=== PATIENT | female | born 1955 | race Asian ===

== ENCOUNTER → 2023-04-30 16:55 | Outpatient (REF) | payer MEDICARE, SELFPAY ==
[2023-04-30 17:38] LABS: Blood Urea Nitrogen 50 mg/dl (7-17); Calcium 8.9 mg/dl (8.4-10.2); Carbon Dioxide 22 mmol/L (22-30); Chloride 107 mmol/L (98-107); Glucose 106 mg/dl (70-99); Potassium 4.6 mmol/L (3.5-5.1); Sodium 137 mmol/L (135-145); eGFR 30.69
== END ==
LOC: REG 16:55
PROVIDERS: ATTENDING PHYSICIAN Family Medicine
DX: N18.31 Chronic kidney disease, stage 3a (principal)
CPT/HCPCS: 36415; 80048

== ENCOUNTER → 2023-06-27 15:11 | Outpatient (REF) | payer MEDICARE, SELFPAY ==
[2023-06-27 16:17] LABS: % Basophils 0.6 % (0-2); % Eosinophils 2.9 % (0-6); % Immature Granulocytes 0.3 % (0-0.5); % Lymphocytes 22.9 % (20.5-51.1); % Monocytes 9.3 % (1.7-9.3); Absolute Eosinophils 0.2 10^3/uL (0-0.7); Absolute Lymphocytes 1.6 10^3/uL (1.2-3.4); Absolute Monocytes 0.7 10^3/uL (0.1-0.6); Absolute Neutrophils 4.6 10^3/uL (1.4-6.5); Hematocrit 36.4 % (37.0-47.0); Hemoglobin 12.1 g/dL (12.0-16.0); Mean Corp Hgb Conc. 33.2 g/dL (33.0-37.0); Mean Corpuscular Volume 90.1 fL (81.0-99.0); Mean Platelet Volume 11.2 fL (7.4-10.4); Nucleated Red Blood Cells % 0 %; Platelet Count 196 10^3/uL (130-400); Red Blood Cell Count 4.04 10^6/uL (4.20-5.40); Red Cell Dist. Width 14.1 % (11.5-14.5); White Blood Cell Count 7.2 10^3/uL (4.8-10.8)
[2023-06-27 16:35] LABS: ALT (SGPT) 15 U/L (0-35); AST (SGOT) 24 U/L (14-36); Albumin 3.6 g/dl (3.5-5.0); Alkaline Phosphatase 112 U/L (38-126); Blood Urea Nitrogen 55 mg/dl (7-17); Calcium 9.5 mg/dl (8.4-10.2); Carbon Dioxide 22 mmol/L (22-30); Chloride 112 mmol/L (98-107); Glucose 79 mg/dl (70-99); Potassium 5.4 mmol/L (3.5-5.1); Sodium 137 mmol/L (135-145); Total Bilirubin 0.2 mg/dl (0.2-1.3); Total Protein 7.5 g/dl (6.3-8.2); eGFR 30.69
[2023-06-29 15:09] LABS: Tacrolimus (Prograft - FK506) 4.9 ng/mL
== END ==
LOC: REG 15:11
PROVIDERS: ATTENDING PHYSICIAN Internal Medicine Nephrology; FAMILY PHYSICIAN Family Medicine
DX: Z94.0 Kidney transplant status (principal)
CPT/HCPCS: 36415; 80053; 80197; 85025

== ENCOUNTER → 2023-07-05 18:04 | Outpatient (REF) | payer MEDICARE, SELFPAY | LOC: RAD 18:04 | PROVIDERS: ATTENDING PHYSICIAN Physician Assistant Medical | DX: J40 Bronchitis, not specified as acute or chronic (principal); Z79.899 Other long term (current) drug therapy; Z94.0 Kidney transplant status | CPT/HCPCS: 71046 ==

== ENCOUNTER → 2023-07-09 07:35 | Outpatient (REF) | payer MEDICARE, SELFPAY | LOC: RAD 07:35 | PROVIDERS: ATTENDING PHYSICIAN Physician Assistant Medical | DX: R91.1 Solitary pulmonary nodule (principal) | CPT/HCPCS: 71250 ==

== ENCOUNTER 2023-07-30 16:39 | Emergency (ER) | payer OTHER, SELFPAY ==
[2023-07-30 16:59] VITALS: BP 139/65
--- NOTE | 2023-07-30 18:21 | ED.MUSCINJ ---
HPI-Injury
General
Chief Complaint: Musculo-Skeletal Complaint
Source: patient
Exam Limitations: none
Time Seen by Provider: 07/30/23 18:06
Travel History
Have you had any contact with someone who has COVID-19?: No
Do you have any symptoms of coronavirus? Fever > 100 degrees, chills, cough, shortness of breath, sore throat, loss of taste or smell, muscle aches, or headache?: No
History of Present Illness-Injury
Initial Injury comments:
67-year-old female presents with sudden onset atraumatic pain to the right midfoot starting 2 days ago. She notes a subtle amount of erythema. The pain is made worse with motion and to the touch. No fevers. She is a kidney transplant patient.
She also has a history of coronary artery disease with multiple stents. She is on Plavix. No other complaints at this time
Past History
Past History
ED Past Medical History: CAD, HTN and Other (kidney transplant)
ED Past Surgical History: Other (renal transplant)
Patient has exhibited threatening behavior?: No
PSI?: No
Social History
Tobacco: Non-smoker
Personal:
Living: with family
Phy Exam
Physical Exam
Physical Exam:
General: Well-appearing female no acute respiratory distress
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 There is subtle amount of soft tissue swelling with overlying erythema no lymphangitic streaking
Vascular: 2+ dorsalis pedis pulse left foot
Neurologic: Good sensation left foot
Injury Course
Orders/Labs/Results
Orders:
Orders
07/30/23 17:03
Foot, Left 3 View [CR Foot - Left Min 3 Views] Urgent
Comment:
Reason For Exam: left foot pain and swelling denies injury
MDM/Problems Addressed
Differential Diagnosis Includes:
Left foot pain. Fracture versus dislocation versus sprain versus arthritis such as gout I personally visualized x-rays which are negative for acute finding. Offered patient postoperative shoe for support however she declined. Suspect underlying
gouty arthritis. Do not infectious process. Patient is on prednisone 5 mg daily. Will increase to 20 mg daily for 4 days and have her follow-up with family doctor. Return precautions were given
*Critical Care Note
Total Time (30-74mins, 75-104mins- exclusive of procedures): Not Applicable
ED Attending Note
-
Portions of this chart may have been created with voice recognition software.� Occasional wrong word or��sound alike� substitutions may have occurred due to the inherent limitations of voice recognition software.
Discharge Plan
Departure
Patient Disposition: Home (Routine Discharge)
Date of Disposition: 07/30/23
Time of Disposition: 18:23
Patient with high blood pressure during this ER visit?: No
Discharge Problem:
Foot pain
Instructions: Muscle and Bone Pain (DC)
Prescriptions:
No Action
prednisone 5 MG tablet
5 mg PO HS
nifedipine 30 MG tablet extended release
30 mg PO BID
tacrolimus [Prograf] 1 mg Capsule
1 mg PO Q12H
albuterol sulfate 2.5 mg /3 mL (0.083 %) solution for nebulization
2.5 mg inhalation R Q6 PRN (Reason: sob/wheezing)
albuterol sulfate 90 mcg/actuation HFA aerosol inhaler
2 puff INHALATION R Q4 PRN (Reason: sob/wheezing)
atenolol 50 mg tablet
50 mg PO DAILY
clopidogrel 75 MG tablet
75 mg PO DAILY
hydralazine 10 mg Tablet
5 mg PO TID Qty: 90 0RF
sodium bicarbonate 650 mg tablet
650 mg PO DAILY Qty: 30 0RF
torsemide 5 mg tablet
10 mg PO DAILY Qty: 60 0RF
Activity Restrictions/Additional Instructions:
Increase her prednisone to 20 mg daily for the next 4 days. Follow-up with your family doctor. Return if needed otherwise
Interventions
Interventions:
*ED COVID-19 Vaccine History Last Done: 07/30/23 16:59
Discharge Date and Time
Print Language: UKRAINIAN
== END 2023-07-30 18:46 | disposition home or self-care (01) ==
LOC: EMR 16:39
PROVIDERS: EMERGENCY PHYSICIAN Emergency Medicine; FAMILY PHYSICIAN Family Medicine
DX: M79.672 Pain in left foot (principal); Z79.02 Long term (current) use of antithrombotics/antiplatelets; Z95.5 Presence of coronary angioplasty implant and graft
CPT/HCPCS: 99283; 73630

== ENCOUNTER → 2023-09-12 08:14 | Outpatient (REF) | payer OTHER, SELFPAY ==
[2023-09-12 09:00] LABS: % Basophils 0.2 % (0-2); % Eosinophils 0.1 % (0-6); % Immature Granulocytes 0.3 % (0-0.5); % Lymphocytes 16.2 % (20.5-51.1); % Monocytes 7.9 % (1.7-9.3); % Neutrophils 75.3 % (42.2-75.2); Absolute Lymphocytes 1.8 10^3/uL (1.2-3.4); Absolute Monocytes 0.9 10^3/uL (0.1-0.6); Absolute Neutrophils 8.4 10^3/uL (1.4-6.5); Hematocrit 34.5 % (37.0-47.0); Hemoglobin 11.1 g/dL (12.0-16.0); Mean Corp Hgb Conc. 32.2 g/dL (33.0-37.0); Mean Corpuscular Hgb 29.1 pg (27.0-31.0); Mean Corpuscular Volume 90.6 fL (81.0-99.0); Nucleated Red Blood Cells % 0 %; Platelet Count 194 10^3/uL (130-400); Red Blood Cell Count 3.81 10^6/uL (4.20-5.40); Red Cell Dist. Width 12.5 % (11.5-14.5); White Blood Cell Count 11.2 10^3/uL (4.8-10.8)
[2023-09-12 09:43] LABS: ALT (SGPT) 12 U/L (0-35); AST (SGOT) 21 U/L (14-36); Albumin 3.9 g/dl (3.5-5.0); Alkaline Phosphatase 104 U/L (38-126); Blood Urea Nitrogen 59 mg/dl (7-17); Carbon Dioxide 18 mmol/L (22-30); Chloride 114 mmol/L (98-107); Glucose 102 mg/dl (70-99); Potassium 5.6 mmol/L (3.5-5.1); Sodium 142 mmol/L (135-145); Total Bilirubin 0.3 mg/dl (0.2-1.3); eGFR 24.12
[2023-09-12 11:14] LABS: Uric Acid 9.1 mg/dl (2.5-6.2)
[2023-09-12 11:36] LABS: Urine Protein 430 mg/dl
[2023-09-13 22:28] LABS: Tacrolimus (Prograft - FK506) 16.6 ng/mL
== END ==
LOC: REG 08:14
PROVIDERS: ATTENDING PHYSICIAN Internal Medicine Nephrology; FAMILY PHYSICIAN Family Medicine; REFERRING PHYSICIAN Internal Medicine Cardiovascular Disease
DX: Z94.0 Kidney transplant status (principal)
CPT/HCPCS: 36415; 80053; 80197; 82570; 84156; 84550; 85025

== ENCOUNTER → 2023-09-15 10:04 | Outpatient (REF) | payer OTHER, SELFPAY ==
[2023-09-15 11:21] LABS: Erythrocyte Sed Rate 71 mm/hour (0-20)
== END ==
LOC: REG 10:04
PROVIDERS: ATTENDING PHYSICIAN Family Medicine
DX: R51.9 Headache, unspecified (principal)
CPT/HCPCS: 36415; 85652; 86140

== ENCOUNTER → 2023-12-14 10:47 | Outpatient (REF) | payer OTHER, SELFPAY | LOC: DHSLP 10:47 | PROVIDERS: ATTENDING PHYSICIAN Internal Medicine; FAMILY PHYSICIAN Family Medicine | DX: G47.33 Obstructive sleep apnea (adult) (pediatric) (principal) | CPT/HCPCS: 95800 ==

== ENCOUNTER → 2023-12-14 17:25 | Outpatient (REF) | payer OTHER, SELFPAY ==
[2023-12-14 18:27] LABS: ALT (SGPT) 13 U/L (0-35); AST (SGOT) 20 U/L (14-36); Albumin 3.7 g/dl (3.5-5.0); Alkaline Phosphatase 109 U/L (38-126); Blood Urea Nitrogen 59 mg/dl (7-17); Calcium 9.4 mg/dl (8.4-10.2); Carbon Dioxide 17 mmol/L (22-30); Chloride 112 mmol/L (98-107); Glucose 191 mg/dl (70-99); Potassium 4.9 mmol/L (3.5-5.1); Sodium 142 mmol/L (135-145); Total Bilirubin < 0.1 mg/dl (0.2-1.3); Total Protein 7.4 g/dl (6.3-8.2); Uric Acid 9.5 mg/dl (2.5-6.2); eGFR 26.88
[2023-12-14 18:30] LABS: % Basophils 0.8 % (0-2); % Eosinophils 4.7 % (0-6); % Immature Granulocytes 0.5 % (0-0.5); % Lymphocytes 19.4 % (20.5-51.1); % Monocytes 6.8 % (1.7-9.3); % Neutrophils 67.8 % (42.2-75.2); Absolute Basophils 0.1 10^3/uL (0-0.2); Absolute Eosinophils 0.4 10^3/uL (0-0.7); Absolute Lymphocytes 1.5 10^3/uL (1.2-3.4); Absolute Monocytes 0.5 10^3/uL (0.1-0.6); Absolute Neutrophils 5.3 10^3/uL (1.4-6.5); Hematocrit 33.2 % (37.0-47.0); Mean Corp Hgb Conc. 33.1 g/dL (33.0-37.0); Mean Corpuscular Hgb 28.8 pg (27.0-31.0); Mean Corpuscular Volume 86.9 fL (81.0-99.0); Mean Platelet Volume 9.9 fL (7.4-10.4); Nucleated Red Blood Cells % 0 %; Platelet Count 279 10^3/uL (130-400); Red Blood Cell Count 3.82 10^6/uL (4.20-5.40); Red Cell Dist. Width 13.5 % (11.5-14.5); White Blood Cell Count 7.8 10^3/uL (4.8-10.8)
[2023-12-14 18:48] LABS: Protein/creatinine Ratio 6.3; Urine Protein 259 mg/dl
== END ==
LOC: REG 17:25
PROVIDERS: ATTENDING PHYSICIAN Internal Medicine Nephrology; FAMILY PHYSICIAN Family Medicine
DX: Z94.0 Kidney transplant status (principal); M10.9 Gout, unspecified
CPT/HCPCS: 36415; 80053; 80197; 82570; 84156; 84550; 85025

== ENCOUNTER → 2024-01-22 08:09 | Outpatient (REF) | payer OTHER, SELFPAY ==
[2024-01-22 09:46] LABS: % Basophils 0.7 % (0-2); % Immature Granulocytes 0.3 % (0-0.5); % Lymphocytes 21.2 % (20.5-51.1); % Monocytes 3.4 % (1.7-9.3); % Neutrophils 73.4 % (42.2-75.2); Absolute Basophils 0.1 10^3/uL (0-0.2); Absolute Eosinophils 0.1 10^3/uL (0-0.7); Absolute Lymphocytes 1.4 10^3/uL (1.2-3.4); Absolute Monocytes 0.2 10^3/uL (0.1-0.6); Hematocrit 32.4 % (37.0-47.0); Hemoglobin 10.5 g/dL (12.0-16.0); Mean Corp Hgb Conc. 32.4 g/dL (33.0-37.0); Mean Corpuscular Hgb 28.5 pg (27.0-31.0); Mean Platelet Volume 10.3 fL (7.4-10.4); Nucleated Red Blood Cells % 0 %; Platelet Count 212 10^3/uL (130-400); Red Blood Cell Count 3.68 10^6/uL (4.20-5.40); Red Cell Dist. Width 13.6 % (11.5-14.5); White Blood Cell Count 6.8 10^3/uL (4.8-10.8)
[2024-01-22 10:49] LABS: Vitamin D, 25-OH*** 18.9 ng/mL (30-80)
[2024-01-22 10:59] LABS: ALT (SGPT) 16 U/L (0-35); AST (SGOT) 22 U/L (14-36); Albumin 3.9 g/dl (3.5-5.0); Alkaline Phosphatase 107 U/L (38-126); Blood Urea Nitrogen 63 mg/dl (7-17); Calcium 9.6 mg/dl (8.4-10.2); Carbon Dioxide 15 mmol/L (22-30); Chloride 115 mmol/L (98-107); Glucose 117 mg/dl (70-99); Magnesium 2.1 mg/dl (1.6-2.3); Phosphorus 4.7 mg/dl (2.5-4.5); Potassium 6.2 mmol/L (3.5-5.1); Sodium 146 mmol/L (135-145); Total Bilirubin 0.2 mg/dl (0.2-1.3); Total Protein 7.5 g/dl (6.3-8.2); eGFR 25.35
[2024-01-22 11:02] LABS: TSH Reflex To Free T4 0.45 uIU/ml (0.47-4.68)
[2024-01-22 11:22] LABS: Vitamin B12 741 pg/ml (239-931)
== END ==
LOC: REG 08:09
PROVIDERS: ATTENDING PHYSICIAN Family Medicine
DX: N18.4 Chronic kidney disease, stage 4 (severe) (principal); R79.9 Abnormal finding of blood chemistry, unspecified; Z01.89 Encounter for other specified special examinations; Z79.899 Other long term (current) drug therapy; N25.81 Secondary hyperparathyroidism of renal origin; M54.2 Cervicalgia; M25.519 Pain in unspecified shoulder
CPT/HCPCS: 36415; 72050; 80053; 82306; 82607; 83735; 84100; 84439; 84443; 85025

== ENCOUNTER → 2024-01-28 08:30 | Outpatient (REF) | payer OTHER, SELFPAY ==
[2024-01-28 10:39] LABS: Blood Urea Nitrogen 64 mg/dl (7-17); Calcium 9.4 mg/dl (8.4-10.2); Carbon Dioxide 15 mmol/L (22-30); Chloride 116 mmol/L (98-107); Glucose 124 mg/dl (70-99); Potassium 4.9 mmol/L (3.5-5.1); Sodium 146 mmol/L (135-145); eGFR 25.35
== END ==
LOC: REG 08:30
PROVIDERS: ATTENDING PHYSICIAN Internal Medicine Cardiovascular Disease; FAMILY PHYSICIAN Family Medicine
DX: E87.5 Hyperkalemia (principal)
CPT/HCPCS: 36415; 80048

== ENCOUNTER 2024-02-07 06:32 | Outpatient (RCR) | payer OTHER, SELFPAY | END 2024-02-07 23:59 | disposition home or self-care (01) | LOC: RPT 06:32 | PROVIDERS: ATTENDING PHYSICIAN Family Medicine | DX: M54.2 Cervicalgia (principal); M25.512 Pain in left shoulder; Z73.6 Limitation of activities due to disability; M62.81 Muscle weakness (generalized) | CPT/HCPCS: 97012; 97110; 97140; 97162; 97535 ==

== ENCOUNTER → 2024-02-12 13:16 | Outpatient (REF) | payer OTHER, SELFPAY ==
[2024-02-12 14:18] LABS: Blood Urea Nitrogen 57 mg/dl (7-17); Calcium 9.4 mg/dl (8.4-10.2); Carbon Dioxide 25 mmol/L (22-30); Chloride 107 mmol/L (98-107); Glucose 119 mg/dl (70-99); Potassium 5.5 mmol/L (3.5-5.1); Sodium 142 mmol/L (135-145); eGFR 23.97
== END ==
LOC: REG 13:16
PROVIDERS: ATTENDING PHYSICIAN Internal Medicine Cardiovascular Disease
DX: I10 Essential (primary) hypertension (principal)
CPT/HCPCS: 36415; 80048

== ENCOUNTER 2024-02-13 10:21 | Outpatient (RCR) | payer OTHER, SELFPAY | END 2024-02-13 23:59 | disposition home or self-care (01) | LOC: PURB 10:21 | PROVIDERS: ATTENDING PHYSICIAN Internal Medicine; FAMILY PHYSICIAN Family Medicine | DX: J44.9 Chronic obstructive pulmonary disease, unspecified (principal) | CPT/HCPCS: G0237 ==

== ENCOUNTER 2024-03-04 14:45 | Outpatient (RCR) | payer OTHER, SELFPAY | END 2024-03-04 23:59 | disposition home or self-care (01) | LOC: PURB 14:45 | PROVIDERS: ATTENDING PHYSICIAN Internal Medicine; FAMILY PHYSICIAN Family Medicine | DX: J44.9 Chronic obstructive pulmonary disease, unspecified (principal) | CPT/HCPCS: 94625 ==

== ENCOUNTER → 2024-03-14 09:20 | Outpatient (REF) | payer OTHER, SELFPAY ==
[2024-03-14 10:10] LABS: % Basophils 0.7 % (0-2); % Immature Granulocytes 0.3 % (0-0.5); % Lymphocytes 18.2 % (20.5-51.1); % Monocytes 4.3 % (1.7-9.3); % Neutrophils 75.5 % (42.2-75.2); Absolute Eosinophils 0.1 10^3/uL (0-0.7); Absolute Lymphocytes 1.1 10^3/uL (1.2-3.4); Absolute Monocytes 0.3 10^3/uL (0.1-0.6); Absolute Neutrophils 4.6 10^3/uL (1.4-6.5); Hematocrit 34.1 % (37.0-47.0); Mean Corp Hgb Conc. 32.3 g/dL (33.0-37.0); Mean Corpuscular Hgb 28.9 pg (27.0-31.0); Mean Corpuscular Volume 89.7 fL (81.0-99.0); Mean Platelet Volume 10.3 fL (7.4-10.4); Nucleated Red Blood Cells % 0 %; Platelet Count 218 10^3/uL (130-400); Red Cell Dist. Width 13.9 % (11.5-14.5); White Blood Cell Count 6.1 10^3/uL (4.8-10.8)
[2024-03-14 10:34] LABS: ALT (SGPT) 15 U/L (0-35); AST (SGOT) 24 U/L (14-36); Albumin 3.6 g/dl (3.5-5.0); Alkaline Phosphatase 100 U/L (38-126); Blood Urea Nitrogen 50 mg/dl (7-17); Calcium 9.6 mg/dl (8.4-10.2); Carbon Dioxide 22 mmol/L (22-30); Chloride 114 mmol/L (98-107); Glucose 128 mg/dl (70-99); Potassium 5.4 mmol/L (3.5-5.1); Sodium 143 mmol/L (135-145); Total Bilirubin 0.2 mg/dl (0.2-1.3); Total Protein 7.1 g/dl (6.3-8.2); eGFR 22.73
[2024-03-15 11:35] LABS: Tacrolimus (Prograft - FK506) 4.1 ng/mL
== END ==
LOC: REG 09:20
PROVIDERS: ATTENDING PHYSICIAN Internal Medicine Nephrology; FAMILY PHYSICIAN Family Medicine
DX: Z94.0 Kidney transplant status (principal)
CPT/HCPCS: 36415; 80053; 80197; 85025

== ENCOUNTER → 2024-04-17 14:57 | Outpatient (REF) | payer OTHER, SELFPAY | LOC: RCS 14:57 | PROVIDERS: ATTENDING PHYSICIAN Physician Assistant; FAMILY PHYSICIAN Family Medicine | DX: I25.10 Atherosclerotic heart disease of native coronary artery without angina pectoris (principal); Z94.0 Kidney transplant status; R01.1 Cardiac murmur, unspecified; I50.32 Chronic diastolic (congestive) heart failure | CPT/HCPCS: 93306 ==

== ENCOUNTER → 2024-06-18 09:12 | Outpatient (REF) | payer OTHER, SELFPAY ==
[2024-06-18 11:44] LABS: ALT (SGPT) 17 U/L (0-35); AST (SGOT) 26 U/L (14-36); Albumin 3.4 g/dl (3.5-5.0); Alkaline Phosphatase 118 U/L (38-126); Blood Urea Nitrogen 48 mg/dl (7-17); Calcium 9.4 mg/dl (8.4-10.2); Carbon Dioxide 22 mmol/L (22-30); Chloride 117 mmol/L (98-107); Glucose 107 mg/dl (70-99); Potassium 5.2 mmol/L (3.5-5.1); Sodium 146 mmol/L (135-145); Total Bilirubin 0.3 mg/dl (0.2-1.3); Total Protein 6.9 g/dl (6.3-8.2); eGFR 20.56
[2024-06-20 03:23] LABS: Tacrolimus (Prograft - FK506) 2.8 ng/mL
== END ==
LOC: REG 09:12
PROVIDERS: ATTENDING PHYSICIAN Internal Medicine Nephrology; FAMILY PHYSICIAN Family Medicine
DX: Z94.0 Kidney transplant status (principal)
CPT/HCPCS: 36415; 80053; 80197

== ENCOUNTER → 2024-06-19 08:40 | Outpatient (REF) | payer OTHER, SELFPAY ==
[2024-06-19 09:56] LABS: % Basophils 0.3 % (0-2); % Eosinophils 0.8 % (0-6); % Immature Granulocytes 0.3 % (0-0.5); % Lymphocytes 13.8 % (20.5-51.1); % Monocytes 4.4 % (1.7-9.3); % Neutrophils 80.4 % (42.2-75.2); Absolute Eosinophils 0.1 10^3/uL (0-0.7); Absolute Lymphocytes 1.2 10^3/uL (1.2-3.4); Absolute Monocytes 0.4 10^3/uL (0.1-0.6); Hematocrit 34.3 % (37.0-47.0); Hemoglobin 11.3 g/dL (12.0-16.0); Mean Corp Hgb Conc. 32.9 g/dL (33.0-37.0); Mean Corpuscular Hgb 29.4 pg (27.0-31.0); Mean Corpuscular Volume 89.1 fL (81.0-99.0); Mean Platelet Volume 10.4 fL (7.4-10.4); Nucleated Red Blood Cells % 0 %; Platelet Count 208 10^3/uL (130-400); Red Blood Cell Count 3.85 10^6/uL (4.20-5.40); Red Cell Dist. Width 13.6 % (11.5-14.5); White Blood Cell Count 8.7 10^3/uL (4.8-10.8)
[2024-06-19 10:39] LABS: ALT (SGPT) 18 U/L (0-35); AST (SGOT) 24 U/L (14-36); Alkaline Phosphatase 110 U/L (38-126); Blood Urea Nitrogen 51 mg/dl (7-17); Calcium 9.3 mg/dl (8.4-10.2); Carbon Dioxide 22 mmol/L (22-30); Chloride 116 mmol/L (98-107); Glucose 128 mg/dl (70-99); Potassium 5.3 mmol/L (3.5-5.1); Sodium 144 mmol/L (135-145); Total Bilirubin 0.3 mg/dl (0.2-1.3); Total Protein 6.4 g/dl (6.3-8.2); eGFR 19.62
[2024-06-19 12:34] LABS: Protein/creatinine Ratio 19.6; Urine Protein 1274 mg/dl
[2024-06-21 17:12] LABS: Tacrolimus (Prograft - FK506) 2.9 ng/mL
== END ==
LOC: REG 08:40
PROVIDERS: ATTENDING PHYSICIAN Internal Medicine Nephrology; FAMILY PHYSICIAN Family Medicine
DX: M10.9 Gout, unspecified (principal); Z94.0 Kidney transplant status
CPT/HCPCS: 36415; 80053; 80197; 82570; 84156; 84550; 85025

== ENCOUNTER → 2024-07-23 10:18 | Outpatient (REF) | payer OTHER, SELFPAY ==
[2024-07-23 12:25] LABS: % Basophils 0.4 % (0-2); % Eosinophils 0.6 % (0-6); % Immature Granulocytes 0.4 % (0-0.5); % Lymphocytes 15.9 % (20.5-51.1); % Monocytes 4.1 % (1.7-9.3); % Neutrophils 78.6 % (42.2-75.2); Absolute Eosinophils 0.1 10^3/uL (0-0.7); Absolute Lymphocytes 1.3 10^3/uL (1.2-3.4); Absolute Monocytes 0.3 10^3/uL (0.1-0.6); Absolute Neutrophils 6.3 10^3/uL (1.4-6.5); Hematocrit 32.1 % (37.0-47.0); Hemoglobin 10.7 g/dL (12.0-16.0); Mean Corp Hgb Conc. 33.3 g/dL (33.0-37.0); Mean Corpuscular Hgb 29.4 pg (27.0-31.0); Mean Corpuscular Volume 88.2 fL (81.0-99.0); Mean Platelet Volume 10.6 fL (7.4-10.4); Nucleated Red Blood Cells % 0 %; Platelet Count 216 10^3/uL (130-400); Red Blood Cell Count 3.64 10^6/uL (4.20-5.40)
[2024-07-23 12:53] LABS: ALT (SGPT) 14 U/L (0-35); AST (SGOT) 19 U/L (14-36); Albumin 3.1 g/dl (3.5-5.0); Alkaline Phosphatase 99 U/L (38-126); Blood Urea Nitrogen 55 mg/dl (7-17); Calcium 9.2 mg/dl (8.4-10.2); Carbon Dioxide 24 mmol/L (22-30); Chloride 112 mmol/L (98-107); Glucose 112 mg/dl (70-99); Potassium 5.6 mmol/L (3.5-5.1); Sodium 142 mmol/L (135-145); Total Bilirubin 0.3 mg/dl (0.2-1.3); Total Protein 6.4 g/dl (6.3-8.2); eGFR 19.62
== END ==
LOC: REG 10:18
PROVIDERS: ATTENDING PHYSICIAN Internal Medicine Nephrology; FAMILY PHYSICIAN Family Medicine
DX: Z94.0 Kidney transplant status (principal)
CPT/HCPCS: 36415; 80053; 80197; 85025

== ENCOUNTER → 2024-08-06 12:24 | Outpatient (REF) | payer OTHER, SELFPAY ==
[2024-08-06 13:15] LABS: % Basophils 0.4 % (0-2); % Eosinophils 1.3 % (0-6); % Immature Granulocytes 0.7 % (0-0.5); % Lymphocytes 15.8 % (20.5-51.1); % Monocytes 6.4 % (1.7-9.3); % Neutrophils 75.4 % (42.2-75.2); Absolute Eosinophils 0.1 10^3/uL (0-0.7); Absolute Immature Granulocytes 0.1 10^3/uL (0-0.05); Absolute Lymphocytes 1.1 10^3/uL (1.2-3.4); Absolute Monocytes 0.5 10^3/uL (0.1-0.6); Absolute Neutrophils 5.4 10^3/uL (1.4-6.5); Hematocrit 32.4 % (37.0-47.0); Hemoglobin 11.1 g/dL (12.0-16.0); Mean Corp Hgb Conc. 34.3 g/dL (33.0-37.0); Mean Corpuscular Hgb 29.8 pg (27.0-31.0); Mean Corpuscular Volume 86.9 fL (81.0-99.0); Mean Platelet Volume 10.5 fL (7.4-10.4); Nucleated Red Blood Cells % 0 %; Platelet Count 202 10^3/uL (130-400); Red Blood Cell Count 3.73 10^6/uL (4.20-5.40); Red Cell Dist. Width 13.4 % (11.5-14.5); White Blood Cell Count 7.2 10^3/uL (4.8-10.8)
[2024-08-06 13:52] LABS: ALT (SGPT) 16 U/L (0-35); AST (SGOT) 21 U/L (14-36); Albumin 3.6 g/dl (3.5-5.0); Alkaline Phosphatase 104 U/L (38-126); Blood Urea Nitrogen 67 mg/dl (7-17); Calcium 9.4 mg/dl (8.4-10.2); Carbon Dioxide 24 mmol/L (22-30); Chloride 110 mmol/L (98-107); Glucose 213 mg/dl (70-99); Potassium 4.5 mmol/L (3.5-5.1); Sodium 140 mmol/L (135-145); Total Bilirubin 0.2 mg/dl (0.2-1.3); Total Protein 7.2 g/dl (6.3-8.2)
[2024-08-06 15:00] LABS: Urine Protein 835 mg/dl
[2024-08-09 03:44] LABS: Tacrolimus (Prograft - FK506) 8.7 ng/mL
== END ==
LOC: REG 12:24
PROVIDERS: ATTENDING PHYSICIAN Internal Medicine Nephrology; FAMILY PHYSICIAN Family Medicine
DX: Z94.0 Kidney transplant status (principal)
CPT/HCPCS: 36415; 80053; 80197; 82570; 84156; 85025

== ENCOUNTER → 2024-09-22 11:00 | Outpatient (REF) | payer OTHER, SELFPAY ==
[2024-09-22 12:18] LABS: Hematocrit 28.9 % (37.0-47.0); Hemoglobin 9.8 g/dL (12.0-16.0); Mean Corp Hgb Conc. 33.9 g/dL (33.0-37.0); Mean Corpuscular Volume 86.3 fL (81.0-99.0); Nucleated Red Blood Cells % 0 %; Platelet Count 201 10^3/uL (130-400); Red Cell Dist. Width 13.3 % (11.5-14.5)
[2024-09-22 13:52] LABS: ALT (SGPT) 16 U/L (0-35); AST (SGOT) 20 U/L (14-36); Albumin 3.3 g/dl (3.5-5.0); Alkaline Phosphatase 89 U/L (38-126); Blood Urea Nitrogen 78 mg/dl (7-17); Calcium 9.0 mg/dl (8.4-10.2); Carbon Dioxide 22 mmol/L (22-30); Chloride 111 mmol/L (98-107); Glucose 246 mg/dl (70-99); Potassium 4.4 mmol/L (3.5-5.1); Sodium 137 mmol/L (135-145); Total Protein 6.8 g/dl (6.3-8.2); eGFR 17.21
[2024-09-25 19:41] LABS: Tacrolimus (Prograft - FK506) 5.7 ng/mL
== END ==
LOC: REG 11:00
PROVIDERS: ATTENDING PHYSICIAN Internal Medicine Nephrology; FAMILY PHYSICIAN Specialist; REFERRING PHYSICIAN Family Medicine
DX: Z94.0 Kidney transplant status (principal); R80.9 Proteinuria, unspecified
CPT/HCPCS: 36415; 80053; 80197; 83970; 84100; 85025

== ENCOUNTER → 2024-10-02 13:25 | Outpatient (REF) | payer OTHER, SELFPAY ==
[2024-10-02 14:18] LABS: Albumin 3.4 g/dl (3.5-5.0); Blood Urea Nitrogen 61 mg/dl (7-17); Calcium 8.8 mg/dl (8.4-10.2); Carbon Dioxide 22 mmol/L (22-30); Chloride 113 mmol/L (98-107); Glucose 143 mg/dl (70-99); Potassium 5.0 mmol/L (3.5-5.1); Sodium 138 mmol/L (135-145); eGFR 15.88
== END ==
LOC: REG 13:25
PROVIDERS: ATTENDING PHYSICIAN Specialist
DX: Z94.0 Kidney transplant status (principal); I10 Essential (primary) hypertension; N02.8 Recurrent and persistent hematuria with other morphologic changes
CPT/HCPCS: 36415; 80069

== ENCOUNTER → 2024-10-22 14:06 | Outpatient (REF) | payer OTHER, SELFPAY | LOC: RAD 14:06 | PROVIDERS: ATTENDING PHYSICIAN Specialist; FAMILY PHYSICIAN Family Medicine | DX: Z94.0 Kidney transplant status (principal); N18.4 Chronic kidney disease, stage 4 (severe); R80.9 Proteinuria, unspecified | CPT/HCPCS: 76776 ==

== ENCOUNTER → 2024-10-24 12:31 | Outpatient (REF) | payer OTHER, SELFPAY ==
[2024-10-24 13:17] LABS: Hematocrit 27.0 % (37.0-47.0); Hemoglobin 9.2 g/dL (12.0-16.0); Mean Corp Hgb Conc. 34.1 g/dL (33.0-37.0); Mean Corpuscular Volume 87.1 fL (81.0-99.0); Nucleated Red Blood Cells % 0 %; Platelet Count 176 10^3/uL (130-400); Red Cell Dist. Width 14.2 % (11.5-14.5)
[2024-10-24 13:37] LABS: Urine Character Clear (Clear)
[2024-10-24 13:48] LABS: Urine Red Blood Cell 0-2 /HPF (0-2); Urine Squamous Cell 0-2 /LPF (Few)
[2024-10-24 14:25] LABS: ALT (SGPT) 13 U/L (0-35); AST (SGOT) 19 U/L (14-36); Albumin 3.0 g/dl (3.5-5.0); Alkaline Phosphatase 100 U/L (38-126); Blood Urea Nitrogen 58 mg/dl (7-17); Calcium 8.6 mg/dl (8.4-10.2); Carbon Dioxide 21 mmol/L (22-30); Chloride 116 mmol/L (98-107); Glucose 200 mg/dl (70-99); Magnesium 2.3 mg/dl (1.6-2.3); Potassium 5.1 mmol/L (3.5-5.1); Sodium 141 mmol/L (135-145); Total Protein 6.1 g/dl (6.3-8.2); eGFR 17.84
== END ==
LOC: REG 12:31
PROVIDERS: ATTENDING PHYSICIAN Specialist; FAMILY PHYSICIAN Family Medicine
DX: Z94.0 Kidney transplant status (principal); N18.4 Chronic kidney disease, stage 4 (severe); E78.2 Mixed hyperlipidemia; I10 Essential (primary) hypertension; I13.0 Hypertensive heart and chronic kidney disease with heart failure and stage 1 through stage 4 chronic kidney disease, or unspecified chronic kidney disease
CPT/HCPCS: 36415; 80053; 80197; 81003; 81015; 82570; 83735; 84100; 84156; 85025

== ENCOUNTER → 2024-11-14 09:50 | Outpatient (REF) | payer OTHER, SELFPAY ==
[2024-11-14 11:31] LABS: ALT (SGPT) 13 U/L (0-35); AST (SGOT) 20 U/L (14-36); Albumin 3.0 g/dl (3.5-5.0); Alkaline Phosphatase 76 U/L (38-126); Blood Urea Nitrogen 54 mg/dl (7-17); Calcium 8.4 mg/dl (8.4-10.2); Carbon Dioxide 21 mmol/L (22-30); Chloride 115 mmol/L (98-107); Glucose 167 mg/dl (70-99); Potassium 5.8 mmol/L (3.5-5.1); Sodium 140 mmol/L (135-145); Total Protein 6.6 g/dl (6.3-8.2); eGFR 17.84
[2024-11-14 14:07] LABS: Hematocrit 28.1 % (37.0-47.0); Hemoglobin 9.0 g/dL (12.0-16.0); Mean Corp Hgb Conc. 32.0 g/dL (33.0-37.0); Mean Corpuscular Volume 86.2 fL (81.0-99.0); Nucleated Red Blood Cells % 0 %; Platelet Count 262 10^3/uL (130-400); Red Cell Dist. Width 13.7 % (11.5-14.5)
[2024-11-16 19:44] LABS: Tacrolimus (Prograft - FK506) 5.2 ng/mL
== END ==
LOC: REG 09:50
PROVIDERS: ATTENDING PHYSICIAN Internal Medicine Nephrology; FAMILY PHYSICIAN Family Medicine; OTHER PHYSICIAN Specialist
DX: Z94.0 Kidney transplant status (principal)
CPT/HCPCS: 36415; 80053; 80197; 85025

== ENCOUNTER 2024-11-25 16:42 | Inpatient (IN) | payer OTHER, SELFPAY ==
[2024-11-25] VITALS (7 sets, daily range): BP systolic 148–197; BP diastolic 71–92
[2024-11-25 12:32] LABS: Hematocrit 25.5 % (37.0-47.0); Hemoglobin 8.1 g/dL (12.0-16.0); Mean Corp Hgb Conc. 31.8 g/dL (33.0-37.0); Mean Corpuscular Volume 85.0 fL (81.0-99.0); Nucleated Red Blood Cells % 0 %; Platelet Count 239 10^3/uL (130-400); Red Cell Dist. Width 14.6 % (11.5-14.5)
[2024-11-25 13:00] LABS: ALT (SGPT) 18 U/L (0-35); AST (SGOT) 22 U/L (14-36); Albumin 3.2 g/dl (3.5-5.0); Alkaline Phosphatase 77 U/L (38-126); Blood Urea Nitrogen 75 mg/dl (7-17); Calcium 9.1 mg/dl (8.4-10.2); Carbon Dioxide 13 mmol/L (22-30); Chloride 119 mmol/L (98-107); Glucose 222 mg/dl (70-99); Lipase 289 U/L (23-300); Potassium 4.4 mmol/L (3.5-5.1); Sodium 140 mmol/L (135-145); Total Protein 6.9 g/dl (6.3-8.2); eGFR 15.20
[2024-11-25 13:01] LABS: Troponin I 0.025 ng/ml
--- NOTE | 2024-11-25 14:18 | ED.GENMED ---
History of Present Illness
General
Chief Complaint: Breathing Problem
Source: patient
Exam Limitations: none
Time Seen by Provider: 11/25/24 14:03
History of Present Illness
History of Present Illness:
69-year-old female presents with progressive swelling to the lower extremities with associated shortness of breath and cough. She notes that shortness of breath is made worse when she lays flat. She is a renal transplant patient. She follows with
nephrology and cardiology here. She is on torsemide daily. She notes actually weight loss over the past couple weeks. No other complaints at this time. She denies a fever.
Past History
Past History
ED Past Medical History: CAD, HTN and Other (kidney transplant)
ED Past Surgical History: Other (renal transplant)
Patient has exhibited threatening behavior?: No
PSI?: No
Social History
Tobacco: Non-smoker
Personal:
Living: with family
Phy Exam
Physical Exam
Physical Exam:
General: Well-appearing female no acute distress
HEENT: Normocephalic atraumatic
Heart: Regular rate and rhythm
Lungs: Rales at the bases.
Abdomen is soft nontender
Extremities: Pitting edema bilateral lower extremities
Skin is warm no rash
Scores
Heart Failure Risk
Heart Failure Risk Score: Yes
History of Stroke or TIA: No
History of intubation for respiratory distress: No
Heart rate on ED arrival >/= 110: No
SaO2 <90% on arrival on room air: No
HR >/=110 during 3min walk test (or too ill to perform test): No
ECG has acute ischemic changes: No
Urea >/=12mmol/L (BUN 33.6mg/dL): Yes
Serum CO2>/=35mmol/L: No
Troponin I or T elevated to AK Level (0.4mg/dL): No
NT-proBNP >/=5,000ng/L (5,000pg/ml): Yes
HF Risk Score: 2
Admission Status: MEDIUM RISK 9.2% Consider observation or discharge to home with homecare & f/u visit to PCP/[facility] [employer], or SNF for treatment
Course
Orders/Labs/Results
Orders:
Orders
11/25/24 12:09
EKG [Electrocardiogram (*1)] Urgent
Reason for Study: Shortness of Breath
EKG- Treatment ONCE
11/25/24 12:16
Complete Blood Count/With Diff Urgent
Comprehensive Metabolic Panel Urgent
Lipase Urgent
NT-proBNP Urgent
Troponin I Urgent
11/25/24 14:18
CR Chest - 2 Views Urgent
Comment:
Reason For Exam: sob
11/25/24 15:35
Furosemide [Lasix] 40 mg IV NOW STA
Abnormal Lab Results
11/25/24
12:16
RBC 3.00 L 10^6/uL
(4.20-5.40)
Hgb 8.1 L g/dL
(12.0-16.0)
Hct 25.5 L %
(37.0-47.0)
MCHC 31.8 L g/dL
(33.0-37.0)
RDW 14.6 H %
(11.5-14.5)
Absolute Neuts (auto) 6.7 H 10^3/uL
(1.4-6.5)
Absolute Lymphs (auto) 1.1 L 10^3/uL
(1.2-3.4)
Neutrophils % 76.9 H %
(42.2-75.2)
Lymphocytes % 12.1 L %
(20.5-51.1)
Chloride 119 H mmol/L
(98-107)
Carbon Dioxide 13 L* mmol/L
(22-30)
BUN 75 H mg/dl
(7-17)
Creatinine 3.2 H mg/dL
(0.6-1.0)
Glucose 222 H mg/dl
(70-99)
Albumin 3.2 L g/dl
(3.5-5.0)
11/25/24 12:16
11/25/24 12:16
Vital Signs
Initial and Last Documented VS:
Initial Vital Signs
Temp Pulse Resp BP Pulse Ox
97.8 F 71 20 148/72 96
11/25/24 12:10 11/25/24 12:10 11/25/24 12:10 11/25/24 12:10 11/25/24 12:10
Last Documented Vital Signs
Temp Pulse Resp BP Pulse Ox
97.8 F 71 20 171/83 97
11/25/24 12:10 11/25/24 12:10 11/25/24 12:10 11/25/24 14:00 11/25/24 14:23
MDM/Problems Addressed
Differential Diagnosis Includes:
Patient notes leg swelling cough and shortness of breath. Suspect possible volume overload. Will order chest x-ray. BNP is elevated a 9440. Creatinine is 3.2 No fever to suggest infectious source.
*Pulse Oximetry
SaO2: 97
Oxygen Mode of Delivery: Room air
Patient hypoxic: no
*Critical Care Note
Total Time (30-74mins, 75-104mins- exclusive of procedures): Not Applicable
Update Note
Update Note:
X-ray consistent with pulmonary edema and small bilateral pleural effusions consistent with CHF. This fits clinical picture. Lasix ordered will admit to hospitalist for CHF
ED Attending Note
-
Portions of this chart may have been created with voice recognition software.� Occasional wrong word or��sound alike� substitutions may have occurred due to the inherent limitations of voice recognition software.
Discharge Plan
Departure
Patient Disposition: Admit
Date of Disposition: 11/25/24
Time of Disposition: 15:36
Presentation/result/management discussed w/ accepting MD/DO: Hospitalist
Discharge Problem:
CHF (congestive heart failure)
Prescriptions:
No Action
prednisone 5 MG tablet
5 mg PO HS
nifedipine 30 MG tablet extended release
30 mg PO TID
tacrolimus [Prograf] 1 mg Capsule
1 mg PO Q12H
atenolol 50 mg tablet
25 mg PO BID
clopidogrel 75 MG tablet
75 mg PO DAILY
hydralazine 25 mg Tablet
25 mg PO BID
clonidine 0.3 mg/24 hr Patch Weekly
1 patch TRANSDERMAL WE
Trelegy Ellipta 100-62.5-25 mcg Blister With Device
1 inh INHALATION R DAILY
Interventions
Interventions:
*Risk Screen - Suicide Last Done: 11/25/24 12:10
*General Assessment Last Done: 11/25/24 12:10
Discharge Date and Time
Print Language: MACEDONIAN
[2024-11-25] MEDS: LASIX 40 MG IV (15:49)
--- NOTE | 2024-11-25 15:49 | HPS.HSE ---
Addendum entered and electronically signed by Андрей Perry MD 11/25/24 17:59:
This is an addendum to H&P written by Maria Teresa Menjivar on 11/25/2024. �Patient seen and examined dependently with SOAKER.
69-year-old female past medical history of hypertension, anemia of chronic disease, IgA nephropathy status post renal transplant, CKD 3B, CAD status post stent, CHF, presents reports that shortness of breath for the past month, lower extreme edema,,
orthopnea. �Itchiness of her chest and abdominal area.
Vital signs show blood pressure up to 197/74.
Lab work shows bicarb of 13. �Creatinine of 3.2 above baseline around 2.6. �Hemoglobin stable at 8.1. �Cardiac BNP of 9400. �Patient had kidney ultrasound 1 month ago showing increased echogenicity of the renal transplant.
Chest x-ray showed interstitial pulmonary edema pattern with bilateral pleural effusions.
Patient with acute CHF exacerbation. �Also with DANIELLA on CKD, non-anion gap metabolic acidosis likely cardiorenal. �40 IV Lasix daily.� Bicarb push. Check echocardiogram. �Cardiology and nephrology consulted. �Itchiness likely secondary to uremia.
PRN labetalol for elevated blood pressure.�
Original Note:
Family Physician
-
Family Physician: Jeoy French
Chief Complaint
-
sob and LE edema
History of Present Illness
69-year-old female with past medical history for coronary artery disease, hypertension, renal transplant presents with progressive swelling to the lower extremities with associated shortness of breath and cough for past few weeks. sob worse with
exertion.She notes that shortness of breath is made worse when she lays flat.her cardiology and nephrology working on her diuretics. she is not on torsemide for few months. she was taking lasix 40 then it changed on to 20 due to her elevated
creatine. She is a renal transplant patient. Patient denied any headache, dizziness or syncope. Patient denied any fever, chills, chest pain. Patient denied any abdominal pain, nausea, vomiting or diarrhea. Patient denied dysuria materia.
Patient stated itching and burning skin.
Upon arrival she was noted in CHF exacerbation. Patient received a dose of Lasix in the ER. Admitting for further management
Medical History
Past Medical History
Past Medical History: Reports Other
Additional Past Medical History:
IgA nephropathy, end-stage renal disease, CAD, hypercholesteremia, hypertension, type 2 diabetes, right arm DVT, NSTEMI, thoracic aorta, kidney stones
Past Surgical History: Reports Other
Additional Past Surgical History:
Cardiac stents kidney transplant remote left forearm AV graft
Social History
Tobacco: Non-smoker
Alcohol: None
Drug: None
Personal:
Living: With Family
Family History
Family History: Not pertinent
Allergies / Home Medications
Allergies reflects when Allergies were last updated in [facility].
Home Medications with original date entered in [facility]
Allergy/Medication List:
Allergies
Allergy/AdvReac Type Severity Reaction Status Date / Time
adhesive Allergy Itchy, Verified 11/25/24 12:11
redness
Home Medications
nifedipine 30 mg tablet,extended release 30 mg PO TID Blood pressure 07/20/21
prednisone 5 mg tablet 5 mg PO HS Transplant 07/20/21
tacrolimus 1 mg capsule, immediate-release (Prograf) 1 mg PO Q12H Transplant 09/02/22
atenolol 50 mg tablet 25 mg PO BID Blood Pressure 04/09/23
clopidogrel 75 mg tablet 75 mg PO DAILY Blood Clot Prevention/Tx 04/09/23
clonidine 0.3 mg/24 hr weekly transdermal patch 1 patch transdermal WE 11/25/24
fluticasone fur. 100 mcg-umeclid 62.5 mcg-vilant 25 mcg inhalat.powder (Trelegy Ellipta) 1 inh inhalation R DAILY 11/25/24
furosemide 20 mg tablet (Lasix) 20 mg PO MOWEFR 11/25/24
hydralazine 25 mg tablet 25 mg PO BID 11/25/24
Review of Systems
-
Constitutional: Reports No Symptoms
EENT: Reports No Symptoms
Respiratory: Reports Cough and Trouble Breathing
Cardiac: Reports No Symptoms
Abdomen/GI: Reports No Symptoms
: Reports No Symptoms
Musculoskeletal: Reports No Symptoms
Skin: Reports Itching
Neurological: Reports No Symptoms
Endocrine: Reports No Symptoms
Hematologic/Lymphatic: Reports No Symptoms
Psych: Reports No Symptoms
Physical Exam
Vital Signs
Vital Signs
Temp Pulse Resp BP Pulse Ox
97.8 F 71 20 171/83 97
11/25/24 12:10 11/25/24 12:10 11/25/24 12:10 11/25/24 14:00 11/25/24 14:23
Physical Exam
General: Well Developed, Well Nourished and No Apparent Distress
HEENT: NormoCephalic, Moist mucous membranes and Atraumatic
Respiratory: Crackles
Cardiac: S1/S2 and Regular Rhythm; No Murmur or Rub
GI: Soft, Non Tender, Non Distended and Normal Bowel Sounds; No Organomegaly
Rectal: Deferred by Provider
Musculoskeletal: No Clubbing, No Cyanosis and Other (Bilateral lower extremities edema)
Skin: No Rash
Neuro: AO x 3 and Nonfocal/grossly intact
Psych: Calm
Laboratory Results
-
11/25/24 12:16
11/25/24 12:16
Laboratory Results
Total Bilirubin 0.4 mg/dl (0.2-1.3) 11/25/24 12:16
AST 22 U/L (14-36) 11/25/24 12:16
ALT 18 U/L (0-35) 11/25/24 12:16
Alkaline Phosphatase 77 U/L (38-126) 11/25/24 12:16
Troponin I 0.025 ng/ml 11/25/24 12:16
Lipase 289 U/L (23-300) 11/25/24 12:16
Data Reviewed
-
Diagnostic Radiology: Report Reviewed by me
Lab Data: Labs Reviewed by me
Impression/Plan
-
# CHF exacerbation with preserved EF
- BNP 9440
- IV Lasix continued, strict SOHEILA, daily weight, fluid restriction
- Cardiology consult
- Chest x-ray with impression highly suggestive of interstitial pulmonary edema pattern with small bilateral pleural effusions.
- Echo 04/17/2024 with EF of 72%.
-obtain ECHO
# Anemia of chronic disease
- Hemoglobin stable at 8.1, no active bleeding
- Continue to monitor
# Essential hypertension
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
-Clonidine, hydralazine, need pain continued
# History of IgA nephropathy s/p renal transplant in 1987
# Non-anion gap metabolic acidosis/chronic kidney disease
- CO2 13, creatinine 3 point
# CKD stage 3b
-Cont [employer]INE CLEANER Prograf and steroids
# history of coronary artery disease s/p multivessel PCI/SARA
-continue Plavix
DVT ppx: Heparin subcu
CODE status: full code
--- NOTE | 2024-11-25 16:51 | CON.CAR ---
Consultation
Consultation Request
Date/Time Consultation Requested: 11/25/2024 16: 30
Date/Time Consultation Performed: 11/25/2024 16: 40
Requesting Provider: Fortunato
Performing Provider: Lay
Reason for Consultation: CHF
Medical History
-
History of Present Illness:
Patient came to [facility] with a cough and progressive SOB x2 weeks which worsened over the past 3 days. She has a h/o IgA nephropathy and eventually had a donor renal transplant at [facility] 05/19/97. Patient follows with Dr. Marr at [facility]. Of
note Lasix have been held by nephrology in October 2024 but restarted and dose was increased after she called our office this week. She presents with worsening edema, weight gain, and shortness of breath and has acute diastolic CHF.
PMH:
Chronic HFpEF
CKD 3b
h/o IgA nephropathy
s/p donor kidney transplant at [facility] in 1997
CAD, multivessel CAD by cath 07/20/21 and patient declined surgery and opted for PCI instead
s/p 3.0 mm Xience to tandem distal RCA lesions 07/25/21
s/p 3.5 mm Xience to 90% prox Circ lesion 07/25/21
s/p 2.75 mm Xience to tandem LAD lesions 07/25/21
s/p 3.0 mm Xience to 90% prox LAD 07/25/21
s/p rescue PTCA of occluded Diagonal through the LAD stent struts 07/25/21
HTN
Past Medical History
Past Medical History: Other (in HPI)
Past Surgical History: Other ( donor transplant at [facility] 1997)
Social History
Tobacco: Non-Smoker
Alcohol: None
Drug: None
Personal:
Living: With Family
Family History
Family History: Other (one of her sisters has CKD as well)
Allergies / Home Medications
Allergy/AdvReac Type Severity Reaction Status Date / Time
adhesive Allergy Itchy, Verified 11/25/24 12:11
redness
�Medication �Instructions �Recorded �Confirmed �Type
nifedipine 30 mg tablet,extended 30 mg PO TID Blood pressure 07/20/21 11/25/24 History
release
prednisone 5 mg tablet 5 mg PO HS Transplant 07/20/21 11/25/24 History
tacrolimus 1 mg capsule, 1 mg PO Q12H Transplant 09/02/22 11/25/24 History
immediate-release (Prograf)
atenolol 50 mg tablet 25 mg PO BID Blood Pressure 04/09/23 11/25/24 History
clopidogrel 75 mg tablet 75 mg PO DAILY Blood Clot 04/09/23 11/25/24 History
Prevention/Tx
clonidine 0.3 mg/24 hr weekly 1 patch transdermal WE 11/25/24 11/25/24 History
transdermal patch
fluticasone fur. 100 mcg-umeclid 1 inh inhalation R DAILY 11/25/24 11/25/24 History
62.5 mcg-vilant 25 mcg
inhalat.powder (Trelegy Ellipta)
furosemide 20 mg tablet (Lasix) 20 mg PO MOWEFR 11/25/24 11/25/24 History
hydralazine 25 mg tablet 25 mg PO BID 11/25/24 11/25/24 History
Review of Systems
-
History Source: Patient
All other systems: Negative unless noted
Constitutional: Weight Gain
EENT: No Symptoms
Respiratory: Trouble Breathing
Cardiac: No Symptoms
Abdomen/GI: No Symptoms
: No Symptoms
Musculoskeletal: Edema
Skin: Itching
Neurological: No Symptoms
Endocrine: No Symptoms
Hematologic/Lymphatic: No Symptoms
Physical Exam
Vital Signs
Temp Pulse Resp BP Pulse Ox
97.8 F 72 17 197/74 97
11/25/24 12:10 11/25/24 16:15 11/25/24 16:15 11/25/24 16:00 11/25/24 16:15
General: Well developed, well nourished in NAD.
Neck: Supple, no JVD, HJR, carotids +2 B/L, no bruits bilaterally.
Heart: Non displaced PMI, RRR, 2/6 basal systolic murmur, No S3, S4, no rubs.
Lungs: Clear to auscultation bilaterally, no wheeze, rhonchi, rubs bilaterally,
normal expiratory phase.
Abdomen: Normal bowel sounds, soft, non-tender, non-distended.
Extremities: Mild to moderate lower extremity edema bilaterally.
Neuro: Grossly nonfocal, awake, alert and oriented x3.
Lab Results
11/25/24 12:16
11/25/24 12:16
Troponin I 0.025 ng/ml 11/25/24 12:16
Msw-B-Fibendqbmun Pept 9440 pg/ml 11/25/24 12:16
Impression / Plan
-
PCP: Dr. Chang
Cardiology: Dr. LAWRENCE Gonzales
Nephrology: Dr. De Paz
Renal transplant specialist: Dr. Marr at [facility]
Impression:
Acute HFpEF
DANIELLA on CKD 3b
Admission for acute diastolic CHF March 2023
h/o IgA nephropathy
s/p donor kidney transplant at [facility] in 1997
CAD, multivessel CAD by cath 07/20/21 and patient declined surgery and opted for PCI instead
s/p 3.0 mm Xience to tandem distal RCA lesions 07/25/21
s/p 3.5 mm Xience to 90% prox Circ lesion 07/25/21
s/p 2.75 mm Xience to tandem LAD lesions 07/25/21
s/p 3.0 mm Xience to 90% prox LAD 07/25/21
s/p rescue PTCA of occluded Diagonal through the LAD stent struts 07/25/21HTN
Echo 07/26/22: EF 70-75%, stage I diastolic dysfunction, mitral sclerosis without stenosis, moderate central aortic regurgitation
Echocardiogram 04/17/2024: Ejection fraction 72%, mild mitral stenosis with a mean gradient of 5 mL mercury, mild MR, mild to moderate AI, mild aortic stenosis with mean gradient of 9 mmHg, PA systolic 42 mmHg
Patient came to [facility] with a cough and progressive SOB x3 weeks. Patient saw her PCP a few weeks ago and was prescribed amoxicillin for cough, but didn't improve so she saw her PCP again and was prescribed azithromycin, but again did not improve.
Patient then saw [facility] 04/04/23 and was given an albuterol breathing treatment, but no better. She has a h/o IgA nephropathy and eventually had a donor renal transplant at [facility] 05/19/97. Patient follows with Dr. Marr at [facility] and there has
been a discussion about a renal biopsy to evaluate her transplant as it is almost 24 years old, but patient has been hesitant. Patient saw Dr. Gonzales 01/04/23 and she had been skipping torsemide and her weight and edema were up. Patient says that
most recently she has been taking torsemide 5 mg MWF due to DANIELLA. Patient has noticed a nonproductive cough and her legs feels heavy, but no bloating or orthopnea.
Plan:
She presents with weight gain, dyspnea, lower extremity edema and acute diastolic CHF in the setting of worsening renal insufficiency
Will attempt to diurese with IV Lasix and need to follow renal function closely given renal transplant which has been failing
Recheck echocardiogram
Discussed with primary service and at bedside
Data Reviewed
-
EKG: Tracing Personally Visualized and interpreted
Radiology: Report Reviewed by me
Medical Tests (Nuc Med, Echo etc): Report Reviewed by me
Labs: Labs Reviewed by me
Old Records: Reviewed
--- NOTE | 2024-11-25 17:06 | W.CON.NEPH ---
Consultation
-
Date/Time Consultation Requested: 11/25/241699
Date/Time Consultation Performed: 11/25/241699
Requesting Provider: Dr. Perry
Performing Provider: Dr Kathleen
Reason for Consultation: DANIELLA
Medical History
-
Chief Complaint: SOB
History of Present Illness:
This is a69 year old female known to Dr. De Paz with DDRTx 1998 right lower quadrant. Her baseline Cr was about 2.0 by her report, though 4 months ago it was reported to be 2.8. She is a on a multidrug immunosuppressive regimen for her
transplant with goal tacrolimus level a few weeks ago. When her Cr has jumped she was told to hold diuretics. Over the next month she because more SOB and more edematous, but reported good appetite yet weight loss. She was restarted on lasix 20mg
every other day and took an extra dose recently, but does not believe it had any effect. Because of the worsening Sob and edema she came to the ER. She was noted to have DANIELLA with Cr 3.2 with metabolic acidosis and worsening anemia.
Past Medical History
1. IgA nephropathy, biopsy proven.
2. ESRD on hemodialysis for 7 years.
3. donor transplant in 1997 at [place].
4. CAD with prior stenting.
5. Diastolic CHF.
6. Moderate aortic regurgitation.
7. Thoracic aortic ectasia.
8. Type 2 diabetes.
9. Hypertension, on multidrug.
10. Hyperlipidemia, statin intolerance.
11. Nephrotic syndrome.
12. Hypoalbuminemia.
Social History
Tobacco: Non-Smoker
Alcohol: None
Family History
Family History: Not Pertinent
Allergies / Home Medications
Allergy/AdvReac Type Severity Reaction Status Date / Time
adhesive Allergy Itchy, Verified 11/25/24 12:11
redness
�Medication �Instructions �Recorded �Confirmed �Type
nifedipine 30 mg tablet,extended 30 mg PO TID Blood pressure 07/20/21 11/25/24 History
release
prednisone 5 mg tablet 5 mg PO HS Transplant 07/20/21 11/25/24 History
tacrolimus 1 mg capsule, 1 mg PO Q12H Transplant 09/02/22 11/25/24 History
immediate-release (Prograf)
atenolol 50 mg tablet 25 mg PO BID Blood Pressure 04/09/23 11/25/24 History
clopidogrel 75 mg tablet 75 mg PO DAILY Blood Clot 04/09/23 11/25/24 History
Prevention/Tx
clonidine 0.3 mg/24 hr weekly 1 patch transdermal WE 11/25/24 11/25/24 History
transdermal patch
fluticasone fur. 100 mcg-umeclid 1 inh inhalation R DAILY 11/25/24 11/25/24 History
62.5 mcg-vilant 25 mcg
inhalat.powder (Trelegy Ellipta)
furosemide 20 mg tablet (Lasix) 20 mg PO MOWEFR 11/25/24 11/25/24 History
hydralazine 25 mg tablet 25 mg PO BID 11/25/24 11/25/24 History
Review of Systems
-
SOB, edema, weight LOSS, pruritis
All other systems: Negative unless noted
Physical Exam
Vital Signs
Vital Signs
Temp Pulse Resp BP Pulse Ox
97.8 F 73 18 197/74 95
11/25/24 12:10 11/25/24 16:45 11/25/24 16:45 11/25/24 16:00 11/25/24 16:45
Lab Results
WBC 8.7 10^3/uL (4.8-10.8) 11/25/24 12:16
RBC 3.00 10^6/uL (4.20-5.40) L 11/25/24 12:16
Hgb 8.1 g/dL (12.0-16.0) L 11/25/24 12:16
Hct 25.5 % (37.0-47.0) L 11/25/24 12:16
Plt Count 239 10^3/uL (130-400) 11/25/24 12:16
Sodium 140 mmol/L (135-145) 11/25/24 12:16
Potassium 4.4 mmol/L (3.5-5.1) 11/25/24 12:16
Chloride 119 mmol/L (98-107) H 11/25/24 12:16
Carbon Dioxide 13 mmol/L (22-30) L* 11/25/24 12:16
BUN 75 mg/dl (7-17) H 11/25/24 12:16
Creatinine 3.2 mg/dL (0.6-1.0) H 11/25/24 12:16
eGFR 15.20 11/25/24 12:16
Glucose 222 mg/dl (70-99) H 11/25/24 12:16
Calcium 9.1 mg/dl (8.4-10.2) 11/25/24 12:16
Atq-L-Fyyvsrnhtpo Pept 9440 pg/ml 11/25/24 12:16
Albumin 3.2 g/dl (3.5-5.0) L 11/25/24 12:16
Physical Exam
Patient is awake alert oriented and in no distress. Mood and affect were pleasant, insight and judgment were good. Pupils are equal round and reactive to light, extraocular movements are intact, sclera were anicteric. Hearing was normal, ears and
nose are intact. Oropharynx was clear. Neck was supple with trachea midline and no thyromegaly. Heart was regular rate and rhythm without rubs. Lower extremities with 2+ edema. Lungs were coarse to auscultation bilaterally and with normal
excursion. Abdomen was soft, nontender, with normal active bowel sounds, and no hepatosplenomegaly. Skin was without rash and with normal turgor.
Data Reviewed
-
Radiology: Image Personally Visualized and interpreted (CXR 11/25/24 by my reading pulmonary edema, small effusions)
Medical Tests (Nuc Med, Echo etc): Image Personally Visualized and interpreted (EKG 11/25/24 by my reading NSR, nonspecific ST/T abnormality) and Report Reviewed by me (echo 04/17/24 EF 72%, mod AR mild )
Labs: Labs Reviewed by me
Old Records: Reviewed
Assessment/Plan
-
Assessment
DANIELLA
DDRTx 1997
CKD4 (2.5)
metabolic acidosis
pruritus
HFpEF decompensated
weight loss
anemia
Plan
IV lasix
check iron stores
follow Hgb, transfuse if needed if Hgb<8
hold hydralazine with itching
continue tac/pred
IV labetalol prn
may need to increase clonidine
[2024-11-25] MEDS: TRANDATE 10 MG IV (18:02)
[2024-11-25] MEDS: SODIUM BICARBONATE 50 MEQ IV (19:38)
[2024-11-25] MEDS: TENORMIN 25 MG PO (20:15)
[2024-11-25] MEDS: PROGRAF 1 MG PO (20:15)
[2024-11-25] MEDS: DELTASONE 5 MG PO (22:11)
[2024-11-25] MEDS: PROCARDIA XL (EXTENDED RELEASE) 30 MG PO (22:11)
[2024-11-25 22:33] LABS: Urine Character Clear (Clear)
[2024-11-25 23:45] LABS: Urine Red Blood Cell None Seen /HPF (0-2)
[2024-11-26] VITALS (11 sets, daily range): BP systolic 127–166; BP diastolic 55–105; BMI 19.5
--- NOTE | 2024-11-26 04:51 | PTCARENOTE ---
Addendum entered by Carlos Gambino RN 11/26/24 05:05:
patient also complaining of feeling 'itchy'- chest to the lower abdomen and b/l arms. 'burning and hot.' patient states feeling this for the past month.
Original Note:
received patient from the ED. AAOx3. SR on tele 70s. dyspnea on exertion noted. 97% on RA. non productive cough. patient states orthopnea. + 2 LE edema noted/pitting. RUE edema noted as well- +2. new per patient. IV site patent, no issues. unable to
find thrill/bruit with patient Left arm fistula. reviewed plan of care with patient and verbalized understanding. at the bedside. call almonte within reach.
[2024-11-26 05:19] LABS: Hematocrit 25.2 % (37.0-47.0); Hemoglobin 8.5 g/dL (12.0-16.0); Mean Corp Hgb Conc. 33.7 g/dL (33.0-37.0); Mean Corpuscular Volume 84.0 fL (81.0-99.0); Nucleated Red Blood Cells % 0 %; Platelet Count 242 10^3/uL (130-400); Red Cell Dist. Width 14.6 % (11.5-14.5)
[2024-11-26 05:47] LABS: Blood Urea Nitrogen 71 mg/dl (7-17); Calcium 9.1 mg/dl (8.4-10.2); Carbon Dioxide 16 mmol/L (22-30); Chloride 118 mmol/L (98-107); Estimated Creatinine Clearance 14 ml/min; Glucose 186 mg/dl (70-99); HDL Cholesterol 42 mg/dl; Iron 33 ug/dl (37-170); LDL Cholesterol, Calculated 226 mg/dl; Magnesium 2.0 mg/dl (1.6-2.3); Potassium 4.4 mmol/L (3.5-5.1); Sodium 142 mmol/L (135-145); Very Low Density Lipoprotein 48 mg/dl (0-30); eGFR 16.42
[2024-11-26 05:56] LABS: Total Iron Binding Capacity 222 ug/dl (265-497)
[2024-11-26 06:21] LABS: Ferritin 195.0 ng/ml (11.1-264.0)
[2024-11-26] MEDS: SPIRIVA RESPIMAT 2.5 MCG 2 PUFF INH (07:21)
[2024-11-26] MEDS: SYMBICORT 80/4.5 MCG INHALER 2 PUFF INH ×2 (07:21→20:07)
--- NOTE | 2024-11-26 08:10 | W.PN.HOSP.TC ---
Addendum entered and electronically signed by Ramon Bucio MD 11/26/24 17:39:
Acute on chronic HFpEF exacerbation, NYHA class III-IV
Continue IV diuretics
Trending creatinine
Hold MRA/SGLT2 inhibitors
Follow renal function
Monitor urinary output
2D echo pending
DANIELLA on CKD suspect cardiorenal in nature
Crea slightly better with some Lasix
Continue diuretics
Avoid hypotension nephrotoxins
No emergent needs of hemodialysis
Original Note:
Today's Communication/Plan
-
Check Urine Urea to differentiate causes of DANIELLA
Renal/bladder US
Echo
Continue IV lasix
Monitor BP
Follow Hb
Follow Creatinine
Assessment / Plan
Assessment / Plan
69-year-old female with past medical history for coronary artery disease, hypertension, renal transplant presents with progressive swelling on ankles with associated shortness of breath and cough for last 2 weeks. Shortness of breath is made worse
when she lays flat, better with standing up. She was skipping 5mg Torsemide and her weight and edema were up. She was taking lasix 40 PO then it changed on to 20 due to her elevated creatinine it was stopped eventually. Patient stated itching after
discontinuing Pantoprozole on her abdomen and arms.
Renal transplant specialist: She sees Dr. Marr at [facility] and there has been discussion about Renal biopsy about her 25y/o transplant.
PCP: Dr. Chang
Cardiology: Dr. LAWRENCE Gonzales
Nephrology: Dr. De Paz
# CHF exacerbation with preserved EF
BNP 9440
Continue 40mg IV Lasix QD
Strict SOHEILA, daily weight, fluid restriction
Cardiology consult, input appreciated
-Echo 04/17/2024 with EF of 72%.
Chest x-ray: highly suggestive of interstitial pulmonary edema pattern with small bilateral pleural effusions.
Obtain ECHO- no significant change comparing to prior study 04/17/2024
-Stage II diastolic dysfunction suggestive of abnormal relaxation and increased filling pressures
-Aortic sclerosis without stenosis. Mild to moderate aortic regurgitation
- Mild mitral stenosis
# History of IgA nephropathy s/p renal transplant in 1987
# DANIELLA on CKD or Progression of CKD stage 4
-Creatinine 3
Consult Nephrology, input appreciated
-Cont US MARKETING DIRECTOR Tacrolimus and Prednisone
-Renal/bladder US
-Check Urine Urea level to differentiate DANIELLA (prerenal vs renal)
-Continue IV lasix
-Monitor Urine output
-Proteinuria seen on urine analysis
#Pruritis
-hold Hydralazine
-Start Hydroxyzine prn
# Anemia of chronic disease
- Hemoglobin stable at 8.5, no active bleeding
- Iron studies
- Continue to monitor Hb level if Hb<8 consider transfusion
# Essential hypertension
-Continue Atenolol, Nifedipine, Clonidine- improving
-Hold hydralazine with itching
# History of coronary artery disease s/p multivessel PCI/SARA
-continue Plavix
DVT ppx: Denies SQ Heparin wants to continue Plavix, SCDs
CODE status: full code
Anticipated Discharge: 24 - 48 hours
Subjective/Interval History
-
Date of Service: November 26, 2024
She is lying in her bed. Reports feeling better comparing to yesterday. She is complaining about very itchy crawling feeling on her abdomen and arms. When she lays her fluid in her body goes up and when stands up it is on her legs. She is urinating
frequently, last bm 2 days ago. She is on room air breathing normal. No SOB, chest pain, palpitations. Denies new rashes.
Objective Data
-
Labs:
Laboratory Results
11/26/24
05:01
WBC 9.2
Hgb 8.5 L
Hct 25.2 L
Plt Count 242
Sodium 142
Potassium 4.4
Chloride 118 H
Carbon Dioxide 16 L
BUN 71 H
Creatinine 3.0 H
Glucose 186 H
Calcium 9.1
Vital Signs:
Vital Signs
Temp Pulse Resp BP Pulse Ox
98.5 F 65 14 147/65 94
11/26/24 07:10 11/26/24 07:25 11/26/24 07:25 11/26/24 05:07 11/26/24 07:25
I&O
11/25/24 11/26/24 11/27/24
06:59 06:59 06:59
Output Total 300 / 300
Balance -300 / -300
Review of Systems
-
History Source: Patient
Constitutional: Reports No Symptoms
EENT: Reports No Symptoms Reported
Respiratory: Reports No Symptoms
Cardiac: Reports No Symptoms
Abdomen/GI: Reports No Symptoms
Breast: Reports No Symptoms
Genitourinary: Reports No Symptoms
Musculoskeletal: Reports Edema
Skin: Reports Itching
Neuro: Reports No Symptoms
Endocrine: Reports No Symptoms
Hematologic / Lymphatic: Reports No Symptoms
Physical Exam
-
General: Well Developed, Well Nourished, No Apparent Distress and Comfortable
HEENT: Normocephalic and Atraumatic
Respiratory: Crackles
Cardiac: Regular Rhythm and S1/S2
Breast: Deferred by me
GI: Soft, Nontender, Nondistended and Normal Bowel Sounds
Genito-urinary: Deferred by me
Musculoskeletal: No Clubbing, No Cyanosis, Edema, Right Lower Extrem (foot) and Edema, Left Lower Extrem (foot)
Skin: Warm
Neuro: AO x 3
Psych: Calm
[2024-11-26] MEDS: TENORMIN 25 MG PO ×2 (08:24→19:48)
[2024-11-26] MEDS: PROCARDIA XL (EXTENDED RELEASE) 30 MG PO ×3 (08:24→22:50)
[2024-11-26] MEDS: PROGRAF 1 MG PO ×2 (08:26→19:48)
[2024-11-26] MEDS: PLAVIX 75 MG PO (08:26)
[2024-11-26] MEDS: LASIX 40 MG IV (08:27)
[2024-11-26] MEDS: CATAPRES-TTS-3 0.3 MG TRANSDERM (09:23)
--- NOTE | 2024-11-26 11:14 | W.PN.CARDCBS ---
Addendum entered and electronically signed by Steve Aguirre MD 11/26/24 11:32:
I saw and examined the patient.
The Poison Information Specialist's note was reviewed and I agree with the note.
Comment: Briefly, 69-year-old woman past medical history of renal transplant (1997) and heart failure with preserved ejection fraction presenting in acute decompensated heart failure.
Patient tells me that her peripheral edema is improved with IV Lasix here
Creatinine slightly better today at 3.0 which is around her recent baseline. Would defer diuretic dosing to nephrology given history of renal transplant and CKD.
Plan to repeat echo here to assess for cardiomyopathy or worsening valvular pathology
Discussed with patient's at bedside
Original Note:
Today's Communication / Plan
-
Continue IV Lasix
Follow creatinine
Awaiting echo
Impression / Plan
-
PCP: Dr. Chang
Cardiology: Dr. LAWRENCE Gonzales
Nephrology: Dr. De Paz
Renal transplant specialist: Dr. Marr at [facility]
Impression:
Acute HFpEF
DANIELLA on CKD 3b
Admission for acute diastolic CHF March 2023
h/o IgA nephropathy
s/p donor kidney transplant at [facility] in 1997
CAD, multivessel CAD by cath 07/20/21 and patient declined surgery and opted for PCI instead
s/p 3.0 mm Xience to tandem distal RCA lesions 07/25/21
s/p 3.5 mm Xience to 90% prox Circ lesion 07/25/21
s/p 2.75 mm Xience to tandem LAD lesions 07/25/21
s/p 3.0 mm Xience to 90% prox LAD 07/25/21
s/p rescue PTCA of occluded Diagonal through the LAD stent struts 07/25/21HTN
Echo 07/26/22: EF 70-75%, stage I diastolic dysfunction, mitral sclerosis without stenosis, moderate central aortic regurgitation
Echocardiogram 04/17/2024: Ejection fraction 72%, mild mitral stenosis with a mean gradient of 5 mL mercury, mild MR, mild to moderate AI, mild aortic stenosis with mean gradient of 9 mmHg, PA systolic 42 mmHg
Patient came to [facility] with a cough and progressive SOB x3 weeks. Patient saw her PCP a few weeks ago and was prescribed amoxicillin for cough, but didn't improve so she saw her PCP again and was prescribed azithromycin, but again did not improve.
Patient then saw [facility] 04/04/23 and was given an albuterol breathing treatment, but no better. She has a h/o IgA nephropathy and eventually had a donor renal transplant at [facility] 05/19/97. Patient follows with Dr. Marr at [facility] and there has
been a discussion about a renal biopsy to evaluate her transplant as it is almost 24 years old, but patient has been hesitant. Patient saw Dr. Gonzales 01/04/23 and she had been skipping torsemide and her weight and edema were up. Patient says that
most recently she has been taking torsemide 5 mg MWF due to DANIELLA. Patient has noticed a nonproductive cough and her legs feels heavy, but no bloating or orthopnea.
Plan:
- She presented with weight gain, dyspnea, lower extremity edema in setting of her outpatient Lasix being stopped due to worsening kidney function
- proBNP 9440
- She reports improvement in breathing overnight with IV Lasix. Continue 40 mg daily. Creatinine improved slightly to 3.0. Nephrology following.
- Echo pending, last from 03/2024 with results as above. Noted to have significant murmur on examination with prior history of mild MS and mild to moderate AI/
- in SR on review of tele overnight. continue OP atenolol, nifedipine, clonidine
- on chronic plavix for history of multiple PCI as above
- Discussed with nursing and at bedside
Progress Note - Tax Appraiser
Subjective
Date of Service: November 26, 2024
Reports improvement in breathing since yesterday. No chest pain
Objective
Labs:
11/26/24 05:01
11/26/24 05:01
Labs
Hgb 8.5 g/dL (12.0-16.0) L 11/26/24 05:01
Hct 25.2 % (37.0-47.0) L 11/26/24 05:01
Plt Count 242 10^3/uL (130-400) 11/26/24 05:01
Sodium 142 mmol/L (135-145) 11/26/24 05:01
Potassium 4.4 mmol/L (3.5-5.1) 11/26/24 05:01
BUN 71 mg/dl (7-17) H 11/26/24 05:01
Creatinine 3.0 mg/dL (0.6-1.0) H 11/26/24 05:01
Glucose 186 mg/dl (70-99) H 11/26/24 05:01
Troponins
11/25/24
12:16
Troponin I 0.025
Vital Signs and I&O:
Vital Signs
Temp Pulse Resp BP Pulse Ox
98.5 F 65 14 139/61 94
11/26/24 07:10 11/26/24 07:25 11/26/24 07:25 11/26/24 07:09 11/26/24 07:25
Vital Signs
Temp Pulse Resp BP Pulse Ox
98.5 F 65 14 139/61 94
11/26/24 07:10 11/26/24 07:25 11/26/24 07:25 11/26/24 07:09 11/26/24 07:25
Intake & Output
11/24/24 11/25/24 11/26/24 11/27/24
07:59 07:59 07:59 07:59
Output Total 300 / 300 300 / 300
Balance -300 / -300 -300 / -300
Physical Exam
Physical Exam
GEN: No distress, awake, alert, oriented x3
HEENT: supple, anicteric, mmm, EOMI
LUNGS: Crackles B/L bases, no wheezes
CV: Reg, S1/S2, 2/6 syst LSB
ABD: soft, BS+, NT/ND
EXT: No cyanosis, clubbing.1+ edema of bilateral lower extremity
NEURO: Gross non-focal
SKIN: Warm, pink, dry. No rash
--- NOTE | 2024-11-26 11:59 | W.PN.NEPH.PH ---
Today's Communication / Plan
-
see plan
cotn lasix
Assessment/Plan
-
Assessment
DANIELLA
DDRTx 1997
CKD4 (2.5)
metabolic acidosis
pruritus
HFpEF decompensated
weight loss
anemia
Plan
DANIELLA-likely cardiorenal
cr slightly better with lasix, cont same
she seem to have sig proteinuria 12.4gm/gm of cr with alb 3.2-can not r/o nephrotic synd
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
follow Hgb, transfuse if needed if Hgb<8, fe sat 14%-will give her iV fe course
BP improving on procardia, BB and clonidine patch, hold hydralazine with itching
continue tac/pred
non gap met acidosis-monitor for now with bicarb avoiding salt load during CHF flare
echo pending
no emergent need of HD
her cr noted slow increase over last months suspect this could be new baseline if no improvement seen
we reviewed that she likely has risk of dialysis in future
-
-
Date of Service: November 26, 2024
CC / HPI / ROS
-
Chief Complaint:
DANIELLA with CKD, h/o KTP
History of Present Illness:
cr slightly down to 3, bicarb better at 16
Bp improving, hb stable 8 range
Review of Systems:
edema improving , sob better on RA
no pain. toelrating po
Labs
-
Labs:
WBC 9.2 10^3/uL (4.8-10.8) 11/26/24 05:01
RBC 3.00 10^6/uL (4.20-5.40) L 11/26/24 05:01
Hgb 8.5 g/dL (12.0-16.0) L 11/26/24 05:01
Hct 25.2 % (37.0-47.0) L 11/26/24 05:01
Plt Count 242 10^3/uL (130-400) 11/26/24 05:01
Sodium 142 mmol/L (135-145) 11/26/24 05:01
Potassium 4.4 mmol/L (3.5-5.1) 11/26/24 05:01
Chloride 118 mmol/L (98-107) H 11/26/24 05:01
Carbon Dioxide 16 mmol/L (22-30) L 11/26/24 05:01
BUN 71 mg/dl (7-17) H 11/26/24 05:01
Creatinine 3.0 mg/dL (0.6-1.0) H 11/26/24 05:01
eGFR 16.42 11/26/24 05:01
Glucose 186 mg/dl (70-99) H 11/26/24 05:01
Calcium 9.1 mg/dl (8.4-10.2) 11/26/24 05:01
Dgz-K-Ezivzjlkwte Pept 9440 pg/ml 11/25/24 12:16
Albumin 3.2 g/dl (3.5-5.0) L 11/25/24 12:16
Physical Exam
-
Vital Signs:
Vital Signs
Temp Pulse Resp BP Pulse Ox
98.3 F 65 18 127/62 95
11/26/24 11:14 11/26/24 11:30 11/26/24 11:14 11/26/24 11:14 11/26/24 11:15
Cardiovascular:: Regular rate and rhythm
Respiratory:: Bilateral: Rales
Lung Excursion:: Normal
Abdomen:: Nontender and Soft
Extremity Edema:: +1: Bilateral:
Ortega Catheter: No
Other Findings::
r
--- NOTE | 2024-11-26 12:28 | CM ---
Reviewed chart. Met with Mrs. Rivera to review discharge plans. She states prior to admission she resides with her spouse in a one story home without any steps to enter. She states prior to admission she was independent with adls and ambulation.
She states she has balance issues and she sometimes needs someone to walk with her or she holds on the the wall. She states she does not have any DME in the home. She states she has never had [facility].. Will need to see her current functional
level to see if she will have any skilled care needs. She states she has a prescription plan and uses [facility]. Medical work-up in progress. The discharge plan is to return home with her spouse when medically stable.
[2024-11-26] MEDS: FERRLECIT 110 MG IV (14:31)
--- NOTE | 2024-11-26 17:53 | PTCARENOTE ---
Pt received this am with no c/o of any pain. C/o of mild sob at times with exertion. Room air sat 96%. Lungs clear. SR, rate in the 60's to 80's. OOB ad vimal. at the bedside. Straight cathed for bladder scan of 762ml. 80 ml drained with
straight cath. Pt had voided 150ml prior to being cathed.
[2024-11-26] MEDS: DELTASONE 5 MG PO (22:50)
[2024-11-27] VITALS (8 sets, daily range): BP systolic 136–164; BP diastolic 57–75; BMI 19.5
--- NOTE | 2024-11-27 00:28 | PTCARENOTE ---
Assumed care of patient at change of shift w/ family at bedside. Tele monitor shows NSR, HR in the 60-70's. Pt w/ generalized weakness when ambulating in room. Pt OLIVERA, and sating 95-96% RA. Lungs decreased in the right base. B/l ankles w/ +2 pitting
edema, and +1 pedal edema. B/L DP pules palpable. At approx 23:15, pt reports no urine output for a couple hours. Abd distended, denies any back pain. This RN bladder scanned pt w/ a result of 935. Pt unable to void. Straight cath performed per
protocol, pt drained for 200cc of yellow urine. Pt tolerated treatment. Post straight cath, this RN repeated bladder scan w/ a result of 932. Janine Baker NP made aware. No further orders obtained at this time. pt currently lying in bed w/ call
almonte in reach.
[2024-11-27] MEDS: ATARAX 10 MG PO ×3 (02:43→23:02)
[2024-11-27 03:52] LABS: Blood Urea Nitrogen 77 mg/dl (7-17); Calcium 8.8 mg/dl (8.4-10.2); Carbon Dioxide 16 mmol/L (22-30); Chloride 116 mmol/L (98-107); Estimated Creatinine Clearance 13 ml/min; Glucose 185 mg/dl (70-99); Potassium 4.0 mmol/L (3.5-5.1); Sodium 141 mmol/L (135-145); eGFR 15.20
--- NOTE | 2024-11-27 07:11 | W.PN.HOSP.TC ---
Addendum entered and electronically signed by Ramon Bucio MD 11/27/24 13:46:
Presented with acute on chronic HFpEF
IV diuretics
Monitor I's and O's
Cardiology following
Check abdominal ultrasound to rule out ascites
If noted will obtain a paracentesis
History of IgA nephropathy s/p renal transplant
DANIELLA on CKD with progression of CKD stage IV
Continue tacrolimus prednisone
Renal bladder ultrasound completed
Continue IV Lasix
Monitor urinary output
Metabolic acidosis likely due to worsening renal function
Start Bicitra
Original Note:
Today's Communication/Plan
-
Start Bicitra 15ml Q8h
Continue Hydroxyzine
Continue IV lasix
Follow nephro, cardio recs
Assessment / Plan
Assessment / Plan
69-year-old female with past medical history for coronary artery disease, hypertension, renal transplant presents with progressive swelling on ankles with associated shortness of breath and cough for last 2 weeks. Shortness of breath is made worse
when she lays flat, better with standing up. She was skipping 5mg Torsemide and her weight and edema were up. She was taking lasix 40 PO then it changed on to 20 due to her elevated creatinine it was stopped eventually. Patient stated itching after
discontinuing Pantoprozole on her abdomen and arms.
Renal transplant specialist: She sees Dr. Marr at [facility] and there has been discussion about Renal biopsy about her 25y/o transplant.
PCP: Dr. Chang
Cardiology: Dr. LAWRENCE Gonzales
Nephrology: Dr. De Paz
# CHF exacerbation with preserved EF
BNP 9440
Continue 40mg IV Lasix QD
Strict SOHEILA, daily weight, fluid restriction
Cardiology consult, input appreciated
-Echo 04/17/2024 with EF of 72%.
Chest x-ray: highly suggestive of interstitial pulmonary edema pattern with small bilateral pleural effusions.
Obtain ECHO- no significant change comparing to prior study 04/17/2024
-Stage II diastolic dysfunction suggestive of abnormal relaxation and increased filling pressures
-Aortic sclerosis without stenosis. Mild to moderate aortic regurgitation
- Mild mitral stenosis
-follow cardiology recs
# History of IgA nephropathy s/p renal transplant in 1987
# DANIELLA on CKD or Progression of CKD stage 4
-Creatinine 3
Consult Nephrology, input appreciated
-Cont LEATHER PATCHER Tacrolimus and Prednisone
-Renal/bladder US
-Check Urine Urea level to differentiate DANIELLA (prerenal vs renal)- pending
-Continue IV lasix
-Monitor Urine output
-Proteinuria seen on urine analysis
-Start Bicitra 15mg Q8h-- goal HCO3 >22
- follow nephrology recs
#Pruritis
-hold Hydralazine
-Continue Hydroxyzine prn
# Anemia of chronic disease
- Hemoglobin stable at 8.5, no active bleeding
- Iron studies
- Continue to monitor Hb level if Hb<8 consider transfusion
# Essential hypertension
-Continue Atenolol, Nifedipine, Clonidine- improving
-Hold hydralazine with itching
# History of coronary artery disease s/p multivessel PCI/SARA
-continue Plavix
DVT ppx: Denies SQ Heparin wants to continue Plavix, SCDs
CODE status: full code
Anticipated Discharge: > 48 hours
Subjective/Interval History
-
Date of Service: November 27, 2024
Overnight she was not able to sleep because of itching. It gets worse at night time. She is still coughing, having SOB excacerbated by walking from bathroom to her bed.Overall, she reports improvement comparing to when she was admitted.
Objective Data
-
Labs:
Laboratory Results
11/27/24 11/27/24
02:50 06:15
WBC Pending
Hgb Pending
Hct Pending
Plt Count Pending
Sodium 141
Potassium 4.0
Chloride 116 H
Carbon Dioxide 16 L
BUN 77 H
Creatinine 3.2 H
Glucose 185 H
Calcium 8.8
Vital Signs:
Vital Signs
Temp Pulse Resp BP Pulse Ox
98.4 F 68 20 147/62 94
11/27/24 02:44 11/27/24 05:00 11/27/24 02:44 11/27/24 02:44 11/27/24 02:44
I&O
11/26/24 11/27/24 11/28/24
06:59 06:59 06:59
Intake Total 600 / 600
Output Total 300 / 300 1110 / 1110
Balance -300 / -300 -510 / -510
Review of Systems
-
History Source: Patient
Constitutional: Reports No Symptoms
EENT: Reports No Symptoms Reported
Respiratory: Reports Cough and Trouble Breathing (with exercise)
Cardiac: Reports No Symptoms
Abdomen/GI: Reports No Symptoms
Breast: Reports No Symptoms
Genitourinary: Reports No Symptoms
Musculoskeletal: Reports Edema (bilateral feet )
Skin: Reports Itching
Neuro: Reports No Symptoms
Endocrine: Reports No Symptoms
Hematologic / Lymphatic: Reports No Symptoms
Physical Exam
-
General: Well Developed, Well Nourished, No Apparent Distress and Comfortable
HEENT: Normocephalic and Atraumatic
Respiratory: Crackles
Cardiac: Regular Rhythm and S1/S2
Breast: Deferred by me
GI: Soft, Nontender, Nondistended and Normal Bowel Sounds
Genito-urinary: Deferred by me
Musculoskeletal: No Clubbing, No Cyanosis, Edema, Right Lower Extrem (foot) and Edema, Left Lower Extrem (foot)
Skin: Warm
Neuro: AO x 3
Psych: Calm
--- NOTE | 2024-11-27 07:46 | W.PN.CARDCBS ---
Addendum entered and electronically signed by Marco A Sebastian DO 11/27/24 15:16:
I saw and examined the patient.
The Machinist/Machine Builder's note was reviewed and I agree with the note.
Comment:
Plan:
Continue diuretics as per nephrology
Follow cr
EF is preserved. Valvular heart disease reviewed.
Outpt follow up with Dr Gonzales
Please recall if needed
Addendum entered and electronically signed by Sonya Jonhson PA-C 11/27/24 08:42:
Discussed with nursing. there were also concerns for urinary retention overnight with bladder scan showing sizeable amount of urine however when straight cathed with minimal output. concern for ascites skewing scans.
Original Note:
Today's Communication / Plan
-
diuretics per nephrology, consider increasing dose
follow Cr
treatment of itching per primary service, ? recent PPI use
Impression / Plan
-
PCP: Dr. Chang
Cardiology: Dr. LAWRENCE Gonzales
Nephrology: Dr. De Paz
Renal transplant specialist: Dr. Marr at [place]
Impression:
Acute HFpEF
DANEILLA on CKD 3b
Admission for acute diastolic CHF March 2023
h/o IgA nephropathy
s/p donor kidney transplant at [place] in 1997
CAD, multivessel CAD by cath 07/20/21 and patient declined surgery and opted for PCI instead
s/p 3.0 mm Xience to tandem distal RCA lesions 07/25/21
s/p 3.5 mm Xience to 90% prox Circ lesion 07/25/21
s/p 2.75 mm Xience to tandem LAD lesions 07/25/21
s/p 3.0 mm Xience to 90% prox LAD 07/25/21
s/p rescue PTCA of occluded Diagonal through the LAD stent struts 07/25/21HTN
Echo 07/26/22: EF 70-75%, stage I diastolic dysfunction, mitral sclerosis without stenosis, moderate central aortic regurgitation
Echocardiogram 04/17/2024: Ejection fraction 72%, mild mitral stenosis with a mean gradient of 5 mL mercury, mild MR, mild to moderate AI, mild aortic stenosis with mean gradient of 9 mmHg, PA systolic 42 mmHg
Plan:
- She presented with weight gain, dyspnea, lower extremity edema in setting of her outpatient Lasix being stopped due to worsening kidney function. proBNP 9440
- She remains with dry cough. on IV Lasix 40mg daily. Creatinine 3.2 on 11/27. Nephrology following.
- Echo stable with preserved EF and mild to mod AI/mild MS, reviewed with patient 11/27. may need to establish new dry weight
- major complaint this morning is itching. she reports that her PCP had started her on pantoprazole for abd pain about 2 weeks ago, which improved, however then with stopping the medication she developed itching. no rash. defer to primary service.
- in SR on review of tele overnight. continue OP atenolol, nifedipine, clonidine. OP hydralazine was stopped due to concern for etiology of itching
- on chronic plavix for history of multiple PCI as above
- Discussed with resident
PREADMIT DATA:
Patient came to [facility] with a cough and progressive SOB x3 weeks. Patient saw her PCP a few weeks ago and was prescribed amoxicillin for cough, but didn't improve so she saw her PCP again and was prescribed azithromycin, but again did not improve.
Patient then saw [facility] 04/04/23 and was given an albuterol breathing treatment, but no better. She has a h/o IgA nephropathy and eventually had a donor renal transplant at [place] 05/19/97. Patient follows with Dr. Marr at [place] and there has
been a discussion about a renal biopsy to evaluate her transplant as it is almost 24 years old, but patient has been hesitant. Patient saw Dr. Gonzales 01/04/23 and she had been skipping torsemide and her weight and edema were up. Patient says that
most recently she has been taking torsemide 5 mg MWF due to DANIELLA. Patient has noticed a nonproductive cough and her legs feels heavy, but no bloating or orthopnea.
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
Subjective
Date of Service: November 27, 2024
reports itching worse at night and continued dry cough
Objective
Labs:
11/27/24 02:50
Labs
Hgb 8.5 g/dL (12.0-16.0) L 11/26/24 05:01
Hct 25.2 % (37.0-47.0) L 11/26/24 05:01
Plt Count 242 10^3/uL (130-400) 11/26/24 05:01
Sodium 141 mmol/L (135-145) 11/27/24 02:50
Potassium 4.0 mmol/L (3.5-5.1) 11/27/24 02:50
BUN 77 mg/dl (7-17) H 11/27/24 02:50
Creatinine 3.2 mg/dL (0.6-1.0) H 11/27/24 02:50
Glucose 185 mg/dl (70-99) H 11/27/24 02:50
Troponins
11/25/24
12:16
Troponin I 0.025
Vital Signs and I&O:
Vital Signs
Temp Pulse Resp BP Pulse Ox
98.4 F 68 20 147/62 94
11/27/24 02:44 11/27/24 05:00 11/27/24 02:44 11/27/24 02:44 11/27/24 02:44
Vital Signs
Temp Pulse Resp BP Pulse Ox
98.4 F 68 20 147/62 94
11/27/24 02:44 11/27/24 05:00 11/27/24 02:44 11/27/24 02:44 11/27/24 02:44
Intake & Output
11/24/24 11/25/24 11/26/24 11/27/24
07:59 07:59 07:59 07:59
Intake Total 600 / 600
Output Total 300 / 300 1110 / 1110
Balance -300 / -300 -510 / -510
Physical Exam
Physical Exam
GEN: No distress, awake, alert, oriented x3
HEENT: supple, anicteric, mmm, eomi
LUNGS: Crackles B/L bases, no wheezes
CV: Reg, S1/S2, 2/6 syst LSB
ABD: soft, BS+, NT/ND
EXT: No cyanosis, clubbing. 1+ edema of B/L LE
NEURO: Gross non-focal
SKIN: Warm, pink, dry. No rash
[2024-11-27] MEDS: SPIRIVA RESPIMAT 2.5 MCG 2 PUFF INH (08:23)
[2024-11-27] MEDS: SYMBICORT 80/4.5 MCG INHALER 2 PUFF INH ×2 (08:23→20:42)
[2024-11-27] MEDS: PLAVIX 75 MG PO (08:41)
[2024-11-27] MEDS: PROCARDIA XL (EXTENDED RELEASE) 30 MG PO ×3 (08:41→23:00)
[2024-11-27] MEDS: TENORMIN 25 MG PO ×2 (08:41→20:25)
[2024-11-27] MEDS: PROGRAF 1 MG PO ×2 (08:46→20:26)
[2024-11-27] MEDS: LASIX 40 MG IV (09:38)
[2024-11-27] MEDS: SODIUM BICARBONATE 650 MG PO ×2 (10:16→20:26)
--- NOTE | 2024-11-27 11:18 | CM ---
Reviewed chart. Met with and Mrs. Rivera to review discharge plans. She states she feels about the same. She states she is wondering if she needs outpatient dialysis can she have home peritoneal dialysis. She states she can not go to
outpatient dialysis due to transportation and how fatigue it makes her. We reviewed [facility] Transportation as an option. She was concerned about the cost. Will await medical team recommendation. We also revieweed VNA Services.. She would like to think
about VNA Services and let me know closer to discharge date. Prior to admission she resides with her spouse in a one story home without any steps to enter. Prior to admission she was independent with adls and ambulation. She has balance issues and
she sometimes needs someone to walk with her or she holds on the the wall. She does not have any DME in the home. She has never had VNA Services.. Will need to see her current functional level to see if she will have any skilled care needs. She
has a prescription plan and uses [facility]. Medical work-up in progress. The discharge plan is to return home with her spouse when medically stable.
Initialized on 11/26/24 12:28 - END OF NOTE
[2024-11-27] MEDS: FERRLECIT 110 MG IV (13:46)
--- NOTE | 2024-11-27 14:00 | W.PN.NEPH.PH ---
Today's Communication / Plan
-
see plan
Assessment/Plan
-
Assessment
DANIELLA
DDRTx 1997
CKD4 (2.5)
metabolic acidosis
pruritus
HFpEF decompensated
weight loss
anemia
Plan
DANIELLA-likely cardiorenal
cr fluctuating trend, may remain high assuming new baseline, PVR 75cc
she seem to have sig proteinuria 12.4gm/gm of cr with alb 3.2-can not r/o nephrotic synd
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
still OLIVERA and slow to improve edema-cont lasix
echo normal EF, mild to mod AR
check UE doppler as persistent edema
will add sodium bicarb for met acidosis
follow Hgb, transfuse if needed if Hgb<8, fe sat 14%-cont iV fe course
BP stable on procardia, BB and clonidine patch, hold hydralazine with itching
continue tac/pred
no emergent need of HD
we reviewed that she likely has risk of dialysis in future
long d/w pt, and daughter on phone
answered many questions, d/w nursing
Addendum:
US bladder with concerning of cystic lesion but trasnplant kidney US with out acute findings
she previously noted a cystic lesion in pelvis on CT in September -was supposed to be doing MRI
could possibly try to do in the hospital if possible
-
-
Date of Service: November 27, 2024
CC / HPI / ROS
-
Chief Complaint:
DANIELLA with CKD, h/o KTP
History of Present Illness:
cr slightly up at 3.2, bicarb stable at 16
Bp stable, hb stable 8 range
Review of Systems:
edema improving , sob better on RA , OLIVERA still
no pain. toelrating po
Labs
-
Labs:
Sodium 141 mmol/L (135-145) 11/27/24 02:50
Potassium 4.0 mmol/L (3.5-5.1) 11/27/24 02:50
Chloride 116 mmol/L (98-107) H 11/27/24 02:50
Carbon Dioxide 16 mmol/L (22-30) L 11/27/24 02:50
BUN 77 mg/dl (7-17) H 11/27/24 02:50
Creatinine 3.2 mg/dL (0.6-1.0) H 11/27/24 02:50
eGFR 15.20 11/27/24 02:50
Glucose 185 mg/dl (70-99) H 11/27/24 02:50
Calcium 8.8 mg/dl (8.4-10.2) 11/27/24 02:50
Kap-W-Fzmhhrjadyk Pept 9440 pg/ml 11/25/24 12:16
Albumin 3.2 g/dl (3.5-5.0) L 11/25/24 12:16
Physical Exam
-
Vital Signs:
Vital Signs
Temp Pulse Resp BP Pulse Ox
97.7 F 65 20 136/57 100
11/27/24 11:23 11/27/24 11:23 11/27/24 11:23 11/27/24 11:23 11/27/24 11:23
Cardiovascular:: Regular rate and rhythm
Respiratory:: Bilateral: Rales (improving)
Lung Excursion:: Normal
Abdomen:: Nontender and Soft
Extremity Edema:: +1: Bilateral:
Ortega Catheter: No
Other Findings::
r
[2024-11-27 16:49] LABS: Magnesium 2.0 mg/dl (1.6-2.3)
--- NOTE | 2024-11-27 17:00 | PTCARENOTE ---
Pt received this am oob ad vimal, gait steady. Denies sob at rest but states she has some OLIVERA. Room air sat 99%. Continues wit right arm edema. Dr. Recio notified and an US of the arm is ordered.
[2024-11-27] MEDS: BICITRA 15 ML PO ×2 (17:40→23:01)
[2024-11-27 18:18] LABS: Hematocrit 23.2 % (37.0-47.0); Hemoglobin 7.8 g/dL (12.0-16.0); Mean Corp Hgb Conc. 33.6 g/dL (33.0-37.0); Mean Corpuscular Volume 82.9 fL (81.0-99.0); Platelet Count 203 10^3/uL (130-400); Red Cell Dist. Width 14.5 % (11.5-14.5)
[2024-11-27] MEDS: DELTASONE 5 MG PO (23:00)
--- NOTE | 2024-11-27 23:53 | PTCARENOTE ---
Addendum entered by Jordyn Martin RN 11/28/24 03:28:
Relief from Atarax did not last long. Pt called RN in that itching was still going on and she was unable to sleep. EDUCATIONAL PROGRAM DIRECTOR Janine Olivia put an order in for 12.5mg of IV Benadryl-- see MAR.
Original Note:
Received pt @ change of shift. AAOx3, BP 152/63, other VSS-- NSR with occasional PACs on monitor. Pt went to US for abdominal US and RUE US at 2014 and returned to the floor without issue. No thrill or bruit felt in LUE fistula. Pt c/o itchiness of
abdomen. States 'it gets much worse at night.' Pt says the Atarax helps, but wears off in a few hours and the itchiness begins again. Shared with RN how this itchiness is affecting her quality of life. Discussed plan of care with pt. Verbalizes
understanding, but insists on going home tomorrow. Call almonte within reach.
[2024-11-28] MEDS: BENADRYL 12.5 MG IV (02:08)
[2024-11-28 02:30] VITALS: BP 148/66
[2024-11-28 03:40] LABS: Hematocrit 23.3 % (37.0-47.0); Hemoglobin 8.0 g/dL (12.0-16.0); Mean Corp Hgb Conc. 34.3 g/dL (33.0-37.0); Mean Corpuscular Volume 83.5 fL (81.0-99.0); Platelet Count 220 10^3/uL (130-400); Red Cell Dist. Width 14.4 % (11.5-14.5)
[2024-11-28 03:57] LABS: Blood Urea Nitrogen 76 mg/dl (7-17); Calcium 8.4 mg/dl (8.4-10.2); Carbon Dioxide 18 mmol/L (22-30); Chloride 113 mmol/L (98-107); Estimated Creatinine Clearance 12 ml/min; Glucose 179 mg/dl (70-99); Magnesium 2.0 mg/dl (1.6-2.3); Potassium 3.9 mmol/L (3.5-5.1); Sodium 140 mmol/L (135-145); eGFR 14.65
--- NOTE | 2024-11-28 06:28 | PTCARENOTE ---
Pt had a 10 bt run of svt @ 05:10. Pt was asymptomatic.
--- NOTE | 2024-11-28 07:21 | W.PN.HOSP.TC ---
Addendum entered and electronically signed by Ramon Bucio MD 11/28/24 15:53:
dc home
per neph okay for 80mg po lasix
More than 30 minutes spent in discharge including
Final examination of the patient
Summarizing hospital stay
Instructions for continuing care to all relevant caregivers
Preparation of discharge records, prescriptions, and referral forms
Total time spent (in minutes): 33mins
Original Note:
Today's Communication/Plan
-
Follow Nephro, cards recs
Possible discharge
Discontinue Bicitra
Assessment / Plan
Assessment / Plan
69-year-old female with past medical history for coronary artery disease, hypertension, renal transplant presents with progressive swelling on ankles with associated shortness of breath and cough for last 2 weeks. Shortness of breath is made worse
when she lays flat, better with standing up. She was skipping 5mg Torsemide and her weight and edema were up. She was taking lasix 40 PO then it changed on to 20 due to her elevated creatinine it was stopped eventually. Patient stated itching after
discontinuing Pantoprozole on her abdomen and arms.
Renal transplant specialist: She sees Dr. Marr at [facility] and there has been discussion about Renal biopsy about her 25y/o transplant.
PCP: Dr. Chang
Cardiology: Dr. LAWRENCE Gonzales
Nephrology: Dr. De Paz
# CHF exacerbation with preserved EF
BNP 9440
Continue 40mg IV Lasix QD
Strict SOHEILA, daily weight, fluid restriction
Cardiology consult, input appreciated
-Echo 04/17/2024 with EF of 72%.
Chest x-ray: highly suggestive of interstitial pulmonary edema pattern with small bilateral pleural effusions.
Obtain ECHO- no significant change comparing to prior study 04/17/2024
-Stage II diastolic dysfunction suggestive of abnormal relaxation and increased filling pressures
-Aortic sclerosis without stenosis. Mild to moderate aortic regurgitation
- Mild mitral stenosis
-follow cardiology recs
# History of IgA nephropathy s/p renal transplant in 1987
# DANIELLA on CKD or Progression of CKD stage 4
-Creatinine 3
Consult Nephrology, input appreciated
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
-Renal/bladder US
-Check Urine Urea level to differentiate DANIELLA (prerenal vs renal)- pending
-Continue IV lasix
-Monitor Urine output
-Proteinuria seen on urine analysis
-Continue Sodium bicarb- goal HCO3 >22
Bladder US
-No focal intrinsic wall abnormality of the urinary bladder is seen. Bilateral ureteral jets not seen.
Renal US
-Renal allograft within the right iliac fossa measures 10.2 x 5.6 x 5.7 cm.
-Large simple cyst again arises from the lower pole of the kidney measuring 11.2 x 10.4 x 11.3 cm.
Abdominal US
-no findings to confirm ascites
Pelvis MRI
-Large exophytic simple cyst arising from the lower pole of the right renal transplant measuring up to 12.9 cm in size.
-Few other small cysts in the renal transplant measuring up to 1.1 cm
-Colonic diverticulosis
-4.2 x 3.6 x 8.2 cm lipoma of the anterior right hip along the anterior margin of the distal right iliopsoas muscle
-No MRI evidence for internal septations or solid nodular components.
#Left wrist swelling
Peripheral Vascuar Ultrasound
-IV line moved to wrist- swelling decreasing
-Nonocclusive right cephalic vein thrombus (superficial venous system)
#Pruritis
-hold Hydralazine
-Continue Hydroxyzine prn
# Anemia of chronic disease
- Hemoglobin stable at 8.5, no active bleeding
- Iron studies
- Continue to monitor Hb level if Hb<8 consider transfusion
#Contipation
- Start Polyethylene glycol
# Essential hypertension
-Continue Atenolol, Nifedipine, Clonidine- improving
-Hold hydralazine with itching
# History of coronary artery disease s/p multivessel PCI/SARA
-continue Plavix
DVT ppx: Denies SQ Heparin wants to continue Plavix, SCDs
CODE status: full code
Anticipated Discharge: Today
Subjective/Interval History
-
Date of Service: November 28, 2024
Overnight she had really bad itching she could not fall a sleep until 3 am when nurse gave her Benadryl her itchiness improved and she fell a sleep. She has swollen left hand that started after having IV line on her left arm at ED. Yesterday nurse
moved IV line place to her wrist and swelling is improving since then. She is on room air sitting comfortable but she reports feeling very tired when she went to get her US within a minute she was SOB. She wants to go home.
Objective Data
-
Labs:
Laboratory Results
11/28/24
02:35
WBC 12.1 H
Hgb 8.0 L
Hct 23.3 L
Plt Count 220
Sodium 140
Potassium 3.9
Chloride 113 H
Carbon Dioxide 18 L
BUN 76 H
Creatinine 3.3 H
Glucose 179 H
Calcium 8.4
Vital Signs:
Vital Signs
Temp Pulse Resp BP Pulse Ox
98.5 F 68 16 148/66 96
11/28/24 02:39 11/28/24 05:00 11/28/24 02:39 11/28/24 02:30 11/28/24 02:39
I&O
11/27/24 11/28/24 11/29/24
06:59 06:59 06:59
Intake Total 600 / 600
Output Total 1110 / 1110 1050 / 1050
Balance -510 / -510 -1050 / -1050
Review of Systems
-
History Source: Patient
Constitutional: Reports No Symptoms
EENT: Reports No Symptoms Reported
Respiratory: Reports No Symptoms and Trouble Breathing (with exercise)
Cardiac: Reports Orthopnea
Abdomen/GI: Reports No Symptoms
Breast: Reports No Symptoms
Genitourinary: Reports No Symptoms
Musculoskeletal: Reports Edema (bilateral feet , left wrist)
Skin: Reports Itching
Neuro: Reports No Symptoms
Endocrine: Reports No Symptoms
Hematologic / Lymphatic: Reports No Symptoms
Physical Exam
-
General: Well Developed, Well Nourished, No Apparent Distress and Comfortable
HEENT: Normocephalic and Atraumatic
Respiratory: Crackles
Cardiac: Regular Rhythm, S1/S2, Murmur (Systolic Ejection Murmur radiating to carotid, Diastolic murmur ) and Carotid Bruits
Breast: Deferred by me
GI: Soft, Nontender, Nondistended and Normal Bowel Sounds
Genito-urinary: Deferred by me
Musculoskeletal: No Clubbing, No Cyanosis, Edema, Right Lower Extrem (foot) and Edema, Left Lower Extrem (foot)
Skin: Warm
Neuro: AO x 3
Psych: Calm
[2024-11-28 07:27] VITALS: BP 150/77
--- NOTE | 2024-11-28 07:55 | PTCARENOTE ---
Assumed care of pt from prev nsg shift; Pt AAOX3 w/no c/o CP. Pt mildly SOB this AM w/activity & pt continues to be orthopneic. Pt reports 'feeling better today'. Pt w/VSS w/HR in the 60's & BP 150/77 this AM. Pt is SB on telemetry monitoring.
Discussed plan for the day w/pt & pt's spouse. Pt mildly anxious re: pelvic MRI, this RN explained procedure & pt verbalized her understanding. Pt was concerned the test would involve contrast dye & effect her kidney. This RN reassured pt &
emotional support provided. Plan of care ongoing.
[2024-11-28] MEDS: SPIRIVA RESPIMAT 2.5 MCG 2 PUFF INH (08:09)
[2024-11-28] MEDS: SYMBICORT 80/4.5 MCG INHALER 2 PUFF INH (08:09)
[2024-11-28 08:31] VITALS: BMI 19.6
[2024-11-28] MEDS: TENORMIN 25 MG PO (10:12)
[2024-11-28] MEDS: PROGRAF 1 MG PO (10:12)
[2024-11-28] MEDS: SODIUM BICARBONATE 650 MG PO (10:12)
[2024-11-28] MEDS: PROCARDIA XL (EXTENDED RELEASE) 30 MG PO ×2 (10:12→16:04)
[2024-11-28] MEDS: PLAVIX 75 MG PO (10:12)
[2024-11-28] MEDS: BICITRA 15 ML PO (10:13)
[2024-11-28] MEDS: FLUSH (NSS) 2 FLUSH IV ×2 (10:14→15:11)
[2024-11-28] MEDS: LASIX 40 MG IV (10:14)
[2024-11-28 12:01] VITALS: BP 129/56
--- NOTE | 2024-11-28 12:38 | W.PN.NEPH.PH ---
Today's Communication / Plan
-
lasix 80mg daily
Assessment/Plan
-
Assessment
DANIELLA
DDRTx 1997
CKD4 (2.5)
metabolic acidosis
pruritus
HFpEF decompensated
weight loss
anemia
nephrotic range proteinuria
Plan
lasix 80mg po daily
follow BMP
continue low dose bicarbonate
she has f/u appt with Dr. De Paz in 10days
dc planning
-
-
Date of Service: November 28, 2024
CC / HPI / ROS
-
Chief Complaint:
DANIELLA with CKD, h/o KTP
History of Present Illness:
Cr stable 3.3
BP stable
acidosis slightly better 18
BP high
breathing improved
Review of Systems:
edema improving
SOB better
Labs
-
Labs:
WBC 12.1 10^3/uL (4.8-10.8) H 11/28/24 02:35
RBC 2.79 10^6/uL (4.20-5.40) L 11/28/24 02:35
Hgb 8.0 g/dL (12.0-16.0) L 11/28/24 02:35
Hct 23.3 % (37.0-47.0) L 11/28/24 02:35
Plt Count 220 10^3/uL (130-400) 11/28/24 02:35
Sodium 140 mmol/L (135-145) 11/28/24 02:35
Potassium 3.9 mmol/L (3.5-5.1) 11/28/24 02:35
Chloride 113 mmol/L (98-107) H 11/28/24 02:35
Carbon Dioxide 18 mmol/L (22-30) L 11/28/24 02:35
BUN 76 mg/dl (7-17) H 11/28/24 02:35
Creatinine 3.3 mg/dL (0.6-1.0) H 11/28/24 02:35
eGFR 14.65 11/28/24 02:35
Glucose 179 mg/dl (70-99) H 11/28/24 02:35
Calcium 8.4 mg/dl (8.4-10.2) 11/28/24 02:35
Dsv-N-Ewnndpovcuv Pept 9440 pg/ml 11/25/24 12:16
Albumin 3.2 g/dl (3.5-5.0) L 11/25/24 12:16
Physical Exam
-
Vital Signs:
Vital Signs
Temp Pulse Resp BP Pulse Ox
98.1 F 71 20 150/77 97
11/28/24 12:01 11/28/24 08:13 11/28/24 12:01 11/28/24 07:27 11/28/24 12:01
Cardiovascular:: Regular rate and rhythm
Respiratory:: Bilateral: Coarse
Lung Excursion:: Normal
Abdomen:: Nontender and Soft
Bowel Sounds:: Normal
Extremity Edema:: +1: Bilateral:
[2024-11-28 15:08] VITALS: BP 157/68
[2024-11-28] MEDS: FERRLECIT 110 MG IV (15:11)
--- NOTE | 2024-11-28 16:27 | CM ---
Reviewed chart. Met with and Mrs. Rivera to review discharge plans. [facility] with her. At this time she is declining VNA Services. Prior to admission she resides with her spouse in a one
story home without any steps to enter. Prior to admission she was independent with adls and ambulation. She has balance issues and she sometimes needs someone to walk with her or she holds on the the wall. She does not have any DME in the home.
She has never had VNA Services.. Will need to see her current functional level to see if she will have any skilled care needs. She has a prescription plan and uses [facility]. Medical work-up in progress. The discharge plan is to return home
with her spouse when medically stable.
--- NOTE | 2024-11-28 16:30 | PTCARENOTE ---
Pt's IV line & telemetry pack D/C'd; Discussed D/C instructions w/pt & spouse. Pt left via WC w/spouse driving her home.
--- NOTE | 2024-11-28 16:58 | W.DCSUMMARY ---
Discharge Summary
Discharge Data
Date of Admission: 11/25/24
Date of Discharge: 11/28/24
-
Pending Results: No
Hospital Course
Discharging Physician : Dr. Peter Callaway, Dr. Ramon Bucio
Disposition : Home
Primary care physician : Joey French
Principal Discharge diagnosis : Acute Diastolic CHF
Chronic Discharge diagnosis :
Chronic HFpEF
CKD 3b
h/o IgA nephropathy
s/p donor kidney transplant at [facility] in 1997
CAD, multivessel CAD by cath 07/20/21 and patient declined surgery and opted for PCI instead
Hypertension
Hospital Course : Patient came to [facility] with a cough and progressive SOB x2 weeks which worsened over the past 3 days. She had worsening edema, weight gain and acute diastolic CHF. Her BNP was elevated 9440. She had DANIELLA likely from cardiorenal. IV
Lasix was started. She was on fluid restriction, daily weight watch and strict SOHEILA. Over the hospital stay her SOB improved to room air without oxygen support. She lost some weight, swelling improved.
She received hydroxyzine for itching- did not seem to help her. Some improvement with Benadryl.
Continue Lasix 80mg po daily
Follow up with PCP within a week and get BMP
Continue low dose bicarbonate until seen by PCP goal HCO3>22
she has f/u appt with Dr. De Paz (cashier and waiter/waitress) in 10days
She has f/u appt with Dr. Gonzales (interactive developer) in 1-2 weeks.
Important imaging findings :
ECHO
-no significant change comparing to prior study 04/17/2024
-Stage II diastolic dysfunction suggestive of abnormal relaxation and increased filling pressures
-Aortic sclerosis without stenosis. Mild to moderate aortic regurgitation
- Mild mitral stenosis
Chest x-ray: highly suggestive of interstitial pulmonary edema pattern with small bilateral pleural effusions.
Bladder US
-No focal intrinsic wall abnormality of the urinary bladder is seen. Bilateral ureteral jets not seen.
Renal US
-Renal allograft within the right iliac fossa measures 10.2 x 5.6 x 5.7 cm.
-Large simple cyst again arises from the lower pole of the kidney measuring 11.2 x 10.4 x 11.3 cm.
Abdominal US
-no findings to confirm ascites
Pelvis MRI
-Large exophytic simple cyst arising from the lower pole of the right renal transplant measuring up to 12.9 cm in size.
-Few other small cysts in the renal transplant measuring up to 1.1 cm
-Colonic diverticulosis
-4.2 x 3.6 x 8.2 cm lipoma of the anterior right hip along the anterior margin of the distal right iliopsoas muscle
-No MRI evidence for internal septations or solid nodular components.
Peripheral Vascuar Ultrasound
-IV line moved to wrist- swelling decreasing
-Nonocclusive right cephalic vein thrombus (superficial venous system)
Procedure findings : None
Discharge Plan
-
Patient Disposition: Home (Routine Discharge)
Discharge Diagnosis/Procedures: CHF exacerbation with preserved EF
Condition: Fair
Diet: Low Cholesterol, 2 Gram Sodium and Restrict fluids to 48 oz
Activity: As tolerated
Driving Restrictions: As prior to admission
Bathing Restrictions: None
Blood Work: BMP in 4-5 days follow up with PCP
Specialty Instructions: Weigh Daily- Call MD for wt gain/loss 3 lbs overnight/5 lbs in 1 week
Referrals:
Joey French MD [Family Provider, Family Practice] - in less than 1 week
Referral Note: Follow up with PCP in a week
Matthew Gonzales MD [Active, Cardiology] - in one to two weeks
Referral Note: Follow up with cardiology within 1- 2 weeks
Wisam De Paz MD [Active, Nephrology] - in one to two weeks
Referral Note: Follow up with cashier and waiter/waitress in 10 days as scheduled
Additional Discharge Medication Instructions: Follow up with interactive developer Dr. Gonzales within 1-2 weeks
Follow up with cashier and waiter/waitress Dr. De Paz within 10days
Follow up with your PCP within a week
Take 80mg Lasix every day by mouth
Take low dose Bicarbonate every day until seeing your PCP
Prescriptions:
New
furosemide 80 mg Tablet
80 mg PO DAILY Qty: 30 0RF
sodium bicarbonate 650 mg Tablet
650 mg PO BID Qty: 14 0RF
Continued
prednisone 5 MG tablet
5 mg PO HS
nifedipine 30 MG tablet extended release
30 mg PO TID
tacrolimus [Prograf] 1 mg Capsule
1 mg PO Q12H
atenolol 50 mg tablet
25 mg PO BID
clopidogrel 75 MG tablet
75 mg PO DAILY
clonidine 0.3 mg/24 hr Patch Weekly
1 patch TRANSDERMAL WE
Trelegy Ellipta 100-62.5-25 mcg Blister With Device
1 inh INHALATION R DAILY
Discontinued
hydralazine 25 mg Tablet
25 mg PO BID
furosemide [Lasix] 20 mg Tablet
20 mg PO MOWEFR
Discharge Orders:
Discharge Patient (As Directed); Ordered 11/28/24
Ordered By: Peter Callaway
Care Plan Goals
Care Plan Goals:
Problem: Readiness for enhanced knowledge related to diagnosis and treatment plan
Goal: Understand your diagnosis and treatment plan needs, including medications if applicable.
Instructions: Know your diagnosis, underlying causes and treatment plan options, including medications if applicable. Consult with your health care team to learn about your diagnosis and treatment plan, including medications if applicable.
Discharge Date and Time
Print Language: URDU
== END 2024-11-28 17:11 | disposition home or self-care (01) | DRG 291 ==
LOC: IVU 16:42
PROVIDERS: Emergency Medicine; Registered Nurse; ADMITTING PHYSICIAN Hospitalist; ATTENDING PHYSICIAN Hospitalist; CONSULT PHYSICIAN Internal Medicine Cardiovascular Disease; CONSULT PHYSICIAN Specialist; EMERGENCY PHYSICIAN Emergency Medicine; FAMILY PHYSICIAN Family Medicine
DX: I13.0 Hypertensive heart and chronic kidney disease with heart failure and stage 1 through stage 4 chronic kidney disease, or unspecified chronic kidney disease (principal); I50.33 Acute on chronic diastolic (congestive) heart failure; N17.9 Acute kidney failure, unspecified; T86.19 Other complication of kidney transplant; E87.20 Acidosis, unspecified; I82.611 Acute embolism and thrombosis of superficial veins of right upper extremity; I25.10 Atherosclerotic heart disease of native coronary artery without angina pectoris; Z95.5 Presence of coronary angioplasty implant and graft; Y83.0 Surgical operation with transplant of whole organ as the cause of abnormal reaction of the patient, or of later complication, without mention of misadventure at the time of the procedure; I70.0 Atherosclerosis of aorta; D63.1 Anemia in chronic kidney disease; Z79.02 Long term (current) use of antithrombotics/antiplatelets; L29.9 Pruritus, unspecified; E11.22 Type 2 diabetes mellitus with diabetic chronic kidney disease; E78.00 Pure hypercholesterolemia, unspecified; E88.09 Other disorders of plasma-protein metabolism, not elsewhere classified; I05.8 Other rheumatic mitral valve diseases; Z79.899 Other long term (current) drug therapy
CPT/HCPCS: 71046; 72195; 76705; 76776; 76857; 80048; 80053; 80061; 81003; 81015; 82570; 82728; 83540; 83550; 83690; 83735; 83880; 84156; 84439; 84443; 84484; 85025; 85027; 93005; 93306; 93971; 94640; 96374; 99285; J2916

== ENCOUNTER → 2024-12-04 09:45 | Outpatient (REF) | payer OTHER, SELFPAY ==
[2024-12-04 10:48] LABS: Hematocrit 25.6 % (37.0-47.0); Hemoglobin 8.1 g/dL (12.0-16.0); Mean Corp Hgb Conc. 31.6 g/dL (33.0-37.0); Mean Corpuscular Volume 85.9 fL (81.0-99.0); Nucleated Red Blood Cells % 0 %; Platelet Count 245 10^3/uL (130-400); Red Cell Dist. Width 14.6 % (11.5-14.5)
[2024-12-04 11:27] LABS: Blood Urea Nitrogen 83 mg/dl (7-17); Calcium 8.9 mg/dl (8.4-10.2); Carbon Dioxide 21 mmol/L (22-30); Chloride 113 mmol/L (98-107); Glucose 141 mg/dl (70-99); Iron 43 ug/dl (37-170); Potassium 5.4 mmol/L (3.5-5.1); Sodium 144 mmol/L (135-145); eGFR 13.65
[2024-12-04 11:36] LABS: Total Iron Binding Capacity 178 ug/dl (265-497)
[2024-12-04 11:50] LABS: Ferritin 661.0 ng/ml (11.1-264.0)
== END ==
LOC: REG 09:45
PROVIDERS: ATTENDING PHYSICIAN Family Medicine
DX: R80.9 Proteinuria, unspecified (principal); I50.32 Chronic diastolic (congestive) heart failure; N18.4 Chronic kidney disease, stage 4 (severe)
CPT/HCPCS: 36415; 80048; 82728; 83540; 83550; 85025

== ENCOUNTER → 2024-12-10 09:44 | Outpatient (REF) | payer OTHER, SELFPAY ==
[2024-12-10 10:38] LABS: Hematocrit 28.8 % (37.0-47.0); Hemoglobin 9.2 g/dL (12.0-16.0); Mean Corp Hgb Conc. 31.9 g/dL (33.0-37.0); Mean Corpuscular Volume 86.7 fL (81.0-99.0); Nucleated Red Blood Cells % 0 %; Platelet Count 295 10^3/uL (130-400); Red Cell Dist. Width 14.1 % (11.5-14.5)
[2024-12-10 10:57] LABS: ALT (SGPT) 17 U/L (0-35); AST (SGOT) 21 U/L (14-36); Albumin 3.5 g/dl (3.5-5.0); Alkaline Phosphatase 89 U/L (38-126); Blood Urea Nitrogen 44 mg/dl (7-17); Calcium 8.9 mg/dl (8.4-10.2); Carbon Dioxide 20 mmol/L (22-30); Chloride 112 mmol/L (98-107); Glucose 103 mg/dl (70-99); HDL Cholesterol 35 mg/dl; LDL Cholesterol, Calculated 153 mg/dl; Potassium 5.0 mmol/L (3.5-5.1); Sodium 140 mmol/L (135-145); Total Protein 7.7 g/dl (6.3-8.2); Very Low Density Lipoprotein 72 mg/dl (0-30); eGFR 14.65
== END ==
LOC: REG 09:44
PROVIDERS: ATTENDING PHYSICIAN Family Medicine
DX: R80.9 Proteinuria, unspecified (principal); I50.32 Chronic diastolic (congestive) heart failure; N18.4 Chronic kidney disease, stage 4 (severe)
CPT/HCPCS: 36415; 80053; 80061; 85025

== ENCOUNTER → 2024-12-22 10:12 | Outpatient (REF) | payer OTHER, SELFPAY ==
[2024-12-22 11:48] LABS: Hematocrit 28.8 % (37.0-47.0); Hemoglobin 9.3 g/dL (12.0-16.0); Mean Corp Hgb Conc. 32.3 g/dL (33.0-37.0); Mean Corpuscular Volume 83.7 fL (81.0-99.0); Nucleated Red Blood Cells % 0 %; Platelet Count 259 10^3/uL (130-400); Red Cell Dist. Width 15.2 % (11.5-14.5); Reticulocyte Count 2.4 % (0.4-2.8)
[2024-12-22 12:36] LABS: ALT (SGPT) 23 U/L (0-35); AST (SGOT) 22 U/L (14-36); Albumin 3.6 g/dl (3.5-5.0); Alkaline Phosphatase 94 U/L (38-126); Blood Urea Nitrogen 73 mg/dl (7-17); Calcium 9.1 mg/dl (8.4-10.2); Carbon Dioxide 22 mmol/L (22-30); Chloride 113 mmol/L (98-107); Glucose 116 mg/dl (70-99); Magnesium 2.2 mg/dl (1.6-2.3); Potassium 4.8 mmol/L (3.5-5.1); Sodium 142 mmol/L (135-145); Total Protein 7.5 g/dl (6.3-8.2); eGFR 18.63
[2024-12-24 04:44] LABS: Tacrolimus (Prograft - FK506) <2.0 ng/mL
== END ==
LOC: REG 10:12
PROVIDERS: ATTENDING PHYSICIAN Specialist; FAMILY PHYSICIAN Family Medicine
DX: N18.4 Chronic kidney disease, stage 4 (severe) (principal); D63.1 Anemia in chronic kidney disease
CPT/HCPCS: 36415; 80053; 80197; 82570; 82668; 83735; 83970; 84100; 84156; 85025; 85045

== ENCOUNTER → 2025-01-01 10:22 | Outpatient (REF) | payer OTHER, SELFPAY ==
[2025-01-01 11:38] LABS: Blood Urea Nitrogen 62 mg/dl (7-17); Calcium 9.5 mg/dl (8.4-10.2); Carbon Dioxide 21 mmol/L (22-30); Chloride 115 mmol/L (98-107); Glucose 136 mg/dl (70-99); Potassium 6.0 mmol/L (3.5-5.1); Sodium 142 mmol/L (135-145); eGFR 15.79
[2025-01-02 19:41] LABS: Tacrolimus (Prograft - FK506) 3.9 ng/mL
== END ==
LOC: REG 10:22
PROVIDERS: ATTENDING PHYSICIAN Specialist; FAMILY PHYSICIAN Family Medicine; OTHER PHYSICIAN Internal Medicine Cardiovascular Disease
DX: Z94.0 Kidney transplant status (principal); I27.20 Pulmonary hypertension, unspecified; I10 Essential (primary) hypertension; I13.0 Hypertensive heart and chronic kidney disease with heart failure and stage 1 through stage 4 chronic kidney disease, or unspecified chronic kidney disease; N18.4 Chronic kidney disease, stage 4 (severe)
CPT/HCPCS: 36415; 80048; 80197

== ENCOUNTER → 2025-01-22 14:57 | Outpatient (REF) | payer OTHER, SELFPAY ==
[2025-01-22 17:40] LABS: Blood Urea Nitrogen 76 mg/dl (7-17); Calcium 8.3 mg/dl (8.4-10.2); Carbon Dioxide 20 mmol/L (22-30); Chloride 110 mmol/L (98-107); Glucose 110 mg/dl (70-99); Potassium 5.2 mmol/L (3.5-5.1); Sodium 135 mmol/L (135-145); eGFR 15.20
== END ==
LOC: RAD 14:57
PROVIDERS: ATTENDING PHYSICIAN Surgery Vascular Surgery; FAMILY PHYSICIAN Family Medicine; OTHER PHYSICIAN Specialist
DX: I77.0 Arteriovenous fistula, acquired (principal); Z01.818 Encounter for other preprocedural examination; Z94.0 Kidney transplant status; I10 Essential (primary) hypertension; N02.8 Recurrent and persistent hematuria with other morphologic changes; E11.29 Type 2 diabetes mellitus with other diabetic kidney complication
CPT/HCPCS: 36415; 80048; 93985

== ENCOUNTER → 2025-01-31 09:42 | Outpatient (REF) | payer OTHER, SELFPAY ==
[2025-01-31 10:22] LABS: Hematocrit 26.3 % (37.0-47.0); Hemoglobin 8.4 g/dL (12.0-16.0)
[2025-01-31 10:43] LABS: Albumin 3.3 g/dl (3.5-5.0); Blood Urea Nitrogen 66 mg/dl (7-17); Calcium 8.9 mg/dl (8.4-10.2); Carbon Dioxide 24 mmol/L (22-30); Chloride 112 mmol/L (98-107); Glucose 127 mg/dl (70-99); Potassium 5.3 mmol/L (3.5-5.1); Sodium 139 mmol/L (135-145); eGFR 17.10
== END ==
LOC: REG 09:42
PROVIDERS: ATTENDING PHYSICIAN Specialist; FAMILY PHYSICIAN Family Medicine
DX: Z94.0 Kidney transplant status (principal); Z86.39 Personal history of other endocrine, nutritional and metabolic disease; N18.4 Chronic kidney disease, stage 4 (severe)
CPT/HCPCS: 36415; 80069; 83970; 85014; 85018

== ENCOUNTER 2025-02-09 09:43 | Day surgery (SDC) | payer OTHER, SELFPAY ==
[2025-02-09 07:29] VITALS: BMI 19.5
[2025-02-09 10:00] VITALS: BP 160/67
[2025-02-09] MEDS: BACTROBAN NASAL 1 GRAM NASAL (10:22)
[2025-02-09] MEDS: PERIDEX 0.12% ORAL RINSE 15 ML PO (10:22)
[2025-02-09 10:32] VITALS: BP 160/67
--- NOTE | 2025-02-09 11:01 | W.SUR.PREOP ---
Pre-Operative Surgical Note
-
I have examined this patient prior to the performance of the scheduled procedure.
The patient's condition is unchanged from the time of the current History and
Physical and the patient is able to undergo the scheduled procedure.
[2025-02-09 11:04] LABS: Hematocrit 29.8 % (37.0-47.0); Hemoglobin 9.6 g/dL (12.0-16.0); Mean Corp Hgb Conc. 32.2 g/dL (33.0-37.0); Mean Corpuscular Volume 84.7 fL (81.0-99.0); Platelet Count 187 10^3/uL (130-400); Red Cell Dist. Width 15.7 % (11.5-14.5)
[2025-02-09 11:16] LABS: INR 1.01; PT 13.6 Sec (11.4-14.6)
[2025-02-09 11:17] LABS: APTT 29.7 Sec (23.4-35.0)
[2025-02-09 11:20] LABS: Blood Urea Nitrogen 66 mg/dl (7-17); Calcium 8.9 mg/dl (8.4-10.2); Carbon Dioxide 21 mmol/L (22-30); Chloride 111 mmol/L (98-107); Estimated Creatinine Clearance 12 ml/min; Glucose 147 mg/dl (70-99); Potassium 5.3 mmol/L (3.5-5.1); Sodium 140 mmol/L (135-145); eGFR 14.65
--- NOTE | 2025-02-09 13:30 | PTCARENOTE ---
dr wesley orta has been in or w emergency pt . Sandee Clarke from vascular came to talk to pt on his behalf and asked pt to reschedule her procedure. rn discussed width pt the plan for dr orta's office to call pt at home tomorrow and give her a new date
for procedure. pt agrees to rescheduling .
== END 2025-02-09 13:45 | disposition other institution (70) ==
LOC: CATH 09:43
PROVIDERS: ATTENDING PHYSICIAN Surgery Vascular Surgery; PRIMARYCARE PHYSICIAN Family Medicine
DX: I12.0 Hypertensive chronic kidney disease with stage 5 chronic kidney disease or end stage renal disease (principal); Z53.8 Procedure and treatment not carried out for other reasons; E11.22 Type 2 diabetes mellitus with diabetic chronic kidney disease; N18.6 End stage renal disease; Z99.2 Dependence on renal dialysis; I25.10 Atherosclerotic heart disease of native coronary artery without angina pectoris; I25.2 Old myocardial infarction
CPT/HCPCS: 80048; 85027; 85610; 85730; 86850; 86900; 86901

== ENCOUNTER 2025-02-23 06:07 | Day surgery (SDC) | payer OTHER, SELFPAY ==
--- NOTE | 2025-02-18 15:04 | PTCARENOTE ---
Abnormal ECG done 12/26/[address] De Luna, no further interventions requested.
[2025-02-23] VITALS (10 sets, daily range): BP systolic 150–178; BP diastolic 62–80; BMI 19.9
[2025-02-23 06:54] LABS: Hematocrit 30.3 % (37.0-47.0); Hemoglobin 9.9 g/dL (12.0-16.0); Mean Corp Hgb Conc. 32.7 g/dL (33.0-37.0); Mean Corpuscular Volume 83.9 fL (81.0-99.0); Platelet Count 213 10^3/uL (130-400); Red Cell Dist. Width 16.4 % (11.5-14.5)
[2025-02-23] MEDS: NSS 500 IV (07:03)
[2025-02-23] MEDS: PERIDEX 0.12% ORAL RINSE 15 ML PO (07:03)
[2025-02-23] MEDS: BACTROBAN NASAL 1 GRAM NASAL (07:03)
--- NOTE | 2025-02-23 07:04 | W.SUR.PREOP ---
Pre-Operative Surgical Note
-
I have examined this patient prior to the performance of the scheduled procedure.
The patient's condition is unchanged from the time of the current History and
Physical and the patient is able to undergo the scheduled procedure.
Discussed procedure again. She again reiterated she would like to if at all possible avoid right upper extremity access. Therefore we will likely plan left upper extremity fistula or graft. She actually would prefer a graft that she noted
difficulty with vein fistula/failed in the past. Discussed that we will assess her vein when she is asleep in the OR and then proceed with either basilic vein transposition fistula versus AV graft.
[2025-02-23 07:09] LABS: Blood Urea Nitrogen 63 mg/dl (7-17); Calcium 9.0 mg/dl (8.4-10.2); Carbon Dioxide 19 mmol/L (22-30); Chloride 109 mmol/L (98-107); Glucose 160 mg/dl (70-99); Potassium 5.4 mmol/L (3.5-5.1); Sodium 136 mmol/L (135-145); eGFR 16.42
[2025-02-23 07:15] LABS: INR 1.05; PT 13.8 Sec (11.4-14.6)
[2025-02-23 07:16] LABS: APTT 29.1 Sec (23.4-35.0)
--- NOTE | 2025-02-23 09:14 | W.SUR.POST ---
Surgical Immediate Post Op
Note
Pre Op Diagnosis: ESRD
Post Op Diagnosis: ESRD
Procedure Performed: Creation of left upper extremity brachiocephalic AV fistula
Primary Surgeon: Serge Hernández M.D.
acquisitions assistant: ANGEL Gudino
Anesthesia: GETA
Estimated Blood Loss: 5 mL
Fluids: See anesthesia flowsheet
Drains/Shunts: N/A
Specimens/Cultures: N/A
Doppler/Duplex/Angio (Y/N): Y, Doppler
Complications: None
Operative Findings: Successful creation of brachiocephalic AV fistula with palpable thrill postoperatively
[2025-02-23] MEDS: SUBLIMAZE 25 MCG IV (09:24)
--- NOTE | 2025-02-23 09:30 | OR.RPT ---
Operative Report
Operative Report
PROCEDURE DATE: 02/23/2025
Preoperative diagnosis: End-stage renal disease
Postoperative diagnosis: Same
Procedure: Left upper extremity brachiocephalic arteriovenous fistula creation, with partial localized transposition of the cephalic vein.
Surgeon: Edgar
Energy Sales Consultant: ILAN García, required for all aspects of procedure including assistance with traction/countertraction, following suture line, assistance with closure.
Complications: None
Anesthesia: General
Indications for procedure:
End-stage renal disease. History of hemodialysis via multiple left upper extremity forearm AV graft that subsequently failed. She has had a working kidney transplant and therefore has not needed dialysis recently. However more recently her kidney
transplant was felt to be potentially failing. She was referred there for for new AV access creation. Risk/benefits/alternatives all fully discussed. Patient understood and wished to proceed.
Description of procedure:
Patient was identified brought to the operating room placed on the table in supine position. After the adequate administration of anesthesia and perioperative antibiotics she was prepped and draped in the standard surgical fashion. A standard
preoperative timeout was undertaken and everybody was in agreement the plan. Patient had significant scar tissue in the antecubital fossa area from the prior AV graft. However on just gross examination, I could see what appeared to be the cephalic
vein. Therefore I used a ultrasound after the patient was under anesthesia but before prepping and identified that the cephalic vein in the upper arm throughout its course looked very healthy and robust and reasonable to use. In addition the
basilic vein also looked good. Both of the sites were marked. However, given scar tissue in the antecubital fossa, if the cephalic vein was used I felt that I would need to locally transpose it onto the brachial artery. I elected to proceed with
that route.
A longitudinal incision was made in the very distal upper arm extending to the antecubital fossa overlying where I had marked the positioning of the cephalic vein to be. This incision was carried through skin subcutaneous tissue with the
electrocautery. The cephalic vein was identified. Is noted to be a very healthy vein. I carefully dissected a suitable length and mobilized it fully out of its bed in this site. Any branches were ligated between silk ties and clips and then
divided to allow this full mobilization.
Now a separate longitudinal incision was made just medial to this other incision overlying the pulsation of the brachial artery distally in the upper arm. This was carried through skin and the subcutaneous s tissue. I dissected through the fascial
layer and identified the brachial artery. It was carefully circumferentially dissected proximally and distally. Vesseloops were passed around it.
Now, I ligated the cephalic vein distally in my field with a silk tie and a clip. I then transected it. I distended under heparinized saline. It distended very well. I marked the anterior surface under distention to avoid any kinking or
twisting. The vein was clearly of suitable size but just to be sure I ran a 3 mm dilator through which passed without any difficulty whatsoever all the way up to the upper arm. Next I created a small subcutaneous tunnel (short tunnel) between the
vein exposure site and the exposed artery side. I now tunneled the vein through this short subcutaneous tunnel. I confirmed no kinking or twisting of the vein through the tunnel. I placed a bulldog clamp on the vein. The patient was given 3000
units of intravenous heparin.
Next I tightened my doubly Vesseloops on the artery proximally and distally. I then made an arteriotomy with 11 blade extended using a Teran scissor. I spatulated the cephalic vein and sewed an end to side anastomosis using a running 6-0 Prolene
suture. Prior to completing and tying down my suture line I backbled and forebled the [place] artery. Next I released my bulldog clamp on the vein and then released my Vesseloops on the artery. There was an excellent thrill in the fistula
throughout the outflow vein in the upper arm. There was a suture line bleeding site that was repaired with a single 6-0 Prolene [id number] type suture. Now hemostasis was fully achieved. There was an excellent radial artery Doppler signal at
the wrist. At this point I was very satisfied. I irrigated. I achieved and confirmed full hemostasis. We then closed both small incisions in layers using 3-0 Vicryl deep dermal layer followed by 4-0 Monocryl subcuticular stitch. Dermabond was
applied. The patient tolerated the procedure well.
[2025-02-23] MEDS: TYLENOL 650 MG PO (11:19)
== END 2025-02-23 11:40 | disposition home or self-care (01) ==
LOC: CATH 06:07
PROVIDERS: ATTENDING PHYSICIAN Surgery Vascular Surgery
DX: N18.6 End stage renal disease (principal); I13.0 Hypertensive heart and chronic kidney disease with heart failure and stage 1 through stage 4 chronic kidney disease, or unspecified chronic kidney disease; E11.22 Type 2 diabetes mellitus with diabetic chronic kidney disease; N18.9 Chronic kidney disease, unspecified; I50.32 Chronic diastolic (congestive) heart failure; Z94.0 Kidney transplant status; I25.2 Old myocardial infarction; Z95.5 Presence of coronary angioplasty implant and graft; I25.10 Atherosclerotic heart disease of native coronary artery without angina pectoris; Z79.01 Long term (current) use of anticoagulants; Z79.52 Long term (current) use of systemic steroids
CPT/HCPCS: 36818; 80048; 85027; 85610; 85730; 86850; 86900; 86901

== ENCOUNTER → 2025-02-25 14:07 | Outpatient (REF) | payer OTHER, SELFPAY | LOC: RAD 14:07 | PROVIDERS: ATTENDING PHYSICIAN Physician Assistant; FAMILY PHYSICIAN Family Medicine | DX: I77.0 Arteriovenous fistula, acquired (principal); T82.898A Other specified complication of vascular prosthetic devices, implants and grafts, initial encounter | CPT/HCPCS: 93990 ==

== ENCOUNTER 2025-03-02 14:28 | Outpatient (RCR) | payer OTHER, SELFPAY ==
[2025-02-16 14:29] LABS: Hematocrit 29.9 % (37.0-47.0); Hemoglobin 9.9 g/dL (12.0-16.0)
[2025-02-16 15:11] VITALS: BP 146/63
[2025-02-16] MEDS: RETACRIT 10000 UNITS SC (16:06)
[2025-03-02 14:52] LABS: Hematocrit 26.2 % (37.0-47.0); Hemoglobin 8.7 g/dL (12.0-16.0)
[2025-03-02 14:59] VITALS: BP 133/56
[2025-03-02] MEDS: RETACRIT 20000 UNITS SC (15:33)
== END 2025-03-18 23:59 | disposition home or self-care (01) ==
LOC: OID 14:28
PROVIDERS: ATTENDING PHYSICIAN Specialist; FAMILY PHYSICIAN Family Medicine
DX: N18.6 End stage renal disease (principal); D63.1 Anemia in chronic kidney disease; N02.8 Recurrent and persistent hematuria with other morphologic changes; Z94.0 Kidney transplant status
CPT/HCPCS: 36415; 85014; 85018; 96372; Q5106

== ENCOUNTER 2025-03-03 18:39 | Inpatient (IN) | payer OTHER, SELFPAY ==
[2025-03-03] VITALS (23 sets, daily range): BP systolic 152–206; BP diastolic 55–90
--- NOTE | 2025-03-03 16:06 | ED.GENMED ---
History of Present Illness
<Carol Reina [employer]D PA[employer] MIXER - Last Filed: 03/03/25 22:39>
General
Chief Complaint: Breathing Problem
Source: patient
Exam Limitations: none
Time Seen by Provider: 03/03/25 16:05
Nursing documentation reviewed up to this point in time: agreed with
History of Present Illness
History of Present Illness:
69-year-old female with history of CHF, CAD, HTN, HLD, MO, cardiac cath with stent x 5 in 2021, stent x 2 in 2014, right kidney transplant 1997, presents for shortness of breath that she says started yesterday and got gradually worse, had trouble
sleeping during the night and now presents with significant respiratory insufficiency. She cannot finish her sentence, she has labored breathing and expiratory wheezing. Denies CP, abdominal pain, n/v/d/c.
Past History
<Carol Reina, [employer]ER - Last Filed: 03/03/25 22:39>
Past History
ED Past Medical History: CAD, HTN and Other (kidney transplant)
ED Past Surgical History: Other (renal transplant)
Patient has exhibited threatening behavior?: No
PSI?: No
Social History
Tobacco: Non-smoker
Personal:
Living: with family
Review of Systems
<Carol Reina, [employer]ER - Last Filed: 03/03/25 22:39>
Review of Systems
Allergies reviewed?: Yes
All Other Systems: ROS reviewed and negative except as documented in HPI and ROS
Constitutional: Denies fever
Respiratory: Reports trouble breathing
Cardiac: Denies chest pain
ABD/GI: Denies abdominal pain, nausea, vomiting or diarrhea
: Denies dysuria
Musculoskeletal: Denies edema
Phy Exam
<Carol Reina, [employer]IXER - Last Filed: 03/03/25 22:39>
Physical Exam
Physical Exam:
GENERAL: Acute respiratory distress. A&Ox3.
CONSTITUTIONAL: Afebrile.
EYES: clear, conjunctivae normal
ENMT: dry mucus membranes, Pharynx nl
RESPIRATORY: Labored Respirations, tachypnea, lungs with diminished sounds, expiratory wheezes throughout, crackles right base
CARDIOVASCULAR: Regular rate and rhythm, no murmurs, no rubs.
GI: Soft, rotund, nontender, normal BS
MUSCULOSKELETAL: Moves with ease. Well perfused. No edema
SKIN: Warm, dry, grayish tint
PSYCH: Anxious mood and affect. Well kept, interactive and appropriate
NEUROLOGIC: Awake, alert and oriented. No focal neurological deficits
Scores
<Carol Reina, [employer] PA[employer]IXER - Last Filed: 03/03/25 22:39>
Heart Failure Risk
Heart Failure Risk Score: Yes
History of Stroke or TIA: No
History of intubation for respiratory distress: No
Heart rate on ED arrival >/= 110: No
SaO2 <90% on arrival on room air: Yes
HR >/=110 during 3min walk test (or too ill to perform test): Yes
ECG has acute ischemic changes: No
Urea >/=12mmol/L (BUN 33.6mg/dL): Yes
Serum CO2>/=35mmol/L: No
Troponin I or T elevated to MO Level (0.4mg/dL): Yes
NT-proBNP >/=5,000ng/L (5,000pg/ml): No
HF Risk Score: 6
Admission Status: VERY HIGH RISK 55.3% Consider admission to hospital
Course
<Carol Reina, [employer] PA[employer] MIXER - Last Filed: 03/03/25 22:39>
Orders/Labs/Results
Orders:
Orders
03/03/25 Lunch
Cholesterol Lowering
Fluid Restriction: 1200 mL/day (40 oz)
Cholesterol Lowering: Sodium, 2 Gram
03/03/25 15:44
EKG [Electrocardiogram (*1)] Urgent
Reason for Study: Shortness of Breath
03/03/25 15:45
EKG- Treatment ONCE
03/03/25 16:10
Ipratropium/Albuterol Sulfate [Duoneb] 3 ml INH R NOW STA
03/03/25 16:11
CR Chest Portable - 1 View Urgent
Comment:
Reason For Exam: SOB, wheezing
Reason Study Needs to be Portable: Patient Unstable
03/03/25 16:30
Complete Blood Count/With Diff Urgent
Comprehensive Metabolic Panel Urgent
NT-proBNP Urgent
Troponin I Urgent
03/03/25 17:01
Furosemide [Lasix] 40 mg IV NOW STA
03/03/25 17:14
Bipap [RESP] Urgent
Patient to use own unit?: No
Inspiratory Pressure (cm H2O): 10
Expiratory Pressure (cm H2O): 5
03/03/25 17:32
Furosemide [Lasix] 80 mg IV NOW STA
03/03/25 17:41
Admit/Transfer Patient As Directed
Co-Sign Provider:
Level of Care: Inpatient admission
Assign to:: ICU
Physician / Group: Poli Brown - Hospitalists
Diagnosis: HTN emergency, acute CHF, DANIELLA on CKD stage 3b
Reason for Hospitalization: HTN emergency, acute CHF, DANIELLA on CKD stage 3b - IV Lasix, IV BP control,
cards/renal evaluations
Expected length of stay greater than two midnights?: Yes
ELOS- Estimated Length of Stay in days: 5
I certify the patient meets the requirements for IP care: Yes
PRN Pain Medication Management As Directed
May give lesser potent ordered pain med per pt: Yes
preference::
Protocol:: Medication orders for pain may be administered in a
manner that supports deferring to patient preference
when the pt is:
- Requesting an ordered lesser potent pain medication.
Least to most potent pain medications are defined
as: acetaminophen < NSAID < tramadol < opioids
(morphine, oxycodone, hydromorphone).
- Requesting a lesser dose of the same medication IF
ORDERED.
- Requesting a less intrusive route of administration
if both routes are prescribed by the provider (PO <
IV).
03/03/25 17:43
Code Status As Directed
Resuscitation Status: Full Code
03/03/25 17:48
COVID-19 Antigen Urgent
Source: Nasal Swab
Labetalol HCl [Trandate] 10 mg IV NOW STA
03/03/25 18:01
Echo Follow-up Study Stat
Reason for Study: Heart failure, shortness of breath
03/03/25 18:07
Ortega Catheter [Catheter- Indwelling] As Directed
Reason for insertion: I&O's Critical Care
Comment: Nephrology determination with IV Lasix drip
Assess insertion reason daily.Remove if no longer applicable: Yes
03/03/25 18:11
Morphine Sulfate 1 mg IV NOW STA
03/03/25 18:24
HydrALAZINE [Apresoline] 10 mg IV NOW STA
03/03/25 18:29
PRN Pain Medication Management As Directed
May give lesser potent ordered pain med per pt: Yes
preference::
Protocol:: Medication orders for pain may be administered in a
manner that supports deferring to patient preference
when the pt is:
- Requesting an ordered lesser potent pain medication.
Least to most potent pain medications are defined
as: acetaminophen < NSAID < tramadol < opioids
(morphine, oxycodone, hydromorphone).
- Requesting a lesser dose of the same medication IF
ORDERED.
- Requesting a less intrusive route of administration
if both routes are prescribed by the provider (PO <
IV).
03/03/25 20:31
Acetaminophen [Tylenol] 650 mg PO Q4HPRN PRN
Atenolol [Tenormin] 25 mg PO BID
Bisacodyl [Dulcolax] 10 mg RECTAL [id number] PRN
Clonidine [Catapres] 0.2 mg PO BID
Docusate W/Senna [Senokot-S] 1 tablet PO BIDPRN PRN
Furosemide 500 mg/50 ml [Lasix] 500 mg in 50 ml IV ORDERED RATE
Heparin 36089 Units/250 ml 25,000 units in 250 ml IV PER PROTOCOL
Weight to be used for heparin protocol in kilograms (kg):: 47.3
Protocol:: Cardiac Tx/Acute Coronary
PTT Goal Range to be used:: PTT 73 to 111 seconds
Order type:: Initial
INITIAL Infusion Dose (UNITS/KG/hr) & then follow protocol:: 12 units/kg/hr
Infusion Dose in UNITS/hr & then follow protocol (UNITS/hr):: 550
INFUSION RATE in mL/hr & then follow protocol (mL/hr):: 5.5
PTT less than or equal to 64 seconds:: Increase rate by 200 units/hr (+ 2 mL/hr)
PTT 64.1 to 72.9 seconds:: Increase rate by 100 units/hr (+ 1 mL/hr)
PTT 73 to 111 seconds:: Target Range. No change in rate.
PTT 111.1 to 130.9 seconds:: Decrease rate by 100 units/hr (- 1 mL/hr)
PTT 131 to 199.9 seconds:: HOLD for 1 hr. Then decrease rate by 200 units/hr (- 2 mL/hr)
PTT greater than or equal to 200 seconds:: HOLD for 2 hrs & Notify Provider. Then decrease by 200 units/hr (-
2 mL/hr)
Lab follow-up:: Each change, PTT q6h until 2 consecutive are therapeutic. Then PTT
daily.
Ipratropium/Albuterol Sulfate [Duoneb] 3 ml INH R Q4HPRN PRN
Lorazepam [Ativan] 0.5 mg IV Q4HPRN PRN
NIFEdipine EXTENDED RELEASE [Procardia Xl (Extended Release)] 30 mg PO BID
Ondansetron Injectable [Zofran] 4 mg IV Q6HPRN PRN
Polyethylene Glycol Powder [Miralax] 17 grams PO DAILYPRN PRN
Sodium Bicarbonate 650 mg PO BID
Tacrolimus [Prograf] 1 mg PO Q12
03/03/25 20:31
CARDIOLOGY CONSULT Routine
Consulting Provider: Marco A Sebastian
Was physician already notified: Yes
Director Of Learning Consult Routine
Consulting Provider: Long Wagoner
Was physician already notified: Yes
NEPHROLOGY CONSULT Routine
Consulting Provider: Rolando Kathleen
Was physician already notified: Yes
Heparin Protocol- PTT Orders As Directed
PTT per Heparin protocol: -Obtain CBC and baseline PTT - if not already collected.
-Obtain PTT 6 hours from start of infusion. Then, every 6 hours until 2 consecutive
PTT's are therapeutic. Then, PTT Daily.
-With each rate change, obtain PTT every 6 hours until 2 consecutive PTT's are
therapeutic. Then, PTT Daily.
Activity As Directed
Activity Level: As Tolerated
Intake/ Output As Directed
Frequency: q12h
Notify MD As Directed
Notify physician if: PTT is greater than or equal to 200.
Vital Signs As Directed
Frequency: Per unit guidelines
Weight As Directed
Frequency: Daily
Rx Incentive Spirometry [RESP] Routine
Frequency: q1h while awake
Ot Eval And Treat Routine
Pt Eval And Treat Routine
Activity Level: As Tolerated
03/03/25 20:43
PTT Urgent
Comment: Obtain baseline before beginning heparin infusion if not already collected
Troponin I Q6H
03/03/25 22:00
Prednisone [Deltasone] 5 mg PO HS
03/04/25 03:00
Troponin I Q6H
03/04/25 06:00
Basic Metabolic Panel IN AM
Complete Blood Count/With Diff IN AM
Magnesium IN AM
Tacrolimus (Prograft - FK506) [S] IN AM
03/04/25 08:00
Clopidogrel Bisulfate [Plavix] 75 mg PO DAILY
ISOSORBIDE MONOnitrate ER [Imdur (Extended Release)] 30 mg PO DAILY
Rosuvastatin Calcium [Crestor] 5 mg PO DAILY
03/04/25 09:00
Troponin I Q6H
03/05/25 06:00
Basic Metabolic Panel IN AM
Complete Blood Count/With Diff IN AM
03/06/25 06:00
Basic Metabolic Panel IN AM
Complete Blood Count/With Diff IN AM
Abnormal Lab Results
03/03/25
16:30
WBC 12.9 H 10^3/uL
(4.8-10.8)
RBC 3.46 L 10^6/uL
(4.20-5.40)
Hgb 9.6 L g/dL
(12.0-16.0)
Hct 28.9 L %
(37.0-47.0)
RDW 15.6 H %
(11.5-14.5)
MPV 10.6 H fL
(7.4-10.4)
Abs Immat Gran (auto) 0.1 H 10^3/uL
(0-0.05)
Absolute Neuts (auto) 10.4 H 10^3/uL
(1.4-6.5)
Absolute Monos (auto) 1.0 H 10^3/uL
(0.1-0.6)
Neutrophils % 80.4 H %
(42.2-75.2)
Lymphocytes % 10.2 L %
(20.5-51.1)
Sodium 134 L mmol/L
(135-145)
Carbon Dioxide 15 L mmol/L
(22-30)
BUN 112 H* mg/dl
(7-17)
Creatinine 3.9 H mg/dL
(0.6-1.0)
Glucose 147 H mg/dl
(70-99)
Troponin I 0.039 H* ng/ml
03/03/25 16:30
03/03/25 16:30
Vital Signs
Initial and Last Documented VS:
Initial Vital Signs
Temp Pulse Resp BP Pulse Ox
97.9 F 74 28 185/85 87
03/03/25 15:52 03/03/25 15:52 03/03/25 15:52 03/03/25 15:52 03/03/25 15:52
Last Documented Vital Signs
Temp Pulse Resp BP Pulse Ox
98.0 F 75 20 168/59 96
03/03/25 21:52 03/03/25 21:45 03/03/25 21:45 03/03/25 21:30 03/03/25 21:52
Painter Spray consulted with Physician
Painter Spray consulted with physician?: Yes
Name of Physician Consulted: Amy
<Jamar Reyes, DO - Last Filed: 03/03/25 17:17>
Orders/Labs/Results
Orders:
Orders
03/03/25 Lunch
Cholesterol Lowering
Fluid Restriction: 1200 mL/day (40 oz)
Cholesterol Lowering: Sodium, 2 Gram
03/03/25 15:44
EKG [Electrocardiogram (*1)] Urgent
Reason for Study: Shortness of Breath
03/03/25 15:45
EKG- Treatment ONCE
03/03/25 16:10
Ipratropium/Albuterol Sulfate [Duoneb] 3 ml INH R NOW STA
03/03/25 16:11
CR Chest Portable - 1 View Urgent
Comment:
Reason For Exam: SOB, wheezing
Reason Study Needs to be Portable: Patient Unstable
03/03/25 16:30
Complete Blood Count/With Diff Urgent
Comprehensive Metabolic Panel Urgent
NT-proBNP Urgent
Troponin I Urgent
03/03/25 17:01
Furosemide [Lasix] 40 mg IV NOW STA
03/03/25 17:14
Bipap [RESP] Urgent
Patient to use own unit?: No
Inspiratory Pressure (cm H2O): 10
Expiratory Pressure (cm H2O): 5
03/03/25 17:32
Furosemide [Lasix] 80 mg IV NOW STA
03/03/25 17:41
Admit/Transfer Patient As Directed
Co-Sign Provider:
Level of Care: Inpatient admission
Assign to:: ICU
Physician / Group: Poli Brown - [facility]
Diagnosis: HTN emergency, acute CHF, DANIELLA on CKD stage 3b
Reason for Hospitalization: HTN emergency, acute CHF, DANIELLA on CKD stage 3b - IV Lasix, IV BP control,
cards/renal evaluations
Expected length of stay greater than two midnights?: Yes
ELOS- Estimated Length of Stay in days: 5
I certify the patient meets the requirements for IP care: Yes
PRN Pain Medication Management As Directed
May give lesser potent ordered pain med per pt: Yes
preference::
Protocol:: Medication orders for pain may be administered in a
manner that supports deferring to patient preference
when the pt is:
- Requesting an ordered lesser potent pain medication.
Least to most potent pain medications are defined
as: acetaminophen < NSAID < tramadol < opioids
(morphine, oxycodone, hydromorphone).
- Requesting a lesser dose of the same medication IF
ORDERED.
- Requesting a less intrusive route of administration
if both routes are prescribed by the provider (PO <
IV).
03/03/25 17:43
Code Status As Directed
Resuscitation Status: Full Code
03/03/25 17:48
COVID-19 Antigen Urgent
Source: Nasal Swab
Labetalol HCl [Trandate] 10 mg IV NOW STA
03/03/25 18:01
Echo Follow-up Study Stat
Reason for Study: Heart failure, shortness of breath
03/03/25 18:07
Ortega Catheter [Catheter- Indwelling] As Directed
Reason for insertion: I&O's Critical Care
Comment: Nephrology determination with IV Lasix drip
Assess insertion reason daily.Remove if no longer applicable: Yes
03/03/25 18:11
Morphine Sulfate 1 mg IV NOW STA
03/03/25 18:24
HydrALAZINE [Apresoline] 10 mg IV NOW STA
03/03/25 18:29
PRN Pain Medication Management As Directed
May give lesser potent ordered pain med per pt: Yes
preference::
Protocol:: Medication orders for pain may be administered in a
manner that supports deferring to patient preference
when the pt is:
- Requesting an ordered lesser potent pain medication.
Least to most potent pain medications are defined
as: acetaminophen < NSAID < tramadol < opioids
(morphine, oxycodone, hydromorphone).
- Requesting a lesser dose of the same medication IF
ORDERED.
- Requesting a less intrusive route of administration
if both routes are prescribed by the provider (PO <
IV).
03/03/25 20:31
Acetaminophen [Tylenol] 650 mg PO Q4HPRN PRN
Atenolol [Tenormin] 25 mg PO BID
Bisacodyl [Dulcolax] 10 mg RECTAL [id number] PRN
Clonidine [Catapres] 0.2 mg PO BID
Docusate W/Senna [Senokot-S] 1 tablet PO BIDPRN PRN
Furosemide 500 mg/50 ml [Lasix] 500 mg in 50 ml IV ORDERED RATE
Heparin 11501 Units/250 ml 25,000 units in 250 ml IV PER PROTOCOL
Weight to be used for heparin protocol in kilograms (kg):: 47.3
Protocol:: Cardiac Tx/Acute Coronary
PTT Goal Range to be used:: PTT 73 to 111 seconds
Order type:: Initial
INITIAL Infusion Dose (UNITS/KG/hr) & then follow protocol:: 12 units/kg/hr
Infusion Dose in UNITS/hr & then follow protocol (UNITS/hr):: 550
INFUSION RATE in mL/hr & then follow protocol (mL/hr):: 5.5
PTT less than or equal to 64 seconds:: Increase rate by 200 units/hr (+ 2 mL/hr)
PTT 64.1 to 72.9 seconds:: Increase rate by 100 units/hr (+ 1 mL/hr)
PTT 73 to 111 seconds:: Target Range. No change in rate.
PTT 111.1 to 130.9 seconds:: Decrease rate by 100 units/hr (- 1 mL/hr)
PTT 131 to 199.9 seconds:: HOLD for 1 hr. Then decrease rate by 200 units/hr (- 2 mL/hr)
PTT greater than or equal to 200 seconds:: HOLD for 2 hrs & Notify Provider. Then decrease by 200 units/hr (-
2 mL/hr)
Lab follow-up:: Each change, PTT q6h until 2 consecutive are therapeutic. Then PTT
daily.
Ipratropium/Albuterol Sulfate [Duoneb] 3 ml INH R Q4HPRN PRN
Lorazepam [Ativan] 0.5 mg IV Q4HPRN PRN
NIFEdipine EXTENDED RELEASE [Procardia Xl (Extended Release)] 30 mg PO BID
Ondansetron Injectable [Zofran] 4 mg IV Q6HPRN PRN
Polyethylene Glycol Powder [Miralax] 17 grams PO DAILYPRN PRN
Sodium Bicarbonate 650 mg PO BID
Tacrolimus [Prograf] 1 mg PO Q12
03/03/25 20:31
CARDIOLOGY CONSULT Routine
Consulting Provider: Marco A Sebastian
Was physician already notified: Yes
Director Of Learning Consult Routine
Consulting Provider: Long Wagoner
Was physician already notified: Yes
NEPHROLOGY CONSULT Routine
Consulting Provider: Rolando Kathleen
Was physician already notified: Yes
Heparin Protocol- PTT Orders As Directed
PTT per Heparin protocol: -Obtain CBC and baseline PTT - if not already collected.
-Obtain PTT 6 hours from start of infusion. Then, every 6 hours until 2 consecutive
PTT's are therapeutic. Then, PTT Daily.
-With each rate change, obtain PTT every 6 hours until 2 consecutive PTT's are
therapeutic. Then, PTT Daily.
Activity As Directed
Activity Level: As Tolerated
Intake/ Output As Directed
Frequency: q12h
Notify MD As Directed
Notify physician if: PTT is greater than or equal to 200.
Vital Signs As Directed
Frequency: Per unit guidelines
Weight As Directed
Frequency: Daily
Rx Incentive Spirometry [RESP] Routine
Frequency: q1h while awake
Ot Eval And Treat Routine
Pt Eval And Treat Routine
Activity Level: As Tolerated
03/03/25 20:43
PTT Urgent
Comment: Obtain baseline before beginning heparin infusion if not already collected
Troponin I Q6H
03/03/25 22:00
Prednisone [Deltasone] 5 mg PO HS
03/04/25 03:00
Troponin I Q6H
03/04/25 06:00
Basic Metabolic Panel IN AM
Complete Blood Count/With Diff IN AM
Magnesium IN AM
Tacrolimus (Prograft - FK506) [S] IN AM
03/04/25 08:00
Clopidogrel Bisulfate [Plavix] 75 mg PO DAILY
ISOSORBIDE MONOnitrate ER [Imdur (Extended Release)] 30 mg PO DAILY
Rosuvastatin Calcium [Crestor] 5 mg PO DAILY
03/04/25 09:00
Troponin I Q6H
03/05/25 06:00
Basic Metabolic Panel IN AM
Complete Blood Count/With Diff IN AM
03/06/25 06:00
Basic Metabolic Panel IN AM
Complete Blood Count/With Diff IN AM
Abnormal Lab Results
03/03/25
16:30
WBC 12.9 H 10^3/uL
(4.8-10.8)
RBC 3.46 L 10^6/uL
(4.20-5.40)
Hgb 9.6 L g/dL
(12.0-16.0)
Hct 28.9 L %
(37.0-47.0)
RDW 15.6 H %
(11.5-14.5)
MPV 10.6 H fL
(7.4-10.4)
Abs Immat Gran (auto) 0.1 H 10^3/uL
(0-0.05)
Absolute Neuts (auto) 10.4 H 10^3/uL
(1.4-6.5)
Absolute Monos (auto) 1.0 H 10^3/uL
(0.1-0.6)
Neutrophils % 80.4 H %
(42.2-75.2)
Lymphocytes % 10.2 L %
(20.5-51.1)
Sodium 134 L mmol/L
(135-145)
Carbon Dioxide 15 L mmol/L
(22-30)
BUN 112 H* mg/dl
(7-17)
Creatinine 3.9 H mg/dL
(0.6-1.0)
Glucose 147 H mg/dl
(70-99)
Troponin I 0.039 H* ng/ml
03/03/25 16:30
03/03/25 16:30
Vital Signs
Initial and Last Documented VS:
Initial Vital Signs
Temp Pulse Resp BP Pulse Ox
97.9 F 74 28 185/85 87
03/03/25 15:52 03/03/25 15:52 03/03/25 15:52 03/03/25 15:52 03/03/25 15:52
Last Documented Vital Signs
Temp Pulse Resp BP Pulse Ox
98.0 F 75 20 168/59 96
03/03/25 21:52 03/03/25 21:45 03/03/25 21:45 03/03/25 21:30 03/03/25 21:52
<Carol Reina [employer]D PASTE MIXER - Last Filed: 03/03/25 22:39>
MDM/Problems Addressed
Differential Diagnosis Includes:
CHF, PNA, fluid overload, yeah like her BNP is okay Acute kidney insufficiency this is a 48
MDM/Problems Addressed:
69-year-old female with history of CHF, CAD, HTN, HLD, MO, cardiac cath with stent x 5 in 2021, stent x 2 in 2014, right kidney transplant 1997, presents for shortness of breath that she says started yesterday and got gradually worse, had trouble
sleeping during the night and now presents with significant respiratory insufficiency. She cannot finish her sentence, she has labored breathing and expiratory wheezing. Denies CP, abdominal pain, n/v/d/c.
EKG: NSR
Pulse ox 87 on admission, with 4 L nasal cannula she is maintaining at 95 to 96%.
Plan: DuoNeb and IV Lasix, Portable CXR, labs
5:00 PM:
CBC: WBC 12.9 w shift
CMP: BUN/creat 112/3.9 otherwise unremarkable
BNP 97895
Troponin: 0.039
Chest x-ray: Radiology report read pulmonary vascularity is slight increase in there is a tiny right pleural effusion. Cardiomegaly with slightly increased pulmonary vascularity, represent mild CHF discharge paperwork but
Case discussed with Dr. Reyes
Pt maintaining Pulse ox at 96% on 4 L n.c. but work of breathing remains increased, bi-pap ordered.
Plan: Admit to Hospitalist: Fluid overload, Acute on chronic renal failure
Hospitalist notified of admission
Chronic conditions affecting care: HTN and Kidney disease
Acute Exacerbation and/or Progression of Chronic Illness: Kidney disease
<Carol Reina, ALMOND PASTE MIXER - Last Filed: 03/03/25 22:39>
*Pulse Oximetry
SaO2: 95
Nasal Cannula flow liters per minute: 2
Oxygen Mode of Delivery: Room air
Patient hypoxic: yes
Comment: 86% RA, 95% on 2 L n.c.
*EKG
EKG Intrepretation Date: 03/03/25
Interpretation: normal
Heart Rate: 73
Rate: normal
Rhythm: sinus
[place]: normal axis
Interval: normal interval
QRS Pattern: normal QRS
Ischemia: no ischemia
*Critical Care Note
Total Time (30-74mins, 75-104mins- exclusive of procedures): Not Applicable
ED Attending Note
<Carol Reina, ALMOND PASTE MIXER - Last Filed: 03/03/25 22:39>
-
Portions of this chart may have been created with voice recognition software.� Occasional wrong word or��sound alike� substitutions may have occurred due to the inherent limitations of voice recognition software.
<Jamar Reyes, DO - Last Filed: 03/03/25 17:17>
ED Attending Note
Patient seen and examined by attending physician: Yes
ED Attending Note:
I have reviewed and agree with history treatment plan by Tawanna Reina DNP. My exam revealed 69-year-old female with bilateral rails, mild respiratory distress. Patient in fluid overload versus CHF. Acute on chronic renal failure. Patient will
likely require dialysis. Admit to hospitalist. Lasix given. Will initiate BiPAP.
Discharge Plan
Departure
Patient Disposition: Admit
Date of Disposition: 03/03/25
Time of Disposition: 17:10
Admit to: IMU
Presentation/result/management discussed w/ accepting MD/DO: Hospitalist
Patient with high blood pressure during this ER visit?: Yes
Condition: Serious
Discharge Problem:
Fluid overload, Acute on chronic renal failure
Interventions
Interventions:
*General Assessment Last Done: 03/03/25 15:53
*Neglect/Abuse Screening Last Done: 03/03/25 15:53
*ED COVID-19 Vaccine History Last Done: 03/03/25 21:06
*ED Influenza Vaccine History Last Done: 03/03/25 15:53
[facility] Fall Risk Assessment Tool Last Done: 03/03/25 16:16
*Risk Screen - Suicide (C-SSRS) Last Done: 03/03/25 15:53
*Nursing Disposition Last Done: 03/03/25 20:41
ED- Cardiac Assessment Last Done: 03/03/25 16:18
ED- Pulmonary Assessment Last Done: 03/03/25 16:18
Discharge Date and Time
Discharge Date/Time: 03/03/25 20:41
[2025-03-03] MEDS: DUONEB 3 ML INH (16:14)
[2025-03-03 16:41] LABS: Hematocrit 28.9 % (37.0-47.0); Hemoglobin 9.6 g/dL (12.0-16.0); Mean Corp Hgb Conc. 33.2 g/dL (33.0-37.0); Mean Corpuscular Volume 83.5 fL (81.0-99.0); Nucleated Red Blood Cells % 0.2 %; Platelet Count 244 10^3/uL (130-400); Red Cell Dist. Width 15.6 % (11.5-14.5)
[2025-03-03 16:56] LABS: ALT (SGPT) 14 U/L (0-35); AST (SGOT) 27 U/L (14-36); Albumin 3.7 g/dl (3.5-5.0); Alkaline Phosphatase 118 U/L (38-126); Blood Urea Nitrogen 112 mg/dl (7-17); Calcium 8.9 mg/dl (8.4-10.2); Carbon Dioxide 15 mmol/L (22-30); Chloride 106 mmol/L (98-107); Glucose 147 mg/dl (70-99); Potassium 5.1 mmol/L (3.5-5.1); Sodium 134 mmol/L (135-145); Total Protein 7.5 g/dl (6.3-8.2); eGFR 11.98
[2025-03-03 17:07] LABS: Troponin I 0.039 ng/ml
--- NOTE | 2025-03-03 17:23 | HPS.HSE ---
Addendum entered and electronically signed by Poli Brown MD 03/03/25 18:29:
will upgrade to ICU level of care due to possibility of tiring on BiPAP, may need intubation. ICU consult.
Original Note:
Family Physician
-
Family Physician: Joey French
Chief Complaint
-
SOB
History of Present Illness
69 y/o F, hx of CHF, CAD with hx of MO s/p 7 total stents, HTN, HLD, R renal transplant 1997 on tacrolimus. Patient reports symptoms began yesterday. She immediately felt SOB, and states that SOB persists with rest, exertion or laying flat. Also
reports LE edema and dry cough. Reports having trouble sleeping due to symptoms with laying down. notes she cannot talk in full sentences without getting SOB. He also noted expiratory wheezing. Patient does also endorse mild L sided chest
pain, 5/10, nonradiating. States its not similar to prior chest pains related to MO. Denies fever/chills. Does admit to abd distention but denies nausea/vomiting. No other complaints.
in ER, found to have evidence on exam and labs/imaging consistent with volume overload. BiPAP and IV Lasix ordered.
Medical History
Past Medical History
Past Medical History: Reports Other ( hx of CHF, CAD with hx of MO s/p 7 total stents, HTN, HLD, R renal transplant 1997 on tacrolimus)
Past Surgical History: Reports Cardiac and Other (renal transplant 1997, )
Social History
Tobacco: Non-smoker
Alcohol: None
Drug: None
Personal:
Living: With Family
Employment: Not Employed
Family History
Family History: Not pertinent
Allergies / Home Medications
Allergies reflects when Allergies were last updated in [facility].
Home Medications with original date entered in [facility]
Allergy/Medication List:
Allergies
Allergy/AdvReac Type Severity Reaction Status Date / Time
empagliflozin (From Allergy Severe weakness, Verified 03/03/25 15:53
Jardiance) anorexia
valsartan Allergy Unknown hyperkalemi Verified 03/03/25 15:53
a
adhesive Allergy Itchy, Verified 03/03/25 15:53
redness
Home Medications
nifedipine 30 mg tablet,extended release 30 mg PO BID Blood pressure 07/20/21
prednisone 5 mg tablet 5 mg PO HS Transplant 07/20/21
tacrolimus 1 mg capsule, immediate-release (Prograf) 1 mg PO Q12H Transplant 09/02/22
atenolol 50 mg tablet 25 mg PO BID Blood Pressure 04/09/23
clopidogrel 75 mg tablet 75 mg PO DAILY Blood Clot Prevention/Tx 04/09/23
sodium bicarbonate 650 mg tablet 650 mg PO BID #14 tabs 11/28/24
clonidine HCl 0.2 mg tablet 0.2 mg PO BID 02/06/25
furosemide 40 mg tablet 40 mg PO DAILY 02/06/25
hydroxyzine HCl 25 mg tablet 25 mg PO QID PRN itching 02/09/25
sodium zirconium cyclosilicate 10 gram oral powder packet (Lokelma) 10 g PO Q48H 02/09/25
rosuvastatin 5 mg tablet 5 mg PO DAILY 02/23/25
triamcinolone acetonide 0.05 % topical ointment 1 applic topical BID PRN itching 02/23/25
Review of Systems
-
A 12 point ROS was completed and negative except as noted: Yes
Physical Exam
Vital Signs
Vital Signs
Temp Pulse Resp BP Pulse Ox
97.9 F 80 22 193/90 95
03/03/25 15:52 03/03/25 16:45 03/03/25 16:45 03/03/25 16:29 03/03/25 16:45
Physical Exam
General: Respiratory Distress (with SOB)
HEENT: NormoCephalic and Anicteric
Respiratory: Crackles
Cardiac: S1/S2 and Regular Rhythm
GI: Soft and Distended
Musculoskeletal: Edema, Left Lower Extremity and Edema, Right Lower Extremity
Neuro: AO x 3
Psych: Calm
Laboratory Results
-
03/03/25 16:30
03/03/25 16:30
Laboratory Results
Total Bilirubin 0.3 mg/dl (0.2-1.3) 03/03/25 16:30
AST 27 U/L (14-36) 03/03/25 16:30
ALT 14 U/L (0-35) 03/03/25 16:30
Alkaline Phosphatase 118 U/L (38-126) 03/03/25 16:30
Troponin I 0.039 ng/ml H* 03/03/25 16:30
Data Reviewed
-
Critical Care Time (in minutes): 44
Diagnostic Radiology: Report Reviewed by me
Lab Data: Labs Reviewed by me
Impression/Plan
-
Assessment:
Acute hypoxic respiratory failure on 4L NC
Acute on chronic congestive heart failure
- stat IV Lasix 80mg now; then start Lasix drip - discussed with Dr. Kathleen. Consider Metolazone
- ER trialed BiPAP, patient could not tolerate - patient kept ripping mask off. Patient willing to try again to avoid mech ventilation
- monitor UOP and symptoms. place Ortega for I/Os.
- Consult to Nephrology and Cardiology
Nonischemic myocardial injury
CAD with hx of MO and 7 total stents
- trop .039; trend to peak
- given chest pain (Although not similar to prior MO) - will start IV heparin - requires intensive monitoring of levels. d/w Dr. Sebastian.
- continue BB/Plavix
- stat Echo
Hypertensive emergency (acute CHF)
- Give IV Labetalol now
- treat BP - resume Clonidine/Atenolol/Nifedipine BID. May need to consider Imdur or Hydralazine.
hx of Renal transplant 1997
DANIELLA on CKD stage 3b
- on tacrolimus, prednisone
- check tacro level
- Nephrology consult
- follow BMP
- continue sodium bicarb
HLD - statin
DVT ppx: IV heparin
Code: Full confirmed with and daughter
Total Critical Care Time 70 minutes. I was immediately available to the patient and staff. I personally examined, reviewed labs, diagnostic images/reports, interpretations, treatment plans, discussed patient care with other providers and family
or caregivers (if patient is unable to make decisions), entered orders as appropriate and documented the medical record.
[2025-03-03] MEDS: LASIX 80 MG IV (17:41)
--- NOTE | 2025-03-03 18:02 | CON.CAR ---
Consultation
Consultation Request
Date/Time Consultation Requested: March 03 2025
Date/Time Consultation Performed: March 03 2025
Requesting Provider: Dr Brown
Performing Provider: Dr Sebastian
Reason for Consultation: Heart failure
Medical History
-
Chief Complaint: Shortness of breath
History of Present Illness:
Patient has hx of HF, right renal transplant 1997, CAD with NV and multiple stents, HTN, hyperlipidemia and came to [facility] with progressive SOB over the last 2 days. She noticed some edema as well. She denies chest pain. She came to ER in respiratory
distress. She continued with significant dyspnea even sitting up in bed and LE edema and abd distention. [place] [id number] and findings consistent with HF and significant HTN. She was given but did not tolerate BiPAP and received
Lasix 80 mg IV and Labetolol 10 mg IV in the ER by the hospitalist.
She was last seen by Dr Gonzales Dec 2024 and clonidine patch was stopped due to rash and started Clonidine 0.2 mg BID. He increased lasix to 40 mg BID twice a day on MWF and 40 mg daily the other days. She has chronic renal failure with hx IgA
nephropathy and had a donor renal transplant at [place] 05/19/97. Patient follows with Dr. Marr at [place]. She was seen by Dr De Paz in Jan 2025 and clonidine was reduced to once daily and Nifedipine to twice a day.
Past Medical History:
Chronic HFpEF
CKD 3b
h/o IgA nephropathy
s/p donor kidney transplant at [place] in 1997
CAD, multivessel CAD by cath 07/20/21 and patient declined surgery and opted for PCI instead
s/p 3.0 mm Xience to tandem distal RCA lesions 07/25/21
s/p 3.5 mm Xience to 90% prox Circ lesion 07/25/21
s/p 2.75 mm Xience to tandem LAD lesions 07/25/21
s/p 3.0 mm Xience to 90% prox LAD 07/25/21
s/p rescue PTCA of occluded Diagonal through the LAD stent struts 07/25/21
HTN
Past Medical History
Past Medical History: Other (in HPI)
Past Surgical History: Other ( donor transplant at [place] 1997)
Social History
Tobacco: Non-Smoker
Alcohol: None
Drug: None
Personal:
Living: With Family
Family History
Family History: Other (one of her sisters has CKD as well)
Allergies / Home Medications
Allergy/AdvReac Type Severity Reaction Status Date / Time
empagliflozin (From Allergy Severe weakness, Verified 03/03/25 15:53
Jardiance) anorexia
valsartan Allergy Unknown hyperkalemi Verified 03/03/25 15:53
a
adhesive Allergy Itchy, Verified 03/03/25 15:53
redness
�Medication �Instructions �Recorded �Confirmed �Type
nifedipine 30 mg tablet,extended 30 mg PO BID Blood pressure 07/20/21 03/02/25 History
release
prednisone 5 mg tablet 5 mg PO HS Transplant 07/20/21 03/02/25 History
tacrolimus 1 mg capsule, 1 mg PO Q12H Transplant 09/02/22 03/02/25 History
immediate-release (Prograf)
atenolol 50 mg tablet 25 mg PO BID Blood Pressure 04/09/23 03/02/25 History
clopidogrel 75 mg tablet 75 mg PO DAILY Blood Clot 04/09/23 03/02/25 History
Prevention/Tx
sodium bicarbonate 650 mg tablet 650 mg PO BID #14 tabs 11/28/24 03/02/25 Rx
clonidine HCl 0.2 mg tablet 0.2 mg PO BID 02/06/25 03/02/25 History
furosemide 40 mg tablet 40 mg PO DAILY 02/06/25 03/02/25 History
hydroxyzine HCl 25 mg tablet 25 mg PO QID PRN itching 02/09/25 03/02/25 History
sodium zirconium cyclosilicate 10 10 g PO Q48H 02/09/25 03/02/25 History
gram oral powder packet (Lokelma)
rosuvastatin 5 mg tablet 5 mg PO DAILY 02/23/25 03/02/25 History
triamcinolone acetonide 0.05 % 1 applic topical BID PRN itching 02/23/25 03/02/25 History
topical ointment
Review of Systems
-
History Source: Patient and Family
All other systems: Negative unless noted
Respiratory: Trouble Breathing
Physical Exam
Vital Signs
Temp Pulse Resp BP Pulse Ox
97.9 F 76 28 206/81 93
03/03/25 15:52 03/03/25 17:15 03/03/25 17:15 03/03/25 17:00 03/03/25 17:15
Physical examination:
General: In acute respiratory distress, AAOX3
Neck: Negative JVD
Heart: Regular, Negative S3 positive S1/S2, Negative S4, No murmur
Lungs: CTA b/l, negative wheezes/rales/rhonchi
Abd: Positive BS, NT/ND, neg rebound/rigidity/guarding
Ext: Negative cyanosis/clubbing/edema
Neuro: nonfocal
Lab Results
03/03/25 16:30
03/03/25 16:30
Troponin I 0.039 ng/ml H* 03/03/25 16:30
Ylf-H-Zgmnblamekv Pept 56169 pg/ml 03/03/25 16:30
Impression / Plan
-
PCP: Dr. Chang
Cardiology: Dr. LAWRENCE Gonzales
Nephrology: Dr. De Paz
Renal transplant specialist: Dr. Marr at [place]
Impression:
Respiratory Distress
Acute on chronic HFpEF
Hypertensive urgency
DANIELLA on CKD 3b
Admission for acute diastolic CHF Nov 2024, March 2023
Hx Renal transplant: h/o IgA nephropathy s/p donor kidney transplant at [place] in 1997
CAD, multivessel CAD by cath 07/20/21 and patient declined surgery and opted for PCI instead
s/p 3.0 mm Xience to tandem distal RCA lesions 07/25/21
s/p 3.5 mm Xience to 90% prox Circ lesion 07/25/21
s/p 2.75 mm Xience to tandem LAD lesions 07/25/21
s/p 3.0 mm Xience to 90% prox LAD 07/25/21
s/p rescue PTCA of occluded Diagonal through the LAD stent struts 07/25/21
Hx HTN
Abnormal troponin
Echo July 2022: EF 70-75%, stage I diastolic dysfunction, mitral sclerosis without stenosis, moderate central aortic regurgitation
Echo Mar 2024: Ejection fraction 72%, mild mitral stenosis with a mean gradient of 5 mL mercury, mild MR, mild to moderate AI, mild aortic stenosis with mean gradient of 9 mmHg, PA systolic 42 mmHg
Echo Nov 2024: EF 55% with mild to mod AR, mild mitral stenosis, mild tricuspid regurgitation
Plan:
Respiratory failure with evidence of hypertensive urgency and HF.
Urgent bedside echo with preserved EF.
IV lasix 80 mg given in ER. IV lasix drip as per nephrology
Add Imdur and hydralazine for afterload reduction.
Continue bp control. IV labetalol 10 mg received.
IV morphine X 1
Pt has not tolerated BiPAP and if pt continues with respiratory distress, she may ultimately require intubation. This was discussed with pt, her daughter and with cardiology, nephrology and primary service.
BP improved in ER to 160s mmHg systolic. Consider IV Hydralazine for better bp control.
Trend troponin until peaks. Troponin likely secondary to hypertensive urgency and HF
IV Heparin until troponin peaks.
Cont Plavix
EKG stable compared to prior and without acute changes
Pt for admit to ICU
Prognosis is guarded.
Data Reviewed
-
EKG: Tracing Personally Visualized and interpreted
Medical Tests (Nuc Med, Echo etc): Image Personally Visualized and interpreted
Labs: Labs Reviewed by me
Old Records: Reviewed
Critical Care Time (in minutes): 65
[2025-03-03 18:18] LABS: COVID-19 Antigen Negative (Negative)
[2025-03-03] MEDS: TRANDATE 10 MG IV (18:19)
[2025-03-03] MEDS: MORPHINE SULFATE 1 MG IV (18:19)
--- NOTE | 2025-03-03 18:42 | W.CON.NEPH ---
Consultation
-
Date/Time Consultation Requested: 03/03/25 5pm
Date/Time Consultation Performed: 03/03/25 5pm
Requesting Provider: Dr. Brown
Performing Provider: Dr. Kathleen
Reason for Consultation: DANIELLA
Medical History
-
Chief Complaint: SOB
History of Present Illness:
This is a 69 year old female known to Dr. De Paz with DDRTx 1998 right lower quadrant. Her baseline Cr is about 3.0 by her report. her progressive loss of kidney function has been unexplained then she has declined transplant biopsy
previously. She also has significant proteinuria as well. Given the progression of her kidney disease there is little treatment that could be performed without a known cause. Knowing that she is ultimately progressing towards eventual dialysis
she did have a left upper extremity brachiocephalic AV fistula created with partial transposition of the cephalic vein on February 23, 2025. She also has hypertension on a multidrug regimen. She states that her blood pressures at home have been
running around 140 systolic consistently. She is also on a multidrug immunosuppressive regimen for her transplant. in the last 36-48 hours she has had significant rapid clinical decline. She developed severe hypertension with severe shortness of
breath. Because of this she came to the emergency room. She was felt to be in overt heart failure with pulmonary edema and significant hypertension with systolic blood pressure greater than 200. Her creatinine was noted to be elevated at 3.9 with
elevated BUN. Urgent echocardiogram did not disclose any new abnormalities from previous with normal EF and normal RV function. She was unable to tolerate CPAP in the emergency room and does not appear to have had significant response to
intravenous Lasix 80 mg. She is quite anxious.
Past Medical History
1. IgA nephropathy, biopsy proven.
2. ESRD on hemodialysis for 7 years.
3. donor transplant in 1997 at [place].
4. CAD with prior stenting.
5. Diastolic CHF.
6. Moderate aortic regurgitation.
7. Thoracic aortic ectasia.
8. Type 2 diabetes.
9. Hypertension, on multidrug.
10. Hyperlipidemia, statin intolerance.
11. Nephrotic syndrome.
12. Hypoalbuminemia.
13. CKD 5
14. left upper extremity brachiocephalic AV fistula with partial transposition cephalic vein 02/23/2025
Social History
Tobacco: Non-Smoker
Alcohol: None
Family History
Family History: Not Pertinent
Allergies / Home Medications
Allergy/AdvReac Type Severity Reaction Status Date / Time
adhesive Allergy Itchy, Verified 03/03/25 15:53
redness
empagliflozin (From Allergy weakness, Verified 03/03/25 18:14
Jardiance) anorexia
valsartan Allergy hyperkalemi Verified 03/03/25 18:14
a
�Medication �Instructions �Recorded �Confirmed �Type
nifedipine 30 mg tablet,extended 30 mg PO BID Blood pressure 07/20/21 03/03/25 History
release
prednisone 5 mg tablet 5 mg PO HS Transplant 07/20/21 03/03/25 History
tacrolimus 1 mg capsule, 1 mg PO Q12H Transplant 09/02/22 03/03/25 History
immediate-release (Prograf)
atenolol 50 mg tablet 25 mg PO BID Blood Pressure 04/09/23 03/03/25 History
clopidogrel 75 mg tablet 75 mg PO DAILY Blood Clot 04/09/23 03/03/25 History
Prevention/Tx
clonidine HCl 0.2 mg tablet 0.2 mg PO BID 02/06/25 03/03/25 History
furosemide 40 mg tablet 40 mg PO DAILY 02/06/25 03/03/25 History
sodium zirconium cyclosilicate 10 10 g PO Q48H 02/09/25 03/03/25 History
gram oral powder packet (Lokelma)
rosuvastatin 5 mg tablet 5 mg PO DAILY 02/23/25 03/03/25 History
Review of Systems
-
severe shortness of breath, anxiety. No chest pain.
Chronic abdominal pain in the morning.
No edema
All other systems: Negative unless noted
Physical Exam
Vital Signs
Vital Signs
Temp Pulse Resp BP Pulse Ox
97.9 F 76 28 206/81 93
03/03/25 15:52 03/03/25 17:15 03/03/25 17:15 03/03/25 17:00 03/03/25 17:15
Lab Results
WBC 12.9 10^3/uL (4.8-10.8) H 03/03/25 16:30
RBC 3.46 10^6/uL (4.20-5.40) L 03/03/25 16:30
Hgb 9.6 g/dL (12.0-16.0) L 03/03/25 16:30
Hct 28.9 % (37.0-47.0) L 03/03/25 16:30
Plt Count 244 10^3/uL (130-400) 03/03/25 16:30
Sodium 134 mmol/L (135-145) L 03/03/25 16:30
Potassium 5.1 mmol/L (3.5-5.1) 03/03/25 16:30
Chloride 106 mmol/L (98-107) 03/03/25 16:30
Carbon Dioxide 15 mmol/L (22-30) L 03/03/25 16:30
BUN 112 mg/dl (7-17) H* 03/03/25 16:30
Creatinine 3.9 mg/dL (0.6-1.0) H 03/03/25 16:30
eGFR 11.98 03/03/25 16:30
Glucose 147 mg/dl (70-99) H 03/03/25 16:30
Calcium 8.9 mg/dl (8.4-10.2) 03/03/25 16:30
Byx-D-Sczdjcpbiti Pept 36955 pg/ml 03/03/25 16:30
Albumin 3.7 g/dl (3.5-5.0) 03/03/25 16:30
Laboratory Tests
02/23/25 03/02/25
06:45 14:49
Hgb 8.7 L
Sodium 136
Potassium 5.4 H
Carbon Dioxide 19 L
Creatinine 3.0 H
Physical Exam
Patient is awake alert oriented and in significant distress. Mood and affect were pleasant, insight and judgment were good. patient was quite anxious. Pupils are equal round and reactive to light, extraocular movements are intact, sclera were
anicteric. Hearing was normal, ears and nose are intact. Oropharynx was clear. Neck was supple with trachea midline and no thyromegaly. Heart was regular rate and rhythm without rubs. Lower extremities without edema. Lungs were With rales and
wheezes to auscultation bilaterally and with normal excursion. Abdomen was soft, nontender, with normal active bowel sounds, and no hepatosplenomegaly. Skin was without rash and with normal turgor. left upper arm AV fistula with excellent thrill
and bruit
Data Reviewed
-
Radiology: Image Personally Visualized and interpreted ( chest x-ray 03/03/2025 by my reading cardiomegaly prominent vasculature)
Medical Tests (Nuc Med, Echo etc): Image Personally Visualized and interpreted ( EKG 03/03/2025 by my reading sinus rhythm nonspecific ST abnormality)
Labs: Labs Reviewed by me
Old Records: Reviewed
Assessment/Plan
-
Assessment
DANIELLA
DDRTx 1997
CKD5 (3.0)
metabolic acidosis
HFpEF decompensated
weight loss
anemia
nephrotic range proteinuria
hypertensive urgency
Plan
Lasix 80 mg IV now, start Lasix drip 20 milligrams/hour
Ortega catheter
follow BMP
p.r.n. intravenous labetalol and hydralazine
continue clonidine and nifedipine and atenolol
hopefully we will not require dialysis at this time. If she does, she will require a dialysis catheter as her fistula is not quite mature.
She may require intubation as she is unable to tolerate CPAP
p.r.n. Ativan may be helpful
critical care time spent 45 minutes
[2025-03-03 20:53] LABS: Glucose - Point of Care 183 mg/dl (70-99)
[2025-03-03] MEDS: SODIUM BICARBONATE PO (20:59)
[2025-03-03] MEDS: CATAPRES PO (20:59)
[2025-03-03] MEDS: PROGRAF PO (20:59)
[2025-03-03] MEDS: TENORMIN PO (20:59)
[2025-03-03 21:01] LABS: APTT 31.6 Sec (23.4-35.0)
[2025-03-03] MEDS: DILAUDID 0.25 MG IV (21:02)
[2025-03-03] MEDS: LASIX 50 IV (21:22)
[2025-03-03] MEDS: PRECEDEX 100 IV (21:26)
[2025-03-03] MEDS: HEPARIN 25000 UNITS/250 ML IV (21:30)
--- NOTE | 2025-03-03 21:30 | PTCARENOTE ---
Spoke to pharmacy and MANAGER NICU. Patient unable to tolerate taking PO meds at this time due to respiratory status. Pharmacy and MANAGER NICU made aware of situation and okay to hold PO meds at this time until patient improves in status.
[2025-03-03 21:33] LABS: Troponin I 0.053 ng/ml
[2025-03-03] MEDS: PROCARDIA XL (EXTENDED RELEASE) PO (21:36)
--- NOTE | 2025-03-03 21:43 | PTCARENOTE ---
Received patient from ER nurse. Patient is sitting up in stretcher- transferred to ICU bed by RNs at bedside. Patient tachypneic on 4L sat 88%-90%. States that she is having a hard time breathing. NRB placed, respiratory and FERMENTING CELLAR DROPPER alerted by RN.
Respiratory at bedside, midflow cannula applied with 6L O2. FERMENTING CELLAR DROPPER at bedside assessing patient. PRN Dilaudid ordered given patient's kidney function. After medication patient states she is breathing more comfortably. New 20g IV placed at bedside due to
patient's status requiring multiple drips.
Patient is alert and oriented x3, afebrile, follows commands and moves all extremities. She is in NSR, trace edema in lower extremities, pulses are palpable. Lungs are diminished in the bases, on 6L NC at this time. Her abdomen is slightly distended
but soft, bowel sounds hypoactive. Patient has catheter in place from ER. Skin is intact. IV sites are intact.
[2025-03-03] MEDS: NOVOLOG FLEXPEN-LOW RESISTANCE 1 UNITS SC (23:48)
[2025-03-04] VITALS (50 sets, daily range): BP systolic 107–187; BP diastolic 46–107; PULSE 55; BMI 18.4; BMI 18.7
[2025-03-04 00:40] LABS: Blood Urea Nitrogen 113 mg/dl (7-17); Calcium 8.5 mg/dl (8.4-10.2); Carbon Dioxide 14 mmol/L (22-30); Chloride 107 mmol/L (98-107); Estimated Creatinine Clearance 10 ml/min; Glucose 157 mg/dl (70-99); Sodium 135 mmol/L (135-145); eGFR 11.63
[2025-03-04 00:51] LABS: Potassium 4.8 mmol/L (3.5-5.1)
[2025-03-04] MEDS: SODIUM BICARBONATE 50 MEQ IV ×2 (01:39→05:44)
[2025-03-04] MEDS: NITROGLYCERIN PREMIX 250 IV (01:40)
--- NOTE | 2025-03-04 01:53 | PTCARENOTE ---
Patient says her breathing feels much better. She is resting comfortably in bed, respiratory rate is now 15-20, sat 99% on 6L NC. Nitro added for blood pressure control systolic goal < 160.
--- NOTE | 2025-03-04 02:16 | PTCARENOTE ---
Patient started to have tachycardia up to 140s. Nitro drip had just been initiated (see previous note) so turned off per INDEPENDENT LIVING SPECIALIST to see if that was causing it. EKG ordered and collected.
[2025-03-04] MEDS: DILAUDID 0.25 MG IV (02:32)
[2025-03-04] MEDS: LOPRESSOR 5 MG IV (02:44)
--- NOTE | 2025-03-04 03:10 | PTCARENOTE ---
Nitro drip order changed to dilt drip. Tried push of lopressor with no affect in HR. ARCHEOLOGIST CLASSICAL aware.
[2025-03-04] MEDS: CARDIZEM 10 MG IV (03:12)
[2025-03-04 03:13] LABS: Hematocrit 28.1 % (37.0-47.0); Hemoglobin 9.4 g/dL (12.0-16.0); Mean Corp Hgb Conc. 33.5 g/dL (33.0-37.0); Mean Corpuscular Volume 82.9 fL (81.0-99.0); Nucleated Red Blood Cells % 0 %; Platelet Count 196 10^3/uL (130-400); Red Cell Dist. Width 15.7 % (11.5-14.5)
[2025-03-04] MEDS: CARDIZEM 125 IV (03:14)
[2025-03-04 03:24] LABS: INR 1.23; PT 15.7 Sec (11.4-14.6)
[2025-03-04 03:25] LABS: APTT 38.8 Sec (23.4-35.0); APTT 39.1 Sec (23.4-35.0)
--- NOTE | 2025-03-04 03:30 | W.PN.UPDATE ---
Update Note
Progress Note Update
0300- Patient was briefly on nitro gtt. HR increased to 140s in rapid Afib, EKG obtained, lopressor 5mg IV given without improvement. Patient given bolus 10mg IV cardizem and started on cardizem gtt.
[2025-03-04 03:40] LABS: Blood Urea Nitrogen 113 mg/dl (7-17); Calcium 8.6 mg/dl (8.4-10.2); Carbon Dioxide 16 mmol/L (22-30); Chloride 109 mmol/L (98-107); Estimated Creatinine Clearance 10 ml/min; Glucose 146 mg/dl (70-99); Magnesium 2.7 mg/dl (1.6-2.3); Potassium 4.8 mmol/L (3.5-5.1); Sodium 139 mmol/L (135-145); eGFR 11.63
[2025-03-04 03:59] LABS: Troponin I 0.134 ng/ml
--- NOTE | 2025-03-04 04:03 | PTCARENOTE ---
Patient is now sleeping comfortably on lasix drip, precedex drip, heparin drip, and dilt drip. See worklist for separate charting on titration of drips. Patient's respirations are 17 sat 98% on 6L NC. HR 88 on 5 of dilt.
[2025-03-04 04:40] LABS: B.E. -6.6 mmol/L; HCO3 16.6 mmol/L (21-28); O2 Saturation % 99.1 % (94-98); PCO2 25 mmHg (32-35); PO2 156 mmHg (83-108)
[2025-03-04 07:32] LABS: Glucose - Point of Care 143 mg/dl (70-99)
--- NOTE | 2025-03-04 07:49 | W.PN.NEPH.PH ---
Today's Communication / Plan
-
Will increase Lasix drip to 40 mg/h to augment diuresis
Patient denies initiating dialysis despite my recommendation
Assessment/Plan
-
Assessment
DANIELLA
DDRTx 1997
CKD5 (3.0)
metabolic acidosis
HFpEF decompensated
weight loss
anemia
nephrotic range proteinuria
hypertensive urgency
Plan
On Lasix drip 20 mg/hr, urine output 1100 cc BUN up to 113 and creatinine up to 4 with associated metabolic acidosis
I explained to patient that I think that we should proceed with dialysis now due to significant metabolic derangements uncontrolled controlled ,worsening renal failure and continued congestive heart failure
She says she does not want to pursue dialysis today despite the fact that I explained that this could be life-threatening
I will increase Lasix drip to 40 mg an hour to augment diuresis
Maintain Ortega cath
follow BMP
p.r.n. intravenous labetalol and hydralazine for uncontrolled hypertension
continue clonidine and nifedipine and atenolol
Patient now in A-fib with rapid ventricular response on cardizem drip
If patient agrees to dialysis she will require a dialysis catheter as her fistula is not quite mature.
She may require intubation as she is unable to tolerate CPAP
p.r.n. Ativan may be helpful
Patient remains critically ill with worsening renal failure decompensated congestive heart failure and A-fib with rapid ventricular
critical care time spent 45 minutes
Total Time Spent with Patient (in minutes): 45
-
-
Date of Service: March 04, 2025
CC / HPI / ROS
-
Chief Complaint:
Acute kidney injury
History of Present Illness:
Acute kidney injury worsened
Patient blood pressure remains uncontrolled on multiple antihypertensive agents including IV anti-htns
Review of Systems:
Nonoliguric via Ortega
Short of breath
Denies chest pain
No fever
Labs
-
Labs:
WBC 11.6 10^3/uL (4.8-10.8) H 03/04/25 03:03
RBC 3.39 10^6/uL (4.20-5.40) L 03/04/25 03:03
Hgb 9.4 g/dL (12.0-16.0) L 03/04/25 03:03
Hct 28.1 % (37.0-47.0) L 03/04/25 03:03
Plt Count 196 10^3/uL (130-400) 03/04/25 03:03
Sodium 139 mmol/L (135-145) 03/04/25 03:02
Potassium 4.8 mmol/L (3.5-5.1) 03/04/25 03:02
Chloride 109 mmol/L (98-107) H 03/04/25 03:02
Carbon Dioxide 16 mmol/L (22-30) L 03/04/25 03:02
BUN 113 mg/dl (7-17) H* 03/04/25 03:02
Creatinine 4.0 mg/dL (0.6-1.0) H 03/04/25 03:02
eGFR 11.63 03/04/25 03:02
Glucose 146 mg/dl (70-99) H 03/04/25 03:02
Calcium 8.6 mg/dl (8.4-10.2) 03/04/25 03:02
Phosphorus 7.8 mg/dl (2.5-4.5) H 03/04/25 03:02
Omi-H-Fuaxyilpthy Pept 89187 pg/ml 03/03/25 16:30
Albumin 3.7 g/dl (3.5-5.0) 03/03/25 16:30
Physical Exam
-
Vital Signs:
Vital Signs
Temp Pulse Resp BP Pulse Ox
98.4 F 106 18 172/83 98
03/04/25 07:24 03/04/25 06:00 03/04/25 06:00 03/04/25 06:00 03/04/25 06:00
Cardiovascular:: Irregular rate and rhythm
Respiratory:: Bilateral: Coarse
Lung Excursion:: Normal
Abdomen:: Nontender and Soft
Bowel Sounds:: Normal
Extremity Edema:: +1: Bilateral:
Ortega Catheter: Yes
--- NOTE | 2025-03-04 08:06 | CON.INTV ---
Consultation
Consultation Request
Date/Time Consultation Requested: 03/03/2025
Date/Time Consultation Performed: 03/04/2025
Requesting Provider: Dr. Brown
Performing Provider: Dr. Wagoner
Reason for Consultation: Acute hypoxemic respiratory failure
Medical History
-
Chief Complaint: Shortness of breath
History of Present Illness:
Ms. 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
shortness of breath over the last 2 days and chest pain radiating to the left side 07/26 she reported that this is not similar to her past [place] pains. She reports that she was not able with no fevers chills nausea vomiting, and had no sick contacts at
home. She reports taking her medicines as described prescribed although there was some discrepancy with her Lasix regimen. She takes Lasix 40 mg daily, but per cardiology of note her salesperson meats Dr. Gonzales in December 2024 increased her Lasix to 40
mg twice daily Sunday and daily the other days. She also reports significant weight loss in the last 2 months without trying to lose any weight. She reports no changes in appetite no night sweats no fevers. Patient has also
reported slowly worsening renal function over time and reports that this is the worst her renal function has been. In the ED initial vital signs showed temperature of 97.9, pulse 74, RR 28, BP 185/85, pulse ox 87, she was noted to have lower
extremity edema abdominal distention proBNP over 17,000's negative COVID test and chest x-ray showing pulmonary congestion. She was started on BiPAP given IV Lasix and IV labetalol for hypertensive emergency. Patient did not tolerate BiPAP well
and kept trying to rip off the mask but tried again to avoid mechanical ventilation. A Ortega was inserted for close monitoring of SOHEILA's-cardiology and nephrology were consulted. Patient was also noted to have elevated troponin in the ER 0.039 that
has kept trending up this a.m. to 0.05-0.13 at the latest, likely from demand ischemia as EKG showed no changes initially. Patient was also started on nitro drip to lower blood pressure and preload and patient went into rapid A-fib requiring
discontinuation of nitro drip and the start of Cardizem drip. Urgent echo on 03/03 with preserved EF. Nephrology also talked to patient concerning need for dialysis however patient unwilling to go to dialysis currently despite recent AV fistula
creation February 23, 2025. ABG this a.m. with pH 7.43/25/156/16.6, labs notable for BUN 113, creatinine 4.0, mag 2.7, phosphorus 1.8, WBCs 11.6 decreased from 12.9, hemoglobin 9.4. This morning patient reported feeling much better despite being
hypertensive up into the 180s over 70s, and elevated pulse up to 123, saturating 90% on 4 L mid flow. She reported no cough no fevers no chest pains no nausea no vomiting, last bowel movement yesterday. Overnight weight dropped to 44.8 kg, dry
weight is unknown due to recent weight loss. Patient still unwilling to undergo hemodialysis if needed.
Past Medical History
Past Medical History: CAD, CHF (HFpEF EF 55% last echo 11/2024), HTN, Hypothyroidism, [place] (Stent x 5 2021, stent x 2 2014), Renal Failure (CKD 3B, IgA nephropathy) and Other (Kidney transplant 1997)
Past Surgical History: Cardiac and Urological (renal transplant)
Social History
Tobacco: Non-smoker
Alcohol: None
Drug: None
Personal:
Living: With Family
Family History
Family History: Reviewed & Not Pertinent
Allergies / Home Medications
Allergies
Allergy/AdvReac Type Severity Reaction Status Date / Time
adhesive Allergy Itchy, Verified 03/03/25 15:53
redness
empagliflozin (From Allergy weakness, Verified 03/03/25 18:14
Jardiance) anorexia
valsartan Allergy hyperkalemi Verified 03/03/25 18:14
a
Home Medications
�Medication �Instructions �Recorded �Confirmed �Last Taken �Type
prednisone 5 mg tablet 5 mg PO HS Transplant 07/20/21 03/03/25 03/01/25 History
tacrolimus 1 mg capsule, 1 mg PO Q12H Transplant 09/02/22 03/03/25 03/02/25 History
immediate-release (Prograf)
atenolol 50 mg tablet 50 mg PO BID Blood Pressure 04/09/23 03/03/25 03/02/25 History
clopidogrel 75 mg tablet 75 mg PO DAILY Blood Clot 04/09/23 03/03/25 03/02/25 History
Prevention/Tx
clonidine HCl 0.2 mg tablet 0.2 mg PO BID 02/06/25 03/03/25 03/02/25 History
furosemide 40 mg tablet 40 mg PO SUTUTHSA Fluid 02/06/25 03/03/25 03/02/25 History
Retention/Swelling
sodium zirconium cyclosilicate 10 10 g PO Q48H 02/09/25 03/03/25 02/22/25 19:00 History
gram oral powder packet (Lokelma)
rosuvastatin 5 mg tablet 5 mg PO DAILY 02/23/25 03/03/25 03/02/25 History
calcitriol 0.25 mcg capsule 0.25 mcg PO DAILY 03/03/25 03/04/25 Unknown History
furosemide 80 mg tablet 80 mg PO MOWEFR Fluid 03/03/25 03/03/25 Unknown History
Retention/Swelling
metolazone 2.5 mg tablet 2.5 mg PO Q7D 03/03/25 03/04/25 Unknown History
nifedipine 30 mg tablet,extended 30 mg PO BID 03/03/25 03/03/25 Unknown History
release 24 hr
Review of Systems
-
History Source: Patient and Family
All other systems: Negative unless noted
Constitutional: Weight Loss
Respiratory: Trouble Breathing
Vitals / Labs / Diagnostic Testing
Vital Signs
Temp Pulse Resp BP Pulse Ox
98.4 F 106 18 172/83 98
03/04/25 07:24 03/04/25 06:00 03/04/25 06:00 03/04/25 06:00 03/04/25 06:00
Lab Data
03/04/25 03:03
03/04/25 03:02
Laboratory Results
03/03/25 03/04/25 03/04/25
20:43 03:02 03:02
PT 15.7 H
INR 1.23
APTT 31.6 39.1 H 38.8 H
pH
pCO2
pO2
HCO3
O2 Delivery Level
03/04/25
04:29
PT
INR
APTT
pH 7.43
pCO2 25 L
pO2 156 H
HCO3 16.6 L
O2 Delivery Level
Diagnostic Testing:
Physical Exam
-
HEENT: Normocephalic and Anicteric
Cardiovascular: S1/S2, Irregular Rhythm and Other (Tachycardic)
Respiratory: Non-Labored Respirations and Other (Crackles throughout all lung donovan, 4 L mid flow)
GI: Soft, Non Distended, Non Tender and Normal Bowel Sounds
Neurology: Awake and Alert
Skin: Warm and Dry
General: Comfortable
Assessment
-
Ms. 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
shortness of breath over the last 2 days and chest pain radiating to the left side 5/10 she reported that this is not similar to her past [place].
#Neurologic
Pain: None
Analgesia: Tylenol as needed, hydromorphone 0.25 as needed
Mentation: At baseline, AAO x 3
Activity: As tolerated
#Cardiovascular
Maintain MAP> 65
Pressors: None
QTc: 479
Hx CAD with [place] s/p multiple stents
Continue Plavix
Hypertensive emergency
Initial BP in the 180s
Continue atenolol 25 twice daily
Continue clonidine 0.2 twice daily
Hydralazine 25 twice daily
Isosorbide mononitrate 30 mg daily
As needed labetalol
HFpEF, acute on chronic heart failure
pBNP 17,000
Chest x-ray with pulmonary congestion
Congestion most likely due to ESRD rather than heart failure exacerbation
echo 03/03 EF 60�65
Mild concentric left ventricular hypertrophy. Normal regional wall motion. Left ventricular ejection fraction is 65% by visual estimate
Continue IV Lasix
A-fib with RVR
No previous history
Continue heparin drip
Continue Cardizem drip
Elevated troponin
Nonischemic myocardial injury
Likely supply/demand ischemia
Trend troponin to peak 0.03 -> 0.05 -> 0.13-> 0.16
EKG without acute changes
Continue heparin drip
Continue Plavix
#Respiratory
Chest x-ray 03/01 with no cardiopulmonary process
O2 requirements: None
Home O2: None
Blood gas: 7.43/25/156/16.6 (03/03)
Acute hypoxemic respiratory failure
Pulmonary edema due to ESRD
Chest x-ray 1216 with pulmonary congestion
Continue IV Lasix drip
May need dialysis if not improving on IV Lasix, currently patient refuses
#Gastrointestinal
Diet: Cholesterol-lowering
Stooling regimen: Dulcolax, docusate with senna, MiraLAX as needed, last bowel movement 03/03
Tubes: None
Antiemetics: Zofran as needed
GI PPx: None
Hyperlipidemia
Continue statin
#Renal
Ortega present: Yes
Urine output: About 1 L overnight
IVF: None
Electrolytes: K>4 Mg>2
Na 139
K 4.8
Mag 2.7
Right renal transplant 1997 on tacrolimus
Chronic kidney disease 5
Acute on chronic kidney injury
Metabolic acidosis
AV fistula right arm created February 23, 2025, not mature
Baseline 3.0
Markedly elevated BUN
Currently 4.0 presented 4.1
Patient does not want hemodialysis
If patient does consent to hemodialysis will require trialysis catheter
Continue IV fluids
Continue to monitor
Tacrolimus level pending
Continue tacrolimus
Continue prednisone 5 mg
Continue calcitriol
#Infectious
WBC 12.0-> 11.6
ABX: None
Microbiology: COVID-negative, flu pending
Antipyretics: Acetaminophen
Leukocytosis, downtrending
Likely reactive
Continue to monitor temperature curve
#Hematologic
DVT PPx: heparin drip
Hemoglobin: 9.4
PT
INR
PTT 53.5
#Endocrine
Maintain euglycemia with goal BG 140�180
diabetes type II
A1c 7.1 03/04
-Low insulin sliding scale
-Continue to monitor
#Surgical
#Access
Central:
None
Peripheral:
Right arm 20-gauge
Right brachial vein 20-gauge
Right arm median cubital 18-gauge
CODE STATUS: Full code
[2025-03-04] MEDS: NOVOLOG FLEXPEN-LOW RESISTANCE SC (08:09)
[2025-03-04 08:28] LABS: Glycohemoglobin (HgbA1c) 7.1 % (4.0-5.9)
--- NOTE | 2025-03-04 08:45 | W.PN.CARDCBS ---
Today's Communication / Plan
-
Cont IV lasix gtt as per nephrology
Pt recommended HD by nephro but refusing. Explained her risk of worsening HF, RF and .
EF preserved by urgent echo Mar 03 2025.
Added Imdur and hydralazine for afterload reduction.
Cont to trend trop until peaks.
Likely medical tx for nonMI troponin.
Cont IV heparin for now given AFib and rising troponin.
Cont Plavix.
Urgent bedside echo with preserved EF
EKG stable compared to prior and without acute changes
Continue bp control with Hydralazine, IV cardizem, atenolol, clonidine.
Will stop Nifedipine in setting of IV Cardizem.
p.r.n. intravenous Labetalol
For AFib, continue IV cardizem for rate control
Cont IV heparin for prophylaxis.
Cont rhythm control therapy for now.
Pt has not tolerated BiPAP and if she develops worsening respiratory distress, she may ultimately require intubation. This was discussed with pt, her daughter and with cardiology, nephrology and primary service over the last 24 hrs
Impression / Plan
-
.
PCP: Dr. Chang
Cardiology: Dr. LAWRENCE Gonzales
Nephrology: Dr. De Paz
Renal transplant specialist: Dr. Marr at [facility]
Impression:
Respiratory Distress
Acute on chronic HFpEF
Hypertensive urgency
DANIELLA on CKD 3b
Nonischemic myocardial injury with trop 0.13 and has not plateaued
Atrial fibrillation
Admission for acute diastolic CHF Nov 2024, March 2023
Hx Renal transplant: h/o IgA nephropathy s/p donor kidney transplant at [facility] in 1997
CAD, multivessel CAD by cath 07/20/21 and patient declined surgery and opted for PCI instead
s/p 3.0 mm Xience to tandem distal RCA lesions 07/25/21
s/p 3.5 mm Xience to 90% prox Circ lesion 07/25/21
s/p 2.75 mm Xience to tandem LAD lesions 07/25/21
s/p 3.0 mm Xience to 90% prox LAD 07/25/21
s/p rescue PTCA of occluded Diagonal through the LAD stent struts 07/25/21
Moderate MS with mild MR
Mild to mod AR
Hx HTN
Noncompliance
Echo July 2022: EF 70-75%, stage I diastolic dysfunction, mitral sclerosis without stenosis, moderate central aortic regurgitation
Echo Mar 2024: Ejection fraction 72%, mild mitral stenosis with a mean gradient of 5 mL mercury, mild MR, mild to moderate AI, mild aortic stenosis with mean gradient of 9 mmHg, PA systolic 42 mmHg
Echo Nov 2024: EF 55% with mild to mod AR, mild mitral stenosis, mild tricuspid regurgitation
Urgent echo Mar 03 2025: TDS, EF 65% with mod MS mean grad 9 mmHg with mild MR and mod TR and PASP 60 mmHg and mild to mod AR
Plan:
Respiratory failure with evidence of hypertensive urgency and HF, worsening acute on chronic renal failure and now AFib
Cont IV lasix gtt as per nephrology
Pt recommended HD by nephro but refusing. Explained her risk of worsening HF, RF and .
EF preserved by urgent echo Mar 03 2025.
Added Imdur and hydralazine for afterload reduction.
Cont to trend trop until peaks.
Likely medical tx for nonMI troponin.
Cont IV heparin for now given AFib and rising troponin.
Cont Plavix.
Urgent bedside echo with preserved EF
EKG stable compared to prior and without acute changes
Continue bp control with Hydralazine, IV cardizem, atenolol, clonidine.
Will stop Nifedipine in setting of IV Cardizem.
p.r.n. intravenous Labetalol
For AFib, continue IV cardizem for rate control
Cont IV heparin for prophylaxis.
Cont rhythm control therapy for now.
Pt has not tolerated BiPAP and if she develops worsening respiratory distress, she may ultimately require intubation. This was discussed with pt, her daughter and with cardiology, nephrology and primary service over the last 24 hrs
Prognosis is guarded. Remains critically ill.
Discussed with nursing and at bedside.
CCT: 41 min
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
Subjective
Date of Service: March 04, 2025
Pt seen and examined. No chest pain. She has shortness of breath.
Objective
Labs:
03/04/25 03:03
03/04/25 03:02
Labs
Hgb 9.4 g/dL (12.0-16.0) L 03/04/25 03:03
Hct 28.1 % (37.0-47.0) L 03/04/25 03:03
Plt Count 196 10^3/uL (130-400) 03/04/25 03:03
PT 15.7 Sec (11.4-14.6) H 03/04/25 03:02
INR 1.23 03/04/25 03:02
APTT 38.8 Sec (23.4-35.0) H 03/04/25 03:02
APTT 39.1 Sec (23.4-35.0) H 03/04/25 03:02
Sodium 139 mmol/L (135-145) 03/04/25 03:02
Potassium 4.8 mmol/L (3.5-5.1) 03/04/25 03:02
BUN 113 mg/dl (7-17) H* 03/04/25 03:02
Creatinine 4.0 mg/dL (0.6-1.0) H 03/04/25 03:02
Glucose 146 mg/dl (70-99) H 03/04/25 03:02
Troponins
03/03/25 03/03/25 03/04/25
16:30 20:43 03:02
Troponin I 0.039 H* 0.053 H* D 0.134 H* D
Vital Signs and I&O:
Vital Signs
Temp Pulse Resp BP Pulse Ox
98.4 F 106 18 172/83 98
03/04/25 07:24 03/04/25 06:00 03/04/25 06:00 03/04/25 06:00 03/04/25 06:00
Vital Signs
Temp Pulse Resp BP Pulse Ox
98.4 F 106 18 172/83 98
03/04/25 07:24 03/04/25 06:00 03/04/25 06:00 03/04/25 06:00 03/04/25 06:00
Intake & Output
03/02/25 03/03/25 03/04/25 03/05/25
06:59 06:59 06:59 06:59
Intake Total 120.2 / 120.2
Output Total 1180 / 1180
Balance -1059.8 / -1059.8
Physical Exam
Physical Exam
General: No acute distress, AAOX3
Neck: Negative JVD
Heart: Irregularly irregular, Negative S3 positive S1/S2, Negative S4, No murmur
Lungs: CTA b/l, negative wheezes/rales/rhonchi
Abd: Positive BS, NT/ND, neg rebound/rigidity/guarding
Ext: Negative cyanosis/clubbing/edema
Neuro: nonfocal
--- NOTE | 2025-03-04 09:15 | PTCARENOTE ---
Rec'd pt at 0730 dozing. Awakens easily to verbal stimuli and is alert and oriented. at the bedside. Admits to feeling better. Denies dizziness or headache. Rec'd on IV Precedex at 0.4 mcg. RASS is 0. ZHANG. Skin is wm and dry. L upper arm AV
fistula is approximated. + Bruit and Thrill. Respirs are shallow but non-labored on 4l nc with sats of 96%. BS have coarse crackles anteriorly. Post end exp wheezing on the R with crackles 1/3 up bilat and generally decreased throughout. Denies
feeling short of breath currently. Monitor AFib rates controlled between 70-90' s and occasionally into the 115 range. Cardizem gtt at 5 mg/hr via R upper arm- site wnl. VS as documented. Remains on Heparin gtt via R forearm at 750 units/hr, also
remains on Lasix gtt -initially at 20 mg/hr and per Dr. Stevens increased at 0800 to 40 mg/hr. + pulses. Tr LE edema. Denies chest pain. Abd is round and distended with + hypoactive BS. Denies nausea. Ortega intact for yellow urine. Pt overall is
weak but is able to help with repositioning. Dr. Stevens in and long discussion with pt and regarding dialysis. Pt wants to wait on HD currently.. Plan of care reviewed and call almonte in reach. Oral care given. Turned and repositioned.
[2025-03-04] MEDS: CRESTOR 5 MG PO (09:16)
[2025-03-04] MEDS: PLAVIX 75 MG PO (09:16)
[2025-03-04] MEDS: CATAPRES 0.2 MG PO ×2 (09:16→20:07)
[2025-03-04] MEDS: PROCARDIA XL (EXTENDED RELEASE) 30 MG PO ×2 (09:16→20:10)
[2025-03-04] MEDS: SODIUM BICARBONATE 650 MG PO ×2 (09:17→20:07)
[2025-03-04] MEDS: TENORMIN 25 MG PO ×2 (09:17→20:11)
[2025-03-04] MEDS: IMDUR (EXTENDED RELEASE) 30 MG PO (09:17)
[2025-03-04] MEDS: PROGRAF 1 MG PO ×2 (09:18→20:09)
[2025-03-04] MEDS: APRESOLINE 25 MG PO ×2 (10:35→20:10)
--- NOTE | 2025-03-04 10:40 | PTCARENOTE ---
Labs sent. Tenormin given as ordered. Pt resting. Limited appetite for breakfast. Ate about 40%. Family in with pt. Call almonte reach.
[2025-03-04 11:00] LABS: APTT 53.5 Sec (23.4-35.0)
[2025-03-04 11:21] LABS: Troponin I 0.162 ng/ml
--- NOTE | 2025-03-04 11:29 | W.PN.HOSP.TC ---
Today's Communication/Plan
-
continue Lasix drip, heparin drip
monitor respiratory status and O2 needs
Assessment / Plan
Assessment / Plan
Assessment:
Acute hypoxic respiratory failure on 4L NC
Acute on chronic congestive heart failure
- s/p IV Lasix; now continue on Lasix drip - requires intensive monitoring of I/Os (Ortega placed in critical care setting), weights, lytes
- Consider Metolazone
- ER trialed BiPAP, patient could not tolerate x2 attempts - patient kept ripping mask off.
- Nephrology following; recommended HD but patient refused and expressing understanding of risks such as worsening HF, renal failure or
- Cardiology following
Nonischemic myocardial injury
CAD with hx of [place] and 7 total stents
- trop .162 recently; trend to peak
- given chest pain (Although not similar to prior [place]) - will continue IV heparin - requires intensive monitoring of levels.
- continue BB/Plavix
- Echo: no change from prior
Hypertensive emergency (acute CHF)
- s/p IV Labetalol now
- treat BP - continue Clonidine/Atenolol/Nifedipine. continue added Imdur and Hydralazine.
New onset A. Fib
- continue IV heparin - requires intensive monitoring of levels
- IV Cardizem now stopped
hx of Renal transplant 1997
DANIELLA on CKD stage 3b
- on tacrolimus, prednisone
- check tacrolimus level
- Nephrology following
- follow BMP
- continue sodium bicarb
HLD - statin
DVT ppx: IV heparin
Code: Full confirmed with and daughter
Total Critical Care Time 42 minutes. I was immediately available to the patient and staff. I personally examined, reviewed labs, diagnostic images/reports, interpretations, treatment plans, discussed patient care with other providers and family
or caregivers (if patient is unable to make decisions), entered orders as appropriate and documented the medical record.
Anticipated Discharge: > 48 hours
Subjective/Interval History
-
Date of Service: March 04, 2025
SOB improving
feeling less labored
Objective Data
-
Labs:
Laboratory Results
03/03/25 03/04/25 03/04/25
23:42 03:02 03:02
WBC
Hgb
Hct
Plt Count
PT 15.7 H
INR 1.23
APTT 39.1 H 38.8 H
HCO3
Sodium 135 139
Potassium 4.8 4.8
Chloride 107 109 H
Carbon Dioxide 14 L* 16 L
BUN 113 H* 113 H*
Creatinine 4.0 H 4.0 H
Glucose 157 H 146 H
Calcium 8.5 8.6
03/04/25 03/04/25 03/04/25
03:03 04:29 10:34
WBC 11.6 H
Hgb 9.4 L
Hct 28.1 L
Plt Count 196
PT
INR
APTT 53.5 H
HCO3 16.6 L
Sodium
Potassium
Chloride
Carbon Dioxide
BUN
Creatinine
Glucose
Calcium
Vital Signs:
Vital Signs
Temp Pulse Resp BP Pulse Ox
98.5 F 72 27 123/54 94
03/04/25 11:00 03/04/25 11:00 03/04/25 11:00 03/04/25 11:00 03/04/25 11:00
I&O
03/03/25 03/04/25 03/05/25
06:59 06:59 06:59
Intake Total 120.2 / 139.2 251.0 / 251.0
Output Total 1180 / 1180 450 / 450
Balance -1059.8 / -1040.8 -199.0 / -199.0
Physical Exam
-
General: No Apparent Distress
HEENT: Normocephalic and Atraumatic
Respiratory: Negative Wheezes
Cardiac: Regular Rhythm and S1/S2
GI: Soft
Musculoskeletal: Edema, Right Lower Extrem and Edema, Left Lower Extrem
Neuro: AO x 3
Psych: Calm
Data Reviewed
-
Critical Care Time (in minutes): 42
Labs: Labs Reviewed by me
[2025-03-04] MEDS: LASIX 50 IV ×2 (11:37→20:12)
--- NOTE | 2025-03-04 11:45 | PTCARENOTE ---
Pt overall has been resting. Precedex was decreased to 0.2 mcg at 1000 as RASS has been 0 with goal of weaning off. Precedex dc'd at 1135 as pts HR is running in the 50's and dipping into the 48 range. Denies dizziness. Cardizem gtt decreased at
11[address] Sebastian updated and currently at 1140 Cardizem gtt stopped per MD order. PTT resulted as 53.5 and Heparin gtt increased per protocol to 950 units/hr. Call almonte in reach.
[2025-03-04 12:30] LABS: Glucose - Point of Care 182 mg/dl (70-99)
[2025-03-04] MEDS: NOVOLOG FLEXPEN-LOW RESISTANCE 1 UNITS SC ×2 (12:32→21:05)
--- NOTE | 2025-03-04 13:20 | PTCARENOTE ---
Pt c/o feeling as if she has to void. Ortega draining yellow urine. Drained 150mls over past 2 hrs. Abd has been distended and round but pt just started to complain that she feels as if she really has to urinate. Bladder scanned for 870 mls. Ortega
removed and pt assisted on to the BSC to try to void. Gait is weak but is able to bear wt.Call almonte in reach.
--- NOTE | 2025-03-04 14:15 | PTCARENOTE ---
Sat for a while on the commode and only voided about 30 mls and had a small formed brown stool. Dr. Stevens had been updated earlier when the perera was removed and new #16 thermistor perera placed for return of only 15 mls of yellow urine. Pt
rebladder scanned for 830mls but at this point difficult to say if it is urine or something like ascites. Stat US Of bladder ordered after reupdating Dr. Stevens and Ciaran. Pt stated again once perera placed that she felt like she had to void. She
is also expressing concern over the hourly dose of Lasix she is getting. Dr. Shanks aware. No other changes. VS as documented. Remains in AFib with HR of 50-60's.
--- NOTE | 2025-03-04 15:10 | PTCARENOTE ---
Rhythm appears to be Sinus Rhythm in the 50-60's.
--- NOTE | 2025-03-04 15:16 | CM ---
Addendum entered by Kendrick Puri 03/04/25 15:19:
PCP: Dr. Joey French
Original Note:
I.A: Completed By ALESSIO Marks.
Patient lives with her spouse in a [facility] with [facility]. DME: None, No VN/PT, and No STR.
PCP: Sachi Davis
Pharm: [facility] in [place]
Patient has transport when ready. Reading patient's chart, Home Care would need to be arranged if patient does not need SNF. PLAN: Home with VN vs. SNF.
--- NOTE | 2025-03-04 17:20 | PTCARENOTE ---
Overall assessment is unchanged with the exception that pt still feels like she has to void and that her bladder is full stating ' I know when I have to pee'. ECG done as pt is now in what appears to be SR. HR mostly in the 60's After US of the
bladder completed it was felt that the perera balloon may not be in far enough. New #14 F perera inserted again for return of very little yellow urine. Dr. Wagoner in and did BS ultrasound of the bladder and advised taking the perera out and letting
the pt try to empty her bladder. Assisted to the BSC with assist of 1. Gait is very weak. Currently sitting on the commode. Call almonte in reach. If pt is unsuccessful with voiding -Dr. Wagoner will consult urology. No other changes.
--- NOTE | 2025-03-04 17:55 | CON.MD ---
Consultation - Medical
-
see dictated note
pt with hx of renal transplant
admitted with renal failure/fluid overload/Afib
on plavix and heparin
in looking at ct from 2018 and pelvic MRI from 2024- pt has large cyst arising from transplant sitting above bladder
perera was placed- but output poor- had bladder u/s interpreted as distended bladder- in fact- bladder is empty with perera well positioned and large cyst above
i did replace perera- no issues/drained clear urine
pelvic exam no mass
reviewed with med team
pt DOES NOT have undrained bladder- pvr's- ultrasounds are misinterpreting cyst as distended bladder
perera now in place
check f/u CT
do not think cyst is an issue- abd is benign- first step to treat would be IR drainage- but this would require being off heparin and plavix for 5 days
will follow
Consultation
-
Date/Time Consultation Requested: 03/04/25 at 5pm
Date/Time Consultation Performed: 03/04/25 at 5:45 pm
Requesting Provider: Dr. Wagoner
Performing Provider: Dr. Lauren
Reason for Consultation: urinary retention
--- NOTE | 2025-03-04 18:00 | PTCARENOTE ---
After perera removed again, pt tried to void but was only able to void about [address] Lauren in and made team aware of pt having a 'large cyst arising from transplant sitting above bladder'. As such new #20 F perera placed for return of small amt
of clear yellow urine. Pt then wanted to use the bedpan for a BM with no results. Labs sent as ordered- PTT and Trop. Of note- when getting pt oob earlier today but was weak but transferred to the commode. This evening pt had much more difficulty
getting to the commode and c/o her L foot being sore and her not being able to put weight on it- nothing outwardly noted. Foot is warm and not swollen. Pt did not hit or bump her foot. She says normally at home she runs. 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 Call gage in
reach. Dinner ordered.
[2025-03-04] MEDS: NOVOLOG FLEXPEN-LOW RESISTANCE 2 UNITS SC (18:22)
[2025-03-04 18:25] LABS: APTT 81.2 Sec (23.4-35.0)
[2025-03-04 18:40] LABS: Troponin I 0.138 ng/ml
[2025-03-04 18:41] LABS: Glucose - Point of Care 215 mg/dl (70-99)
--- NOTE | 2025-03-04 20:00 | PTCARENOTE ---
Hand-off drip validation done with off-going nurse. Patient is resting in bed, aox4, afebrile. She is complaining of mild pain in her abdomen for which she says she takes pepcid at home. SIGNAL INSPECTOR made aware, pepcid dose ordered. She is in NSR on the
monitor, no edema noted on exam. Pulses palpable. She is on 4L NC, breathing comfortably while laying down in the bed. She is dyspneic on exertion. Lung sounds are diminished in the bases with some crackles in the RLL. Abdomen is slightly distended
but soft, bowel sounds positive. Ortega catheter in place that was placed by urology. Draining light yellow urine. Skin intact. IV sites c/d/i.
[2025-03-04] MEDS: PEPCID 10 MG PO (20:07)
[2025-03-04 20:46] LABS: Glucose - Point of Care 161 mg/dl (70-99)
[2025-03-04] MEDS: DELTASONE 5 MG PO (22:24)
[2025-03-05] VITALS (26 sets, daily range): BP systolic 84–138; BP diastolic 45–102; BMI 17.5
--- NOTE | 2025-03-05 00:06 | PTCARENOTE ---
No changes in patient assessment. Patient's abdominal pain is resolved mentioned in previous note. She is sleeping comfortably in bed at this time.
[2025-03-05 00:37] LABS: APTT 110.1 Sec (23.4-35.0)
[2025-03-05] MEDS: HEPARIN 25000 UNITS/250 ML IV (01:16)
[2025-03-05] MEDS: TYLENOL 650 MG PO ×3 (01:19→16:31)
--- NOTE | 2025-03-05 04:17 | PTCARENOTE ---
Patient O2 turned down to 2L NC. Sats 97%. No other changes in assessment. See worklist for documentation of urine output.
[2025-03-05 04:24] LABS: Hematocrit 23.0 % (37.0-47.0); Hemoglobin 7.8 g/dL (12.0-16.0); Mean Corp Hgb Conc. 33.9 g/dL (33.0-37.0); Mean Corpuscular Volume 83.9 fL (81.0-99.0); Nucleated Red Blood Cells % 0 %; Platelet Count 199 10^3/uL (130-400); Red Cell Dist. Width 15.6 % (11.5-14.5)
[2025-03-05 04:50] LABS: APTT 136.3 Sec (23.4-35.0)
[2025-03-05 05:41] LABS: Blood Urea Nitrogen 116 mg/dl (7-17); Calcium 8.3 mg/dl (8.4-10.2); Carbon Dioxide 21 mmol/L (22-30); Chloride 106 mmol/L (98-107); Estimated Creatinine Clearance 8 ml/min; Glucose 170 mg/dl (70-99); Potassium 3.8 mmol/L (3.5-5.1); Sodium 140 mmol/L (135-145); eGFR 10.37
--- NOTE | 2025-03-05 07:15 | PTCARENOTE ---
Pt rec'd from off going RN, Hand-off drip validation completed in tandem with night RN, hep and lasix infusing, see worklist. Patient is resting in bed, aox4, afebrile. No complaints at this time. Pt currently NSR on the monitor, occasionally going
in and out of afib. HR controlled in 80-90s. Trace lower extrem edema noted on exam. Pulses palpable. Pt on 3L nc, lungs sounds w/ scatt crackles t/o, dyspneic on exertion. Abd soft non tender, bowel sounds positive. BM yesterday per report. Ortega
catheter in place per urology. Draining light yellow urine, approx 75 mls/hr. Labs noted. Skin intact. PIV sites patent, LUE fistula +bruit and thrill. at bedside, breakfast ordered, pt assisted to sit up on side of bed at her request. Call
almonte in reach, safe environment ongoing. Plan of care discussed with pt and care team.
--- NOTE | 2025-03-05 07:27 | W.PN.URO.CBU ---
Today's Communication / Plan
-
continue perera
check CT
Assessment / Plan
-
? of perera placement- due to large pelvic/transplant kidney cyst
cath in good position- continue while I/O's being monitored
CT to check on large cyst- do not believe this is impacting renal function or bladder function at this time- ultimately this would need to be evaluated by her transplant center
will follow
Diagnosis
-
Date of Service: March 05, 2025
-
Patient Diagnosis:
hx of renal transplant
large transplant kidney cyst
ARF
Subjective
-
perera in place- on lasix drip- UO averaging about 50-60cc per hour- clear
Objective
-
Vital Signs
Temp Pulse Resp BP Pulse Ox
98.4 F 63 15 119/51 97
03/05/25 02:48 03/05/25 06:00 03/05/25 06:00 03/05/25 06:00 03/05/25 06:00
Intake and Output
03/04/25 03/05/25 03/06/25
06:59 06:59 06:59
Intake Total 120.2 / 139.2 934.0 / 934.0
Output Total 1180 / 1180 1390 / 1390
Balance -1059.8 / -1040.8 -456.0 / -456.0
Intake:
Oral fluids 590 / 590
IV fluids (Total) 120.2 / 139.2 344.0 / 344.0
Cardizem
Heparin 55.5 / 63.0 208.5 / 208.5
Lasix 88 / 88
Nitro 0.8 / 0.8
Precedex 35.9 / 40.4 22.5 / 22.5
Output:
Urine, Perera 1180 / 1180 1390 / 1390
Laboratory Results
03/05/25 04:06
03/05/25 04:06
Physical Exam
-
General - ill appearing, no acute distress
Abdomen - soft, non-tender
Genitalia - perera in place
[2025-03-05] MEDS: NOVOLOG FLEXPEN-LOW RESISTANCE 1 UNITS SC ×2 (08:05→16:10)
[2025-03-05] MEDS: PLAVIX 75 MG PO (08:07)
[2025-03-05] MEDS: PROCARDIA XL (EXTENDED RELEASE) 30 MG PO ×2 (08:07→19:47)
[2025-03-05] MEDS: CRESTOR 5 MG PO (08:07)
[2025-03-05] MEDS: ROCALTROL 0.25 MCG PO (08:07)
[2025-03-05] MEDS: IMDUR (EXTENDED RELEASE) 30 MG PO (08:07)
[2025-03-05] MEDS: PROGRAF 1 MG PO ×2 (08:07→19:45)
[2025-03-05] MEDS: SODIUM BICARBONATE 650 MG PO ×2 (08:07→19:47)
[2025-03-05] MEDS: APRESOLINE 25 MG PO ×2 (08:08→19:48)
[2025-03-05] MEDS: CATAPRES 0.2 MG PO ×2 (08:08→19:47)
[2025-03-05] MEDS: TENORMIN 25 MG PO ×2 (08:08→19:46)
[2025-03-05] MEDS: LASIX 50 IV (08:12)
[2025-03-05 08:15] LABS: Glucose - Point of Care 163 mg/dl (70-99)
--- NOTE | 2025-03-05 08:24 | W.PN.CARDCBS ---
Today's Communication / Plan
-
Cont IV lasix gtt as per nephrology
Pt recommended HD by nephro but refusing. Again explained her risk of worsening HF, RF and . She appears to have poor insight into her medical conditions
EF preserved by urgent echo Mar 03 2025.
Cont Imdur and hydralazine for afterload reduction.
Trop peaked at 0.16, cont medical tx for nonMI troponin.
Cont Plavix.
Echo this admit with preserved EF
EKG was stable compared to prior and without acute changes
BP is much improved Continue bp control with Hydralazine, Nifedipine atenolol, clonidine.
p.r.n. intravenous Labetalol
For PAFib
Cont IV heparin for prophylaxis for now until no further procedures are planned. Unclear if she would require access if she decides on HD as she has a new graft.
Add amiodarone 400 mg PO TID for rhythm control
Impression / Plan
-
.
PCP: Dr. Chang
Cardiology: Dr. LAWRENCE Gonzales
Nephrology: Dr. De Paz
Renal transplant specialist: Dr. Marr at [facility]
Impression:
s/p respiratory Distress
Acute on chronic HFpEF
Hypertensive urgency
DANIELLA on CKD 3b
Nonischemic myocardial injury with trop 0.13 and has not plateaued
Paroxysmal Atrial fibrillation
Admissions for acute diastolic CHF Nov 2024, March 2023
Hx Renal transplant: h/o IgA nephropathy s/p donor kidney transplant at [facility] in 1997
CAD, multivessel CAD by cath 07/20/21 and patient declined surgery and opted for PCI instead
s/p 3.0 mm Xience to tandem distal RCA lesions 07/25/21
s/p 3.5 mm Xience to 90% prox Circ lesion 07/25/21
s/p 2.75 mm Xience to tandem LAD lesions 07/25/21
s/p 3.0 mm Xience to 90% prox LAD 07/25/21
s/p rescue PTCA of occluded Diagonal through the LAD stent struts 07/25/21
Moderate MS with mild MR
Mild to mod AR
Hx HTN
Noncompliance
Echo July 2022: EF 70-75%, stage I diastolic dysfunction, mitral sclerosis without stenosis, moderate central aortic regurgitation
Echo Mar 2024: Ejection fraction 72%, mild mitral stenosis with a mean gradient of 5 mL mercury, mild MR, mild to moderate AI, mild aortic stenosis with mean gradient of 9 mmHg, PA systolic 42 mmHg
Echo Nov 2024: EF 55% with mild to mod AR, mild mitral stenosis, mild tricuspid regurgitation
Urgent echo Mar 03 2025: TDS, EF 65% with mod MS mean grad 9 mmHg with mild MR and mod TR and PASP 60 mmHg and mild to mod AR
Plan:
Admitted with respiratory failure with evidence of hypertensive urgency and HF, worsening acute on chronic renal failure and developed PAFib
Cont IV lasix gtt as per nephrology
Pt recommended HD by nephro but refusing. Again explained her risk of worsening HF, RF and . She appears to have poor insight into her medical conditions
EF preserved by urgent echo Mar 03 2025.
Cont Imdur and hydralazine for afterload reduction.
Trop peaked at 0.16, cont medical tx for nonMI troponin.
Cont Plavix.
Echo this admit with preserved EF
EKG was stable compared to prior and without acute changes
BP is much improved Continue bp control with Hydralazine, Nifedipine atenolol, clonidine.
p.r.n. intravenous Labetalol
For PAFib
Cont IV heparin for prophylaxis for now until no further procedures are planned. Unclear if she would require access if she decides on HD as she has a new graft.
Add amiodarone 400 mg PO TID for rhythm control
Pt has not tolerated BiPAP for prior resp distress.
Prognosis is guarded.
Discussed with nursing and at bedside.
CCT: 35 min
Progress Note - Clinic Administrator
Subjective
Date of Service: March 05, 2025
Pt seen and examined. No complaints. No chest pain or shortness of breath.
Objective
Labs:
03/05/25 04:06
03/05/25 04:06
Labs
Hgb 7.8 g/dL (12.0-16.0) L 03/05/25 04:06
Hct 23.0 % (37.0-47.0) L 03/05/25 04:06
Plt Count 199 10^3/uL (130-400) 03/05/25 04:06
PT 15.7 Sec (11.4-14.6) H 03/04/25 03:02
INR 1.23 03/04/25 03:02
APTT 136.3 Sec (23.4-35.0) H 03/05/25 04:06
Sodium 140 mmol/L (135-145) 03/05/25 04:06
Potassium 3.8 mmol/L (3.5-5.1) 03/05/25 04:06
BUN 116 mg/dl (7-17) H* 03/05/25 04:06
Creatinine 4.4 mg/dL (0.6-1.0) H* 03/05/25 04:06
Glucose 170 mg/dl (70-99) H 03/05/25 04:06
Troponins
03/03/25 03/03/25 03/04/25
16:30 20:43 03:02
Troponin I 0.039 H* 0.053 H* D 0.134 H* D
03/04/25 03/04/25
10:34 18:04
Troponin I 0.162 H* 0.138 H*
Vital Signs and I&O:
Vital Signs
Temp Pulse Resp BP Pulse Ox
98.4 F 63 15 119/51 97
03/05/25 02:48 03/05/25 06:00 03/05/25 06:00 03/05/25 06:00 03/05/25 06:00
Vital Signs
Temp Pulse Resp BP Pulse Ox
98.4 F 63 15 119/51 97
03/05/25 02:48 03/05/25 06:00 03/05/25 06:00 03/05/25 06:00 03/05/25 06:00
Intake & Output
03/03/25 03/04/25 03/05/25 03/06/25
06:59 06:59 06:59 06:59
Intake Total 120.2 / 139.2 934.0 / 947.5 27.0 / 27.0
Output Total 1180 / 1180 1390 / 1465 150 / 150
Balance -1059.8 / -1040.8 -456.0 / -517.5 -123.0 / -123.0
Physical Exam
Physical Exam
General: No acute distress, AAOX3
Neck: Negative JVD
Heart: Regular, Negative S3 positive S1/S2, Negative S4, No murmur
Lungs: CTA b/l, negative wheezes/rales/rhonchi
Abd: Positive BS, NT/ND, neg rebound/rigidity/guarding
Ext: Negative cyanosis/clubbing/edema
Neuro: nonfocal
--- NOTE | 2025-03-05 10:09 | PN.CDI ---
CDI
- -
CDI:
Physician Documentation Request
Admit Date: 03/03/25 18:39
Dear Doctor Kevin,
Clinical Indicators:
Height: 5 ft 1.5 in
Weight: 104 lbs 4.4 oz
BMI: 18.4
03/04 RD note/assessment 'BMI: 18.4 (underweight)...RD ordered Nepro daily and fortified pudding BID'
If possible, please provide an associated diagnosis related to the abnormal BMI (< or = to 19, such as:
Underweight
Cachexia
Other, please specify
Use of terms such as suspected, likely, concern for, or probable (associated with a specific diagnosis that is being evaluated, monitored, or treated as if it exists) are acceptable and can be coded in the inpatient setting, when documented at the
time of discharge.
Thank you,
MAGDALENA Alejandre RN
CDI Specialist
available via tiger text
Please use your independent medical judgment in providing your response.
--- NOTE | 2025-03-05 10:30 | W.PN.INTV ---
Today's Communication / Plan
Recommendations
Off Cardizem gtt
Start Amio p.o.
Type and cross
CT abdomen pelvis pending
Nutrition consult
Assessment
-
Ms. Rivera is a 69-year-old female with a past medical history of HFpEF (last echo December 06 2550-55%), right renal transplant 1997 due to IgA nephropathy, CAD with OR 2021 2014 and multiple stents, HTN, hyperlipidemia, CKD 3B who presented with
shortness of breath over the last 2 days and chest pain radiating to the left side 07/26 she reported that this is not similar to her past OR.
#Neurologic
Pain: None
Analgesia: Tylenol as needed, hydromorphone 0.25 as needed
Mentation: At baseline, AAO x 3
Activity: As tolerated
#Cardiovascular
Maintain MAP> 65
Pressors: None
QTc: 471
Cardiology following
Hx CAD with OR s/p multiple stents
Continue Plavix
Hypertensive emergency
Initial BP in the 180s
Continue atenolol 25 twice daily
Continue clonidine 0.2 twice daily
Hydralazine 25 twice daily
Isosorbide mononitrate 30 mg daily
As needed labetalol
HFpEF, acute on chronic heart failure
pBNP 17,000
Chest x-ray with pulmonary congestion
Congestion most likely due to ESRD rather than heart failure exacerbation
echo 03/03 EF 60�65
Mild concentric left ventricular hypertrophy. Normal regional wall motion. Left ventricular ejection fraction is 65% by visual estimate
Continue IV Lasix
A-fib with RVR
No previous history
Continue heparin drip
Discontinue Cardizem drip
Start amiodarone 400 3 times daily
Elevated troponin
Nonischemic myocardial injury
Likely supply/demand ischemia
Trend troponin to peak 0.03 -> 0.05 -> 0.13-> 0.16-> 0.13
EKG without acute changes
Continue heparin drip
Continue Plavix
Repeat EKG without signs of OR
#Respiratory
Chest x-ray 03/01 with no cardiopulmonary process
O2 requirements: None
Home O2: None
Blood gas: 7.43/25/156/16.6 (03/03)
Acute hypoxemic respiratory failure
Pulmonary edema due to ESRD
Chest x-ray 1216 with pulmonary congestion
Continue IV Lasix drip
May need dialysis if not improving on IV Lasix, currently patient refuses, awaiting discussion with nephro
#Gastrointestinal
Diet: Cholesterol-lowering
Stooling regimen: Dulcolax, docusate with senna, MiraLAX as needed, last bowel movement 03/03
Tubes: None
Antiemetics: Zofran as needed
GI PPx: None
Hyperlipidemia
Continue statin
Malnutrition
Albumin 3.7
Total protein 7.5
Patient endorsing unintentional weight loss over several months
No history of colonoscopy
- Wardrobe Coordinator consult
#Renal
Jordan present: Yes
Urine output: About 1 L overnight
IVF: None
Electrolytes: K>4 Mg>2
Na 140
K 3.8, hold off repleting due to ESRD
Mag
Nephrology following
Urology following
Right renal transplant 1997 on tacrolimus
Chronic kidney disease 5
Acute on chronic kidney injury
Metabolic acidosis
AV fistula right arm created February 23, 2025, not mature
Baseline 3.0
Markedly elevated BUN
Currently 4.4 presented 4.1
Patient does not want hemodialysis
If patient does consent to dialysis will require trialysis catheter
Continue IV fluids
Continue to monitor
Tacrolimus 2.9, range 5�20
Continue tacrolimus
Continue prednisone 5 mg
Continue calcitriol
Renal cyst
Large renal cyst identified on ultrasound
No urinary retention
Abdominal CT to characterize per urology
#Infectious
WBC 12.0-> 11.6-> 10.5
ABX: None
Microbiology: COVID-negative, flu negative
Antipyretics: Acetaminophen
Leukocytosis, downtrending
Likely reactive
Continue to monitor temperature curve
#Hematologic
DVT PPx: heparin drip
Hemoglobin: 7.8 goal greater than 8?
PT
INR
PTT 136
Anemia, chronic
Hgb 9.6->9.4-> 7.8
History CAD, goal 7 due to overload
History CKD
Anemia of CKD versus acute blood loss versus dilutional
- Type and cross
- transfusion if hemoglobin less than 7
#Endocrine
Maintain euglycemia with goal BG 140�180
diabetes type II
A1c 7.1 03/04
-Low insulin sliding scale
-Continue to monitor
#Surgical
#Access
Central:
None
Peripheral:
Right arm 20-gauge
Right brachial vein 20-gauge
Right arm median cubital 18-gauge
CODE STATUS: Full code
Subjective Dataa
Subjective Data
Date of Service:
Patient was seen at bedside this morning, reported feeling better with improvement. And decreased palpitations. She did not endorse any chest pain nausea vomiting abdominal pain no fevers no chills. She was concerned that her creatinine was bile
output to her Lasix explained to her that she takes Lasix for fluid removal. Other option would be dialysis which has not been amenable to a hide but she reports that she is looking forward to talking to nephrology to make a decision. Date of
Service: March 05, 2025
Review of Systems
Cardiopulmonary: Dyspnea
Genitourinary: Ortega
Objective Data
Data Reviewed
Vital Signs / I&O / Oxygen:
Vital Signs
Temp Pulse Resp BP Pulse Ox
98.2 F 71 16 100/52 98
03/05/25 07:34 03/05/25 10:03 03/05/25 10:03 03/05/25 10:03 03/05/25 10:03
Intake and Output
03/04/25 03/05/25 03/06/25
06:59 06:59 06:59
Intake Total 120.2 / 139.2 934.0 / 947.5 294.0 / 294.0
Output Total 1180 / 1180 1390 / 1465 175 / 175
Balance -1059.8 / -1040.8 -456.0 / -517.5 119.0 / 119.0
SaO2 98
Nasal Cannula flow liters per 3
minute
Physical Exam
General: Comfortable and Good Appetite
HEENT: Normocephalic and Anicteric
Cardiovascular: S1-S2, Irregular Rhythm and Peripheral Edema
Respiratory: Crackles (Bilaterally) and Non-Labored Respirations
GI: Soft, Non Distended and Non Tender
Neurology: Awake and Alert
Skin: Warm and Dry
Labs/Micro/Reports
Lab Data
03/05/25 04:06
03/05/25 04:06
Laboratory Results
03/04/25 03/04/25 03/04/25
10:34 18:04 23:59
APTT 53.5 H 81.2 H 110.1 H
03/05/25
04:06
APTT 136.3 H
Microbiology
03/05/25 03:59 Nasal Swab Influenza Types A & B (MARLENE) - Final
Negative for Influenza A & B, NAAT
Negative results must be combined with clinical observations
and patient history.
Nucleic Acid Amplification test (NAAT)performed on the
[employer] platform.
--- NOTE | 2025-03-05 11:34 | PTCARENOTE ---
Pt taken for CT abdomen and US of lower extremities, returned back to room without incident. Plan discussed with Kevin Funes, pt and her as well as her daughter on speakerphone. Nephrology explaining that HD is recommended
treatment for patient at this time, pt initially reluctant but after prolonged discussion agrees to have line placed by IR today or tomorrow and potentially have first HD treatment tomorrow. Exact timing TBD. Pt to be NPO at lunch per nephro, pt and
updated. Pt has had minimal urine output since 10:00, care team aware. Will monitor closely and keep wheelage clerk updated as per his instructions.
--- NOTE | 2025-03-05 11:35 | W.PN.NEPH.PH ---
Today's Communication / Plan
-
Permacath placement for initiation of dialysis
Assessment/Plan
-
Assessment
DANIELLA
DDRTx 1997
CKD5 (3.0)
metabolic acidosis
HFpEF decompensated
weight loss
anemia
nephrotic range proteinuria
hypertensive urgency
Plan
Long conversation with the family and and involved physicians and nursing about initiation of dialysis catheter long discussion she has agreed to proceed via permacath.
Consulted with our dialysis nurse as to whether the fistula was large enough to access which felt to be not developed enough.
IR consult for permacath placement today.
Will initiate dialysis once access is placed.
Will discontinue IV Lasix drip as her output has diminished to 0 over the last 2 or 3 hours.
Patient remains critically ill with worsening renal failure decompensated congestive heart failure and A-fib with rapid ventricular
critical care time spent 45 minutes
-
-
Date of Service: March 05, 2025
CC / HPI / ROS
-
Chief Complaint:
Acute kidney injury
History of Present Illness:
Acute kidney injury worsened
Patient blood pressure remains uncontrolled on multiple antihypertensive agents including IV anti-htns
Review of Systems:
Nonoliguric via Ortega
Short of breath
Denies chest pain
No fever
Labs
-
Labs:
WBC 10.5 10^3/uL (4.8-10.8) 03/05/25 04:06
RBC 2.74 10^6/uL (4.20-5.40) L 03/05/25 04:06
Hgb 7.8 g/dL (12.0-16.0) L 03/05/25 04:06
Hct 23.0 % (37.0-47.0) L 03/05/25 04:06
Plt Count 199 10^3/uL (130-400) 03/05/25 04:06
Sodium 140 mmol/L (135-145) 03/05/25 04:06
Potassium 3.8 mmol/L (3.5-5.1) 03/05/25 04:06
Chloride 106 mmol/L (98-107) 03/05/25 04:06
Carbon Dioxide 21 mmol/L (22-30) L 03/05/25 04:06
BUN 116 mg/dl (7-17) H* 03/05/25 04:06
Creatinine 4.4 mg/dL (0.6-1.0) H* 03/05/25 04:06
eGFR 10.37 03/05/25 04:06
Glucose 170 mg/dl (70-99) H 03/05/25 04:06
Calcium 8.3 mg/dl (8.4-10.2) L 03/05/25 04:06
Phosphorus 7.8 mg/dl (2.5-4.5) H 03/04/25 03:02
Blc-C-Mvfmrqalctm Pept 62142 pg/ml 03/03/25 16:30
Albumin 3.7 g/dl (3.5-5.0) 03/03/25 16:30
Physical Exam
-
Vital Signs:
Vital Signs
Temp Pulse Resp BP Pulse Ox
98.2 F 82 24 102/50 94
03/05/25 07:34 03/05/25 11:00 03/05/25 11:00 03/05/25 11:00 03/05/25 11:04
--- NOTE | 2025-03-05 11:59 | PTCARENOTE ---
Addendum entered by Comfort Alfaro RN 03/05/25 12:03:
Per Dr. Sebastian, will also obtain ECG.
Original Note:
Pt c/o chest heaviness, sa02 96% on 2L, HR 70s in afib, BP 103/53, Drs. Wagoner and Romulo notified, will obtain stat CXR at this time. Pt tearful about needing dialysis. at bedside providing emotional support.
[2025-03-05] MEDS: NOVOLOG FLEXPEN-LOW RESISTANCE 2 UNITS SC ×2 (12:32→21:39)
[2025-03-05] MEDS: LASIX 160 MG IV (12:33)
[2025-03-05 12:37] LABS: Glucose - Point of Care 233 mg/dl (70-99)
--- NOTE | 2025-03-05 12:37 | PTCARENOTE ---
CXR and ECG obtained and reviewed by care team, 160 mg IV lasix given per nephro, gtt dc'd at this time. Pt reports symptoms have resolved at this time.
[2025-03-05 12:47] LABS: APTT 65.8 Sec (23.4-35.0)
--- NOTE | 2025-03-05 12:59 | PTCARENOTE ---
PTT result 65.8....per protocol hep gtt increased to 850 units/hr.
--- NOTE | 2025-03-05 13:16 | W.PN.HOSP.TC ---
Today's Communication/Plan
-
IRAD consult for HD catheter
Assessment / Plan
Assessment / Plan
Assessment:
Acute hypoxic respiratory failure on 4L NC
Acute on chronic congestive heart failure
- s/p IV Lasix; Lasix drip continues; patients urine output decreasing
- patient now agreeable to HD - IRAD consulted for HD cath placement. per parachute folder; fistula not developed enough.
- Consider Metolazone
- ER trialed BiPAP, patient could not tolerate x2 attempts - patient kept ripping mask off.
- Nephrology following
- Cardiology following
Nonischemic myocardial injury
CAD with hx of SD and 7 total stents
- trop .162 recently; trend to peak
- given chest pain (Although not similar to prior SD) - will continue IV heparin - requires intensive monitoring of levels.
- continue BB/Plavix
- Echo: no change from prior
Hypertensive emergency (acute CHF)
- s/p IV Labetalol now
- treat BP - continue Clonidine/Atenolol/Nifedipine/Imdur/Hydralazine
New onset A. Fib
- continue IV heparin - requires intensive monitoring of levels
- IV Cardizem now stopped
- Amiodarone TID for rhythm control
hx of Renal transplant 1997
DANIELLA on CKD stage 3b
- on tacrolimus, prednisone
- check tacrolimus level
- Nephrology following
- follow BMP
- continue sodium bicarb
Kidney Cyst
- Urology following; Oretga placement adequate
- CT: large cyst extending medially from the transplant kidney which sits centrally in the pelvis. This has increased in size from prior study. The bladder is seen separate from this cyst and is decompressed. 2. There is a small low-attenuation mass
in the transplant kidney of uncertain etiology.
HLD - statin
DVT ppx: IV heparin
Code: Full confirmed with and daughter
Total Critical Care Time 41 minutes. I was immediately available to the patient and staff. I personally examined, reviewed labs, diagnostic images/reports, interpretations, treatment plans, discussed patient care with other providers and family
or caregivers (if patient is unable to make decisions), entered orders as appropriate and documented the medical record.
Anticipated Discharge: > 48 hours
Subjective/Interval History
-
Date of Service: March 05, 2025
UOP dropping, patient now agreeable to HD and HD cath placement
Objective Data
-
Labs:
Laboratory Results
03/05/25 03/05/25 03/05/25
04:06 12:26 19:00
WBC 10.5
Hgb 7.8 L
Hct 23.0 L
Plt Count 199
APTT 136.3 H 65.8 H Pending
Sodium 140
Potassium 3.8
Chloride 106
Carbon Dioxide 21 L
BUN 116 H*
Creatinine 4.4 H*
Glucose 170 H
Calcium 8.3 L
Vital Signs:
Vital Signs
Temp Pulse Resp BP Pulse Ox
98.2 F 76 16 95/51 96
03/05/25 07:34 03/05/25 12:33 03/05/25 12:33 03/05/25 12:33 03/05/25 12:33
I&O
03/04/25 03/05/25 03/06/25
06:59 06:59 06:59
Intake Total 120.2 / 139.2 934.0 / 945.5 317.5 / 317.5
Output Total 1180 / 1180 1390 / 1465 185 / 185
Balance -1059.8 / -1040.8 -456.0 / -519.5 132.5 / 132.5
Physical Exam
-
General: No Apparent Distress
HEENT: Normocephalic and Atraumatic
Respiratory: Wheezes and Crackles
Cardiac: Irregular Rhythm
GI: Soft and Nontender
Musculoskeletal: Edema, Right Lower Extrem and Edema, Left Lower Extrem
Neuro: AO x 3
Hematologic / Lymphatic: No Lymphadenopathy
Psych: Calm
Data Reviewed
-
Critical Care Time (in minutes): 41
Labs: Labs Reviewed by me
--- NOTE | 2025-03-05 15:05 | PTCARENOTE ---
Pt taken to IR at 15:00.
--- NOTE | 2025-03-05 16:03 | PTCARENOTE ---
Pt was returned to room at this time, IR was unable to take her for tunneled cath placement at this time due to unexpected emergency with another patient, will reattempt tomorrow am at 0700.
[2025-03-05] MEDS: PACERONE 400 MG PO ×2 (16:07→19:45)
[2025-03-05 16:20] LABS: Glucose - Point of Care 154 mg/dl (70-99)
[2025-03-05 16:59] LABS: Glucose - Point of Care 152 mg/dl (70-99)
[2025-03-05] MEDS: DILAUDID 0.25 MG IV (17:35)
--- NOTE | 2025-03-05 17:40 | PTCARENOTE ---
Pt again restless and anxious, 'i can't breathe, let me sit up' assisted to sit on side of bed. Sa02 100% on 2L, symptoms resolved with tripodding on tray table, pt reports little pain relief from Tylenol which was administered approx 1 hour ago,
c/o severe pain t/o whole body, medicated with PRN Dilaudid 0.25 mg at this time, see MAR. remains at bedside, emotional support provided.
[2025-03-05 18:54] LABS: APTT 76.3 Sec (23.4-35.0)
[2025-03-05 19:08] LABS: Hepatitis B Surface Antigen Positive (Negative)
[2025-03-05 19:25] LABS: Hepatitis C Antibody Negative (Negative)
[2025-03-05] MEDS: DELTASONE 5 MG PO (19:46)
[2025-03-05] MEDS: PEPCID 10 MG PO (19:47)
--- NOTE | 2025-03-05 20:02 | PTCARENOTE ---
Hand-off drip validation done with off-going nurse. Patient is sitting on the edge of the bed leaning on bedside table with pillow. She states that this is the most comfortable way for her to rest at this time. She is alert and oriented x4,
aferbile, moves all extremities and follows commands. She is in A fib with rates controlled ranging from 70-90. She has trace edema in the lower extremities with palpable pulses. Her lungs have crackles in the bilateral bases. She is on 2L NC sat
99%. Abdomen is slightly distended but soft, bowel sounds positive. Ortega catheter in place draining light yellow urine. Skin intact. IV sites intact.
--- NOTE | 2025-03-05 20:23 | PTCARENOTE ---
Patient converted to NSR on monitor spontaneously. Rates in the 50s, blood pressure 138/102.
[2025-03-05] MEDS: MELATONIN 3 MG PO (21:38)
--- NOTE | 2025-03-05 21:46 | PTCARENOTE ---
RN assisted patient back into bed. Resting comfortably with heels off-loaded. Melatonin given to help patient sleep per patient request. Call almonte within reach.
[2025-03-05 21:50] LABS: Glucose - Point of Care 202 mg/dl (70-99)
[2025-03-06] VITALS (31 sets, daily range): BP systolic 61–166; BP diastolic 38–89; BMI 17.8
--- NOTE | 2025-03-06 00:44 | PTCARENOTE ---
Patient resting in bed at this time. No changes in assessment. PTT sent to lab per protocol. Call almonte within reach.
[2025-03-06 01:16] LABS: APTT 121.8 Sec (23.4-35.0)
--- NOTE | 2025-03-06 02:04 | PTCARENOTE ---
Patient BP running low. HEAT TREATER APPRENTICE made aware. Goal is to keep systolic blood pressure > 90. Current blood pressure is 91/38. Patient is asymptomatic to blood pressure.
[2025-03-06 03:20] LABS: Hematocrit 24.3 % (37.0-47.0); Hemoglobin 7.9 g/dL (12.0-16.0); Mean Corp Hgb Conc. 32.5 g/dL (33.0-37.0); Mean Corpuscular Volume 85.0 fL (81.0-99.0); Nucleated Red Blood Cells % 0 %; Platelet Count 215 10^3/uL (130-400); Red Cell Dist. Width 16.0 % (11.5-14.5)
--- NOTE | 2025-03-06 03:57 | PTCARENOTE ---
Patient UO is very poor, see worklist charting. APPLICATIONS PROGRAMMER aware, patient to get HD today. No other changes in assessment. Labs collected and sent.
[2025-03-06 04:33] LABS: Calcium 8.4 mg/dl (8.4-10.2); Carbon Dioxide 15 mmol/L (22-30); Chloride 103 mmol/L (98-107); Estimated Creatinine Clearance 7 ml/min; Glucose 189 mg/dl (70-99); Magnesium 2.6 mg/dl (1.6-2.3); Potassium 4.3 mmol/L (3.5-5.1); Sodium 137 mmol/L (135-145); eGFR 9.11
[2025-03-06 04:46] LABS: Blood Urea Nitrogen 120 mg/dl (7-17)
--- NOTE | 2025-03-06 07:44 | PTCARENOTE ---
pt in IR for HD cath
[2025-03-06 07:46] LABS: APTT 84.7 Sec (23.4-35.0)
[2025-03-06] MEDS: APRESOLINE PO (08:03)
[2025-03-06] MEDS: CATAPRES PO (08:03)
[2025-03-06] MEDS: TENORMIN PO (08:06)
[2025-03-06] MEDS: PROCARDIA XL (EXTENDED RELEASE) PO (08:06)
[2025-03-06] MEDS: IMDUR (EXTENDED RELEASE) PO (08:06)
[2025-03-06] MEDS: ANCEF 10 IV (08:10)
--- NOTE | 2025-03-06 08:36 | W.PN.INTV ---
Today's Communication / Plan
Recommendations
HD catheter replaced with IR
HD today
Downgrade to telemetry
DC Ortega
DC hydralazine
DC IV Lasix drip
Atenolol decreased to daily
Lantus 5 units nightly
Assessment
-
Ms. 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
shortness of breath over the last 2 days and chest pain radiating to the left side 07/26 she reported that this is not similar to her past UT.
#Neurologic
Pain: None
Analgesia: Tylenol as needed, hydromorphone 0.25 as needed
Mentation: At baseline, AAO x 3
Activity: As tolerated
#Cardiovascular
Maintain MAP> 65
Pressors: None
QTc: 471
Cardiology following, appreciate recs
Hx CAD with UT s/p multiple stents
Continue Plavix
Hypertensive emergency, resolved
Initial BP in the 180s
Soft BPs last night 03/05
Hold BP meds for SBP less than 120
Continue atenolol 25 daily
Continue clonidine 0.2 twice daily
Discontinue hydralazine 25
Isosorbide mononitrate 30 mg daily
Nifedipine 30 mg twice daily
HFpEF, acute on chronic heart failure
pBNP 17,000
Chest x-ray with pulmonary congestion
Congestion most likely due to ESRD rather than heart failure exacerbation
echo 03/03 EF 60�65
Mild concentric left ventricular hypertrophy. Normal regional wall motion. Left ventricular ejection fraction is 65% by visual estimate
Discontinue continue IV Lasix
A-fib with RVR
No previous history
Continue heparin drip
amiodarone 400 3 times daily
Elevated troponin
Nonischemic myocardial injury
Likely supply/demand ischemia
Trend troponin to peak 0.03 -> 0.05 -> 0.13-> 0.16-> 0.13
EKG without acute changes
Continue heparin drip
Continue Plavix
Repeat EKG without signs of UT
#Respiratory
Chest x-ray 03/01 with no cardiopulmonary process
O2 requirements: 2L
Home O2: None
Blood gas: 7.43/25/156/16.6 (03/03)
Acute hypoxemic respiratory failure
Pulmonary edema due to ESRD
Chest x-ray 1216 with pulmonary congestion
Discontinue IV Lasix drip
Dialysis catheter placed, for session today 03/06
#Gastrointestinal
Diet: Cholesterol-lowering
Stooling regimen: Dulcolax, docusate with senna, MiraLAX as needed
Tubes: None
Antiemetics: Zofran as needed
GI PPx: Pepcid
Hyperlipidemia
Continue statin
Malnutrition
Albumin 3.7
Total protein 7.5
Patient endorsing unintentional weight loss over several months
No history of colonoscopy
- Youth Nutritional Monitor consult
#Renal
DC Ortega
Urine output: About 100mL overnight
IVF: None
Electrolytes: K>4 Mg>2
Na 140
K 4.3
Mag 2.6
Nephrology following
Right renal transplant 1997 on tacrolimus
Chronic kidney disease 5
Acute on chronic kidney injury
Metabolic acidosis
AV fistula right arm created February 23, 2025, not mature
Baseline 3.0
Markedly elevated BUN
Currently 4.9 presented 4.1
Continue to monitor
Tacrolimus 2.9, range 5�20
Continue tacrolimus
Continue prednisone 5 mg
Continue calcitriol
Dialysis catheter placed with dialysis today
Renal cyst
Large renal cyst identified on ultrasound
No urinary retention
Abdominal CT significant for renal cyst, unchanged from November 2024 study
Urology not planning for intervention
#Infectious
WBC 12.0-> 11.6-> 10.5
ABX: None
Microbiology: COVID-negative, flu negative
Antipyretics: Acetaminophen
Leukocytosis, downtrending
Likely reactive
Continue to monitor temperature curve
hepatitis B, chronic
Family reported positive hep B panel more than 20 years ago
Hep B surface antigen positive
Hep B core antibody positive
Patient chronically on tacrolimus
LFTs on admission within normal limits
Consider outpatient follow-up with ID
#Hematologic
DVT PPx: heparin drip
Hemoglobin: 7.9 goal greater than 7
PT
INR
PTT 84
Anemia, chronic
Hgb 9.6->9.4-> 7.8-> 7.9
History CAD, goal 7 due to overload
History CKD
Anemia of CKD versus acute blood loss versus dilutional
- Type and cross 03/05
- transfusion if hemoglobin less than 7
#Endocrine
Maintain euglycemia with goal BG 140�180
diabetes type II
A1c 7.1 03/04
-Low insulin sliding scale
-Lantus 5 nightly
-Continue to monitor
#Surgical
#Access
Central:
Right IJ hemodialysis catheter
Peripheral:
Right arm 20-gauge
Right brachial vein 20-gauge
Right arm median cubital 18-gauge
Dispo: Telemetry
CODE STATUS: Full code
Subjective Dataa
Subjective Data
Date of Service:
Patient seen at bedside with family receiving dialysis. Patient has just returned from catheter placement, reports feeling slightly weak but does not report shortness of breath no chest pain no abdominal pain no nausea or vomiting no fevers chills.
Answered patient's questions about complaint of dialysis and conditions with discharge. Encouraged her to speak more with street vendor regarding outpatient dialysis. date of Service: March 06, 2025
Review of Systems
Cardiopulmonary: Dyspnea
Objective Data
Data Reviewed
Vital Signs / I&O / Oxygen:
Vital Signs
Temp Pulse Resp BP Pulse Ox
98.1 F 65 23 120/50 96
03/06/25 07:40 03/06/25 07:40 03/06/25 07:40 03/06/25 07:40 03/06/25 07:40
Intake and Output
03/05/25 03/06/25 03/07/25
06:59 06:59 06:59
Intake Total 934.0 / 945.5 577.0 / 584.5 7.5 / 7.5
Output Total 1390 / 1465 410 / 410 0 / 0
Balance -456.0 / -519.5 167.0 / 174.5 7.5 / 7.5
SaO2 96
Nasal Cannula flow liters per 2
minute
Physical Exam
General: Comfortable (Somnolent)
HEENT: Normocephalic and Anicteric
Cardiovascular: S1-S2, Regular Rhythm and Peripheral Edema
Respiratory: Crackles (Bilaterally) and Non-Labored Respirations
GI: Soft, Non Distended and Non Tender
Neurology: Awake and Alert
Skin: Warm and Dry
Labs/Micro/Reports
Lab Data
03/06/25 03:07
03/06/25 03:07
Laboratory Results
03/05/25 03/05/25 03/06/25
12:26 18:33 00:35
APTT 65.8 H 76.3 H 121.8 H
03/06/25
07:18
APTT 84.7 H
Microbiology
03/05/25 03:59 Nasal Swab Influenza Types A & B (MARLENE) - Final
Negative for Influenza A & B, NAAT
Negative results must be combined with clinical observations
and patient history.
Nucleic Acid Amplification test (NAAT)performed on the
[employer] platform.
--- NOTE | 2025-03-06 08:44 | W.PN.URO.CBU ---
Today's Communication / Plan
-
will sign off- call with any questions
Assessment / Plan
-
? of perera placement- due to large pelvic/transplant kidney cyst
cath in good position- continue while I/O's being monitored- but at this point- can remove if no longer necessary
CT does not show any appreciable change to renal cyst- no need for any intervention currently
call with any questions
Diagnosis
-
Date of Service: March 06, 2025
-
Patient Diagnosis:
hx of renal transplant
large transplant kidney cyst
ARF
Subjective
-
pt getting HD catheter-came back several times over an hour- still not in room
minimal urine output- to start HD
Objective
-
Vital Signs
Temp Pulse Resp BP Pulse Ox
98.1 F 65 23 120/50 96
03/06/25 07:40 03/06/25 07:40 03/06/25 07:40 03/06/25 07:40 03/06/25 07:40
Intake and Output
03/05/25 03/06/25 03/07/25
06:59 06:59 06:59
Intake Total 934.0 / 945.5 577.0 / 584.5 7.5 / 7.5
Output Total 1390 / 1465 410 / 410 0 / 0
Balance -456.0 / -519.5 167.0 / 174.5 7.5 / 7.5
Intake:
Oral fluids 590 / 590 360 / 360
IV fluids (Total) 344.0 / 355.5 217.0 / 224.5 7.5 / 7.5
Cardizem
Heparin 208.5 / 216.0 193.0 / 200.5 7.5 / 7.5
Lasix 88 / 92
Precedex 22.5 / 22.5
Output:
Urine, Perera 1390 / 1465 410 / 410 0 / 0
Laboratory Results
03/06/25 03:07
03/06/25 03:07
Physical Exam
-
General - well developed, well nourished, no acute distress
Chest - clear bilaterally
Abdomen - soft, non-tender, positive bowel sounds, no CVAT, no incisional pain or distention
Genitalia - normal
Rectal - normal
Skin - warm & dry with no rash
Neuro - AOx3, no motor deficits
Extremities - no clubbing, no cyanosis, no edema
Incision - clean, dry
Dressing - clean, dry, intact
[2025-03-06] MEDS: HEPARIN 25000 UNITS/250 ML IV (09:47)
--- NOTE | 2025-03-06 09:55 | PTCARENOTE ---
Back from IR with new right chest wall tunneled cath. Currently getting started on HD.
[2025-03-06] MEDS: MANNITOL 25% 12.5 GRAMS IV (10:10)
[2025-03-06] MEDS: ROCALTROL 0.25 MCG PO (10:28)
[2025-03-06] MEDS: NOVOLOG FLEXPEN-LOW RESISTANCE 1 UNITS SC (10:28)
[2025-03-06] MEDS: PACERONE 400 MG PO (10:28)
[2025-03-06 10:29] LABS: Glucose - Point of Care 170 mg/dl (70-99)
[2025-03-06] MEDS: PLAVIX 75 MG PO (10:29)
[2025-03-06] MEDS: SODIUM BICARBONATE 650 MG PO ×2 (10:29→19:59)
[2025-03-06] MEDS: CRESTOR 5 MG PO (10:29)
[2025-03-06] MEDS: PROGRAF 1 MG PO ×2 (10:29→19:59)
--- NOTE | 2025-03-06 11:02 | W.PN.NEPH.PH ---
Today's Communication / Plan
-
HD
Assessment/Plan
-
Assessment
DANIELLA
DDRTx 1997
CKD5 (3.0)
metabolic acidosis
HFpEF decompensated
weight loss
anemia
nephrotic range proteinuria
hypertensive urgency
Plan
CVC placed today
start HD today
HD tomorrow
eventually stop bicarb tabs
she says that she is ready to , relays story of not feeling good on HD previously. I have asked that she discuss this with her
critical care time 31 minutes
-
-
Date of Service: March 06, 2025
CC / HPI / ROS
-
Chief Complaint:
Acute kidney injury
History of Present Illness:
DANIELLA/Cr worse to 4.9
K normal
BUN higher 120
not diuresing
remains O2 dependent
Hgb 7.9
critically ill in ICU
Review of Systems:
perera in place
Short of breath
Denies chest pain
No fever
Labs
-
Labs:
WBC 10.1 10^3/uL (4.8-10.8) 03/06/25 03:07
RBC 2.86 10^6/uL (4.20-5.40) L 03/06/25 03:07
Hgb 7.9 g/dL (12.0-16.0) L 03/06/25 03:07
Hct 24.3 % (37.0-47.0) L 03/06/25 03:07
Plt Count 215 10^3/uL (130-400) 03/06/25 03:07
Sodium 137 mmol/L (135-145) 03/06/25 03:07
Potassium 4.3 mmol/L (3.5-5.1) 03/06/25 03:07
Chloride 103 mmol/L (98-107) 03/06/25 03:07
Carbon Dioxide 15 mmol/L (22-30) L 03/06/25 03:07
BUN 120 mg/dl (7-17) H* 03/06/25 03:07
Creatinine 4.9 mg/dL (0.6-1.0) H* 03/06/25 03:07
eGFR 9.11 03/06/25 03:07
Glucose 189 mg/dl (70-99) H 03/06/25 03:07
Calcium 8.4 mg/dl (8.4-10.2) 03/06/25 03:07
Phosphorus 7.8 mg/dl (2.5-4.5) H 03/04/25 03:02
Uhn-J-Mqteaskyoyd Pept 92681 pg/ml 03/03/25 16:30
Albumin 3.7 g/dl (3.5-5.0) 03/03/25 16:30
Physical Exam
-
Vital Signs:
Vital Signs
Temp Pulse Resp BP Pulse Ox
97.7 F 63 20 110/46 97
03/06/25 09:55 03/06/25 09:40 03/06/25 09:40 03/06/25 09:40 03/06/25 09:40
Cardiovascular:: Regular rate and rhythm
Respiratory:: Bilateral: Coarse and Bilateral: Rales
Lung Excursion:: Normal
Abdomen:: Nontender and Soft
Bowel Sounds:: Normal
Extremity Edema:: +1: Bilateral:
--- NOTE | 2025-03-06 11:05 | W.PN.NEPH.HD ---
Assessment
-
Seen on HD. no CP/SOB. VSS, access ok
Progress Note - Hemodialysis
-
Date of Service: March 06, 2025
Duration: 30 minutes and 2 hours
Potassium Bath: 3
Calcium Bath: 2.5
Opti-Dialyzer: 160
Ultrafiltration: Other (2kg)
Blood Flow: 250
Dialysate Flow: 600
Heparin: 0
EPO: 0
[2025-03-06] MEDS: FLEXBUMIN 25% FOR HEMODIALYSIS 12.5 GRAMS IV (11:10)
[2025-03-06 13:35] LABS: Glucose - Point of Care 116 mg/dl (70-99)
[2025-03-06] MEDS: NOVOLOG FLEXPEN-LOW RESISTANCE SC ×3 (13:46→22:11)
--- NOTE | 2025-03-06 13:59 | W.PN.HOSP.TC ---
Addendum entered and electronically signed by Poli Brown MD 03/06/25 14:25:
CDI response: underweight
Original Note:
Today's Communication/Plan
-
HD per Nephrology
follow BP
Tele floor
Assessment / Plan
Assessment / Plan
Assessment:
Acute hypoxic respiratory failure on 4L NC
Acute on chronic congestive heart failure
- s/p IV Lasix drip without improvement in Cr
- s/p HD cath placement 03/06. per machinery erector; fistula not developed enough.
- HD initiation 03/06
- Nephrology following
- Cardiology following
Nonischemic myocardial injury
CAD with hx of MO and 7 total stents
- trop peaked at .162
- continue BB/Plavix
- Echo: no change from prior
Hypertensive emergency (acute CHF)
- s/p IV Labetalol now
- treat BP - continue Clonidine/Atenolol/Nifedipine/Imdur
New onset A. Fib
- continue IV heparin - requires intensive monitoring of levels; Eventual transition Eliquis.
- IV Cardizem now stopped
- Amiodarone TID for rhythm control
hx of Renal transplant 1997
DANIELLA on CKD stage 3b
- on tacrolimus, prednisone
- check tacrolimus level
- Nephrology following
- follow BMP
- continue sodium bicarb
Kidney Cyst
- Urology following; Ortega placement adequate
- CT: large cyst extending medially from the transplant kidney which sits centrally in the pelvis. This has increased in size from prior study. The bladder is seen separate from this cyst and is decompressed. 2. There is a small low-attenuation mass
in the transplant kidney of uncertain etiology.
- She will need evaluation for this at her transplant center
HLD - statin
DVT ppx: IV heparin
Code: Full confirmed with and daughter
Total Critical Care Time 41 minutes. I was immediately available to the patient and staff. I personally examined, reviewed labs, diagnostic images/reports, interpretations, treatment plans, discussed patient care with other providers and family
or caregivers (if patient is unable to make decisions), entered orders as appropriate and documented the medical record.
Dispo: to Telemetry
Anticipated Discharge: > 48 hours
Subjective/Interval History
-
Date of Service: March 06, 2025
seen post-HD, states she tolerated it well
reports breathing improving
Objective Data
-
Labs:
Laboratory Results
03/06/25 03/06/25 03/06/25
03:07 07:18 14:00
WBC 10.1
Hgb 7.9 L
Hct 24.3 L
Plt Count 215
APTT 84.7 H Pending
Sodium 137
Potassium 4.3
Chloride 103
Carbon Dioxide 15 L
BUN 120 H*
Creatinine 4.9 H*
Glucose 189 H
Calcium 8.4
Vital Signs:
Vital Signs
Temp Pulse Resp BP Pulse Ox
97.5 F 72 23 125/55 98
03/06/25 12:09 03/06/25 13:00 03/06/25 13:00 03/06/25 13:00 03/06/25 13:00
I&O
03/05/25 03/06/25 03/07/25
06:59 06:59 06:59
Intake Total 934.0 / 945.5 577.0 / 584.5 152.5 / 152.5
Output Total 1390 / 1465 410 / 410 0 / 0
Balance -456.0 / -519.5 167.0 / 174.5 152.5 / 152.5
Physical Exam
-
General: No Apparent Distress
HEENT: Normocephalic and Atraumatic
Respiratory: Negative Wheezes
Cardiac: Regular Rhythm and S1/S2
GI: Soft
Genito-urinary: No Costovertebral Tender
Neuro: AO x 3
Psych: Calm
Data Reviewed
-
Critical Care Time (in minutes): 41
Labs: Labs Reviewed by me
[2025-03-06 15:54] LABS: APTT 119.3 Sec (23.4-35.0)
--- NOTE | 2025-03-06 15:55 | W.PN.CARDCBS ---
Today's Communication / Plan
-
Continue amiodarone to maintain sinus rhythm
Would transition IV heparin to Eliquis when no further procedures planned
We will sign off, please recall as needed
Impression / Plan
-
PCP: Dr. Chang
Cardiology: Dr. LAWRENCE Gonzales
Nephrology: Dr. De Paz
Renal transplant specialist: Dr. Marr at [facility]
Impression:
Acute on chronic HFpEF
Hypertensive urgency
DANIELLA on CKD 3b
Nonischemic myocardial injury with trop 0.13 and has not plateaued
Paroxysmal Atrial fibrillation
Admissions for acute diastolic CHF Nov 2024, March 2023
Hx Renal transplant: h/o IgA nephropathy s/p donor kidney transplant at [facility] in 1997
CAD, multivessel CAD by cath 07/20/21 and patient declined surgery and opted for PCI instead
s/p 3.0 mm Xience to tandem distal RCA lesions 07/25/21
s/p 3.5 mm Xience to 90% prox Circ lesion 07/25/21
s/p 2.75 mm Xience to tandem LAD lesions 07/25/21
s/p 3.0 mm Xience to 90% prox LAD 07/25/21
s/p rescue PTCA of occluded Diagonal through the LAD stent struts 07/25/21
Moderate MS with mild MR
Mild to mod AR
Hx HTN
Noncompliance
Echo July 2022: EF 70-75%, stage I diastolic dysfunction, mitral sclerosis without stenosis, moderate central aortic regurgitation
Echo Mar 2024: Ejection fraction 72%, mild mitral stenosis with a mean gradient of 5 mL mercury, mild MR, mild to moderate AI, mild aortic stenosis with mean gradient of 9 mmHg, PA systolic 42 mmHg
Echo Nov 2024: EF 55% with mild to mod AR, mild mitral stenosis, mild tricuspid regurgitation
Urgent echo Mar 03 2025: TDS, EF 65% with mod MS mean grad 9 mmHg with mild MR and mod TR and PASP 60 mmHg and mild to mod AR
Plan:
Admitted with respiratory failure with evidence of hypertensive urgency and HF, worsening acute on chronic renal failure and developed pAFib
Volume management per nephrology. She has been started on dialysis with improvement in her respiratory status and blood pressure.
Initially in atrial fibrillation but spontaneously converted and is currently maintaining sinus rhythm
Currently on IV heparin. Would transition to Eliquis if no further procedures are planned.
New to amiodarone. Would continue at 200 mg daily to maintain sinus rhythm
Trop peaked at 0.16, cont medical tx for nonMI troponin.
Cont Plavix.
Echo this admit with preserved EF
EKG was stable compared to prior and without acute changes
Stable cardiac status. Will sign off. Please recall as needed.
Discussed with her and nursing at bedside
Progress Note - Steward/Stewardess Room
Subjective
Date of Service: March 06, 2025
No acute overnight events. Patient seen while on dialysis. Resting comfortably. No cardiac complaints.
Objective
Labs:
03/06/25 03:07
03/06/25 03:07
Labs
Hgb 7.9 g/dL (12.0-16.0) L 03/06/25 03:07
Hct 24.3 % (37.0-47.0) L 03/06/25 03:07
Plt Count 215 10^3/uL (130-400) 03/06/25 03:07
PT 15.7 Sec (11.4-14.6) H 03/04/25 03:02
INR 1.23 03/04/25 03:02
APTT 84.7 Sec (23.4-35.0) H 03/06/25 07:18
Sodium 137 mmol/L (135-145) 03/06/25 03:07
Potassium 4.3 mmol/L (3.5-5.1) 03/06/25 03:07
BUN 120 mg/dl (7-17) H* 03/06/25 03:07
Creatinine 4.9 mg/dL (0.6-1.0) H* 03/06/25 03:07
Glucose 189 mg/dl (70-99) H 03/06/25 03:07
Troponins
03/03/25 03/03/25 03/04/25
16:30 20:43 03:02
Troponin I 0.039 H* 0.053 H* D 0.134 H* D
03/04/25 03/04/25
10:34 18:04
Troponin I 0.162 H* 0.138 H*
Vital Signs and I&O:
Vital Signs
Temp Pulse Resp BP Pulse Ox
97.6 F 65 15 131/57 98
03/06/25 15:15 03/06/25 15:00 03/06/25 15:00 03/06/25 14:29 03/06/25 13:00
Vital Signs
Temp Pulse Resp BP Pulse Ox
97.6 F 65 15 131/57 98
03/06/25 15:15 03/06/25 15:00 03/06/25 15:00 03/06/25 14:29 03/06/25 13:00
Intake & Output
03/04/25 03/05/25 03/06/25 03/07/25
06:59 06:59 06:59 06:59
Intake Total 120.2 / 139.2 934.0 / 945.5 577.0 / 584.5 217.5 / 217.5
Output Total 1180 / 1180 1390 / 1465 410 / 410 70 / 70
Balance -1059.8 / -1040.8 -456.0 / -519.5 167.0 / 174.5 147.5 / 147.5
Physical Exam
Physical Exam
Gen: NAD, AA
HEENT: NC/AT, sclera anicteric
Neck: No JVD
CV: RRR
Lungs: CTAB
Ext: No LE edema
Skin: Warm, dry
Neuro: Non-focal
--- NOTE | 2025-03-06 16:10 | PTCARENOTE ---
Pt withdrawn. Refusing food all day. Reports feeling weak. Stood at side of the bed with one assist and marched in place. Very unsteady. Sinus rhythm on monitor. BP stable. AM BP meds held. 1.5 kg off today per HD nurse. Jordan d/patricia'yaakov.
Remains on Heparin gtt per protocol.
[2025-03-06] MEDS: MANNITOL 25% IV (16:26)
[2025-03-06] MEDS: PACERONE PO (16:27)
--- NOTE | 2025-03-06 16:48 | CM ---
F/U: Patient is getting HD per Nephrology and follow BP. PT/OT unable to work with patient yet. CM follow for DC needs. PLAN: Home PT vs. SNF.
[2025-03-06 18:18] LABS: Glucose - Point of Care 114 mg/dl (70-99)
[2025-03-06] MEDS: PEPCID 10 MG PO (19:59)
[2025-03-06] MEDS: CATAPRES 0.2 MG PO (19:59)
[2025-03-06] MEDS: PROCARDIA XL (EXTENDED RELEASE) 30 MG PO (20:00)
[2025-03-06 22:09] LABS: Glucose - Point of Care 119 mg/dl (70-99)
[2025-03-06] MEDS: MELATONIN 3 MG PO (22:10)
[2025-03-06] MEDS: DELTASONE 5 MG PO (22:10)
[2025-03-06] MEDS: LANTUS SC (22:14)
[2025-03-06 22:24] LABS: APTT 90.0 Sec (23.4-35.0)
--- NOTE | 2025-03-06 22:42 | PTCARENOTE ---
Pt requested 'something for pain', stating pain in both arms. Tylenol offered and declined. Pt refused 5units of lantus, educated pt that this is long acting insulin, and she continued to refuse stating 'I don't need that, 119 is a good number'.
[2025-03-07] VITALS (33 sets, daily range): BP systolic 120–194; BP diastolic 43–90; PULSE 64–65; O2SAT 94; BMI 17.7
[2025-03-07 05:37] LABS: Hematocrit 24.4 % (37.0-47.0); Hemoglobin 7.5 g/dL (12.0-16.0); Mean Corp Hgb Conc. 30.7 g/dL (33.0-37.0); Mean Corpuscular Volume 89.7 fL (81.0-99.0); Platelet Count 246 10^3/uL (130-400); Red Cell Dist. Width 16.1 % (11.5-14.5)
[2025-03-07 06:08] LABS: APTT 56.8 Sec (23.4-35.0)
[2025-03-07 06:12] LABS: Blood Urea Nitrogen 56 mg/dl (7-17); Calcium 8.4 mg/dl (8.4-10.2); Carbon Dioxide 22 mmol/L (22-30); Chloride 99 mmol/L (98-107); Estimated Creatinine Clearance 11 ml/min; Glucose 126 mg/dl (70-99); Potassium 4.3 mmol/L (3.5-5.1); Sodium 134 mmol/L (135-145); eGFR 13.65
[2025-03-07] MEDS: ROCALTROL 0.25 MCG PO (08:05)
[2025-03-07] MEDS: NOVOLOG FLEXPEN-LOW RESISTANCE SC ×2 (08:05→16:37)
[2025-03-07] MEDS: SODIUM BICARBONATE 650 MG PO ×2 (08:05→19:46)
[2025-03-07] MEDS: PROGRAF 1 MG PO ×2 (08:06→19:46)
[2025-03-07] MEDS: PLAVIX 75 MG PO (08:06)
[2025-03-07] MEDS: CRESTOR 5 MG PO (08:06)
[2025-03-07] MEDS: PACERONE 200 MG PO (08:06)
[2025-03-07 08:19] LABS: Glucose - Point of Care 115 mg/dl (70-99)
[2025-03-07] MEDS: ELIQUIS 2.5 MG PO ×2 (11:24→19:46)
[2025-03-07 12:26] LABS: Glucose - Point of Care 200 mg/dl (70-99)
[2025-03-07] MEDS: NOVOLOG FLEXPEN-LOW RESISTANCE 2 UNITS SC (12:27)
--- NOTE | 2025-03-07 13:00 | PTCARENOTE ---
heparin gtt discontinued
--- NOTE | 2025-03-07 13:20 | PTCARENOTE ---
Patient starting on dialysis. have held AM HTN meds per Dialysis nurse.
[2025-03-07 13:43] LABS: APTT 121.8 Sec (23.4-35.0)
[2025-03-07] MEDS: MANNITOL 25% 12.5 GRAMS IV (14:24)
[2025-03-07] MEDS: RETACRIT 4000 UNITS IV (14:25)
--- NOTE | 2025-03-07 14:34 | W.PN.NEPH.HD ---
Assessment
-
Seen on HD. tired. no other complaints. VSS, access CVC.
will need OP HD planning
Progress Note - Hemodialysis
-
Date of Service: March 07, 2025
Duration: 3 hours
Potassium Bath: 3
Calcium Bath: 2.5
Opti-Dialyzer: 160
Ultrafiltration: Other (2kg)
Blood Flow: 300
Dialysate Flow: 600
Heparin: 0
EPO: 4000 units
--- NOTE | 2025-03-07 14:42 | W.PN.HOSP.TC ---
Today's Communication/Plan
-
Eliquis
continue HD
Hep B Core IgM - see below
Assessment / Plan
Assessment / Plan
Assessment:
Acute hypoxic respiratory failure on 4L NC
Acute on chronic congestive heart failure
- s/p IV Lasix drip without improvement in Cr
- s/p HD cath placement 03/06. per pharmacy technician trainee; fistula not developed enough.
- HD initiation 03/06; continue HD 03/07
- Nephrology following
- Cardiology signed off
Nonischemic myocardial injury
CAD with hx of [place] and 7 total stents
- trop peaked at .162
- continue BB/Plavix
- Echo: no change from prior
Hypertensive emergency (acute CHF)
- s/p IV Labetalol now
- treat BP - continue Clonidine/Atenolol/Nifedipine/Imdur
New onset A. Fib
- continue Amiodarone/Eliquis
hx of Renal transplant 1997
DANIELLA on CKD stage 3b
- on tacrolimus, prednisone
- check tacrolimus level
- Nephrology following
- follow BMP
- continue sodium bicarb
Kidney Cyst
- Urology following; Ortega placement adequate
- CT: large cyst extending medially from the transplant kidney which sits centrally in the pelvis. This has increased in size from prior study. The bladder is seen separate from this cyst and is decompressed. 2. There is a small low-attenuation mass
in the transplant kidney of uncertain etiology.
- She will need evaluation for this at her transplant center
HLD - statin
Hep B S-Ag positive
- surface antibody negative, check core IgM to determine chronic vs acute infection
- LFTS normal
- no evidence of cirrhosis on CT
DVT ppx: Eliquis
Code: Full confirmed with and daughter
Anticipated Discharge: > 48 hours
Subjective/Interval History
-
Date of Service: March 07, 2025
on second HD session, feels tired
Objective Data
-
Labs:
Laboratory Results
03/07/25 03/07/25
04:49 13:17
WBC 8.3
Hgb 7.5 L
Hct 24.4 L
Plt Count 246
APTT 56.8 H 121.8 H
Sodium 134 L
Potassium 4.3
Chloride 99
Carbon Dioxide 22
BUN 56 H
Creatinine 3.5 H
Glucose 126 H
Calcium 8.4
Vital Signs:
Vital Signs
Temp Pulse Resp BP Pulse Ox
98 F 71 17 181/62 98
03/07/25 12:44 03/07/25 13:15 03/07/25 13:15 03/07/25 13:15 03/07/25 13:15
I&O
03/06/25 03/07/25 03/08/25
06:59 06:59 06:59
Intake Total 577.0 / 584.5 303.0 / 303.0 17.0 / 17.0
Output Total 410 / 410 70 / 70
Balance 167.0 / 174.5 233.0 / 233.0 17.0 / 17.0
Physical Exam
-
General: No Apparent Distress
HEENT: Normocephalic and Atraumatic
Respiratory: Negative Wheezes
Cardiac: Regular Rhythm and S1/S2
GI: Soft
Neuro: AO x 3
Psych: Calm
Data Reviewed
-
Total Time Spent with Patient (in minutes): 42
Labs: Labs Reviewed by me
--- NOTE | 2025-03-07 14:45 | PTCARENOTE ---
Patient continued to be hypertensive. [place] texted Dr. Kathleen and Dr. Brown. Gave atenolol and procardia during treatment. Patient to receive clonodine at 1999.
[2025-03-07] MEDS: PROCARDIA XL (EXTENDED RELEASE) 30 MG PO ×2 (14:49→19:47)
[2025-03-07] MEDS: TENORMIN 25 MG PO (14:49)
[2025-03-07] MEDS: IMDUR (EXTENDED RELEASE) PO (15:30)
[2025-03-07] MEDS: CATAPRES PO (15:31)
[2025-03-07] MEDS: HEPARIN 4000 UNITS INTRACATH (15:45)
[2025-03-07] MEDS: MANNITOL 25% IV (15:46)
[2025-03-07 16:49] LABS: Glucose - Point of Care 73 mg/dl (70-99)
[2025-03-07] MEDS: PEPCID 10 MG PO (19:46)
[2025-03-07] MEDS: CATAPRES 0.2 MG PO (19:47)
[2025-03-07] MEDS: MELATONIN 3 MG PO (21:37)
[2025-03-07] MEDS: DELTASONE 5 MG PO (21:37)
[2025-03-07] MEDS: NOVOLOG FLEXPEN-LOW RESISTANCE 1 UNITS SC (21:39)
[2025-03-07] MEDS: LANTUS 0.05 UNITS SC (21:40)
[2025-03-07 21:50] LABS: Glucose - Point of Care 189 mg/dl (70-99)
[2025-03-08] VITALS (7 sets, daily range): BP systolic 110–166; BP diastolic 44–90; BMI 17.3
[2025-03-08 05:16] LABS: Hematocrit 26.6 % (37.0-47.0); Hemoglobin 8.6 g/dL (12.0-16.0); Mean Corp Hgb Conc. 32.3 g/dL (33.0-37.0); Mean Corpuscular Volume 83.6 fL (81.0-99.0); Platelet Count 259 10^3/uL (130-400); Red Cell Dist. Width 15.4 % (11.5-14.5)
[2025-03-08 05:27] LABS: INR 1.32; PT 16.5 Sec (11.4-14.6)
[2025-03-08 05:28] LABS: APTT 46.0 Sec (23.4-35.0)
[2025-03-08 05:37] LABS: Blood Urea Nitrogen 31 mg/dl (7-17); Calcium 8.3 mg/dl (8.4-10.2); Carbon Dioxide 27 mmol/L (22-30); Chloride 93 mmol/L (98-107); Estimated Creatinine Clearance 12 ml/min; Glucose 157 mg/dl (70-99); Potassium 4.3 mmol/L (3.5-5.1); Sodium 129 mmol/L (135-145); eGFR 16.42
[2025-03-08 08:53] LABS: Glucose - Point of Care 214 mg/dl (70-99)
[2025-03-08] MEDS: NOVOLOG FLEXPEN-LOW RESISTANCE 2 UNITS SC (09:10)
[2025-03-08] MEDS: CRESTOR 5 MG PO (09:11)
[2025-03-08] MEDS: PROCARDIA XL (EXTENDED RELEASE) 30 MG PO ×2 (09:11→21:58)
[2025-03-08] MEDS: ROCALTROL 0.25 MCG PO (09:11)
[2025-03-08] MEDS: PLAVIX 75 MG PO (09:11)
[2025-03-08] MEDS: TENORMIN 25 MG PO (09:12)
[2025-03-08] MEDS: SODIUM BICARBONATE 650 MG PO ×2 (09:12→21:56)
[2025-03-08] MEDS: ELIQUIS 2.5 MG PO ×2 (09:12→21:56)
[2025-03-08] MEDS: PROGRAF 1 MG PO ×2 (09:13→21:56)
[2025-03-08] MEDS: CATAPRES 0.2 MG PO ×2 (09:13→21:59)
[2025-03-08] MEDS: PACERONE 200 MG PO (09:13)
[2025-03-08] MEDS: IMDUR (EXTENDED RELEASE) 30 MG PO (09:14)
--- NOTE | 2025-03-08 09:19 | PTCARENOTE ---
0700 assumed care. patient OOB chair. c/o RT upper arm pain secondary to Right chest wall tunnel cath for Dialysis. Tylenol offered per pRn order, patient refused
BP via RT LL; Left UE AV fistula: +Bruit +thrill; left limp alert
Accu check 214 : Novol 2 unit sliding scale
--- NOTE | 2025-03-08 09:52 | W.PN.NEPH.PH ---
Today's Communication / Plan
-
HD tomorrow
Assessment/Plan
-
Assessment
DANIELLA
DDRTx 1996
CKD5 (3.0)
metabolic acidosis
HFpEF decompensated
weight loss
anemia
nephrotic range proteinuria
hypertensive urgency
Plan
HD tomorrow
stop bicarb tabs
check tacro level, now on amio
-
-
Date of Service: March 08, 2025
CC / HPI / ROS
-
Chief Complaint:
Acute kidney injury
History of Present Illness:
tolerated HD yesterday
oliguric
off O2, laying supine
Review of Systems:
perera out
Denies chest pain
No fever
Labs
-
Labs:
WBC 7.3 10^3/uL (4.8-10.8) 03/08/25 04:40
RBC 3.18 10^6/uL (4.20-5.40) L 03/08/25 04:40
Hgb 8.6 g/dL (12.0-16.0) L 03/08/25 04:40
Hct 26.6 % (37.0-47.0) L 03/08/25 04:40
Plt Count 259 10^3/uL (130-400) 03/08/25 04:40
Sodium 129 mmol/L (135-145) L 03/08/25 04:40
Potassium 4.3 mmol/L (3.5-5.1) 03/08/25 04:40
Chloride 93 mmol/L (98-107) L 03/08/25 04:40
Carbon Dioxide 27 mmol/L (22-30) 03/08/25 04:40
BUN 31 mg/dl (7-17) H 03/08/25 04:40
Creatinine 3.0 mg/dL (0.6-1.0) H 03/08/25 04:40
eGFR 16.42 03/08/25 04:40
Glucose 157 mg/dl (70-99) H 03/08/25 04:40
Calcium 8.3 mg/dl (8.4-10.2) L 03/08/25 04:40
Phosphorus 7.8 mg/dl (2.5-4.5) H 03/04/25 03:02
Cwz-W-Gaclggddhrs Pept 29186 pg/ml 03/03/25 16:30
Albumin 3.7 g/dl (3.5-5.0) 03/03/25 16:30
Physical Exam
-
Vital Signs:
Vital Signs
Temp Pulse Resp BP Pulse Ox
97.8 F 61 17 156/84 99
03/08/25 08:43 03/08/25 09:00 03/08/25 09:00 03/08/25 08:38 03/08/25 08:38
Cardiovascular:: Regular rate and rhythm
Respiratory:: Bilateral: CTA
Lung Excursion:: Normal
Abdomen:: Nontender and Soft
Bowel Sounds:: Normal
Extremity Edema:: None: Bilateral:
[2025-03-08 12:15] LABS: Glucose - Point of Care 189 mg/dl (70-99)
[2025-03-08] MEDS: NOVOLOG FLEXPEN-LOW RESISTANCE 1 UNITS SC (12:37)
--- NOTE | 2025-03-08 14:49 | W.PN.HOSP.TC ---
Today's Communication/Plan
-
HD tomorrow
DC planning home vs SNF - CM Consult
Assessment / Plan
Assessment / Plan
Assessment:
Acute hypoxic respiratory failure on 4L NC
Acute on chronic congestive heart failure
- s/p IV Lasix drip without improvement in Cr
- s/p HD cath placement 03/06. per engineering design manager; fistula not developed enough.
- HD initiation 03/06; continue HD per Nephrology
- Cardiology signed off
Nonischemic myocardial injury
CAD with hx of [place] and 7 total stents
- trop peaked at .162
- continue BB/Plavix
- Echo: no change from prior
Hypertensive emergency (acute CHF)
- s/p IV Labetalol now
- treat BP - continue Clonidine/Atenolol/Nifedipine/Imdur
New onset A. Fib
- continue Amiodarone/Eliquis
hx of Renal transplant 1997
DANIELLA on CKD stage 3b
- on tacrolimus, prednisone
- check tacrolimus level
- Nephrology following
- follow BMP
- continue sodium bicarb
Kidney Cyst
- Urology following; Ortega placement adequate
- CT: large cyst extending medially from the transplant kidney which sits centrally in the pelvis. This has increased in size from prior study. The bladder is seen separate from this cyst and is decompressed. 2. There is a small low-attenuation mass
in the transplant kidney of uncertain etiology.
- She will need evaluation for this at her transplant center
HLD - statin
Hep B S-Ag positive
- surface antibody negative, check core IgM to determine chronic vs acute infection
- LFTS normal
- no evidence of cirrhosis on CT
DVT ppx: Eliquis
Code: Full confirmed with and daughter
Anticipated Discharge: > 48 hours
Subjective/Interval History
-
Date of Service: March 08, 2025
resting comfortably
for HD Again tomorrow
Objective Data
-
Labs:
Laboratory Results
03/08/25
04:40
WBC 7.3
Hgb 8.6 L
Hct 26.6 L
Plt Count 259
PT 16.5 H
INR 1.32
APTT 46.0 H
Sodium 129 L
Potassium 4.3
Chloride 93 L
Carbon Dioxide 27
BUN 31 H
Creatinine 3.0 H
Glucose 157 H
Calcium 8.3 L
Vital Signs:
Vital Signs
Temp Pulse Resp BP Pulse Ox
97.8 F 58 18 156/84 99
03/08/25 08:43 03/08/25 11:00 03/08/25 11:00 03/08/25 08:38 03/08/25 08:38
I&O
03/07/25 03/08/25 03/09/25
06:59 06:59 06:59
Intake Total 303.0 / 303.0 17.0 / 17.0 240 / 240
Output Total 70 / 70 0 / 0
Balance 233.0 / 233.0 17.0 / 17.0 240 / 240
Physical Exam
-
General: No Apparent Distress
HEENT: Normocephalic and Atraumatic
Respiratory: Negative Wheezes
Cardiac: Regular Rhythm and S1/S2
GI: Soft and Nontender
Genito-urinary: No Costovertebral Tender
Neuro: AO x 3
Psych: Calm
Data Reviewed
-
Total Time Spent with Patient (in minutes): 45
Labs: Labs Reviewed by me
[2025-03-08 17:08] LABS: Glucose - Point of Care 271 mg/dl (70-99)
[2025-03-08] MEDS: NOVOLOG FLEXPEN-LOW RESISTANCE 3 UNITS SC (17:35)
--- NOTE | 2025-03-08 18:34 | PTCARENOTE ---
Transfer:
patient transfer to room 3328 Transfer via w/c. All belonging transfer with patient. patient states that ' I no longer like to continue dialysis treatments ; It's my body and I have a right to decide what I want and what I don't want to do ' She
added that her knows of her wishes. patient denies suicidal aviations. Patient agrees to stay overnight and be transfer. Patient and her will have discussion with physician tomorrow regarding further plan of care
[2025-03-08 21:45] LABS: Glucose - Point of Care 134 mg/dl (70-99)
[2025-03-08] MEDS: SENOKOT-S 1 TABLET PO (21:56)
[2025-03-08] MEDS: DELTASONE 5 MG PO (21:56)
[2025-03-08] MEDS: MELATONIN 3 MG PO (21:58)
[2025-03-08] MEDS: PEPCID 10 MG PO (21:59)
[2025-03-08] MEDS: LANTUS 0.05 UNITS SC (22:00)
[2025-03-08] MEDS: NOVOLOG FLEXPEN-LOW RESISTANCE SC (22:25)
[2025-03-09 02:52] VITALS: BP 132/49
[2025-03-09 02:53] VITALS: BMI 17.5
[2025-03-09 07:36] LABS: Hematocrit 26.0 % (37.0-47.0); Hemoglobin 8.6 g/dL (12.0-16.0); Mean Corp Hgb Conc. 33.1 g/dL (33.0-37.0); Mean Corpuscular Volume 83.6 fL (81.0-99.0); Platelet Count 252 10^3/uL (130-400); Red Cell Dist. Width 15.2 % (11.5-14.5)
[2025-03-09 07:38] VITALS: BP 138/56
[2025-03-09 08:12] LABS: Glucose - Point of Care 146 mg/dl (70-99)
[2025-03-09 08:28] LABS: Blood Urea Nitrogen 60 mg/dl (7-17); Calcium 8.5 mg/dl (8.4-10.2); Carbon Dioxide 25 mmol/L (22-30); Chloride 94 mmol/L (98-107); Estimated Creatinine Clearance 8 ml/min; Glucose 151 mg/dl (70-99); Potassium 4.4 mmol/L (3.5-5.1); Sodium 130 mmol/L (135-145); eGFR 9.58
[2025-03-09] MEDS: ROCALTROL 0.25 MCG PO (08:38)
[2025-03-09] MEDS: NOVOLOG FLEXPEN-LOW RESISTANCE SC ×3 (08:38→21:36)
[2025-03-09] MEDS: CRESTOR 5 MG PO (08:39)
[2025-03-09] MEDS: PLAVIX 75 MG PO (08:40)
[2025-03-09] MEDS: ELIQUIS 2.5 MG PO ×2 (08:40→21:25)
[2025-03-09] MEDS: SODIUM BICARBONATE 650 MG PO ×2 (08:40→21:26)
[2025-03-09] MEDS: PROGRAF 1 MG PO ×2 (08:40→21:27)
[2025-03-09] MEDS: IMDUR (EXTENDED RELEASE) 30 MG PO (08:40)
--- NOTE | 2025-03-09 10:20 | W.PN.HOSP.TC ---
Today's Communication/Plan
-
HD per renal
CM consult to discuss outpatient centers. patient wants to talk to her outpatient Editorial Intern for opinion on continuing HD
Assessment / Plan
Assessment / Plan
Assessment:
Acute hypoxic respiratory failure on 4L NC
Acute on chronic congestive heart failure
Acute on chronic kidney disease, progression to ESRD
hx renal transplant 1997
- s/p IV Lasix drip without improvement in Cr
- s/p HD cath placement 03/06. per machine puller; fistula not developed enough.
- HD initiation 03/06; continue HD per Nephrology
-continue LOBBYIST on tacrolimus, prednisone
-continue sodium bicarb
-patient wants to talk to her Editorial Intern, Dr. De Paz about continuing dialysis
Nonischemic myocardial injury
CAD with hx of [place] and 7 total stents
- trop peaked at .162
- continue BB/Plavix
- Echo: no change from prior
- appreciate Cardiology
Hypertensive emergency (acute CHF)
- continue Clonidine/Atenolol/Nifedipine/Imdur
New onset A. Fib
- continue Amiodarone/Eliquis
Kidney Cyst
- Urology following; Ortega placement adequate
- CT: large cyst extending medially from the transplant kidney which sits centrally in the pelvis. This has increased in size from prior study. The bladder is seen separate from this cyst and is decompressed. 2. There is a small low-attenuation mass
in the transplant kidney of uncertain etiology.
- She will need evaluation for this at her transplant center
HLD - statin
Hep B S-Ag positive
- surface antibody negative, check core IgM to determine chronic vs acute infection
- LFTS normal
- no evidence of cirrhosis on CT
DVT ppx: Eliquis
Code: Full confirmed with and daughter
Anticipated Discharge: > 48 hours
Subjective/Interval History
-
Date of Service: March 09, 2025
patient is resting
feels tired but no shortness of breath
no chest pain
Objective Data
-
Labs:
Laboratory Results
03/09/25
07:05
WBC 6.3
Hgb 8.6 L
Hct 26.0 L
Plt Count 252
Sodium 130 L
Potassium 4.4
Chloride 94 L
Carbon Dioxide 25
BUN 60 H
Creatinine 4.7 H*
Glucose 151 H
Calcium 8.5
Vital Signs:
Vital Signs
Temp Pulse Resp BP Pulse Ox
97.3 F 58 16 138/56 98
03/09/25 07:38 03/09/25 07:38 03/09/25 07:38 03/09/25 07:38 03/09/25 07:38
I&O
03/08/25 03/09/25 03/10/25
06:59 06:59 06:59
Intake Total 17.0 / 17.0 460 / 460
Output Total 0 / 0
Balance 17.0 / 17.0 460 / 460
Review of Systems
-
History Source: Patient
All other systems: Reviewed and negative
Physical Exam
-
General: No Apparent Distress
HEENT: Normocephalic and Atraumatic
Respiratory: Negative Wheezes
Cardiac: Regular Rhythm and S1/S2
GI: Soft and Nontender
Genito-urinary: No Costovertebral Tender
Neuro: AO x 3
Psych: Calm
Data Reviewed
-
Diagnostic Radiology: Report Reviewed by me
Labs: Labs Reviewed by me
--- NOTE | 2025-03-09 10:44 | PN.CDI ---
CDI
- -
CDI:
Physician Documentation Request
Admit Date: 03/03/25 18:39
Dear Doctor Tiffani,
Clinical Indicators:
Patient admitted with acute on chronic HFpEF; currently on HD.
Fluid restriction: 1200 ml/day
Sodium trend:
03/08/25 03/09/25
04:40 07:05
Sodium 129 L 130 L
Based on the above, could you clarify in the progress notes, the appropriate diagnosis, if significant, that supports the above abnormalities and additional evaluation, monitoring and/or treatment rendered:
Hyponatremia
Abnormal lab values, clinically insignificant
Other, please specify
Use of terms such as suspected, likely, concern for, or probable (associated with a specific diagnosis that is being evaluated, monitored, or treated as if it exists) are acceptable and can be coded in the inpatient setting, when documented at the
time of discharge.
Thank you,
MAGDALENA Alejandre RN
CDI Specialist
available via tiger text
Please use your independent medical judgment in providing your response.
[2025-03-09 11:40] VITALS: BP 158/58
[2025-03-09 11:52] LABS: Glucose - Point of Care 161 mg/dl (70-99)
[2025-03-09] MEDS: NOVOLOG FLEXPEN-LOW RESISTANCE 1 UNITS SC (12:00)
--- NOTE | 2025-03-09 13:33 | W.PN.NEPH.HD ---
Assessment
-
Patient tolerating dialysis she is tell me she does not want to continue dialysis going forward. She will complete today's treatment but will need to have further discussions about goals of care. Next scheduled dialysis will be Sunday but if we
are not going to continue outpatient then permacath will need to be removed. More discussions will need to be had with the patient and family as this has been an ongoing issue since we started having to try to convince her that she eventually
submits what appears to be her but we need to respect her wishes going forward from her photonics engineering technologist standpoint
Progress Note - Hemodialysis
-
Date of Service: March 09, 2025
Duration: 3 hours
Potassium Bath: 3
Calcium Bath: 2.5
Opti-Dialyzer: 160
Ultrafiltration: Other (2kg)
Blood Flow: 300
Dialysate Flow: 600
Heparin: 0
EPO: 4000 units
[2025-03-09] MEDS: RETACRIT 4000 UNITS IV (14:29)
[2025-03-09] MEDS: PACERONE 200 MG PO (15:18)
[2025-03-09] MEDS: PROCARDIA XL (EXTENDED RELEASE) 30 MG PO ×2 (15:19→21:16)
[2025-03-09] MEDS: HEPARIN 4000 UNITS INTRACATH (15:26)
[2025-03-09 15:36] VITALS: BP 128/93
[2025-03-09] MEDS: CATAPRES 0.2 MG PO ×2 (16:34→21:26)
[2025-03-09] MEDS: TENORMIN PO (16:36)
[2025-03-09 17:04] LABS: Glucose - Point of Care 116 mg/dl (70-99)
--- NOTE | 2025-03-09 17:27 | CM ---
patient seen at bedside
CM consult completed
patient declined SNF
discussed vn as an option
discussed that CM has to send paperwork to [address], [place]
faxed information to [employer] [phone] - notified Chandrika Alejo liaison [phone]
PLAN: home, with outpatient HD, once set up
[2025-03-09 18:43] LABS: Hepatitis B Surface Antigen Positive (Negative)
--- NOTE | 2025-03-09 19:53 | W.PN.UPDATE ---
Update Note
Progress Note Update
Patient placed back on telemetry for QTc monitoring. Her telemetry shows QTc of 524 today on EKG. Previously 471 and 479. On 02/23/25 was 449. Patient started amiodorone to maintain SR.
[2025-03-09 21:19] LABS: Glucose - Point of Care 239 mg/dl (70-99)
[2025-03-09] MEDS: PEPCID 10 MG PO (21:23)
[2025-03-09] MEDS: DELTASONE 5 MG PO (21:26)
[2025-03-09] MEDS: LANTUS 0.05 UNITS SC (21:34)
[2025-03-09] MEDS: MELATONIN 3 MG PO (21:34)
[2025-03-09 22:58] VITALS: BP 147/55
[2025-03-10 03:02] VITALS: BP 131/60
[2025-03-10 06:15] VITALS: BMI 16.7
[2025-03-10 07:00] VITALS: BP 149/54
[2025-03-10 08:01] LABS: Glucose - Point of Care 153 mg/dl (70-99)
[2025-03-10] MEDS: CATAPRES 0.2 MG PO ×2 (08:36→20:10)
[2025-03-10] MEDS: ELIQUIS 2.5 MG PO ×2 (08:36→20:12)
[2025-03-10] MEDS: LOPRESSOR 25 MG PO ×2 (08:36→20:12)
[2025-03-10] MEDS: CRESTOR 5 MG PO (08:36)
[2025-03-10] MEDS: IMDUR (EXTENDED RELEASE) 30 MG PO (08:36)
[2025-03-10] MEDS: PLAVIX 75 MG PO (08:36)
[2025-03-10] MEDS: PACERONE 200 MG PO (08:36)
[2025-03-10] MEDS: PROCARDIA XL (EXTENDED RELEASE) 30 MG PO ×2 (08:36→20:10)
[2025-03-10] MEDS: ROCALTROL 0.25 MCG PO (08:36)
[2025-03-10] MEDS: SODIUM BICARBONATE 650 MG PO ×2 (08:37→20:11)
[2025-03-10] MEDS: NOVOLOG FLEXPEN-LOW RESISTANCE 1 UNITS SC ×2 (08:37→12:44)
[2025-03-10] MEDS: PROGRAF 1 MG PO (08:37)
--- NOTE | 2025-03-10 11:16 | W.PN.HOSP.TC ---
Addendum entered and electronically signed by Shu Nixon MD 03/11/25 10:35:
hyopnatremia
-in setting of fluid shifts with HD - monitor
Original Note:
Today's Communication/Plan
-
continued GOC discussions, patient is told she would not survive without dialysis and she is thinking about whether or not to continue
Assessment / Plan
Assessment / Plan
Assessment:
Acute hypoxic respiratory failure on 4L NC
Acute on chronic congestive heart failure
Acute on chronic kidney disease, progression to ESRD
hx renal transplant 1997
- s/p IV Lasix drip without improvement in Cr
- s/p HD cath placement 03/06. per control room agent; fistula not developed enough.
- HD initiation 03/06; continue HD per Nephrology
-continue INSECTICIDE SUPERVISOR on tacrolimus, prednisone
-continue sodium bicarb
-patient feels weak after HD and doesn't know if she wants to continue. She wants to think about it more. Dr. De Paz left her a VM yesterday evening and she is waiting for him to call her back
Nonischemic myocardial injury
CAD with hx of [place] and 7 total stents
- trop peaked at .162
- continue BB/Plavix
- Echo: no change from prior
- appreciate Cardiology
Hypertensive emergency (acute CHF)
- continue Clonidine/Atenolol/Nifedipine/Imdur
New onset A. Fib
- continue Amiodarone/Eliquis
Kidney Cyst
- Urology following; Ortega placement adequate
- CT: large cyst extending medially from the transplant kidney which sits centrally in the pelvis. This has increased in size from prior study. The bladder is seen separate from this cyst and is decompressed. 2. There is a small low-attenuation mass
in the transplant kidney of uncertain etiology.
- She will need evaluation for this at her transplant center
HLD - statin
Hep B S-Ag positive
- surface antibody negative, check core IgM to determine chronic vs acute infection
- LFTS normal
- no evidence of cirrhosis on CT
DVT ppx: Eliquis
Code: Full confirmed with and daughter
Anticipated Discharge: 24 - 48 hours
Subjective/Interval History
-
Date of Service: March 10, 2025
she is still debating dialysis
she is hoping it would be temporary; she is waiting for Dr. De Paz to call back
Objective Data
-
Vital Signs:
Vital Signs
Temp Pulse Resp BP Pulse Ox
97.8 F 62 16 149/54 99
03/10/25 07:00 03/10/25 08:36 03/10/25 07:00 03/10/25 08:36 03/10/25 07:00
I&O
03/09/25 03/10/25 03/11/25
06:59 06:59 06:59
Intake Total 460 / 460 180 / 180
Balance 460 / 460 180 / 180
Review of Systems
-
History Source: Patient
All other systems: Reviewed and negative
Physical Exam
-
General: No Apparent Distress
HEENT: Normocephalic and Atraumatic
Respiratory: Negative Wheezes
Cardiac: Regular Rhythm and S1/S2
GI: Soft and Nontender
Genito-urinary: No Costovertebral Tender
Neuro: AO x 3
Psych: Calm
Data Reviewed
-
Diagnostic Radiology: Report Reviewed by me
Labs: Labs Reviewed by me
[2025-03-10 11:21] VITALS: BP 129/54
[2025-03-10 11:33] LABS: Glucose - Point of Care 150 mg/dl (70-99)
--- NOTE | 2025-03-10 11:42 | W.PN.NEPH.PH ---
Today's Communication / Plan
-
Lowered tacrolimus to 0.5 twice daily
Dialysis tomorrow
Assessment/Plan
-
Assessment
DANIELLA
DDRTx 1997
CKD5 (3.0)
metabolic acidosis
HFpEF decompensated
weight loss
anemia
nephrotic range proteinuria
hypertensive urgency
Plan
HD tomorrow
check tacro level= 8.7> lowered to 0.5, now on amio
Long discussion again with her today about the need for dialysis as she now agrees to proceed. Dr. De Paz had also placed a call and left a message about the need for dialysis going forward and that there is no other option at this point.
See orders for tomorrow
-
-
Date of Service: March 10, 2025
CC / HPI / ROS
-
Chief Complaint:
Acute kidney injury
History of Present Illness:
tolerated HD yesterday
oliguric
off O2, laying supine
Review of Systems:
perera out
Denies chest pain
No fever
Labs
-
Labs:
WBC 6.3 10^3/uL (4.8-10.8) 03/09/25 07:05
RBC 3.11 10^6/uL (4.20-5.40) L 03/09/25 07:05
Hgb 8.6 g/dL (12.0-16.0) L 03/09/25 07:05
Hct 26.0 % (37.0-47.0) L 03/09/25 07:05
Plt Count 252 10^3/uL (130-400) 03/09/25 07:05
Sodium 130 mmol/L (135-145) L 03/09/25 07:05
Potassium 4.4 mmol/L (3.5-5.1) 03/09/25 07:05
Chloride 94 mmol/L (98-107) L 03/09/25 07:05
Carbon Dioxide 25 mmol/L (22-30) 03/09/25 07:05
BUN 60 mg/dl (7-17) H 03/09/25 07:05
Creatinine 4.7 mg/dL (0.6-1.0) H* 03/09/25 07:05
eGFR 9.58 03/09/25 07:05
Glucose 151 mg/dl (70-99) H 03/09/25 07:05
Calcium 8.5 mg/dl (8.4-10.2) 03/09/25 07:05
Phosphorus 7.8 mg/dl (2.5-4.5) H 03/04/25 03:02
Ulw-S-Qvvtvmjvmhv Pept 66519 pg/ml 03/03/25 16:30
Albumin 3.7 g/dl (3.5-5.0) 03/03/25 16:30
Physical Exam
-
Vital Signs:
Vital Signs
Temp Pulse Resp BP Pulse Ox
97.6 F 63 16 129/54 93
03/10/25 11:21 03/10/25 11:21 03/10/25 11:21 03/10/25 11:21 03/10/25 11:21
Cardiovascular:: Regular rate and rhythm
Respiratory:: Bilateral: CTA
Lung Excursion:: Normal
Abdomen:: Nontender and Soft
Bowel Sounds:: Normal
Extremity Edema:: None: Bilateral:
--- NOTE | 2025-03-10 11:52 | VNURNOTE ---
Addendum entered by Isabel Delcid RN 03/10/25 14:23:
[facility] referral sent in [facility]
Original Note:
Chart reviewed. [facility] liaison met with patient at bedside. Explained services: [facility] nurse/therapy, visits, schedule and homebound status. Explained that visits at home will be 2-3 x per week. Patient stated that she thinks she's too weak to
go home. Noted in earlier notes that she refused SNF. Reviewed with pt that our services are intermittent and short term. Patient will think about it more. Provided contact number for [facility]. ALESSIO Macedo updated. Also noted that GOC conversations
are ongoing.
[facility] referral in [facility] status. Will follow up after DC plan is clearer.
[2025-03-10 15:01] VITALS: BP 141/60
--- NOTE | 2025-03-10 16:39 | CM ---
met with patient &
[phone] ext [phone][facility]
patient hep B+ will need iso chair
rec dialysis Tentative schedule letter which was reviewed with patient &
Per Chandrika Alejo [phone]) it is a tentative schedule & with medical diagnostic radiographer to review
Clinic: [facility] [address], [place] [address] - 10:30 T-THUR-SAT start 03/17
LM with Chandrika to see if this is the closest clinic avail
Patient also stated wants to go home with home health not SNF
notified [facility] liaison [facility] referral to be placed in [facility]port
plan: home with [facility] & outpatient HD-once confirmed
[2025-03-10 16:52] LABS: Glucose - Point of Care 300 mg/dl (70-99)
[2025-03-10] MEDS: NOVOLOG FLEXPEN-LOW RESISTANCE 4 UNITS SC (17:29)
[2025-03-10 19:33] VITALS: BP 152/78
[2025-03-10] MEDS: PROGRAF 0.5 MG PO (20:09)
[2025-03-10] MEDS: PEPCID 10 MG PO (20:11)
[2025-03-10] MEDS: SENOKOT-S 1 TABLET PO (20:18)
[2025-03-10 21:24] LABS: Glucose - Point of Care 163 mg/dl (70-99)
[2025-03-10] MEDS: LANTUS 0.05 UNITS SC (22:16)
[2025-03-10] MEDS: DELTASONE 5 MG PO (22:16)
[2025-03-10] MEDS: MELATONIN 3 MG PO (22:16)
[2025-03-10] MEDS: NOVOLOG FLEXPEN-LOW RESISTANCE SC (22:17)
[2025-03-10 23:46] VITALS: BP 160/65
[2025-03-11 04:26] VITALS: BP 156/64
[2025-03-11 06:00] VITALS: BMI 17.1
[2025-03-11 08:14] VITALS: BP 130/55
[2025-03-11 08:45] LABS: Albumin 3.4 g/dl (3.5-5.0); Blood Urea Nitrogen 52 mg/dl (7-17); Calcium 8.2 mg/dl (8.4-10.2); Carbon Dioxide 26 mmol/L (22-30); Chloride 95 mmol/L (98-107); Estimated Creatinine Clearance 7 ml/min; Glucose 151 mg/dl (70-99); Potassium 3.8 mmol/L (3.5-5.1); Sodium 130 mmol/L (135-145); eGFR 9.34
[2025-03-11 08:46] LABS: Glucose - Point of Care 136 mg/dl (70-99)
[2025-03-11] MEDS: NOVOLOG FLEXPEN-LOW RESISTANCE SC ×3 (09:14→23:05)
--- NOTE | 2025-03-11 09:58 | W.PN.NEPH.HD ---
Assessment
-
pt seen during HD
vitals stable
limited UF as no edema on exam and losing wt
encourage po intake
CVC functions fine
due to Hep B status difficulty to find unit locally-reviewed with pt
Progress Note - Hemodialysis
-
Date of Service: March 11, 2025
Duration: 15 minutes and 3 hours
Potassium Bath: 3
Calcium Bath: 2.5
Opti-Dialyzer: 160
Ultrafiltration: Other (0.5kg)
Blood Flow: 400
Dialysate Flow: 600
Heparin: no
EPO: no
--- NOTE | 2025-03-11 10:31 | W.PN.HOSP.TC ---
Today's Communication/Plan
-
dispo planning - hopefully will find open HD center closer
Assessment / Plan
Assessment / Plan
Assessment:
Acute hypoxic respiratory failure on 4L NC
Acute on chronic congestive heart failure
Acute on chronic kidney disease, progression to ESRD
hx renal transplant 1997
- s/p IV Lasix drip without improvement in Cr
- s/p HD cath placement 03/06. per lithopone charger; fistula not developed enough.
- HD initiation 03/06; continue HD per Nephrology
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
-continue sodium bicarb
-patient now wants to continue HD but we are working on finding a closer center
Nonischemic myocardial injury
CAD with hx of [place] and 7 total stents
- trop peaked at .162
- continue BB/Plavix
- Echo: no change from prior
- appreciate Cardiology
New cough
-test flu and covid
Hypertensive emergency (acute CHF)
- continue Clonidine/Atenolol/Nifedipine/Imdur
New onset A. Fib
- continue Amiodarone/Eliquis
Kidney Cyst
- Urology following; Ortega placement adequate
- CT: large cyst extending medially from the transplant kidney which sits centrally in the pelvis. This has increased in size from prior study. The bladder is seen separate from this cyst and is decompressed. 2. There is a small low-attenuation mass
in the transplant kidney of uncertain etiology.
- She will need evaluation for this at her transplant center
HLD - statin
Hep B S-Ag positive
- no evidence of cirrhosis on CT
DVT ppx: Eliquis
Code: Full confirmed with and daughter
Anticipated Discharge: 24 - 48 hours
Subjective/Interval History
-
Date of Service: March 11, 2025
patient stating she does want dialysis but unfortunately closest center with isolation room is 45 minutes away
Objective Data
-
Labs:
Laboratory Results
03/11/25
08:07
Sodium 130 L
Potassium 3.8
Chloride 95 L
Carbon Dioxide 26
BUN 52 H
Creatinine 4.8 H*
Glucose 151 H
Calcium 8.2 L
Vital Signs:
Vital Signs
Temp Pulse Resp BP Pulse Ox
99.3 F 66 16 130/55 95
03/11/25 08:14 03/11/25 08:14 03/11/25 08:14 03/11/25 08:14 03/11/25 08:14
I&O
03/10/25 03/11/25 03/12/25
06:59 06:59 06:59
Intake Total 180 / 180 480 / 480
Balance 180 / 180 480 / 480
Review of Systems
-
History Source: Patient
All other systems: Reviewed and negative
Physical Exam
-
General: No Apparent Distress
HEENT: Normocephalic and Atraumatic
Respiratory: Negative Wheezes
Cardiac: Regular Rhythm and S1/S2
GI: Soft and Nontender
Genito-urinary: No Costovertebral Tender
Neuro: AO x 3
Psych: Calm
Data Reviewed
-
Diagnostic Radiology: Report Reviewed by me
Labs: Labs Reviewed by me
[2025-03-11 11:30] VITALS: BP 119/57
[2025-03-11] MEDS: ELIQUIS 2.5 MG PO ×2 (11:32→22:16)
[2025-03-11] MEDS: ROCALTROL 0.25 MCG PO (11:33)
[2025-03-11] MEDS: PROCARDIA XL (EXTENDED RELEASE) 30 MG PO ×2 (11:33→22:15)
[2025-03-11] MEDS: SODIUM BICARBONATE 650 MG PO ×2 (11:33→22:17)
[2025-03-11] MEDS: CRESTOR 5 MG PO (11:33)
[2025-03-11] MEDS: IMDUR (EXTENDED RELEASE) 30 MG PO (11:33)
[2025-03-11] MEDS: PACERONE 200 MG PO (11:33)
[2025-03-11] MEDS: CATAPRES 0.2 MG PO ×2 (11:33→22:17)
[2025-03-11] MEDS: PLAVIX 75 MG PO (11:33)
[2025-03-11] MEDS: LOPRESSOR 25 MG PO ×2 (11:33→22:16)
[2025-03-11] MEDS: PROGRAF 0.5 MG PO ×2 (11:34→22:18)
[2025-03-11 11:56] LABS: Glucose - Point of Care 149 mg/dl (70-99)
[2025-03-11 12:18] LABS: COVID-19 Antigen Negative (Negative)
[2025-03-11 16:29] VITALS: BP 138/54
[2025-03-11] MEDS: TYLENOL 650 MG PO (16:31)
[2025-03-11 16:46] LABS: Glucose - Point of Care 206 mg/dl (70-99)
[2025-03-11] MEDS: NOVOLOG FLEXPEN-LOW RESISTANCE 2 UNITS SC (18:17)
[2025-03-11 19:00] VITALS: BP 105/45
[2025-03-11 21:19] LABS: Glucose - Point of Care 163 mg/dl (70-99)
--- NOTE | 2025-03-11 22:00 | PTCARENOTE ---
Pt refused all HS insulin and Lantus. States 'its all to much, this just started when I got here, my sugars were never bad, 163 is not high' pt educated on importance of adhering to regime and reminded that AIC was elevated at 7.1.' Pt still
refused, BLISTER RUST ERADICATOR made aware.
[2025-03-11 22:12] VITALS: BP 120/51
[2025-03-11] MEDS: DELTASONE 5 MG PO (22:15)
[2025-03-11] MEDS: MELATONIN 3 MG PO (22:16)
[2025-03-11] MEDS: PEPCID PO (22:17)
[2025-03-11] MEDS: ANESTHETIC LOZENGE 1 LOZENGE PO (23:01)
[2025-03-11] MEDS: LANTUS SC (23:07)
[2025-03-12 05:24] VITALS: BMI 16.8
[2025-03-12 07:15] VITALS: BP 128/52
[2025-03-12] MEDS: MIRALAX 17 GRAMS PO (07:56)
[2025-03-12] MEDS: TYLENOL 650 MG PO (07:56)
[2025-03-12] MEDS: SENOKOT-S 1 TABLET PO (07:56)
[2025-03-12] MEDS: CATAPRES 0.2 MG PO ×2 (07:56→20:33)
[2025-03-12] MEDS: SODIUM BICARBONATE 650 MG PO ×2 (07:56→20:28)
[2025-03-12] MEDS: PROGRAF 0.5 MG PO ×2 (07:56→20:29)
[2025-03-12] MEDS: IMDUR (EXTENDED RELEASE) 30 MG PO (07:57)
[2025-03-12] MEDS: PACERONE 200 MG PO (07:57)
[2025-03-12] MEDS: ELIQUIS 2.5 MG PO ×2 (07:57→20:28)
[2025-03-12] MEDS: CRESTOR 5 MG PO (07:57)
[2025-03-12] MEDS: PROCARDIA XL (EXTENDED RELEASE) 30 MG PO ×2 (07:57→20:33)
[2025-03-12] MEDS: LOPRESSOR 25 MG PO ×2 (07:57→20:34)
[2025-03-12] MEDS: PLAVIX 75 MG PO (07:57)
[2025-03-12] MEDS: ROCALTROL 0.25 MCG PO (07:57)
[2025-03-12 08:21] LABS: Glucose - Point of Care 178 mg/dl (70-99)
[2025-03-12] MEDS: NOVOLOG FLEXPEN-LOW RESISTANCE SC ×3 (09:40→21:42)
--- NOTE | 2025-03-12 09:40 | PTCARENOTE ---
Accucheck result= 178, 1 unit flexpen ordered per protocol, pt refused and stated, 'I do not take insulin at home, at home my sugar is controlled and I do not need it'. Pt educated on importance of insulin to control glucose level, continued to
refuse. MD at bedside made aware.
--- NOTE | 2025-03-12 09:48 | W.PN.HOSP.TC ---
Today's Communication/Plan
-
dispo planning
hoping for closer dialysis center
Assessment / Plan
Assessment / Plan
Assessment:
Acute hypoxic respiratory failure on 4L NC
Acute on chronic congestive heart failure
Acute on chronic kidney disease, progression to ESRD
hx renal transplant 1997
- s/p IV Lasix drip without improvement in Cr
- s/p HD cath placement 03/06. per dialysis patient care technician; fistula not developed enough.
- HD initiation 03/06; continue HD per Nephrology
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
-continue sodium bicarb
-patient now wants to continue HD but we are working on finding a closer center
Fever
-new fever to 101 overnight
-flu and covid tested yesterday - negative
-blood cultures, CXR and UA
Nonischemic myocardial injury
CAD with hx of [place] and 7 total stents
- trop peaked at .162
- continue BB/Plavix
- Echo: no change from prior
- appreciate Cardiology
Hypertensive emergency (acute CHF)
- continue Clonidine/Atenolol/Nifedipine/Imdur
New onset A. Fib
- continue Amiodarone/Eliquis (new start)
Kidney Cyst
- Urology following; Ortega placement adequate
- CT: large cyst extending medially from the transplant kidney which sits centrally in the pelvis. This has increased in size from prior study. The bladder is seen separate from this cyst and is decompressed. 2. There is a small low-attenuation mass
in the transplant kidney of uncertain etiology.
- She will need evaluation for this at her transplant center
HLD - statin
Hep B S-Ag positive
- no evidence of cirrhosis on CT
DVT ppx: Eliquis
Code: Full confirmed with and daughter
Anticipated Discharge: 24 - 48 hours
Subjective/Interval History
-
Date of Service: March 12, 2025
she had a fever overnight
has a cough
doesn't feel well, hoping to go home. closest dialysis center right now isn't feasible
Objective Data
-
Vital Signs:
Vital Signs
Temp Pulse Resp BP Pulse Ox
101.0 F H 68 16 128/52 96
03/12/25 07:15 03/12/25 07:56 03/12/25 07:15 03/12/25 07:56 03/12/25 07:15
I&O
03/11/25 03/12/25 03/13/25
06:59 06:59 06:59
Intake Total 480 / 480
Balance 480 / 480
Review of Systems
-
History Source: Patient
All other systems: Reviewed and negative
Physical Exam
-
General: No Apparent Distress
HEENT: Normocephalic and Atraumatic
Respiratory: Negative Wheezes
Cardiac: Regular Rhythm and S1/S2
GI: Soft and Nontender
Genito-urinary: No Costovertebral Tender
Skin: Warm and Dry; Negative Rash
Neuro: AO x 3
Psych: Calm
Data Reviewed
-
Diagnostic Radiology: Report Reviewed by me
Labs: Labs Reviewed by me
--- NOTE | 2025-03-12 10:40 | PTCARENOTE ---
Pt refused blood cultures. Pt stated, 'I am already so tired from HD, I do not want anymore blood taken from me'. made aware.
[2025-03-12 11:30] VITALS: BP 111/50
[2025-03-12 11:38] LABS: Glucose - Point of Care 205 mg/dl (70-99)
--- NOTE | 2025-03-12 15:35 | W.PN.NEPH.PH ---
Today's Communication / Plan
-
dialysis tomorrow
Assessment/Plan
-
Assessment
DANIELLA
DDRTx 1996
CKD5 (3.0)
metabolic acidosis
HFpEF decompensated
weight loss
anemia
nephrotic range proteinuria
hypertensive urgency
Plan
HD tomorrow
check tacro level= 8.7> lowered to 0.5, now on amio
patient continues to be adverse to dialysis. Ultimately will be her decision
See orders for tomorrow
placement issues she hepatitis B positive
-
-
Date of Service: March 12, 2025
CC / HPI / ROS
-
Chief Complaint:
Acute kidney injury
History of Present Illness:
tolerated HD yesterday
oliguric
off O2, laying supine
Review of Systems:
perera out
Denies chest pain
No fever
Labs
-
Labs:
WBC 6.3 10^3/uL (4.8-10.8) 03/09/25 07:05
RBC 3.11 10^6/uL (4.20-5.40) L 03/09/25 07:05
Hgb 8.6 g/dL (12.0-16.0) L 03/09/25 07:05
Hct 26.0 % (37.0-47.0) L 03/09/25 07:05
Plt Count 252 10^3/uL (130-400) 03/09/25 07:05
Sodium 130 mmol/L (135-145) L 03/11/25 08:07
Potassium 3.8 mmol/L (3.5-5.1) 03/11/25 08:07
Chloride 95 mmol/L (98-107) L 03/11/25 08:07
Carbon Dioxide 26 mmol/L (22-30) 03/11/25 08:07
BUN 52 mg/dl (7-17) H 03/11/25 08:07
Creatinine 4.8 mg/dL (0.6-1.0) H* 03/11/25 08:07
eGFR 9.34 03/11/25 08:07
Glucose 151 mg/dl (70-99) H 03/11/25 08:07
Calcium 8.2 mg/dl (8.4-10.2) L 03/11/25 08:07
Phosphorus 5.9 mg/dl (2.5-4.5) H 03/11/25 08:07
Nyi-W-Kbygfwcqnmf Pept 83092 pg/ml 03/03/25 16:30
Albumin 3.4 g/dl (3.5-5.0) L 03/11/25 08:07
Physical Exam
-
Vital Signs:
Vital Signs
Temp Pulse Resp BP Pulse Ox
97.9 F 59 16 111/50 100
03/12/25 11:30 03/12/25 11:30 03/12/25 11:30 03/12/25 11:30 03/12/25 11:30
Cardiovascular:: Regular rate and rhythm
Respiratory:: Bilateral: CTA
Lung Excursion:: Normal
Abdomen:: Nontender and Soft
Bowel Sounds:: Normal
Extremity Edema:: None: Bilateral:
[2025-03-12 16:00] VITALS: BP 108/49
[2025-03-12 16:01] LABS: Urine Character Slightly Cloudy (Clear)
[2025-03-12 16:36] LABS: Urine Squamous Cell >30 /LPF (Few)
[2025-03-12 16:37] LABS: Urine Red Blood Cell 16-20 /HPF (0-2); Urine White Cell 16-20 /HPF (0-5)
[2025-03-12 17:38] LABS: Glucose - Point of Care 295 mg/dl (70-99)
[2025-03-12] MEDS: NOVOLOG FLEXPEN-LOW RESISTANCE 3 UNITS SC (17:44)
[2025-03-12 20:18] VITALS: BP 131/60
[2025-03-12] MEDS: PEPCID 10 MG PO (20:29)
[2025-03-12] MEDS: CATAPRES PO (20:33)
[2025-03-12 21:00] LABS: Glucose - Point of Care 172 mg/dl (70-99)
[2025-03-12] MEDS: LANTUS SC (21:38)
[2025-03-12] MEDS: MELATONIN PO (21:39)
[2025-03-12] MEDS: DELTASONE 5 MG PO (21:41)
[2025-03-12 23:34] VITALS: BP 123/52
[2025-03-13] VITALS (7 sets, daily range): BP systolic 81–146; BP diastolic 35–60; PULSE 56; BMI 17.3
[2025-03-13 07:52] LABS: Glucose - Point of Care 141 mg/dl (70-99)
[2025-03-13] MEDS: NOVOLOG FLEXPEN-LOW RESISTANCE SC ×3 (07:54→22:46)
[2025-03-13] MEDS: PLAVIX 75 MG PO (08:41)
[2025-03-13] MEDS: IMDUR (EXTENDED RELEASE) 30 MG PO (08:41)
[2025-03-13] MEDS: ROCALTROL 0.25 MCG PO (08:41)
[2025-03-13] MEDS: PROGRAF 0.5 MG PO ×2 (08:41→20:56)
[2025-03-13] MEDS: CRESTOR 5 MG PO (08:42)
[2025-03-13] MEDS: SODIUM BICARBONATE 650 MG PO ×2 (08:42→20:55)
[2025-03-13] MEDS: PROCARDIA XL (EXTENDED RELEASE) 30 MG PO ×2 (08:42→20:55)
[2025-03-13] MEDS: LOPRESSOR 25 MG PO ×2 (08:43→20:56)
[2025-03-13] MEDS: PACERONE 200 MG PO (08:43)
[2025-03-13] MEDS: ELIQUIS 2.5 MG PO ×2 (08:43→20:56)
--- NOTE | 2025-03-13 08:48 | W.PN.HOSP.TC ---
Today's Communication/Plan
-
dispo planning
Assessment / Plan
Assessment / Plan
Assessment:
Acute hypoxic respiratory failure on 4L NC
Acute on chronic congestive heart failure
Acute on chronic kidney disease, progression to ESRD
hx renal transplant 1997
- s/p IV Lasix drip without improvement in Cr
- s/p HD cath placement 03/06. per solution lead; fistula not developed enough.
- HD initiation 03/06; continue HD per Nephrology
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
-continue sodium bicarb
-patient now wants to continue HD but we are working on finding a closer center
Fever
-fever 101 overnight 03/11-03/12; now afebrile > 24 hours; patient's symptoms improving
-CXR without PNA
-patient refused blood cultures
-flu and covid tested negative
Nonischemic myocardial injury
CAD with hx of [place] and 7 total stents
- trop peaked at .162
- continue BB/Plavix
- Echo: no change from prior
- appreciate Cardiology
Hypertensive emergency (acute CHF)
- continue Clonidine/Atenolol/Nifedipine/Imdur
New onset A. Fib
- continue Amiodarone/Eliquis (new start)
Kidney Cyst
- Urology following; Ortega placement adequate
- CT: large cyst extending medially from the transplant kidney which sits centrally in the pelvis. This has increased in size from prior study. The bladder is seen separate from this cyst and is decompressed. 2. There is a small low-attenuation mass
in the transplant kidney of uncertain etiology.
- She will need evaluation for this at her transplant center
HLD - statin
Hep B S-Ag positive
- no evidence of cirrhosis on CT
DVT ppx: Eliquis
Code: Full confirmed with and daughter
Anticipated Discharge: Within 24 hours
Subjective/Interval History
-
Date of Service: March 13, 2025
no new complaints
afebrile overnight
Objective Data
-
Labs:
Laboratory Results
03/13/25
06:00
Sodium Pending
Potassium Pending
Chloride Pending
Carbon Dioxide Pending
BUN Pending
Creatinine Pending
Glucose Pending
Calcium Pending
Vital Signs:
Vital Signs
Temp Pulse Resp BP Pulse Ox
98.6 F 62 16 137/58 98
03/13/25 07:58 03/13/25 07:58 03/13/25 07:58 03/13/25 07:58 03/13/25 07:58
I&O
03/12/25 03/13/25 03/14/25
06:59 06:59 06:59
Intake Total 480 / 480
Output Total 75 / 75
Balance 405 / 405
Review of Systems
-
History Source: Patient
All other systems: Reviewed and negative
Physical Exam
-
General: No Apparent Distress
HEENT: Normocephalic and Atraumatic
Respiratory: Negative Wheezes
Cardiac: Regular Rhythm and S1/S2
GI: Soft and Nontender
Genito-urinary: No Costovertebral Tender
Skin: Warm and Dry; Negative Rash
Neuro: AO x 3
Psych: Calm
Data Reviewed
-
Diagnostic Radiology: Report Reviewed by me
Labs: Labs Reviewed by me
[2025-03-13] MEDS: CATAPRES 0.2 MG PO ×2 (09:02→20:56)
[2025-03-13] MEDS: NSS 250 IV (11:30)
[2025-03-13 11:49] LABS: Glucose - Point of Care 149 mg/dl (70-99)
--- NOTE | 2025-03-13 13:16 | W.PN.NEPH.PH ---
Today's Communication / Plan
-
dialysis tomorrow
Assessment/Plan
-
Assessment
DANIELLA
DDRTx 1996
CKD5 (3.0)
metabolic acidosis
HFpEF decompensated
weight loss
anemia
nephrotic range proteinuria
hypertensive urgency
Plan
HD tomorrow
check tacro level= 8.7> lowered to 0.5, now on amio
patient continues to be adverse to dialysis. Ultimately will be her decision
See orders for tomorrow
placement issues she hepatitis B positive
dialysis off schedule with holiday
-
-
Date of Service: March 13, 2025
CC / HPI / ROS
-
Chief Complaint:
Acute kidney injury
History of Present Illness:
tolerated HD yesterday
oliguric
off O2, laying supine
Review of Systems:
perera out
Denies chest pain
No fever
Labs
-
Labs:
WBC 6.3 10^3/uL (4.8-10.8) 03/09/25 07:05
RBC 3.11 10^6/uL (4.20-5.40) L 03/09/25 07:05
Hgb 8.6 g/dL (12.0-16.0) L 03/09/25 07:05
Hct 26.0 % (37.0-47.0) L 03/09/25 07:05
Plt Count 252 10^3/uL (130-400) 03/09/25 07:05
eGFR 9.34 03/11/25 08:07
Phosphorus 5.9 mg/dl (2.5-4.5) H 03/11/25 08:07
Trp-G-Ppyiyxthibd Pept 34716 pg/ml 03/03/25 16:30
Albumin 3.4 g/dl (3.5-5.0) L 03/11/25 08:07
Physical Exam
-
Vital Signs:
Vital Signs
Temp Pulse Resp BP Pulse Ox
97.8 F 58 16 81/35 100
03/13/25 11:13 03/13/25 11:13 03/13/25 11:13 03/13/25 11:13 03/13/25 11:13
Cardiovascular:: Regular rate and rhythm
Respiratory:: Bilateral: CTA
Lung Excursion:: Normal
Abdomen:: Nontender and Soft
Bowel Sounds:: Normal
Extremity Edema:: None: Bilateral:
--- NOTE | 2025-03-13 14:47 | CM ---
CM called Simondanilo at [facility] [phone] ext [phone]
Leandro states [facility], [place] [address] [place] [address] is the only clinic closest to patient with iso department (hep B+)
, , Sat schedule at 10:30am - start 03/17
per Leandro still pending medical clerical assistant approval - she will escalate & call back on CM dept #
next week would be on their holiday schedule (stated the patient could start at that clinic Sun or Sun
CM also left message with Chandrika Alejo liaison at [facility]
PLAN: Home with [facility] and outpatient HD, once approved by [facility] medical clerical assistant
[2025-03-13 16:44] LABS: Glucose - Point of Care 271 mg/dl (70-99)
[2025-03-13 16:51] LABS: HBV Quant by NAAT IU/mL 461 IU/mL; HBV Quant by NAAT Interp Detected (Not Detected); HBV Quant by NAAT Log IU/mL 2.66 log IU/mL
[2025-03-13] MEDS: NOVOLOG FLEXPEN-LOW RESISTANCE 3 UNITS SC (17:38)
[2025-03-13] MEDS: PEPCID 10 MG PO (20:56)
[2025-03-13 21:59] LABS: Glucose - Point of Care 242 mg/dl (70-99)
[2025-03-13] MEDS: DELTASONE 5 MG PO (22:40)
[2025-03-13] MEDS: MELATONIN 3 MG PO (22:40)
[2025-03-13] MEDS: LANTUS 0.05 UNITS SC (22:41)
--- NOTE | 2025-03-13 22:48 | PTCARENOTE ---
Pt BS was 242. Orders were to give 5 unit of Lantus plus sliding scale. This RN was able to give the 5 units of Lantus. Pt refused the 2 units of sliding scale. House provider notified.
[2025-03-14 03:00] VITALS: BP 109/53
[2025-03-14 06:00] VITALS: BMI 17.8
[2025-03-14 07:00] VITALS: BP 145/62
[2025-03-14 08:27] LABS: Glucose - Point of Care 198 mg/dl (70-99)
[2025-03-14 08:33] LABS: Hematocrit 24.7 % (37.0-47.0); Hemoglobin 8.1 g/dL (12.0-16.0); Mean Corp Hgb Conc. 32.8 g/dL (33.0-37.0); Mean Corpuscular Volume 84.0 fL (81.0-99.0); Platelet Count 244 10^3/uL (130-400); Red Cell Dist. Width 14.9 % (11.5-14.5)
--- NOTE | 2025-03-14 08:33 | W.PN.HOSP.TC ---
Addendum entered and electronically signed by Shu Nixon MD 03/14/25 11:21:
Urine culture growing gram negative rods. UA with > 30 squams. Patient without symptoms and fever resolved, no need to treat.
Original Note:
Today's Communication/Plan
-
dispo planning, appreciate CM
Assessment / Plan
Assessment / Plan
Assessment:
Acute hypoxic respiratory failure on 4L NC
Acute on chronic congestive heart failure
Acute on chronic kidney disease, progression to ESRD
hx renal transplant 1997
- s/p IV Lasix drip without improvement in Cr
- s/p HD cath placement 03/06. per service department manager; fistula not developed enough.
- HD initiation 03/06; continue HD per Nephrology
- continue TOP COATER on tacrolimus (dose decreased), prednisone
-continue sodium bicarb
-patient now wants to continue HD but we are working on finding a closer center. I told her that if this is the only center available then we have no choice. She has discussed peritoneal dialysis in past and refuses.
Fever
-fever 101 overnight 03/11-03/12; now afebrile > 24 hours; patient's symptoms improving
-CXR without PNA
-patient refused blood cultures, now no indication
-flu and covid tested negative
Nonischemic myocardial injury
CAD with hx of PR and 7 total stents
- trop peaked at .162
- continue BB/Plavix
- Echo: no change from prior
- appreciate Cardiology
Hypertensive emergency (acute CHF)
- continue Clonidine/Atenolol/Nifedipine/Imdur
New onset A. Fib
- continue Amiodarone/Eliquis (new start)
Kidney Cyst
- Urology following; Ortega placement adequate
- CT: large cyst extending medially from the transplant kidney which sits centrally in the pelvis. This has increased in size from prior study. The bladder is seen separate from this cyst and is decompressed. 2. There is a small low-attenuation mass
in the transplant kidney of uncertain etiology.
- She will need evaluation for this at her transplant center
HLD - statin
Hep B S-Ag positive
- no evidence of cirrhosis on CT
DVT ppx: Eliquis
Code: Full confirmed with and daughter
Anticipated Discharge: 24 - 48 hours
Subjective/Interval History
-
Date of Service: March 14, 2025
patient overall feeling better
afebrile
Objective Data
-
Labs:
Laboratory Results
03/14/25
07:56
WBC Pending
Hgb Pending
Hct Pending
Plt Count Pending
Sodium Pending
Potassium Pending
Chloride Pending
Carbon Dioxide Pending
BUN Pending
Creatinine Pending
Glucose Pending
Calcium Pending
Vital Signs:
Vital Signs
Temp Pulse Resp BP Pulse Ox
98.7 F 63 17 145/62 95
03/14/25 07:00 03/14/25 07:00 03/14/25 07:00 03/14/25 07:00 03/14/25 07:00
I&O
03/13/25 03/14/25 03/15/25
06:59 06:59 06:59
Intake Total 480 / 480 800 / 800
Output Total 75 / 75
Balance 405 / 405 800 / 800
Review of Systems
-
History Source: Patient
All other systems: Reviewed and negative
Physical Exam
-
General: No Apparent Distress
HEENT: Normocephalic and Atraumatic
Respiratory: Negative Wheezes
Cardiac: Regular Rhythm and S1/S2
GI: Soft and Nontender
Genito-urinary: No Costovertebral Tender
Skin: Warm and Dry; Negative Rash
Neuro: AO x 3
Psych: Calm
Data Reviewed
-
Diagnostic Radiology: Report Reviewed by me
Labs: Labs Reviewed by me
[2025-03-14] MEDS: NOVOLOG FLEXPEN-LOW RESISTANCE SC ×4 (08:48→21:02)
[2025-03-14 09:03] LABS: Blood Urea Nitrogen 68 mg/dl (7-17); Calcium 7.5 mg/dl (8.4-10.2); Carbon Dioxide 23 mmol/L (22-30); Chloride 93 mmol/L (98-107); Estimated Creatinine Clearance 6 ml/min; Glucose 206 mg/dl (70-99); Potassium 4.1 mmol/L (3.5-5.1); Sodium 128 mmol/L (135-145); eGFR 7.01
[2025-03-14] MEDS: RETACRIT 10000 UNITS IV ×2 (09:43→09:53)
[2025-03-14 11:00] VITALS: BP 174/75
--- NOTE | 2025-03-14 11:02 | PTCARENOTE ---
patient urine culture preliminary sowing gram negative bacilli. Dr. Tiffani santillan texted. Based upon that patient denying burning/urinary symptoms and fever resolved, Dr. Nixon holding off on ordering antibiotic for now, will continue to monitor.
[2025-03-14] MEDS: ROCALTROL 0.25 MCG PO (11:52)
[2025-03-14] MEDS: CATAPRES 0.2 MG PO ×2 (11:52→22:13)
[2025-03-14] MEDS: PROCARDIA XL (EXTENDED RELEASE) 30 MG PO ×2 (11:52→22:13)
[2025-03-14] MEDS: SODIUM BICARBONATE 650 MG PO ×2 (11:52→21:00)
[2025-03-14] MEDS: PLAVIX 75 MG PO (11:52)
[2025-03-14] MEDS: CRESTOR 5 MG PO (11:52)
[2025-03-14] MEDS: LOPRESSOR 25 MG PO ×2 (11:52→22:13)
[2025-03-14] MEDS: PACERONE 200 MG PO (11:52)
[2025-03-14] MEDS: PROGRAF 0.5 MG PO ×2 (11:53→21:01)
[2025-03-14] MEDS: ELIQUIS 2.5 MG PO ×2 (11:53→21:00)
[2025-03-14] MEDS: IMDUR (EXTENDED RELEASE) 30 MG PO (11:53)
[2025-03-14 12:33] LABS: Glucose - Point of Care 110 mg/dl (70-99)
--- NOTE | 2025-03-14 12:56 | W.PN.NEPH.HD ---
Assessment
-
tolerated treatment
Progress Note - Hemodialysis
-
Date of Service: March 14, 2025
Duration: 15 minutes and 3 hours
Potassium Bath: 3
Calcium Bath: 2.5
Opti-Dialyzer: 160
Ultrafiltration: Other (0.5kg)
Blood Flow: 400
Dialysate Flow: 600
Heparin: no
EPO: no
--- NOTE | 2025-03-14 12:57 | CM ---
Chart reviewed and plan is to home with [facility] and outpatient HD with [facility], waiting on final approval from district director.
Plan; Home with spouse and outpatient HD along with [facility]
[2025-03-14 15:00] VITALS: BP 119/50
[2025-03-14 17:46] LABS: Glucose - Point of Care 199 mg/dl (70-99)
--- NOTE | 2025-03-14 18:07 | PTCARENOTE ---
patient reports feeling better, tolerating some pizza, rice and meat at present that her brought in. tolerated hemodialysis this am, refusing insulin, Dr. Nixon made aware during rounds, vss, will continue to monitor.
[2025-03-14 19:00] VITALS: BP 115/45
[2025-03-14 20:52] LABS: Glucose - Point of Care 288 mg/dl (70-99)
--- NOTE | 2025-03-14 20:58 | PTCARENOTE ---
Addendum entered by Corine Monroy 03/14/25 22:54:
BP @ 2200 was 128/54. Catapres, Lopressor and Procardia given.
Original Note:
Pt received HD this morning. PCT received a BP of 115/45 during rounds. Pt receives Catapres, Lopressor and Procardia for hx of HTN. For concern of diastolic pressure, house provider TT. This RN was instructed to retake BP at 2200 and reassess.
[2025-03-14] MEDS: MELATONIN 3 MG PO (21:00)
[2025-03-14] MEDS: LANTUS SC (21:01)
[2025-03-14] MEDS: PEPCID PO (21:01)
[2025-03-14] MEDS: DELTASONE 5 MG PO (21:01)
--- NOTE | 2025-03-14 21:02 | PTCARENOTE ---
Accucheck was 288. Pt is schedule to receive 5 unit of lantus, plus sliding scale. Pt is refusing all insulin. House provider TT and made aware. Attempts made to educate pt on importance of adherence to insulin use, attempts unsuccessful.
[2025-03-14 23:00] VITALS: BP 128/54
[2025-03-14] MEDS: ANESTHETIC LOZENGE 1 LOZENGE PO (23:46)
[2025-03-15 03:00] VITALS: BP 134/58
[2025-03-15 06:00] VITALS: BMI 17.2
[2025-03-15 07:00] VITALS: BP 112/48
[2025-03-15 08:08] LABS: Glucose - Point of Care 154 mg/dl (70-99)
[2025-03-15 08:19] VITALS: BP 101/43
[2025-03-15] MEDS: NOVOLOG FLEXPEN-LOW RESISTANCE SC ×4 (08:20→21:40)
[2025-03-15] MEDS: PROGRAF 0.5 MG PO ×2 (08:20→20:04)
[2025-03-15] MEDS: ELIQUIS 2.5 MG PO ×2 (08:20→20:03)
[2025-03-15] MEDS: CRESTOR 5 MG PO (08:20)
[2025-03-15] MEDS: PLAVIX 75 MG PO (08:20)
[2025-03-15] MEDS: SODIUM BICARBONATE 650 MG PO ×2 (08:21→20:04)
[2025-03-15] MEDS: IMDUR (EXTENDED RELEASE) 30 MG PO (08:21)
[2025-03-15] MEDS: ROCALTROL 0.25 MCG PO (08:21)
[2025-03-15] MEDS: ANESTHETIC LOZENGE 1 LOZENGE PO (08:22)
[2025-03-15] MEDS: CATAPRES 0.2 MG PO ×2 (08:25→20:03)
[2025-03-15] MEDS: LOPRESSOR PO ×2 (08:25→20:04)
[2025-03-15] MEDS: PROCARDIA XL (EXTENDED RELEASE) PO (08:25)
[2025-03-15] MEDS: PACERONE 200 MG PO (08:25)
--- NOTE | 2025-03-15 08:30 | W.PN.HOSP.TC ---
Today's Communication/Plan
-
dispo planning for outpatient HD center
Stop Nifedipine
continue Clonidine, Metop with hold parameters
Imdur with hold parameters - continue discontinuing - will monitor BP's today
Assessment / Plan
Assessment / Plan
Assessment:
Acute hypoxic respiratory failure on 4L NC
Acute on chronic congestive heart failure preserved EF
Acute on chronic kidney disease, progression to ESRD
hx renal transplant 1997
- s/p IV Lasix drip without improvement in Cr
- s/p HD cath placement 03/06. per quality tester; fistula not developed enough.
- HD initiation 03/06; continue HD per Nephrology
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
-continue sodium bicarb
-patient now wants to continue HD. Closest center with Iso bed is 45 minutes away (still waiting on final approval from sales operations director). Patient stating this center is too far. I told her that if this is the only center available then we have
no choice. She has discussed peritoneal dialysis in past and refused, would need to set up with an outpatient dialysis center first.
Fever
-fever 101 overnight 03/11-03/12; now afebrile > 24 hours; patient's symptoms improving
-CXR without PNA
-patient refused blood cultures, now no indication
-flu and covid tested negative
Essential HTN
Presentation with hypertensive emergency with heart failure exacerbation
-patient's SBP now low with initiation and continuation of HD
-Stop Nifedipine and monitor BP off this medication
-continue Clonidine, Metoprolol with hold parameters
-continue Imdur with hold parameters
Nonischemic myocardial injury
CAD with hx of [place] and 7 total stents
- trop peaked at .162
- continue BB/Plavix
- Echo: no change from prior
- appreciate Cardiology
New onset A. Fib
- continue Amiodarone/Eliquis (new start)
Kidney Cyst
- Urology following; Ortega placement adequate
- CT: large cyst extending medially from the transplant kidney which sits centrally in the pelvis. This has increased in size from prior study. The bladder is seen separate from this cyst and is decompressed. 2. There is a small low-attenuation mass
in the transplant kidney of uncertain etiology.
- She will need evaluation for this at her transplant center
HLD - statin
Hep B S-Ag positive
- no evidence of cirrhosis on CT
DVT ppx: Eliquis
Code: Full confirmed with and daughter
Anticipated Discharge: 24 - 48 hours
Subjective/Interval History
-
Date of Service: March 15, 2025
feeling okay
seen sitting up, eating breakfast. no dizziness
Objective Data
-
Vital Signs:
Vital Signs
Temp Pulse Resp BP Pulse Ox
97.7 F 60 17 101/43 92
03/15/25 07:00 03/15/25 08:19 03/15/25 07:00 03/15/25 08:19 03/15/25 07:00
I&O
03/14/25 03/15/25 03/16/25
06:59 06:59 06:59
Intake Total 800 / 800 1200 / 1200
Balance 800 / 800 1200 / 1200
Review of Systems
-
History Source: Patient
All other systems: Reviewed and negative
Physical Exam
-
General: No Apparent Distress
HEENT: Normocephalic and Atraumatic
Respiratory: Negative Wheezes
Cardiac: Regular Rhythm and S1/S2
GI: Soft and Nontender
Genito-urinary: No Costovertebral Tender
Skin: Warm and Dry; Negative Rash
Neuro: AO x 3
Psych: Calm
Data Reviewed
-
Diagnostic Radiology: Report Reviewed by me
Labs: Labs Reviewed by me
--- NOTE | 2025-03-15 10:46 | W.PN.NEPH.PH ---
Today's Communication / Plan
-
Dialysis tomorrow no acute need for dialysis today
Assessment/Plan
-
Assessment
DANIELLA
DDRTx 1996
CKD5 (3.0)
metabolic acidosis
HFpEF decompensated
weight loss
anemia
nephrotic range proteinuria
hypertensive urgency
Plan
HD tomorrow MWF
check tacro level= 8.7> lowered to 0.5 BID
patient continues to be adverse to dialysis.
See orders for tomorrow
placement issues she hepatitis B positive
-
-
Date of Service: March 15, 2025
CC / HPI / ROS
-
Chief Complaint:
Acute kidney injury
History of Present Illness:
progressive late stage CKD posttransplant with exacerbation of CHF
dialysis initiated on this admission
oliguric
off O2
Review of Systems:
perera out
Denies chest pain
No fever
Labs
-
Labs:
WBC 5.1 10^3/uL (4.8-10.8) 03/14/25 07:56
RBC 2.94 10^6/uL (4.20-5.40) L 03/14/25 07:56
Hgb 8.1 g/dL (12.0-16.0) L 03/14/25 07:56
Hct 24.7 % (37.0-47.0) L 03/14/25 07:56
Plt Count 244 10^3/uL (130-400) 03/14/25 07:56
Sodium 128 mmol/L (135-145) L 03/14/25 07:56
Potassium 4.1 mmol/L (3.5-5.1) 03/14/25 07:56
Chloride 93 mmol/L (98-107) L 03/14/25 07:56
Carbon Dioxide 23 mmol/L (22-30) 03/14/25 07:56
BUN 68 mg/dl (7-17) H 03/14/25 07:56
Creatinine 6.1 mg/dL (0.6-1.0) H* 03/14/25 07:56
eGFR 7.01 03/14/25 07:56
Glucose 206 mg/dl (70-99) H 03/14/25 07:56
Calcium 7.5 mg/dl (8.4-10.2) L 03/14/25 07:56
Phosphorus 5.9 mg/dl (2.5-4.5) H 03/11/25 08:07
Jyr-R-Vqiguwdtwkt Pept 65466 pg/ml 03/03/25 16:30
Albumin 3.4 g/dl (3.5-5.0) L 03/11/25 08:07
Physical Exam
-
Vital Signs:
Vital Signs
Temp Pulse Resp BP Pulse Ox
97.7 F 60 17 101/43 92
03/15/25 07:00 03/15/25 08:19 03/15/25 07:00 03/15/25 08:19 03/15/25 07:00
Cardiovascular:: Regular rate and rhythm
Respiratory:: Bilateral: CTA
Lung Excursion:: Normal
Abdomen:: Nontender and Soft
Bowel Sounds:: Normal
Extremity Edema:: None: Bilateral:
[2025-03-15 11:00] VITALS: BP 115/47
[2025-03-15 11:47] LABS: Glucose - Point of Care 188 mg/dl (70-99)
[2025-03-15 15:00] VITALS: BP 131/55
[2025-03-15 16:39] LABS: Glucose - Point of Care 212 mg/dl (70-99)
[2025-03-15 19:00] VITALS: BP 143/54
[2025-03-15] MEDS: PEPCID PO (20:04)
[2025-03-15 21:25] LABS: Glucose - Point of Care 185 mg/dl (70-99)
[2025-03-15] MEDS: DELTASONE 5 MG PO (21:40)
[2025-03-15] MEDS: LANTUS SC (21:40)
[2025-03-15] MEDS: MELATONIN PO ×2 (21:40→21:43)
[2025-03-16] VITALS (8 sets, daily range): BP systolic 119–163; BP diastolic 47–66; BMI 17.5
[2025-03-16 08:44] LABS: Glucose - Point of Care 167 mg/dl (70-99)
[2025-03-16 08:51] LABS: Hematocrit 26.4 % (37.0-47.0); Hemoglobin 8.5 g/dL (12.0-16.0); Mean Corp Hgb Conc. 32.2 g/dL (33.0-37.0); Mean Corpuscular Volume 84.6 fL (81.0-99.0); Platelet Count 231 10^3/uL (130-400); Red Cell Dist. Width 15.4 % (11.5-14.5)
[2025-03-16] MEDS: NOVOLOG FLEXPEN-LOW RESISTANCE SC ×4 (09:00→22:32)
[2025-03-16 09:34] LABS: Blood Urea Nitrogen 54 mg/dl (7-17); Calcium 8.0 mg/dl (8.4-10.2); Carbon Dioxide 22 mmol/L (22-30); Chloride 96 mmol/L (98-107); Estimated Creatinine Clearance 8 ml/min; Glucose 160 mg/dl (70-99); Potassium 4.3 mmol/L (3.5-5.1); Sodium 131 mmol/L (135-145); eGFR 9.58
--- NOTE | 2025-03-16 10:20 | W.PN.CARDCBS ---
Addendum entered and electronically signed by Matthew Gonzales MD 03/16/25 13:23:
69-year-old woman admitted on March 03 with acute on chronic HFpEF, proBNP 17,000 and subsequent paroxysmal atrial fibrillation, in sinus rhythm since started on history of renal transplant for IgA nephropathy in 1997 and's during this hospital
stay started on hemodialysis for failure of transplant. Troponin elevated to0.162 during hospital stay
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
Current meds: Clonidine 0.2 mg twice daily, clopidogrel 75 mg daily, prednisone 5 mg at bedtime, rosuvastatin 5 mg a day, bicarb 650 mg twice daily, isosorbide mononitrate 30 mg a day, calcitriol, famotidine, melatonin, amiodarone 200 mg a day,
apixaban 2.5 mg twice daily, metoprolol tartrate 25 mg twice daily and tacrolimus 0.5 mg every 12
Rest of history as below, reviewed in detail and agree unless otherwise specified
163/62, pulse 60, respiratory rate 16, afebrile, head neck exam unremarkable, crackles bilaterally, left fairly scant greater than right, they do not sound wet, she is coughing. Currently on dialysis, says she feels weak, not much edema neck veins
okay,
Sodium 128, potassium 4.1, CO2 23, creatinine 6.1, hemoglobin 8.1, platelets 244
Impression:
End-stage renal disease on hemodialysis
New onset paroxysmal atrial fibrillation, now on amiodarone and in sinus rhythm
Acute on chronic heart failure with preserved EF, now improved
CAD with multiple PCI's
Moderate mitral stenosis with mild mitral regurgitation
Mild to moderate aortic regurgitation
Hypertension
Noncompliance
Other diagnoses as below, reviewed in detail and agree unless otherwise specified
Plan:
As below, reviewed in detail and agree unless otherwise specified
She appears stable from a cardiac standpoint. However, she is on Plavix and Eliquis with end-stage renal disease placing her at high risk for bleeding currently with hemoglobin of 8. She has multiple PCIs/stents and also new onset paroxysmal
atrial fibrillation. Choice of antiplatelet/antithrombotic regimen is difficult. Given new onset A-fib in the setting of mitral stenosis, chance of recurrent A-fib despite amiodarone is relatively high. Current guidelines suggest a single agent
for patients with A-fib and prior PCI, so we will stop Plavix and continue Eliquis alone.
Okay to proceed with discharge planning from cardiac standpoint. She will need follow-up to our office.
Original Note:
Today's Communication / Plan
-
Continue Eliquis and stop Plavix
Continue amiodarone and Lopressor
Still making urine, now on HD, outpatient doses of Lasix and metolazone has been stopped
Impression / Plan
-
PCP: Dr. Chang
Cardiology: Dr. LAWRENCE Gonzales
Nephrology: Dr. De Paz
Renal transplant specialist: Dr. Marr at [facility]
Impression:
Acute on chronic HFpEF
Hypertensive urgency
DANIELLA on CKD 3b
Nonischemic myocardial injury with trop 0.13 and has not plateaued
Paroxysmal Atrial fibrillation
Admissions for acute diastolic CHF Nov 2024, March 2023
Hx Renal transplant: h/o IgA nephropathy s/p donor kidney transplant at [facility] in 1997
CAD, multivessel CAD by cath 07/20/21 and patient declined surgery and opted for PCI instead
s/p 3.0 mm Xience to tandem distal RCA lesions 07/25/21
s/p 3.5 mm Xience to 90% prox Circ lesion 07/25/21
s/p 2.75 mm Xience to tandem LAD lesions 07/25/21
s/p 3.0 mm Xience to 90% prox LAD 07/25/21
s/p rescue PTCA of occluded Diagonal through the LAD stent struts 07/25/21
Moderate MS with mild MR
Mild to mod AR
Hx HTN
Noncompliance
Hepatitis B
Echo July 2022: EF 70-75%, stage I diastolic dysfunction, mitral sclerosis without stenosis, moderate central aortic regurgitation
Echo Mar 2024: Ejection fraction 72%, mild mitral stenosis with a mean gradient of 5 mL mercury, mild MR, mild to moderate AI, mild aortic stenosis with mean gradient of 9 mmHg, PA systolic 42 mmHg
Echo Nov 2024: EF 55% with mild to mod AR, mild mitral stenosis, mild tricuspid regurgitation
Urgent echo 03/03/2025: TDS, EF 65% with mod MS mean grad 9 mmHg with mild MR and mod TR and PASP 60 mmHg and mild to mod AR
Plan:
-Admitted with respiratory failure with evidence of hypertensive urgency and HF, worsening acute on chronic renal failure on 03/03/2025 and cardiology consulted for acute HF and subsequent development of newly diagnosed paroxysmal A-fib
-Patient had progressive DANIELLA and eventually initiated on HD 03/06/2025. Patient has a previous renal transplant in the setting of IgA nephropathy from [facility] in 1997. Patient was hoping to avoid initiation of HD.
-Case management notes reviewed by me and they are working on an outpatient HD clinic, the patient's history of hepatitis B is making placement difficult
-From a cardiac standpoint the patient's acute HF symptoms improved with initiation of HD for volume management. Weight was as high as 104 lbs on admission and weight is down to 94 lbs on my review of VS 03/16/2025. Patient continues to make
urine, outpatient doses of Lasix and metolazone have been stopped.
-EF was preserved at 65% by echo on 03/03/2025 and there was evidence of moderate mitral stenosis with a mean gradient of 9 mmHg.
-Outpatient dose of atenolol 50 mg BID was changed to Lopressor 25 mg BID this admission
-Patient is not chronically on STEFAN/ARB/ARNI/aldosterone antagonist in the setting of DANIELLA and new initiation of HD
-Patient is not a candidate for SGLT2 therapy due to HD therapy
-Patient noted to have newly diagnosed A-fib with RVR early 03/04/25 and then spontaneously converted to SR and has remained in SR on my review of telemetry 03/16/2025.
-Patient was started on Eliquis 2.5 mg BID (on HD and wt 42.8 kg)
-Patient with known history of multivessel CAD with previous PCI of the RCA, circumflex and LAD. Outpatient dose of Plavix 75 mg daily was initially continued, but in light of the need for OAC we will stop Plavix 03/16/2025 orders placed by me.
-Continue with amiodarone 200 mg daily. QTc was 458 ms on my review of the ECG from 03/10/2025
Progress Note - Aviation Program Manager
Subjective
Date of Service: March 16, 2025
She was so she was not on dialysis treatment
Objective
Labs:
03/16/25 08:21
03/16/25 08:21
Labs
Hgb 8.5 g/dL (12.0-16.0) L 03/16/25 08:21
Hct 26.4 % (37.0-47.0) L 03/16/25 08:21
Plt Count 231 10^3/uL (130-400) 03/16/25 08:21
PT 16.5 Sec (11.4-14.6) H 03/08/25 04:40
INR 1.32 03/08/25 04:40
APTT 46.0 Sec (23.4-35.0) H 03/08/25 04:40
Sodium 131 mmol/L (135-145) L 03/16/25 08:21
Potassium 4.3 mmol/L (3.5-5.1) 03/16/25 08:21
BUN 54 mg/dl (7-17) H 03/16/25 08:21
Creatinine 4.7 mg/dL (0.6-1.0) H* 03/16/25 08:21
Glucose 160 mg/dl (70-99) H 03/16/25 08:21
Vital Signs and I&O:
Vital Signs
Temp Pulse Resp BP Pulse Ox
98.6 F 61 16 159/57 95
03/16/25 07:03 03/16/25 07:03 03/16/25 07:03 03/16/25 07:03 03/16/25 07:03
Vital Signs
Temp Pulse Resp BP Pulse Ox
98.6 F 61 16 159/57 95
03/16/25 07:03 03/16/25 07:03 03/16/25 07:03 03/16/25 07:03 03/16/25 07:03
Intake & Output
03/14/25 03/15/25 03/16/25 03/17/25
06:59 06:59 06:59 06:59
Intake Total 800 / 800 1200 / 1200 960 / 960
Balance 800 / 800 1200 / 1200 960 / 960
Physical Exam
Physical Exam
GEN: AAO x 3
LUNGS: RA. No audible wheeze
CV: Regular, 2/6 murmur
[2025-03-16] MEDS: RETACRIT 10000 UNITS IV (10:27)
--- NOTE | 2025-03-16 11:05 | CM ---
Addendum entered by Gay Davalos 03/16/25 13:03:
CM consult completed-VN
Addendum entered by Gay Davalos 03/16/25 12:17:
tt hospitalist/Dr. Stevens
Addendum entered by aGy Davalos 03/16/25 12:11:
rec call from Leandro from [facility] - they have a chair time on at 6:20am starting Sunday (03/20/25) at [facility]. She will fax a new schedule letter to CM - this was confirmed with with the clinic
spoke with /patient agreeable
PLAN: Home with MALGORZATA, outpatient HD at [facility] clinic fax #: [phone]
Original Note:
spoke with Chandrika velardeison from [facility] - discussed if patient could have a closer to home clinic (?[place])
she will get back to CM
CM left message with Leandro Handley at [facility] intake ([phone]) ext [phone]
refaxed clinicals to [facility] [phone]
PLAN: GUDELIAN, await call back regarding closer clinic for outpatient HD
--- NOTE | 2025-03-16 11:54 | W.PN.NEPH.HD ---
Assessment
-
Patient seen on dialysis
Systolic blood pressure 163
Blood pressure has remained labile if drops again we can titrate back metoprolol
Progress Note - Hemodialysis
-
Date of Service: March 16, 2025
Duration: 15 minutes and 3 hours
Potassium Bath: 3
Calcium Bath: 2.5
Opti-Dialyzer: 160
Ultrafiltration: Other (Increased UF to 2 kg given high blood pressure)
Blood Flow: 350
Dialysate Flow: 600
Heparin: None
EPO: 10,000
[2025-03-16] MEDS: HEPARIN 3900 UNITS INTRACATH (12:16)
[2025-03-16] MEDS: PLAVIX PO (12:17)
[2025-03-16] MEDS: IMDUR (EXTENDED RELEASE) PO ×2 (12:47→15:09)
[2025-03-16] MEDS: CRESTOR PO ×2 (12:48→15:10)
[2025-03-16] MEDS: ROCALTROL PO ×2 (12:48→15:11)
[2025-03-16] MEDS: CATAPRES PO (12:48)
[2025-03-16] MEDS: LOPRESSOR PO ×2 (12:48→22:15)
[2025-03-16] MEDS: PACERONE PO (12:48)
[2025-03-16] MEDS: ELIQUIS PO ×2 (12:48→15:11)
[2025-03-16] MEDS: PROGRAF PO ×2 (12:48→15:11)
[2025-03-16] MEDS: SODIUM BICARBONATE PO ×2 (12:48→15:11)
--- NOTE | 2025-03-16 12:53 | PTCARENOTE ---
Pt refusing all accuchecks. RN made aware.
--- NOTE | 2025-03-16 14:10 | PTCARENOTE ---
Pt with complaints of nausea and dizziness after receiving dialysis. Vitals taken, BP: 174/71, HR: 80, O2 92. Patient unable to take morning medication because of complaints of nausea. Offered patient PRN IV Zofran, pt declined. made aware. Pt in
bed, family at bedside, call almonte within reach. Will continue to monitor
--- NOTE | 2025-03-16 14:47 | W.PN.HOSP.TC ---
Today's Communication/Plan
-
monitor BP with BP meds
HD schedule per Nephrology
empiric Doxy for possible bronchitis
DC planning with OP HD setup
Assessment / Plan
Assessment / Plan
Assessment:
Acute hypoxic respiratory failure on 4L NC
Acute on chronic congestive heart failure preserved EF
Acute on chronic kidney disease, progression to ESRD
hx renal transplant 1997
- s/p IV Lasix drip without improvement in Cr
- s/p HD cath placement 03/06. per vice president of procurement; fistula not developed enough.
- HD initiation 03/06; continue HD per Nephrology
- continue INSURANCE EXECUTIVE on tacrolimus (dose decreased given level), prednisone
- continue sodium bicarb
- OP HD setup complicated by + Hepatitis B Serologies. CM arranging.
Fever
- fever 101 overnight 03/11-03/12; now afebrile > 24 hours; patient's symptoms (cough) persist. Will add Doxycycline for possible bronchitis
- prior CXR/Covid/Flu negative
Essential HTN
Presentation with hypertensive emergency with heart failure exacerbation
- patient's SBP now low with initiation and continuation of HD
- Stop Nifedipine and monitor BP off this medication
- continue Clonidine, Metoprolol with hold parameters
- hold Imdur with hold parameters
Nonischemic myocardial injury
CAD with hx of KS and 7 total stents
- trop peaked at .162
- continue BB
- Plavix stopped by Cardiology on 03/16
- Echo: no change from prior
- appreciate Cardiology
New onset A. Fib
- continue Amiodarone/Eliquis (new start)
Kidney Cyst
- Urology following; Ortega placement adequate
- CT: large cyst extending medially from the transplant kidney which sits centrally in the pelvis. This has increased in size from prior study. The bladder is seen separate from this cyst and is decompressed. 2. There is a small low-attenuation mass
in the transplant kidney of uncertain etiology.
- She will need evaluation for this at her transplant center
HLD - statin
Hep B S-Ag positive
- no evidence of cirrhosis on CT
- OP PCP f/u
DVT ppx: Eliquis
Code: Full confirmed with and daughter
Anticipated Discharge: > 48 hours
Subjective/Interval History
-
Date of Service: March 16, 2025
continues with HD
reports cough, asking for antibiotic
Objective Data
-
Labs:
Laboratory Results
03/16/25
08:21
WBC 6.0
Hgb 8.5 L
Hct 26.4 L
Plt Count 231
Sodium 131 L
Potassium 4.3
Chloride 96 L
Carbon Dioxide 22
BUN 54 H
Creatinine 4.7 H*
Glucose 160 H
Calcium 8.0 L
Vital Signs:
Vital Signs
Temp Pulse Resp BP Pulse Ox
98.8 F 77 16 163/62 91
03/16/25 12:48 03/16/25 12:48 03/16/25 12:48 03/16/25 12:48 03/16/25 12:48
I&O
03/15/25 03/16/25 03/17/25
06:59 06:59 06:59
Intake Total 1200 / 1200 960 / 960
Balance 1200 / 1200 960 / 960
Physical Exam
-
General: No Apparent Distress
HEENT: Normocephalic and Atraumatic
Respiratory: Negative Wheezes
Cardiac: Regular Rhythm and S1/S2
GI: Soft
Musculoskeletal: No Edema
Neuro: AO x 3
Psych: Calm
Data Reviewed
-
Total Time Spent with Patient (in minutes): 45
Labs: Labs Reviewed by me
[2025-03-16] MEDS: TYLENOL 650 MG PO (15:06)
[2025-03-16] MEDS: CATAPRES 0.2 MG PO ×2 (15:08→22:14)
[2025-03-16] MEDS: PACERONE 200 MG PO (15:08)
[2025-03-16] MEDS: LOPRESSOR 25 MG PO (15:09)
[2025-03-16 17:06] LABS: COVID-19 Antigen Negative (Negative)
[2025-03-16] MEDS: TAMIFLU 30 MG PO (17:46)
[2025-03-16 21:34] LABS: Glucose - Point of Care 154 mg/dl (70-99)
[2025-03-16] MEDS: ELIQUIS 2.5 MG PO (22:15)
[2025-03-16] MEDS: PROGRAF 0.5 MG PO (22:24)
[2025-03-16] MEDS: SODIUM BICARBONATE 650 MG PO (22:25)
[2025-03-16] MEDS: VIBRAMYCIN 100 MG PO (22:31)
[2025-03-16] MEDS: DELTASONE 5 MG PO (22:31)
[2025-03-16] MEDS: LANTUS SC (22:33)
[2025-03-16] MEDS: PEPCID PO (22:36)
[2025-03-16] MEDS: MELATONIN PO (22:37)
[2025-03-17 04:22] VITALS: BMI 16.7
[2025-03-17 04:27] VITALS: BP 153/61
[2025-03-17 07:38] VITALS: BP 135/64
[2025-03-17 08:09] LABS: Glucose - Point of Care 150 mg/dl (70-99)
[2025-03-17] MEDS: ROCALTROL 0.25 MCG PO (09:06)
[2025-03-17] MEDS: LOPRESSOR PO ×2 (09:06→20:49)
[2025-03-17] MEDS: CATAPRES 0.2 MG PO ×2 (09:07→20:52)
[2025-03-17] MEDS: SODIUM BICARBONATE 650 MG PO (09:07)
[2025-03-17] MEDS: CRESTOR 5 MG PO (09:07)
[2025-03-17] MEDS: PROGRAF 0.5 MG PO ×2 (09:07→20:51)
[2025-03-17] MEDS: ELIQUIS 2.5 MG PO ×2 (09:07→20:52)
[2025-03-17] MEDS: VIBRAMYCIN 100 MG PO ×2 (09:07→20:50)
[2025-03-17] MEDS: NOVOLOG FLEXPEN-LOW RESISTANCE SC ×3 (09:08→16:50)
[2025-03-17] MEDS: PACERONE 200 MG PO (09:08)
--- NOTE | 2025-03-17 10:29 | CM ---
patient seen at bedside
03/16 influenza +
spoke with Jay from [place] [facility] - patient set for Sunday03/20/25 at the clinic
received schedule letter from [facility] M-W- at 6:20am
CM to give schedule to patient/
tt hospitalist/mica machine operator - tentative dc Wed after dialysis
PLAN: home with MALGORZATA, outpatient HD at [facility]
[place] [facility] phone #: [phone] fax #: [phone]
--- NOTE | 2025-03-17 11:08 | W.PN.NEPH.PH ---
Today's Communication / Plan
-
Dialysis tomorrow
Discontinue sodium bicarbonate
Assessment/Plan
-
Assessment
DANIELLA
DDRTx 1997
CKD5 (3.0)
metabolic acidosis
HFpEF decompensated
weight loss
anemia
nephrotic range proteinuria
hypertensive urgency
Influenza A positive
Plan
HD tomorrow MWF
orders provided
Blood pressure stable at EDW
discharge after HD tomorrow
check tacro level= 8.7> lowered to 0.5 BID
Chest x-ray reviewed this morning: Hyperinflated lung donovan but no evidence of pneumonia or chf
placement issues she hepatitis B positive
Now on Tamiflu for influenza
-
-
Date of Service: March 17, 2025
CC / HPI / ROS
-
Chief Complaint:
Acute kidney injury
History of Present Illness:
progressive late stage CKD posttransplant with exacerbation of CHF
dialysis initiated on this admission
Dialysis now on Sunday schedule
Hemodynamically stable on anti-htns and current EDW
Review of Systems:
perera out
Denies chest pain
No fever
Labs
-
Labs:
WBC 6.0 10^3/uL (4.8-10.8) 03/16/25 08:21
RBC 3.12 10^6/uL (4.20-5.40) L 03/16/25 08:21
Hgb 8.5 g/dL (12.0-16.0) L 03/16/25 08:21
Hct 26.4 % (37.0-47.0) L 03/16/25 08:21
Plt Count 231 10^3/uL (130-400) 03/16/25 08:21
Sodium 131 mmol/L (135-145) L 03/16/25 08:21
Potassium 4.3 mmol/L (3.5-5.1) 03/16/25 08:21
Chloride 96 mmol/L (98-107) L 03/16/25 08:21
Carbon Dioxide 22 mmol/L (22-30) 03/16/25 08:21
BUN 54 mg/dl (7-17) H 03/16/25 08:21
Creatinine 4.7 mg/dL (0.6-1.0) H* 03/16/25 08:21
eGFR 9.58 03/16/25 08:21
Glucose 160 mg/dl (70-99) H 03/16/25 08:21
Calcium 8.0 mg/dl (8.4-10.2) L 03/16/25 08:21
Phosphorus 5.9 mg/dl (2.5-4.5) H 03/11/25 08:07
Ybe-A-Ftmjefmbfhb Pept 11804 pg/ml 03/03/25 16:30
Albumin 3.4 g/dl (3.5-5.0) L 03/11/25 08:07
Physical Exam
-
Vital Signs:
Vital Signs
Temp Pulse Resp BP Pulse Ox
98.0 F 57 17 135/64 96
03/17/25 07:38 03/17/25 09:06 03/17/25 07:38 03/17/25 07:38 03/17/25 07:38
Cardiovascular:: Regular rate and rhythm
Extremity Edema:: None: Bilateral:
Perera Catheter: No
[2025-03-17 11:16] VITALS: BP 129/51
--- NOTE | 2025-03-17 11:33 | W.PN.HOSP.TC ---
Today's Communication/Plan
-
continue Tamiflu/continue Doxycycline
supportive care
HD tomorrow, then DC with OP HD 1st session Sunday
Assessment / Plan
Assessment / Plan
Assessment:
Acute hypoxic respiratory failure on 4L NC
Acute on chronic congestive heart failure preserved EF
Acute on chronic kidney disease, progression to ESRD
hx renal transplant 1997
- s/p IV Lasix drip without improvement in Cr
- s/p HD cath placement 03/06. per bench technician; fistula not developed enough.
- HD initiation 03/06; continue HD per Nephrology
- continue KNITTER WIRE MESH on tacrolimus (dose decreased given level), prednisone
- continue sodium bicarb
- OP HD setup complicated by + Hepatitis B Serologies. CM arranging.
Fever
- found to have Influenza B infection on 03/16
- started Tamiflu dosing; post-HD x 5 days total
- continue Doxycycline for bronchitis x 5 days as well
- supportive care with mucolytics, anti-tussives
Essential HTN
Presentation with hypertensive emergency with heart failure exacerbation
- patient's SBP now low with initiation and continuation of HD
- Stop Nifedipine and monitor BP off this medication
- continue Clonidine, Metoprolol with hold parameters
- hold Imdur with hold parameters
Nonischemic myocardial injury
CAD with hx of [place] and 7 total stents
- trop peaked at .162
- continue BB
- Plavix stopped by Cardiology on 03/16
- Echo: no change from prior
- appreciate Cardiology
New onset A. Fib
- continue Amiodarone/Eliquis (new start)
Kidney Cyst
- Urology following; Ortega placement adequate
- CT: large cyst extending medially from the transplant kidney which sits centrally in the pelvis. This has increased in size from prior study. The bladder is seen separate from this cyst and is decompressed. 2. There is a small low-attenuation mass
in the transplant kidney of uncertain etiology.
- She will need evaluation for this at her transplant center
HLD - statin
Hep B S-Ag positive
- no evidence of cirrhosis on CT
- OP PCP f/u
DVT ppx: Eliquis
Code: Full confirmed with and daughter
Anticipated Discharge: Within 24 hours
Subjective/Interval History
-
Date of Service: March 17, 2025
reports cough, requesting cough med/mucinex
Objective Data
-
Vital Signs:
Vital Signs
Temp Pulse Resp BP Pulse Ox
98.1 F 55 18 129/51 97
03/17/25 11:16 03/17/25 11:16 03/17/25 11:16 03/17/25 11:16 03/17/25 11:16
I&O
03/16/25 03/17/25 03/18/25
06:59 06:59 06:59
Intake Total 960 / 960 60 / 60
Balance 960 / 960 60 / 60
Physical Exam
-
General: No Apparent Distress
HEENT: Normocephalic and Atraumatic
Respiratory: Negative Wheezes
Cardiac: Regular Rhythm and S1/S2
GI: Soft and Nontender
Neuro: AO x 3
Psych: Calm
Data Reviewed
-
Total Time Spent with Patient (in minutes): 42
Labs: Labs Reviewed by me
[2025-03-17 11:38] LABS: Glucose - Point of Care 136 mg/dl (70-99)
[2025-03-17] MEDS: MUCINEX 1200 MG PO ×2 (12:04→20:50)
--- NOTE | 2025-03-17 13:24 | W.PN.UPDATE ---
Update Note
Progress Note Update
Patient ended up testing positive for influenza yesterday. Plan is still for outpatient HD to start on 03/20/2025. From a cardiac standpoint we continue to recommend that Eliquis 2.5 mg BID (on HD and wt 42.8 kg) be continued. Outpatient
dose of Plavix should be stopped. Continue amiodarone 200 mg daily and Lopressor 25 mg BID. Cardiology follow-up arranged.
[2025-03-17 15:26] VITALS: BP 147/56
[2025-03-17 16:48] LABS: Glucose - Point of Care 156 mg/dl (70-99)
--- NOTE | 2025-03-17 17:24 | PTCARENOTE ---
pt c/o cough this am, denies sob, tolerating diet, moving around more today, vss, stays in room most of time with patient, will continue to monitor.
[2025-03-17 19:00] VITALS: BP 132/50
[2025-03-17] MEDS: PEPCID PO ×2 (20:50→21:47)
[2025-03-17] MEDS: DELTASONE 5 MG PO (20:52)
[2025-03-17 21:35] LABS: Glucose - Point of Care 145 mg/dl (70-99)
[2025-03-17] MEDS: LANTUS SC (21:46)
[2025-03-17] MEDS: MELATONIN PO (21:46)
[2025-03-17 23:00] VITALS: BP 167/60
[2025-03-18 03:37] VITALS: BP 160/60
[2025-03-18 06:00] VITALS: BMI 16.6
[2025-03-18 07:49] VITALS: BP 178/70
[2025-03-18 08:06] LABS: Glucose - Point of Care 139 mg/dl (70-99)
[2025-03-18 08:42] LABS: Hematocrit 27.9 % (37.0-47.0); Hemoglobin 9.1 g/dL (12.0-16.0); Mean Corp Hgb Conc. 32.6 g/dL (33.0-37.0); Mean Corpuscular Volume 84.0 fL (81.0-99.0); Platelet Count 236 10^3/uL (130-400); Red Cell Dist. Width 15.2 % (11.5-14.5)
--- NOTE | 2025-03-18 09:04 | CM ---
patient chart reviewed
Influenza + 03/16
IMM explained & signed yesterday
HD today-tentative dc after HD
schedule for outpatient [facility] [facility] reviewed & given to yesterday
PLAN: home with MALGORZATA, outpatient HD at [facility] to start 03/20/25
[facility] clinic phone #: [phone] fax #: [phone]
--- NOTE | 2025-03-18 09:43 | W.PN.HOSP.TC ---
Today's Communication/Plan
-
dc to home/VN
Assessment / Plan
Assessment / Plan
Assessment:
Acute hypoxic respiratory failure on 4L NC
Acute on chronic congestive heart failure preserved EF
Acute on chronic kidney disease, progression to ESRD
hx renal transplant 1997
- s/p IV Lasix drip without improvement in Cr
- s/p HD cath placement 03/06. per dialysis tech; fistula not developed enough.
- HD initiation 03/06; continue HD per Nephrology
- continue EMISSIONS REPAIR TECHNICIAN on tacrolimus (dose decreased given level), prednisone
- continue sodium bicarb
- OP HD setup complicated by + Hepatitis B Serologies. CM arranging.
Fever
- found to have Influenza B infection on 03/16
- started Tamiflu dosing; post-HD x 5 days total
- continue Doxycycline for bronchitis x 5 days as well
- supportive care with mucolytics, anti-tussives
Essential HTN
Presentation with hypertensive emergency with heart failure exacerbation
- patient's SBP now low with initiation and continuation of HD
- Stop Nifedipine and monitor BP off this medication
- continue Clonidine, Metoprolol with hold parameters
Nonischemic myocardial injury
CAD with hx of [place] and 7 total stents
- trop peaked at .162
- continue BB
- Plavix stopped by Cardiology on 03/16
- Echo: no change from prior
- appreciate Cardiology
New onset A. Fib
- continue Amiodarone/Eliquis (new start)
Kidney Cyst
- Urology following; Ortega placement adequate
- CT: large cyst extending medially from the transplant kidney which sits centrally in the pelvis. This has increased in size from prior study. The bladder is seen separate from this cyst and is decompressed. 2. There is a small low-attenuation mass
in the transplant kidney of uncertain etiology.
- She will need evaluation for this at her transplant center
HLD - statin
Hep B S-Ag positive
- no evidence of cirrhosis on CT
- OP PCP f/u
DVT ppx: Eliquis
Code: Full confirmed with and daughter
More than 30 minutes spent in discharge including
Final examination of the patient
Summarizing hospital stay
Instructions for continuing care to all relevant caregivers
Preparation of discharge records, prescriptions, and referral forms
Total time spent (in minutes): 41
Anticipated Discharge: Today
Subjective/Interval History
-
Date of Service: March 18, 2025
resting comfortably, starting HD now
Objective Data
-
Labs:
Laboratory Results
03/18/25
07:55
WBC 6.6
Hgb 9.1 L
Hct 27.9 L
Plt Count 236
Sodium Pending
Potassium Pending
Chloride Pending
Carbon Dioxide Pending
BUN Pending
Creatinine Pending
Glucose Pending
Calcium Pending
Vital Signs:
Vital Signs
Temp Pulse Resp BP Pulse Ox
97.8 F 58 18 178/70 99
03/18/25 07:49 03/18/25 07:49 03/18/25 07:49 03/18/25 07:49 03/18/25 07:49
I&O
03/17/25 03/18/25 03/19/25
06:59 06:59 06:59
Intake Total 60 / 60 660 / 660
Balance 60 / 60 660 / 660
Physical Exam
-
General: No Apparent Distress
HEENT: Normocephalic and Atraumatic
Respiratory: Negative Wheezes
Cardiac: Regular Rhythm
GI: Soft
Genito-urinary: No Costovertebral Tender
Neuro: AO x 3
Psych: Calm
Data Reviewed
-
Total Time Spent with Patient (in minutes): 42
Labs: Labs Reviewed by me
[2025-03-18] MEDS: RETACRIT 10000 UNITS IV (09:55)
--- NOTE | 2025-03-18 10:03 | W.DCSUMMARY ---
Discharge Summary
Discharge Data
Date of Admission: 03/03/25
Date of Discharge: 03/18/25
-
Pending Results: No
Hospital Course
69 y/o F, hx of hx of CHF, CAD with hx of SD s/p 7 total stents, HTN, HLD, R renal transplant 1997 on tacrolimus, presented 03/03 with hypertensive emergency and acute CHF. Patient was started on diuretic infusion and BiPAP. She was evaluated by
Cardiology and Nephrology. Her renal function worsened despite diuretics and patient was started on dialysis 03/06. Patient tolerated dialysis well and will have OP HD setup with 1st session on 03/20/25. Sodium bicarbonate was stopped.
Patients BP regimen was consolidated to Metoprolol and Clonidine after initiation of HD; Imdur and Nifedipine were stopped. Sodium bicarb was stopped.
Prograf dose was reduced to 0.5mg BID based off serum levels; Prednisone will continue. She also had a cyst on her transplanted kidney and will follow up with her transplant center for further management.
Her course was complicated by new Afib requiring Eliquis initiation and stopping Plavix. She will follow up with Cardiology outpatient.
Also patient developed influenza infection and will complete a course of Tamiflu this week.
She was discharged home with VN support on 03/18/25.
Discharge Plan
-
Patient Disposition: Home with Home Care
Discharge Diagnosis/Procedures: acute CHF and progressive renal failure requiring HD start, Influenza infection, new A Fib
Condition: Fair
Diet: 2 Gram Sodium and Restrict fluids to 48 oz
Additional Diets: 2 gram potassium restriction
Activity: As tolerated
Other Services: VN
Activity Restrictions/Additional Instructions:
follow up with your transplant center for kidney cyst and to renew additional Tacrolimus scripts
Instructions: *[facility] Heart Failure Instructions
Referrals:
Joey French MD [Family Provider, Family Practice]
Matthew Gonzales MD [Active, Cardiology] - 04/07/25 3:00 pm
Referral Note: You have an appointment to see Dr. Gonzales at the [place] office on 04/07/2025 at 3 PM. Please call [phone] if you need to reschedule
Additional Discharge Medication Instructions: - Stop taking atenolol, it has been replaced with Lopressor (metoprolol tartrate) 25 mg twice daily.
- Stop Nifedipine
- Start taking amiodarone 200 mg once a day
- Start taking Eliquis 2.5 mg twice daily. Stop taking Plavix (clopidogrel)
Prescriptions:
New
amiodarone [Pacerone] 200 mg Tablet
200 mg PO DAILY Qty: 30 11RF
metoprolol tartrate 25 mg Tablet
25 mg PO BID Qty: 60 11RF
Eliquis 2.5 mg Tablet
2.5 mg PO BID Qty: 60 11RF
doxycycline hyclate 100 mg Capsule
100 mg PO Q12 Qty: 5 0RF
Rx Instructions:
next dose 12 PM
oseltamivir 30 mg Capsule
30 mg PO MoWeFr@1800 Qty: 1 0RF
Rx Instructions:
take Sunday after dialysis session
tacrolimus 0.5 mg Capsule
0.5 mg PO Q12 Qty: 60 0RF
benzonatate 100 mg Capsule
200 mg PO TIDPRN PRN (Reason: cough) Qty: 20 0RF
guaifenesin 600 mg Tablet Extended Release 12hr
1,200 mg PO Q12 Qty: 20 0RF
Continued
prednisone 5 MG tablet
5 mg PO HS
rosuvastatin 5 mg Tablet
5 mg PO DAILY
calcitriol 0.25 mcg Capsule
0.25 mcg PO DAILY
clonidine HCl 0.2 mg Tablet
0.2 mg PO BID Qty: 60 11RF
Discontinued
tacrolimus [Prograf] 1 mg Capsule
1 mg PO Q12H
atenolol 50 mg tablet
50 mg PO BID
clopidogrel 75 MG tablet
75 mg PO DAILY
furosemide 40 mg Tablet
40 mg PO SUTUTHSA
Rx Instructions:
MWF 40mg; rest of the days 80mg
Lokelma 10 gram Powder In Packet
10 g PO Q48H
nifedipine 30 mg Tablet Extended Release 24hr
30 mg PO BID
metolazone 2.5 mg Tablet
2.5 mg PO Q7D
furosemide 80 mg Tablet
80 mg PO MOWEFR
Discharge Orders:
Discharge Patient (As Directed); Ordered 03/18/25
Ordered By: Poli Brown
Discharge Date and Time
Print Language: CYPRIOT
[2025-03-18 10:14] LABS: Blood Urea Nitrogen 49 mg/dl (7-17); Calcium 8.2 mg/dl (8.4-10.2); Carbon Dioxide 24 mmol/L (22-30); Chloride 92 mmol/L (98-107); Estimated Creatinine Clearance 7 ml/min; Glucose 136 mg/dl (70-99); Potassium 4.1 mmol/L (3.5-5.1); Sodium 128 mmol/L (135-145); eGFR 9.58
[2025-03-18 10:53] VITALS: BP 142/52
[2025-03-18] MEDS: HEPARIN 3900 UNITS INTRACATH (11:31)
[2025-03-18 11:49] LABS: Glucose - Point of Care 101 mg/dl (70-99)
--- NOTE | 2025-03-18 11:49 | W.PN.NEPH.HD ---
Progress Note - Hemodialysis
-
Date of Service: March 18, 2025
Duration: 15 minutes and 3 hours
Potassium Bath: 3
Calcium Bath: 2.5
Opti-Dialyzer: 160
Ultrafiltration: Other (Increased UF to 2 kg given high blood pressure)
Blood Flow: 350
Dialysate Flow: 600
Heparin: None
EPO: 10,000
[2025-03-18 11:50] VITALS: BP 142/52
[2025-03-18] MEDS: CATAPRES 0.2 MG PO (12:15)
[2025-03-18] MEDS: VIBRAMYCIN 100 MG PO (12:15)
[2025-03-18] MEDS: CRESTOR 5 MG PO (12:15)
[2025-03-18] MEDS: ROCALTROL 0.25 MCG PO (12:15)
[2025-03-18] MEDS: ELIQUIS 2.5 MG PO (12:16)
[2025-03-18] MEDS: LOPRESSOR 25 MG PO (12:16)
[2025-03-18] MEDS: PACERONE 200 MG PO (12:16)
[2025-03-18] MEDS: MUCINEX 1200 MG PO (12:17)
[2025-03-18] MEDS: PROGRAF 0.5 MG PO (12:17)
[2025-03-18] MEDS: TAMIFLU 30 MG PO (14:07)
== END 2025-03-18 14:59 | disposition home health service (06) | DRG 673 ==
LOC: 3 WEST ACU 18:39
PROVIDERS: Internal Medicine; Internal Medicine Nephrology; Nurse Practitioner Family; Radiology Vascular & Interventional Radiology; Registered Nurse; Specialist; Student in an Organized Health Care Education/Training Program; ADMITTING PHYSICIAN Internal Medicine; CONSULT PHYSICIAN Internal Medicine; CONSULT PHYSICIAN Nuclear Medicine Nuclear Cardiology; CONSULT PHYSICIAN Specialist; EMERGENCY PHYSICIAN Emergency Medicine; FAMILY PHYSICIAN Family Medicine; OTHER PHYSICIAN Specialist
PROC: 0T9B70Z Drainage of Bladder with Drainage Device, Via Natural or Artificial Opening (ICD-10-PCS; 2025-03-04)
PROC: B5181ZA Fluoroscopy of Superior Vena Cava using Low Osmolar Contrast, Guidance (ICD-10-PCS; 2025-03-06)
PROC: 02HV33Z Insertion of Infusion Device into Superior Vena Cava, Percutaneous Approach (ICD-10-PCS; 2025-03-06)
PROC: 0JH63XZ Insertion of Tunneled Vascular Access Device into Chest Subcutaneous Tissue and Fascia, Percutaneous Approach (ICD-10-PCS; 2025-03-06)
PROC: 5A1D70Z Performance of Urinary Filtration, Intermittent, Less than 6 Hours Per Day (ICD-10-PCS; 2025-03-06)
DX: T86.19 Other complication of kidney transplant (principal); I50.33 Acute on chronic diastolic (congestive) heart failure; J96.01 Acute respiratory failure with hypoxia; I16.1 Hypertensive emergency; N17.9 Acute kidney failure, unspecified; E87.20 Acidosis, unspecified; I24.89 Other forms of acute ischemic heart disease; I13.2 Hypertensive heart and chronic kidney disease with heart failure and with stage 5 chronic kidney disease, or end stage renal disease; I5A Non-ischemic myocardial injury (non-traumatic); Z68.1 Body mass index [BMI] 19.9 or less, adult; B18.1 Chronic viral hepatitis B without delta-agent; N18.6 End stage renal disease; I25.10 Atherosclerotic heart disease of native coronary artery without angina pectoris; E78.5 Hyperlipidemia, unspecified; E11.22 Type 2 diabetes mellitus with diabetic chronic kidney disease; I35.1 Nonrheumatic aortic (valve) insufficiency; I77.810 Thoracic aortic ectasia; E88.09 Other disorders of plasma-protein metabolism, not elsewhere classified; D63.1 Anemia in chronic kidney disease; N28.1 Cyst of kidney, acquired; J10.1 Influenza due to other identified influenza virus with other respiratory manifestations; R63.6 Underweight; E03.9 Hypothyroidism, unspecified; I95.9 Hypotension, unspecified; I48.0 Paroxysmal atrial fibrillation; I48.91 Unspecified atrial fibrillation; R33.9 Retention of urine, unspecified; Y83.0 Surgical operation with transplant of whole organ as the cause of abnormal reaction of the patient, or of later complication, without mention of misadventure at the time of the procedure; I25.2 Old myocardial infarction; Z95.5 Presence of coronary angioplasty implant and graft; Z79.02 Long term (current) use of antithrombotics/antiplatelets; Z88.8 Allergy status to other drugs, medicaments and biological substances; Z91.048 Other nonmedicinal substance allergy status; Z79.621 Long term (current) use of calcineurin inhibitor; Z79.52 Long term (current) use of systemic steroids; Z11.52 Encounter for screening for COVID-19; Z91.199 Patient's noncompliance with other medical treatment and regimen due to unspecified reason; Z79.899 Other long term (current) drug therapy
CPT/HCPCS: 36558; 36600; 51702; 71045; 71046; 74176; 76857; 76937; 77001; 80048; 80053; 80069; 80197; 81003; 81015; 82805; 82962; 83036; 83735; 83880; 84100; 84484; 85025; 85027; 85610; 85730; 86704; 86705; 86706; 86803; 86850; 86900; 86901; 87040; 87077; 87086; 87186; 87340; 87502; 87517; 87811; 93005; 93308; 93970; 94640; 96374; 97116; 97163; 97167; 97530; 99152; 99153; 99285; C1750; G0257; P9047; Q5106